=== PATIENT | female | born 1940 | race Caucasian/White ===

== ENCOUNTER → 2016-11-08 | Outpatient (CLI) | payer BC ==
[~2016-11-08] MED LIST: APIX1TAB PO; CHOL1000 PO; CRD200 PO; LEVO100T7 PO; METO25TA3 PO; MULTTAB58 PO; PRVC/40 PO
--- NOTE | 2016-11-08 10:58 | DIAGNOSTIC IMAGING REPORT ---
KUB CLINICAL HISTORY: Nephrolithiasis. COMPARISON STUDY: CT of the abdomen and pelvis June 28, 2016 and KUB October 11, 2016 FINDINGS: A right pelvic calcification represents a phlebolith. There bilateral hip arthroplasties. There are several suspected punctate left renal calculi. No ureteral calculi are identified. Calculi within lower pole of the right kidney are unchanged and measure up to 1.5 cm. IMPRESSION: 1. No significant change in two right renal calculi which measure up to 1.5 cm. 2. Punctate left renal calculi. 3. No ureteral calculi. Electronically signed by: Tremayne Bronson M.D. 11/08/2016 10:56 AM
== END | disposition home or self-care (01) ==
LOC: C.RAD 10:13
PROVIDERS: ATTEND Urology
DX: N20.0 Calculus of kidney (principal)

== ENCOUNTER → 2017-01-25 | Outpatient (CLI) | payer BC ==
[2017-01-25 12:10] LABS: BASO % 0.1 %; BASO ABS # 0.01 K/uL (0-0.2); COMPLETE YES; EOS % 3.9 %; HEMATOCRIT 39.5 % (37-47); IG% 0.1 %; LYMPH % 21.8 %; LYMPH ABS # 1.61 K/uL (1.2-3.4); MEAN CELL VOLUME 96.6 fL (80-100); MEAN CORPUSCULAR HEMOGLOBIN 30.8 pg (25-34); MEAN CORPUSCULAR HGB CONC 31.9 g/dl (32-36); MEAN PLATELET VOLUME 12.9 fL (7.4-10.4); MONO % 9.6 %; NEUT % 64.5 %; PLATELET COUNT 222 K/uL (130-400); RED BLOOD COUNT 4.09 M/uL (4.2-5.4); WHITE BLOOD COUNT 7.39 K/uL (4.8-10.8)
[2017-01-25 13:03] LABS: ALT/SGPT 46 U/L (12-78); AST/SGOT 42 U/L (15-37); BLOOD UREA NITROGEN 18 mg/dl (7-18); BUN/CREATININE RATIO 15.2 (10-20); CALCIUM 8.6 mg/dl (8.5-10.1); CARBON DIOXIDE 29 mmol/L (21-32); CHLORIDE 107 mmol/L (98-107); GLUCOSE 70 mg/dl (70-99); SODIUM 142 mmol/L (136-145)
[2017-01-25 13:14] LABS: ALB/GLOB RATIO 0.9 (0.9-2); ALKALINE PHOSPHATASE 100 U/L (45-117)
== END | disposition home or self-care (01) ==
LOC: C.LAB1850 11:11
PROVIDERS: ATTEND Internal Medicine
DX: E03.9 Hypothyroidism, unspecified (principal); I48.0 Paroxysmal atrial fibrillation

== ENCOUNTER → 2017-03-09 | Outpatient (CLI) | payer BC ==
--- NOTE | 2017-03-09 10:26 | DIAGNOSTIC IMAGING REPORT ---
KUB CLINICAL HISTORY: N20.0 [id number] nephrocalcinosis COMPARISON STUDY: 11/08/2016 FINDINGS: Right renal nephrocalcinosis unchanged in the prior study. Several punctate left renal calcifications also unchanged. Nonobstructive bowel pattern. Bilateral hip arthroplasties. IMPRESSION: Right and to lesser extent left renal nephrocalcinosis unchanged from the prior study. Electronically signed by: Cameron Henry M.D. 03/09/2017 10:25 AM Dictated Date/Time: 03/09/2017 10:20 AM
== END | disposition home or self-care (01) ==
LOC: C.RAD 09:55
PROVIDERS: ATTEND Urology
DX: N20.0 Calculus of kidney (principal)

== ENCOUNTER → 2017-05-26 | Outpatient (CLI) | payer BC ==
--- NOTE | 2017-05-26 15:52 | DIAGNOSTIC IMAGING REPORT ---
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 No calculi are seen along the course of either ureter. Vascular calcifications are again seen within the pelvis. Bowel gas pattern is nonobstructive. Bilateral hip arthroplasty noted. There is convex-right curvature of the mid lumbar spine with multilevel degenerative changes. IMPRESSION: Bilateral nephrolithiasis redemonstrated without calculi seen along the course of either ureter. The above report was generated using voice recognition software. It may contain grammatical, syntax or spelling errors. Electronically signed by: Neo Hayward M.D. 05/26/2017 3:51 PM Dictated Date/Time: 05/26/2017 3:48 PM
== END | disposition home or self-care (01) ==
LOC: C.RAD 15:07
PROVIDERS: ATTEND Urology
DX: C67.9 Malignant neoplasm of bladder, unspecified (principal); N20.0 Calculus of kidney

== ENCOUNTER → 2017-07-14 | Outpatient (CLI) | payer BC ==
--- NOTE | 2017-07-14 14:39 | DIAGNOSTIC IMAGING REPORT ---
KUB CLINICAL HISTORY: N20.0 [id number] nephrocalcinosis COMPARISON STUDY: 05/26/2017 FINDINGS: Nonobstructive bowel pattern. Unchanging right-sided nephrocalcinosis. No significant paravertebral calcifications. Vascular calcification lateral right soft tissue pelvis unchanged. Bilateral hip arthroplasties. IMPRESSION: Unchanging right nephrocalcinosis. No change from the prior exam. The above report was generated using voice recognition software. It may contain grammatical, syntax or spelling errors. Electronically signed by: Cameron Henry M.D. 07/14/2017 2:38 PM Dictated Date/Time: 07/14/2017 2:36 PM
== END | disposition home or self-care (01) ==
LOC: C.RAD 13:56
PROVIDERS: ATTEND Urology
DX: N20.0 Calculus of kidney (principal)

== ENCOUNTER → 2017-07-19 | Outpatient (CLI) | payer BC | END | disposition home or self-care (01) | LOC: C.LABSPEC 17:02 | PROVIDERS: ATTEND Urology | DX: C67.9 Malignant neoplasm of bladder, unspecified (principal) ==

== ENCOUNTER → 2017-08-04 | Outpatient (CLI) | payer BC | END | disposition home or self-care (01) | LOC: C.MAMM 14:53 | PROVIDERS: ATTEND Internal Medicine | DX: M81.0 Age-related osteoporosis without current pathological fracture (principal) ==

== ENCOUNTER → 2017-08-18 | Outpatient (CLI) | payer BC ==
[2017-08-18 10:35] LABS: CHOLESTEROL/HDL RATIO 2.1; THYROID STIMULATING HORMONE 2.25 uIu/ml (0.300-4.500)
== END | disposition home or self-care (01) ==
LOC: C.LAB1850 09:08
PROVIDERS: ATTEND Internal Medicine
DX: E78.5 Hyperlipidemia, unspecified (principal); E03.9 Hypothyroidism, unspecified

== ENCOUNTER → 2017-08-25 | Outpatient (CLI) | payer BC | END | disposition home or self-care (01) | LOC: C.LAB1850 10:53 | PROVIDERS: ATTEND Internal Medicine Rheumatology | DX: M81.0 Age-related osteoporosis without current pathological fracture (principal); E55.9 Vitamin D deficiency, unspecified; E61.8 Deficiency of other specified nutrient elements ==

== ENCOUNTER → 2017-08-26 | Outpatient (CLI) | payer BC ==
--- NOTE | 2017-08-26 13:51 | DIAGNOSTIC IMAGING REPORT ---
KUB HISTORY: Follow-up study NEPHROLITHIASIS COMPARISON: KUB 07/14/2017, CT 06/28/2016. FINDINGS: The bowel gas pattern is non-obstructive. There is no organomegaly. Unchanged bilateral nephrolithiasis without definite ureteral calculi. Phleboliths of the pelvis. No pneumoperitoneum or pneumatosis. No fracture. Multilevel advanced degenerative changes of the spine with dextroscoliosis of the lumbar spine. Bilateral hip arthroplasties noted. Moderate background bone demineralization. IMPRESSION: Unchanged appearance of bilateral nephrolithiasis without definite ureteral calculi. Electronically signed by: Neo Hayward M.D. 08/26/2017 1:50 PM Dictated Date/Time: 08/26/2017 1:48 PM
== END | disposition home or self-care (01) ==
LOC: C.LAB1850 13:17
PROVIDERS: ATTEND Nurse Practitioner Adult Health
DX: N20.0 Calculus of kidney (principal)

== ENCOUNTER → 2017-08-30 | Outpatient (CLI) | payer BC ==
[2017-08-30 17:27] LABS: BLOOD UREA NITROGEN 14 mg/dl (7-18)
== END | disposition home or self-care (01) ==
LOC: C.LAB 15:52
PROVIDERS: ATTEND Nurse Practitioner Adult Health
DX: R10.9 Unspecified abdominal pain (principal)

== ENCOUNTER → 2017-09-01 | Outpatient (CLI) | payer BC ==
[~2017-09-01] MED LIST changes: +OPTIRAY 320 IV PRN
--- NOTE | 2017-09-01 14:46 | DIAGNOSTIC IMAGING REPORT ---
ABD/PELVIS COMBO WITH ORAL HISTORY: 77 years-old Female R10.9 [id number] bilateral flank pain with history of kidney stones COMPARISON: KUB 08/26/2017, CTA 27/12/2015 TECHNIQUE: Multiple axial CT images of the abdomen and pelvis were obtained both with and without the use of 120 mL Optiray 320 IV contrast. Oral contrast also administered. A dose lowering technique was used consistent with the principals of JUSTICE. FINDINGS: Mild bibasilar bronchial wall thickening with areas of subsegmental atelectasis. No pneumoperitoneum. Imaged inferior cardiac chambers are mildly enlarged with coronary arterial disease. Is a lobulated cystic lesion of the hepatic dome, 3.4 x 2.5 cm which is unchanged suggesting hepatic cyst. There is mild unchanged intrahepatic biliary ductal dilation, nonspecific. The liver is otherwise unremarkable. Gallbladder, common bile duct, pancreas, and adrenal glands are unremarkable. There are scattered calcifications through a moderately atrophic pancreas suggesting sequela of chronic pancreatitis. Mild cortical lobulations of the kidneys are seen bilaterally. Calculi in the superior pole left kidney are seen measuring up to 4 mm. There are multiple calculi throughout the right kidney, largest of which involves the renal pelvis, 1.2 x 0.8 cm. Large calculus of the inferior pole right kidney measures 1.2 x 0.8 cm as well. No renal calculi or hydronephrosis identified. The distal ureters, urinary bladder and other pelvic structures are suboptimally visualized secondary to streak artifact from bilateral hip arthroplasty hardware. No definite ureteral calculus identified. On the excretory phase, there is no focal filling defect identified within either ureter or collecting system. Subsegmental low attenuating lesions of the kidneys are too small to characterize however suggest cysts, largest of which measures 4 mm within the superior pole right kidney. Urinary bladder is unremarkable. Uterus is not well seen and likely surgically absent. Severe mixed plaquing of the abdominal aorta. Fusiform aneurysmal dilation of the infrarenal abdominal aorta is seen, 3.2 x 2.8 cm. No bulky adenopathy identified. Mild wall thickening of the distal gastric body and antrum without surrounding inflammatory stranding is likely secondary to nondistention. There is no bowel obstruction. Colonic diverticulosis without evidence of acute diverticulitis. Suggested constipation. The appendix is not clearly seen. No secondary signs of acute appendicitis. Soft tissues are unremarkable. Bones are moderately demineralized. Bilateral hip arthroplasty without complication or malalignment. Severe multilevel discogenic degenerative changes of the spine. Remote T12 compression deformity. Age-indeterminate proximally 20% superior endplate compression deformity of L2 is new from prior exam of 06/28/2016. No significant retropulsion. IMPRESSION: 1. Osteopenic appearing bones with age-indeterminate 20% superior endplate compression deformity of L2 without retropulsion is new from comparison study of 06/28/2016. Remote T12 compression deformity is also seen. 2. Bilateral nephrolithiasis without definite ureteral calculi or hydronephrosis. Evaluation of the urinary bladder and distal ureters however is limited secondary to streak artifact from bilateral hip arthroplasty hardware. 3. Additional findings as above. The above report was generated using voice recognition software. It may contain grammatical, syntax or spelling errors. Electronically signed by: Neo Hayward M.D. 09/01/2017 2:44 PM Dictated Date/Time: 09/01/2017 2:31 PM
== END | disposition home or self-care (01) ==
LOC: C.CTS 14:02
PROVIDERS: ATTEND Nurse Practitioner Adult Health
DX: R10.9 Unspecified abdominal pain (principal)

== ENCOUNTER 2018-02-11 21:11 | Inpatient (IN) | payer BC, OTHER ==
[~2018-02-11] VITALS: Ht 170.2 cm; Wt 55.6 kg
[~2018-02-11 21:11] MED LIST changes: -OPTIRAY 320 IV PRN
[2018-02-11] MEDS ORDERED: SODIUM CHLORIDE 0.9% 500ML 500 ML IV STA (21:53)
[2018-02-11] MEDS ORDERED: MAGNESIUM SULFATE 1GM / D5W 1 GM BAG IV STA (21:53)
[2018-02-11] MEDS ORDERED: METHYLPREDNISOLONE 125 MG VIAL IV STA (21:53)
[2018-02-11] MEDS ORDERED: ALBUT/IPRATROP 3MG/0.5MG NEB 3 ML VIAL INH ONE (22:00)
--- NOTE | 2018-02-11 22:03 | EMERGENCY ROOM VISIT NOTE ---
History Report prepared by Justice: José Miguel Amos Under the Supervision of: Dr. Dedrick Carrion M.D. First contact with patient: 21:45 Chief Complaint: RESPIRATORY PROBLEMS Stated Complaint: PNEUMONIA, RACING HEART History of Present Illness The patient is a 77 year old female who presents to the Emergency Room with complaints of constant shortness of breath that began this morning. She rates her discomfort as a 6/10 in severity. The patient states that she was fine yesterday. She reports that she woke up this morning with shortness of breath and a productive cough. The patient states that she was coughing up sputum until about 1200 this afternoon when her cough stopped being productive. She reports that she was also experiencing dizziness whenever she stands up. The patient denies a history of COPD, oxygen use, inhaler use, fevers, chills, urinary symptoms, diarrhea, headaches, body aches, and repeating history of upper respiratory infections. She states that she was recently around a family member who has pneumonia. The patient reports that she has been smoking a pack of cigarettes a day for the past 40 years. She reports a history of atrial fibrillation. Source of History: patient Onset: this morning Position: other (global) Symptom Intensity: 6/10 Quality: other (global) Timing: constant Associated Symptoms: + cough, No fevers, No chills, No headache, No diarrhea , No urinary symptoms Note: Associated symptoms: dizziness with standing up Denies: body aches Review of Systems See HPI for pertinent positives and negatives. A total of ten systems were reviewed and were otherwise negative. Past Medical & Surgical Medical Problems: (1) Atrial fibrillation (2) CALCULUS OF URETER (3) HYPERLIPIDEMIA NEC/NOS (4) HYPERTENSION NOS (5) MAL LIBRADO BLADDER-DOME (6) Paroxysmal atrial fibrillation with RVR (7) Total replacement of hip Family History No pertinent family history Social History Smoking Status: Current Every Day Smoker Alcohol Use: none Drug Use: none Marital Status: single Housing Status: lives with family Occupation Status: retired Current/Historical Medications Scheduled Amiodarone HCl (Amiodarone HCl), 200 MG PO DAILY Calcium Citrate (Calcium Citrate), Unknown Dose PO DAILY Levothyroxine Sodium (Levothyroxine Sodium), 125 MG PO DAILY Metoprolol Succ (Toprol Xl) (Toprol-Xl), 25 MG PO BID Pravastatin Sod (Pravastatin Sodium), 40 MG PO QPM Risedronate Sodium (Risedronate Sodium), 150 MG PO MONTHLY Rivaroxaban (Xarelto), 15 MG PO PM Allergies Coded Allergies: No Known Allergies (Unverified , 02/11/18) Physical Exam Vital Signs Date Time Temp Pulse Resp B/P (MAP) Pulse Ox O2 Delivery O2 Flow Rate FiO2 02/12/18 01:58 100 82 Room Air 02/12/18 01:13 95 22 130/77 95 Nasal Cannula 2.0 02/11/18 23:38 75 20 150/69 99 Nebulizer 02/11/18 22:41 64 02/11/18 22:18 56 18 98 Nasal Cannula 2.0 02/11/18 22:00 95 Nasal Cannula 2.0 02/11/18 21:54 95 Nasal Cannula 2.0 02/11/18 21:54 Nasal Cannula 2.0 02/11/18 21:24 36.4 67 20 191/99 90 Room Air Physical Exam GENERAL: Awake, alert, uncomfortable, appearing, in no distress HENT: Normocephalic, atraumatic. Dry mucous membranes. Oropharynx unremarkable. EYES: Normal conjunctiva. Sclera non-icteric. NECK: Supple. No nuchal rigidity. FROM. No JVD. RESPIRATORY: Diminished breath sounds throughout. Scattered wheezes and rhonchi. CARDIAC: Regular rate, normal rhythm. Extremities warm and well perfused. Pulses equal. ABDOMEN: Soft, non-distended. No tenderness to palpation. No rebound or guarding. No masses. RECTAL: Deferred. MUSCULOSKELETAL: Chest examination reveals no tenderness. The back is symmetrical on inspection without obvious abnormality. There is no CVA tenderness to palpation. No joint edema. LOWER EXTREMITIES: Calves are equal size bilaterally and non-tender. No edema. No discoloration. NEURO: Normal sensorium. No sensory or motor deficits noted. SKIN: No rash or jaundice noted. Medical Decision & Procedures ER Provider Diagnostic Interpretation: X-ray: Per my interpretation, radiologist review. CHEST ONE VIEW PORTABLE CLINICAL HISTORY: 77 years-old Female presenting with CHEST PAIN. TECHNIQUE: Portable upright AP view of the chest was obtained. COMPARISON: 08/23/2016. FINDINGS: Atherosclerosis of aortic arch. Cardiac silhouette mildly enlarged. Lungs hyperinflated. No focal opacity. No large effusion or pneumothorax. Right shoulder arthroplasty. Upper abdomen normal. IMPRESSION: 1. Suspected underlying emphysema. No superimposed focal infiltrate. 2. Mild cardiomegaly. Electronically signed by: Prasad Bell M.D. 02/11/2018 10:16 PM Dictated Date/Time: 02/11/2018 10:15 PM Laboratory Results 02/11/18 21:53 Red Blood Count 4.08, Mean Corpuscular Volume 94.1, Mean Corpuscular Hemoglobin 31.6, Mean Corpuscular Hemoglobin Concent 33.6, Mean Platelet Volume 11.4, Neutrophils (%) (Auto) 59.6, Lymphocytes (%) (Auto) 21.2, Monocytes (%) (Auto) 11.3, Eosinophils (%) (Auto) 7.3, Basophils (%) (Auto) 0.3, Neutrophils # (Auto ) 3.73, Lymphocytes # (Auto) 1.33, Monocytes # (Auto) 0.71, Eosinophils # (Auto ) 0.46, Basophils # (Auto) 0.02 02/11/18 21:53 Test 02/11/18 21:53 02/11/18 22:09 02/11/18 22:40 White Blood Count 6.27 K/uL (4.8-10.8) Red Blood Count 4.08 M/uL (4.2-5.4) Hemoglobin 12.9 g/dL (12.0-16.0) Hematocrit 38.4 % (37-47) Mean Corpuscular Volume 94.1 fL (80-100) Mean Corpuscular Hemoglobin 31.6 pg (25-34) Mean Corpuscular Hemoglobin Concent 33.6 g/dl (32-36) Platelet Count 245 K/uL (130-400) Mean Platelet Volume 11.4 fL (7.4-10.4) Neutrophils (%) (Auto) 59.6 % Lymphocytes (%) (Auto) 21.2 % Monocytes (%) (Auto) 11.3 % Eosinophils (%) (Auto) 7.3 % Basophils (%) (Auto) 0.3 % Neutrophils # (Auto) 3.73 K/uL (1.4-6.5) Lymphocytes # (Auto) 1.33 K/uL (1.2-3.4) Monocytes # (Auto) 0.71 K/uL (0.11-0.59) Eosinophils # (Auto) 0.46 K/uL (0-0.5) Basophils # (Auto) 0.02 K/uL (0-0.2) RDW Standard Deviation 47.6 fL (36.4-46.3) RDW Coefficient of Variation 13.9 % (11.5-14.5) Immature Granulocyte % (Auto) 0.3 % Immature Granulocyte # (Auto) 0.02 K/uL (0.00-0.02) Anion Gap 6.0 mmol/L (3-11) Est Creatinine Clear Calc Drug Dose 26.1 ml/min Estimated GFR () 36.5 Estimated GFR (Non- 31.5 BUN/Creatinine Ratio 10.7 (10-20) Calcium Level 8.5 mg/dl (8.5-10.1) Total Bilirubin 0.3 mg/dl (0.2-1) Direct Bilirubin 0.1 mg/dl (0-0.2) Aspartate Amino Transf (AST/SGOT) 34 U/L (15-37) Alanine Aminotransferase (ALT/SGPT) 30 U/L (12-78) Alkaline Phosphatase 127 U/L (45-117) Troponin I < 0.015 ng/ml (0-0.045) Pro-B-Type Natriuretic Peptide 923 pg/ml (0-1800) Total Protein 7.9 gm/dl (6.4-8.2) Albumin 3.5 gm/dl (3.4-5.0) Lipase 198 U/L (73-393) Venous Blood pH 7.39 (7.36-7.41) Venous Blood Partial Pressure CO2 45 mmHg (38.0-50.0) Venous Blood Partial Pressure O2 47 mmHg Venous Blood HCO3 26 mmol/L Venous Blood Oxygen Saturation 79.4 % Venous Blood Base Excess 1.0 mEq/L Influenza Type A (RT-PCR) Neg for Influ A (NEG) Influenza Type B (RT-PCR) Neg for Influ B (NEG) Laboratory results reviewed by me Medications Administered Medications (Trade) Dose Ordered Sig/Laney Route Start Time Stop Time Status Last Admin Dose Admin Sodium Chloride 500 ml @ 999 mls/hr Q31M STAT IV 02/11/18 21:53 02/11/18 22:23 DC 02/11/18 22:11 999 MLS/HR Methylprednisolone Sodium Succinate (Solu-Medrol IV) 125 mg NOW STAT IV 02/11/18 21:53 02/11/18 21:58 DC 02/11/18 22:09 125 MG Magnesium Sulfate (Magnesium Sulfate) 2 gm NOW STAT IV 02/11/18 21:53 02/11/18 21:58 DC 02/11/18 22:10 2 GM Albuterol/ Ipratropium (Duoneb) 12 ml ONE ONCE INH 02/11/18 22:00 02/11/18 22:01 DC 02/11/18 22:18 12 ML Azithromycin 500 mg/Dextrose 255 ml @ 127.5 mls/ hr NOW STAT IV 02/11/18 23:52 02/12/18 01:51 DC 02/12/18 00:12 127.5 MLS/HR Nicotine (Nicoderm Cq 21MG Patch) 1 patch NOW STAT TD 02/12/18 01:56 02/12/18 01:59 DC 02/12/18 04:14 1 PATCH ECG Per My Interpretation Indication: SOB/dyspnea Rate (beats per minute): 57 Rhythm: sinus bradycardia Findings: no acute ischemic change, other (Normal axis) ED Course 1951: The patient was evaluated in room B06. A complete history and physical exam was performed. 2328: I reevaluated the patient and updated her on her results. I discussed treatment plan. 0009: I discussed the patient's case with Dr. Pinto, [facility] Hospitalist. He understands the patient's condition and agrees to accept the patient. The patient will be further evaluated. Medical Decision I reviewed the patient's past medical history, medications, and the nursing notes as described above. The patient's presentation and history were concerning for etiologies such as infections, reactive airway disease, pneumonia, pneumothorax, COPD, CHF, cardiac ischemia, pulmonary embolism, musculoskeletal, gastrointestinal, as well as others were entertained. The patient is a 77-year-old woman with a past medical history of a 40-pack- year history of smoking, afib on Xarelto who presents emergency department with worsening cough congestion shortness of breath that evolved throughout today per hpi. Rather the patient is uncomfortable but no acute distress, afebrile stable vital signs. Does have a new oxygen requirement of 3 L. On exam the patient has diminished breath sounds throughout with scattered wheezes and rhonchi. X-ray negative for pneumonia but consistent with emphysema. Patient feeling improved with steroids and nebulizer, magnesium however still with significant wheezes and rhonchi. Given her new oxygen requirement it is reasonable to admit the patient for further management. Will additional treat with Azithro given productive mucus. Case discussed with Dr. Pinto, [facility] hospitalist, who will evaluate the patient for admission. Medication Reconcilliation Current Medication List: was personally reviewed by me Blood Pressure Screening Patient's blood pressure: Elevated blood pressure Referred to Hospitalist Consults Time Called: [phone] Consulting Physician: Dr. Pinto, [facility] Hospitalist Returned Call: [phone] I discussed the patient's case with Dr. Pinto [facility] Hospitalist. He understands the patient's condition and agrees to accept the patient. The patient will be further evaluated. Impression Primary Impression: COPD exacerbation Scribe Attestation The scribe's documentation has been prepared under my direction and personally reviewed by me in its entirety. I confirm that the note above accurately reflects all work, treatment, procedures, and medical decision making performed by me. Departure Information Dispostion Being Evaluated By Hospitalist Referrals Santy Vasquez M.D. (PCP) Patient Instructions [facility]
[2018-02-11 22:06] LABS: BASO % 0.3 %; BASO ABS # 0.02 K/uL (0-0.2); EOS % 7.3 %; EOS ABS # 0.46 K/uL (0-0.5); HEMATOCRIT 38.4 % (37-47); HEMOGLOBIN 12.9 g/dL (12.0-16.0); IG# 0.02 K/uL (0.00-0.02); LYMPH % 21.2 %; LYMPH ABS # 1.33 K/uL (1.2-3.4); MEAN CELL VOLUME 94.1 fL (80-100); MEAN CORPUSCULAR HEMOGLOBIN 31.6 pg (25-34); MEAN CORPUSCULAR HGB CONC 33.6 g/dl (32-36); MEAN PLATELET VOLUME 11.4 fL (7.4-10.4); MONO % 11.3 %; MONO ABS # 0.71 K/uL (0.11-0.59); NEUT % 59.6 %; NEUT ABS # 3.73 K/uL (1.4-6.5); PLATELET COUNT 245 K/uL (130-400); RED CELL DISTRIBUTION WIDTH CV 13.9 % (11.5-14.5); RED CELL DISTRIBUTION WIDTH SD 47.6 fL (36.4-46.3); WHITE BLOOD COUNT 6.27 K/uL (4.8-10.8)
[2018-02-11 22:18] VITALS: PULSE 56; O2SAT 98
--- NOTE | 2018-02-11 22:18 | DIAGNOSTIC IMAGING REPORT ---
CHEST ONE VIEW PORTABLE CLINICAL HISTORY: 77 years-old Female presenting with CHEST PAIN. TECHNIQUE: Portable upright AP view of the chest was obtained. COMPARISON: 08/23/2016. FINDINGS: Atherosclerosis of aortic arch. Cardiac silhouette mildly enlarged. Lungs hyperinflated. No focal opacity. No large effusion or pneumothorax. Right shoulder arthroplasty. Upper abdomen normal. IMPRESSION: 1. Suspected underlying emphysema. No superimposed focal infiltrate. 2. Mild cardiomegaly. Electronically signed by: Prasad Bell M.D. 02/11/2018 10:16 PM Dictated Date/Time: 02/11/2018 10:15 PM
[2018-02-11 22:23] LABS: ALBUMIN 3.5 gm/dl (3.4-5.0); ALT/SGPT 30 U/L (12-78); AST/SGOT 34 U/L (15-37); BLOOD UREA NITROGEN 17 mg/dl (7-18); CALCIUM 8.5 mg/dl (8.5-10.1); CARBON DIOXIDE 26 mmol/L (21-32); CREATININE 1.55 mg/dl (0.60-1.20); GLUCOSE 95 mg/dl (70-99); LIPASE 198 U/L (73-393); POTASSIUM 3.8 mmol/L (3.5-5.1); SODIUM 138 mmol/L (136-145)
[2018-02-11 22:28] LABS: ALKALINE PHOSPHATASE 127 U/L (45-117); TOTAL PROTEIN 7.9 gm/dl (6.4-8.2)
[2018-02-11] MEDS ORDERED: LEVO125T5 PO (22:39)
[2018-02-11] MEDS ORDERED: CRD200 PO (22:39)
[2018-02-11] MEDS ORDERED: RISE1TAB33 PO (22:39)
[2018-02-11] MEDS ORDERED: RIVA1.5T PO (22:39)
[2018-02-11] MEDS ORDERED: CALC250T8 PO (22:39)
[2018-02-11] MEDS ORDERED: AZITHROMYCIN 500 MG / D5W 250 ML IV STA ×2 (23:52)
[2018-02-12] VITALS (10 sets, daily range): BP systolic 133–183; BP diastolic 70–93; PULSE 62–84; TEMP 36.2–36.5; O2SAT 90–98; Ht 170.2 cm; Wt 55.6 kg
[2018-02-12 00:01] LABS: INFLUENZA A PCR Neg for Influ A (NEG); INFLUENZA B PCR Neg for Influ B (NEG)
[2018-02-12] MEDS ORDERED: NICOTINE 21 MG/24 HR TDSY TD STA (01:56)
[2018-02-12] MEDS ORDERED: ONDANSETRON INJ 2 MG/ML 2 ML VIAL IV PRN (02:00)
[2018-02-12] MEDS ORDERED: LEVAQUIN 750MG / 150ML D5W IV SCH (02:00)
[2018-02-12] MEDS ORDERED: MAGNESIUM HYDROXIDE SUSP 30 ML UDC PO PRN (02:00)
[2018-02-12] MEDS ORDERED: POLYETHYLENE (MIRALAX) 17 GM PACK PO PRN (02:00)
[2018-02-12] MEDS ORDERED: ALUMINUM/MAGNESIUM/SIMETH (MAALOX MAX) 30 ML UDC PO PRN (02:00)
--- NOTE | 2018-02-12 02:12 | History and Physical ---
History & Physical Date & Time of Service: Feb 12, 2018 at 02:12 Chief Complaint: Pneumonia, Racing Heart Primary Care Physician: Santy Vasquez M.D. History of Present Illness Source: patient, hospital records 77 yo F smoker (40 pack yr history) with no previous history of COPD, presenting with productive cough x 1 day, runny nose, fatigue. She is taking taking cough drops only for relief. She reports palpitation. No SOB, chest pain , fevers, chills.S he denies n/v, abdominal pain, diarrhea. Patient got flu vaccine this season. Her daughter was diagnosed with pneumonia on day of arrival. In the ED patient reportedly desaturated into the high 80's during ED stay. She was placed on supplemental oxygen. CXR findings suggestive of emphysema. She was treated with IV Solumedrol Azithromycin, Nebulizer treatments. 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 Family History No pertinent family history Social History Smoking Status: Current Every Day Smoker Smokeless Tobacco Use: No Alcohol Use: none Drug Use: none Marital Status: single Occupational Status: retired Immunizations History of Influenza Vaccine: No History of Tetanus Vaccine?: Yes History of Pneumococcal: Yes Pneumococcal Date: Aug 22, 2008 History of Hepatitis B Vaccine: No Allergies Coded Allergies: No Known Allergies (Unverified , 02/11/18) Home Medications Scheduled Amiodarone HCl (Amiodarone HCl), 200 MG PO DAILY Calcium Citrate (Calcium Citrate), Unknown Dose PO DAILY Levothyroxine Sodium (Levothyroxine Sodium), 125 MG PO DAILY Metoprolol Succ (Toprol Xl) (Toprol-Xl), 25 MG PO BID Pravastatin Sod (Pravastatin Sodium), 40 MG PO QPM Risedronate Sodium (Risedronate Sodium), 150 MG PO MONTHLY Rivaroxaban (Xarelto), 15 MG PO PM Review of Systems Constitutional: + weakness, No fever, No chills Respiratory: + cough, + sputum, No wheezing, No shortness of breath Cardiovascular: No chest pain, No edema, No palpitations Abdomen: No pain, No nausea, No vomiting, No diarrhea Genitourinary - Female: No dysuria, No urinary frequency, No urinary urgency Integumentary: No rash, No itch Physical Exam Vital Signs Date Time Temp Pulse Resp B/P (MAP) Pulse Ox O2 Delivery O2 Flow Rate FiO2 02/12/18 01:58 100 82 Room Air 02/12/18 01:13 95 22 130/77 95 Nasal Cannula 2.0 02/11/18 23:38 75 20 150/69 99 Nebulizer 02/11/18 22:41 64 02/11/18 22:18 56 18 98 Nasal Cannula 2.0 02/11/18 22:00 95 Nasal Cannula 2.0 02/11/18 21:54 95 Nasal Cannula 2.0 02/11/18 21:54 Nasal Cannula 2.0 02/11/18 21:24 36.4 67 20 191/99 90 Room Air GENERAL: alert, thin, no distress EYE EXAM: normal conjunctiva, PERRL and EOM's grossly intact OROPHARYNX: no exudate, no erythema, lips, buccal mucosa, and tongue normal and mucous membranes are moist NECK: supple, no nuchal rigidity, no adenopathy, non-tender LUNGS: Clear to auscultation. Normal chest wall mechanics HEART: S1, S2 ABDOMEN: abdomen soft, non-tender, normo-active bowel sounds, no masses, no rebound or guarding. SKIN: no rashes and no bruising UPPER EXTREMITIES: upper extremities are grossly normal. LOWER EXTREMITIES: No pitting edema. NEURO EXAM: Normal sensorium, cranial nerves II-XII grossly intact, normal speech Diagnostics Laboratory Results Results Past 24 Hours Test 02/11/18 21:53 02/11/18 22:09 02/11/18 22:40 Range/Units White Blood Count 6.27 4.8-10.8 K/uL Red Blood Count 4.08 4.2-5.4 M/uL Hemoglobin 12.9 12.0-16.0 g/dL Hematocrit 38.4 37-47 % Mean Corpuscular Volume 94.1 80-100 fL Mean Corpuscular Hemoglobin 31.6 25-34 pg Mean Corpuscular Hemoglobin Concent 33.6 32-36 g/dl Platelet Count 245 130-400 K/uL Mean Platelet Volume 11.4 7.4-10.4 fL Neutrophils (%) (Auto) 59.6 % Lymphocytes (%) (Auto) 21.2 % Monocytes (%) (Auto) 11.3 % Eosinophils (%) (Auto) 7.3 % Basophils (%) (Auto) 0.3 % Neutrophils # (Auto) 3.73 1.4-6.5 K/uL Lymphocytes # (Auto) 1.33 1.2-3.4 K/uL Monocytes # (Auto) 0.71 0.11-0.59 K/uL Eosinophils # (Auto) 0.46 0-0.5 K/uL Basophils # (Auto) 0.02 0-0.2 K/uL RDW Standard Deviation 47.6 36.4-46.3 fL RDW Coefficient of Variation 13.9 11.5-14.5 % Immature Granulocyte % (Auto) 0.3 % Immature Granulocyte # (Auto) 0.02 0.00-0.02 K/uL Sodium Level 138 136-145 mmol/L Potassium Level 3.8 3.5-5.1 mmol/L Chloride Level 106 98-107 mmol/L Carbon Dioxide Level 26 21-32 mmol/L Anion Gap 6.0 3-11 mmol/L Blood Urea Nitrogen 17 7-18 mg/dl Creatinine 1.55 0.60-1.20 mg/dl Est Creatinine Clear Calc Drug Dose 26.1 ml/min Estimated GFR () 36.5 Estimated GFR (Non- 31.5 BUN/Creatinine Ratio 10.7 10-20 Random Glucose 95 70-99 mg/dl Calcium Level 8.5 8.5-10.1 mg/dl Total Bilirubin 0.3 0.2-1 mg/dl Direct Bilirubin 0.1 0-0.2 mg/dl Aspartate Amino Transf (AST/SGOT) 34 15-37 U/L Alanine Aminotransferase (ALT/SGPT) 30 12-78 U/L Alkaline Phosphatase 127 45-117 U/L Troponin I < 0.015 0-0.045 ng/ml Pro-B-Type Natriuretic Peptide 923 0-1800 pg/ml Total Protein 7.9 6.4-8.2 gm/dl Albumin 3.5 3.4-5.0 gm/dl Lipase 198 73-393 U/L Venous Blood pH 7.39 7.36-7.41 Venous Blood Partial Pressure CO2 45 38.0-50.0 mmHg Venous Blood Partial Pressure O2 47 mmHg Venous Blood HCO3 26 mmol/L Venous Blood Oxygen Saturation 79.4 % Venous Blood Base Excess 1.0 mEq/L Influenza Type A (RT-PCR) Neg for Influ A NEG Influenza Type B (RT-PCR) Neg for Influ B NEG Diagnostic Radiology CHEST ONE VIEW PORTABLE CLINICAL HISTORY: 77 years-old Female presenting with CHEST PAIN. TECHNIQUE: Portable upright AP view of the chest was obtained. COMPARISON: 08/23/2016. FINDINGS: Atherosclerosis of aortic arch. Cardiac silhouette mildly enlarged. Lungs hyperinflated. No focal opacity. No large effusion or pneumothorax. Right shoulder arthroplasty. Upper abdomen normal. IMPRESSION: 1. Suspected underlying emphysema. No superimposed focal infiltrate. 2. Mild cardiomegaly. Impression Assessment and Plan 77 yo F smoker with HTN , HLD, CVD, Bladder cancer no previous history of COPD , presenting with productive cough x 1 day, fatigue admitted for Acute hypoxic respiratory failure Acute Hypoxic respiratory failure Admit to Tele - secondary to suspected COPD exacerbation initial presentation - no formal diagnosis of COPD however, 40 pack year smoking history , suggestive X-ray findings - IV Solumedrol 40 q8, nebs - guaifenesin Elevated Cr -likely prerenal due dehydration - s/p 500 cc NS in ED -F/u repeat BMP Atrial Fibrillation - EKG sinus lucila on arrival - patient reporting palpitation - c/w Amiodarone Hypothyroidism - Synthroid HLD, CVD - c/w Pravastatin - c/w Metoprolol DVT ppx -already on Xarelto Code status: FULL Resus Attending addendum: I have physically seen this patient, have supervised the medical residents activities, and agree with the H&P unless as otherwise noted. Assessment and Plan: Acute respiratory failure with hypoxia/COPD exacerbation-- Solu-Medrol 40 mg IV every 8 hours Guaifenesin extended release 600 mg p.o. twice daily Duonebs every 4 hours while awake and every 2 hours when necessary. Sputum Gram stain and culture. ANTONIETTA-- Gentle hydration with IV fluids-- Check BMP and magnesium level in the a.m. Atrial fibrillation/hypertension-- Continue amiodarone and metoprolol. Hyperlipidemia-- Continue pravastatin. Remainder of medications and orders as above. Advanced Directives Existing Advance Directive: No Existing Living Will: No Existing Power of Jammer Operator: No Resuscitation Status VTE Prophylaxis Will order VTE Prophylaxis: Yes Social Service Consult >80 yr.& Lives Alone Note Total Time: Critical Care 30 - 74 minutes Resident Tracking Resident Involvement: Resident Care Provided Care Provided: Adult Hospital Medicine
[2018-02-12] MEDS ORDERED: LEVOFLOXACIN CONSULT ACTIVE PRN (04:00)
[2018-02-12] MEDS ORDERED: CEFTRIAXONE SOD INJ 1 GM in DEXTROSE 5% ADD-VANTAGE 50ML 50 ML IV SCH (04:00)
[2018-02-12] MEDS ORDERED: LEVOFLOXACIN 750MG / D5W IV SCH (05:00)
[2018-02-12] MEDS: GUAIFENESIN 200 MG TAB PO SCH ×5 (05:48→21:23)
[2018-02-12] MEDS: METHYLPREDNISOLONE IV 40 MG in SYRINGE 0 ML IV SCH ×3 (05:48→21:23)
[2018-02-12] MEDS: LEVOTHYROXINE 125 MCG TAB PO SCH (05:48)
[2018-02-12] MEDS ORDERED: HEPARIN SOD 5000 UNIT/0.5 ML CARP SQ SCH (06:00)
[2018-02-12] MEDS: ALBUT/IPRATROP 3MG/0.5MG NEB 3 ML VIAL INH SCH ×4 (07:09→19:06)
[2018-02-12] MEDS: ACETAMINOPHEN 325 MG TAB PO PRN ×2 (07:48→21:29)
[2018-02-12] MEDS: AMIODARONE 200 MG TAB PO SCH (07:48)
[2018-02-12] MEDS: METOPROLOL SUCC 25MG EXT REL TAB PO SCH ×2 (07:49→21:22)
[2018-02-12 08:55] LABS: CALCIUM 8.4 mg/dl (8.5-10.1); CREATININE 1.53 mg/dl (0.60-1.20); POTASSIUM 3.4 mmol/L (3.5-5.1)
[2018-02-12] MEDS ORDERED: POTASSIUM CHLORIDE 20 MEQ TABCR PO STA (09:53)
--- NOTE | 2018-02-12 10:31 | Family Medicine Progress Note ---
Progress Note Date of Service Feb 12, 2018. Subjective Pt evaluation today including: conversation w/ patient, physical exam, chart review, lab review 77 yo F smoker (40 pack yr history) with no previous diagnosis of COPD, PAfib , hypothyroidism, hyperlipidemia , HTN presenting with productive cough x 1 day , runny nose, fatigue. She states that she had fallen on her back about a week ago. denies any SOB/CP/fevers/chills , states that she has occasional coughing associated with her smoking. Constitutional: No fever, No chills Eyes: No worsening of vision ENT: No hearing loss Respiratory: + cough, No wheezing, No shortness of breath Cardiovascular: No chest pain Abdomen: No pain, No nausea, No vomiting, No diarrhea Musculoskeletal: No joint pain Female : No dysuria, No urinary frequency Neurologic: No memory loss Psychiatric: No depression symptoms Medications Current Inpatient Medications Medications (Trade) Dose Ordered Sig/Laney Route Start Time Stop Time Status Last Admin Dose Admin Acetaminophen (Tylenol Tab) 650 mg Q4H PRN PO 02/12/18 02:00 03/14/18 01:59 02/12/18 07:48 650 MG Al Hydrox/Mg Hydrox/Simethicone (Maalox Max Susp) 15 ml Q4H PRN PO 02/12/18 02:00 03/14/18 01:59 Magnesium Hydroxide (Milk Of Magnesia Susp) 30 ml Q12H PRN PO 02/12/18 02:00 03/14/18 01:59 Ondansetron HCl (Zofran Inj) 4 mg Q6H PRN IV 02/12/18 02:00 03/14/18 01:59 Polyethylene (Miralax Powder Packet) 17 gm DAILY PRN PO 02/12/18 02:00 03/14/18 01:59 Ceftriaxone Sodium 1 gm/ Dextrose 50 ml @ 100 mls/hr Q24H IV 02/12/18 04:00 02/19/18 03:59 02/12/18 04:03 100 MLS/HR Amiodarone HCl (Cordarone Tab) 200 mg DAILY PO 02/12/18 09:00 03/14/18 08:59 02/12/18 07:48 200 MG Levothyroxine Sodium (Synthroid Tab) 125 mcg DAILYBB PO 02/12/18 06:00 03/14/18 06:59 02/12/18 05:48 125 MCG Metoprolol Succinate (Toprol Xl Tab) 25 mg BID PO 02/12/18 09:00 03/14/18 08:59 02/12/18 07:49 25 MG Pravastatin Sodium (Pravachol Tab) 40 mg QPM PO 02/12/18 21:00 03/14/18 20:59 Rivaroxaban (Xarelto Tab) 15 mg PM PO 02/12/18 21:00 03/14/18 20:59 Methylprednisolone Sodium Succinate 40 mg/Syringe 0.64 ml @ 1.5 mls/min Q8H IV 02/12/18 06:00 03/14/18 05:59 02/12/18 05:48 1.5 MLS/MIN Guaifenesin (Organidin Nr Tab) 200 mg Q4H PO 02/12/18 06:00 03/14/18 05:59 02/12/18 07:49 200 MG Albuterol/ Ipratropium (Duoneb) 3 ml QIDR INH 02/12/18 08:00 03/14/18 07:59 02/12/18 07:09 3 ML Levofloxacin 750 mg/Prmx 150 ml @ 100 mls/hr Q48H IV 02/12/18 05:00 02/19/18 04:59 02/12/18 04:11 100 MLS/HR Levofloxacin (Consult) 1 ea UD PRN N/A 02/12/18 04:00 03/14/18 03:59 Objective Vital Signs Date Time Temp Pulse Resp B/P (MAP) Pulse Ox O2 Delivery O2 Flow Rate FiO2 02/12/18 08:00 36.5 84 18 133/76 (95) 98 Nasal Cannula 2.0 02/12/18 08:00 Nasal Cannula 2.0 02/12/18 07:10 64 18 97 Nasal Cannula 2.0 02/12/18 06:21 82 168/82 (110) 02/12/18 04:00 Nasal Cannula 2.0 02/12/18 03:30 36.5 81 24 183/93 98 Nasal Cannula 2.0 02/12/18 02:56 84 20 166/90 93 02/12/18 01:58 100 82 Room Air 02/12/18 01:13 95 22 130/77 95 Nasal Cannula 2.0 02/11/18 23:38 75 20 150/69 99 Nebulizer 02/11/18 22:41 64 02/11/18 22:18 56 18 98 Nasal Cannula 2.0 02/11/18 22:00 95 Nasal Cannula 2.0 02/11/18 21:54 95 Nasal Cannula 2.0 02/11/18 21:54 Nasal Cannula 2.0 02/11/18 21:24 36.4 67 20 191/99 90 Room Air Physical Exam General Appearance: WD/WN, no apparent distress ENT: hearing grossly normal Neck: supple Respiratory/Chest: chest non-tender, + decreased breath sounds Cardiovascular: + irregularly irregular Abdomen: non tender, soft, + distended Extremities: no pedal edema Neurologic/Psychiatric: alert, normal mood/affect, oriented x 3 Laboratory Results 02/11/18 21:53 Red Blood Count 4.08, Mean Corpuscular Volume 94.1, Mean Corpuscular Hemoglobin 31.6, Mean Corpuscular Hemoglobin Concent 33.6, Mean Platelet Volume 11.4, Neutrophils (%) (Auto) 59.6, Lymphocytes (%) (Auto) 21.2, Monocytes (%) (Auto) 11.3, Eosinophils (%) (Auto) 7.3, Basophils (%) (Auto) 0.3, Neutrophils # (Auto ) 3.73, Lymphocytes # (Auto) 1.33, Monocytes # (Auto) 0.71, Eosinophils # (Auto ) 0.46, Basophils # (Auto) 0.02 02/12/18 08:17 Test 02/11/18 21:53 02/11/18 22:09 02/11/18 22:40 02/12/18 08:17 White Blood Count 6.27 K/uL (4.8-10.8) Red Blood Count 4.08 M/uL (4.2-5.4) Hemoglobin 12.9 g/dL (12.0-16.0) Hematocrit 38.4 % (37-47) Mean Corpuscular Volume 94.1 fL (80-100) Mean Corpuscular Hemoglobin 31.6 pg (25-34) Mean Corpuscular Hemoglobin Concent 33.6 g/dl (32-36) Platelet Count 245 K/uL (130-400) Mean Platelet Volume 11.4 fL (7.4-10.4) Neutrophils (%) (Auto) 59.6 % Lymphocytes (%) (Auto) 21.2 % Monocytes (%) (Auto) 11.3 % Eosinophils (%) (Auto) 7.3 % Basophils (%) (Auto) 0.3 % Neutrophils # (Auto) 3.73 K/uL (1.4-6.5) Lymphocytes # (Auto) 1.33 K/uL (1.2-3.4) Monocytes # (Auto) 0.71 K/uL (0.11-0.59) Eosinophils # (Auto) 0.46 K/uL (0-0.5) Basophils # (Auto) 0.02 K/uL (0-0.2) RDW Standard Deviation 47.6 fL (36.4-46.3) RDW Coefficient of Variation 13.9 % (11.5-14.5) Immature Granulocyte % (Auto) 0.3 % Immature Granulocyte # (Auto) 0.02 K/uL (0.00-0.02) Total Bilirubin 0.3 mg/dl (0.2-1) Direct Bilirubin 0.1 mg/dl (0-0.2) Aspartate Amino Transf (AST/SGOT) 34 U/L (15-37) Alanine Aminotransferase (ALT/SGPT) 30 U/L (12-78) Alkaline Phosphatase 127 U/L (45-117) Pro-B-Type Natriuretic Peptide 923 pg/ml (0-1800) Total Protein 7.9 gm/dl (6.4-8.2) Albumin 3.5 gm/dl (3.4-5.0) Lipase 198 U/L (73-393) Venous Blood pH 7.39 (7.36-7.41) Venous Blood Partial Pressure CO2 45 mmHg (38.0-50.0) Venous Blood Partial Pressure O2 47 mmHg Venous Blood HCO3 26 mmol/L Venous Blood Oxygen Saturation 79.4 % Venous Blood Base Excess 1.0 mEq/L Influenza Type A (RT-PCR) Neg for Influ A (NEG) Influenza Type B (RT-PCR) Neg for Influ B (NEG) Anion Gap 13.0 mmol/L (3-11) Est Creatinine Clear Calc Drug Dose 26.5 ml/min Estimated GFR () 37.1 Estimated GFR (Non- 32.0 BUN/Creatinine Ratio 8.4 (10-20) Calcium Level 8.4 mg/dl (8.5-10.1) Troponin I < 0.015 ng/ml (0-0.045) Assessment and Plan 77 yo F smoker with HTN , HLD, PAfib, Bladder cancer, no previous diagnosis of COPD, admitted for Acute hypoxic respiratory failure after her saturations dropped to 82 while ambulating. Acute Hypoxic respiratory failure - O2 per protocol, wean as tolerated - IV Solumedrol 40 q8h - Continue nebulizers - Levaquin/ceftriaxone switched to azithromycin Unwitnessed fall about a week ago: Patient unsure about syncope vs mechanical fall - PT/OT - Monitor for arrhythmias Elevated Cr - likely prerenal due to dehydration - Monitor Cr Atrial Fibrillation - Continue amiodarone and Toprol XL - Anticoagulation with Xarelto Hypothyroidism - Synthroid Hyperlipidemia - c/w Pravastatin Smoking history - Smoking cessation counselling - Nicotine replacement DVT ppx -Continue Xarelto Code status: FULL code Resident Physician Supervision Note: I interviewed and examined the patient. Discussed with Dr. Elaine and agree with findings and plan as documented in the note. Any exceptions or clarifications are listed here: None Documented By: Shawn Alicea feeling better breathing better. loosely endorses motivation to quit smoking vitals noted nad breathing unlabored diminished breath sounds globally faint rhonchi L middle lung field only heard with significant amplification COPD (presumed) exacerbation -zithromax, steroids, smoke cessation falls -monitor rhythm, PT/OT; hopefully can go home tobacco abuse -expresses motivation to quit, but when discussing actually quitting at home she seems contemplative at best, will have to continue to encourage otherwise as above Resident Tracking Resident Involvement: Resident Care Provided Care Provided: Adult Hospital Medicine
[2018-02-12] MEDS ORDERED: AZITHROMYCIN 250 MG TAB PO ONE (16:30)
[2018-02-12] MEDS: PRAVASTATIN SOD 40 MG TAB PO SCH (21:22)
[2018-02-12] MEDS: RIVAROXABAN TAB 15 MG TAB PO SCH (21:22)
[2018-02-13] VITALS (14 sets, daily range): BP systolic 114–180; BP diastolic 65–99; PULSE 72–99; TEMP 36.4–36.9; O2SAT 91–97
[2018-02-13] MEDS ORDERED: LORAZEPAM 2 MG/ML 1 ML VIAL ONE (00:41)
[2018-02-13] MEDS ORDERED: LORAZEPAM 2 MG/ML 1 ML VIAL IV STA (00:57)
[2018-02-13] MEDS ORDERED: NURSING VERBAL MED ORDER ONE ×2 (01:00→07:45)
[2018-02-13] MEDS: GUAIFENESIN 200 MG TAB PO SCH ×6 (01:25→20:54)
[2018-02-13] MEDS: LEVOTHYROXINE 125 MCG TAB PO SCH (05:26)
[2018-02-13] MEDS: METHYLPREDNISOLONE IV 40 MG in SYRINGE 0 ML IV SCH (05:26)
[2018-02-13 06:05] LABS: HEMOGLOBIN 11.8 g/dL (12.0-16.0); MEAN CELL VOLUME 94.7 fL (80-100); MEAN CORPUSCULAR HEMOGLOBIN 31.1 pg (25-34); MEAN CORPUSCULAR HGB CONC 32.8 g/dl (32-36); MEAN PLATELET VOLUME 12.4 fL (7.4-10.4); PLATELET COUNT 221 K/uL (130-400); RED CELL DISTRIBUTION WIDTH CV 14.2 % (11.5-14.5); RED CELL DISTRIBUTION WIDTH SD 48.6 fL (36.4-46.3); WHITE BLOOD COUNT 25.84 K/uL (4.8-10.8)
[2018-02-13 06:30] LABS: BASO ABS # 0.01 K/uL (0-0.2); IG# 0.11 K/uL (0.00-0.02); LYMPH % 2.5 %; LYMPH ABS # 0.65 K/uL (1.2-3.4); MONO % 3.9 %; MONO ABS # 1.01 K/uL (0.11-0.59); NEUT % 93.2 %; NEUT ABS # 24.06 K/uL (1.4-6.5)
[2018-02-13 06:46] LABS: CALCIUM 8.4 mg/dl (8.5-10.1); CREATININE 1.59 mg/dl (0.60-1.20); POTASSIUM 4.4 mmol/L (3.5-5.1)
[2018-02-13] MEDS: ALBUT/IPRATROP 3MG/0.5MG NEB 3 ML VIAL INH SCH ×4 (07:02→19:22)
--- NOTE | 2018-02-13 07:33 | Clinical Documentation Query ---
Dr. PINEDA, JEMAL : CLINICAL DOCUMENTATION QUERY Progress notes include "elevated creatinine", noted to be likely prerenal due to dehydration. Patient recieved IVF and will be monitored with serial chemistries. BUN and creatinine on admission of 17 mg/dl and 1.55 mg/dl. In your clinical opinion is this patient being managed for: ( x ) Acute kidney failure ( ) Not Agree ( ) Other explanation of clinical findings (Please Explain) ( ) Unable to determine (Please Define) ( ) Need to Discuss The medical record reflects the following clinical findings, treatment, and risk factors. Clinical Indicators: As above Treatment: IVF, serial chemistries Risk Factors: Age, smoking, dehydration Please clarify and document your clinical opinion in the progress notes and discharge summary. Terms such as "probable", "suspected", "likely", "questionable", "possible", or "still to be ruled out" are acceptable. IF IN AGREEMENT, YOU MUST DOCUMENT ABOVE DIAGNOSTIC STATEMENT IN DAILY PROGRESS NOTES AND DISCHARGE SUMMARY. This document is not part of the patient's record. Thank You, Jose Eastman, RN [phone]
--- NOTE | 2018-02-13 07:33 | Clinical Documentation Query ---
Dr. ARMSTRONG [facility] : CLINICAL DOCUMENTATION QUERY Progress notes include "elevated creatinine", noted to be likely prerenal due to dehydration. Patient recieved IVF and will be monitored with serial chemistries. BUN and creatinine on admission of 17 mg/dl and 1.55 mg/dl. In your clinical opinion is this patient being managed for: (x ) Acute kidney failure ( ) Not Agree ( ) Other explanation of clinical findings (Please Explain) ( ) Unable to determine (Please Define) ( ) Need to Discuss The medical record reflects the following clinical findings, treatment, and risk factors. Clinical Indicators: As above Treatment: IVF, serial chemistries Risk Factors: Age, smoking, dehydration Please clarify and document your clinical opinion in the progress notes and discharge summary. Terms such as "probable", "suspected", "likely", "questionable", "possible", or "still to be ruled out" are acceptable. IF IN AGREEMENT, YOU MUST DOCUMENT ABOVE DIAGNOSTIC STATEMENT IN DAILY PROGRESS NOTES AND DISCHARGE SUMMARY. This document is not part of the patient's record. Thank You, Jose Eastman, RN [phone]
[2018-02-13] MEDS: NICOTINE 21 MG/24 HR TDSY TD SCH (08:58)
[2018-02-13] MEDS: AMIODARONE 200 MG TAB PO SCH (09:00)
[2018-02-13] MEDS: METOPROLOL SUCC 25MG EXT REL TAB PO SCH ×2 (09:00→20:54)
[2018-02-13] MEDS ORDERED: AZITHROMYCIN 250 MG TAB PO ONE (09:00)
--- NOTE | 2018-02-13 16:30 | Family Medicine Progress Note ---
Progress Note Date of Service Feb 13, 2018. Subjective Pt evaluation today including: conversation w/ patient Pt was seen and examined at bedside. Pt was not oriented to time or place. Overnight pt required a 1 to 1 because she was yelling at the nursing staff and being combative. Patient has no issues in the AM and pt was more oriented throughout the day. Constitutional: No fever, No chills, No sweats Respiratory: No cough, No sputum, No wheezing, No shortness of breath, No dyspnea on exertion Cardiovascular: No chest pain Abdomen: No pain, No nausea, No vomiting, No diarrhea Female : No dysuria Endo: No fatigue Objective Physical Exam General Appearance: WD/WN, no apparent distress Eyes: normal inspection, PERRL, EOMI ENT: normal ENT inspection Neck: supple Respiratory/Chest: chest non-tender, lungs clear, no respiratory distress, + pertinent finding (decreased lung sounds in the base bilaterally.) Cardiovascular: no edema, no gallop, no JVD, no murmur, + irregularly irregular Abdomen: normal bowel sounds, non tender, soft, no organomegaly Extremities: normal range of motion, non-tender, normal inspection, no pedal edema, no calf tenderness Neurologic/Psychiatric: box stapler II-XII nml as tested, no motor/sensory deficits, alert, normal mood/affect, oriented x 3 Assessment and Plan 77F smoker with HTN , HLD, PAfib, Bladder cancer, no previous diagnosis of COPD, admitted for Acute hypoxic respiratory failure after her saturations dropped to 82 while ambulating. Acute Hypoxic respiratory failure sec to COPD exacerbation O2 per protocol, wean as tolerated Switch to PO Prednisone from IV Solumedrol 40 q8h Continue nebulizers c/w azithromycin, Day #3. Delirium Unsure of exactly etiology, improved during the day, likely hospital acquired, will also check a UA. possibly sec to sleep disturbance. cutting down steroids should help. If persists will consider further imaging. Unwitnessed fall about a week ago: Patient unsure about syncope vs mechanical fall Last echo in 2016. EF 70%, Diastolic dysfunction, moderate MR, Right ventricular systolic pressure approximately 30mmHg. PT/OT - DC likely to home. No arrhythmias on tele. ANTONIETTA likely prerenal due to dehydration 1.6, baseline around 1.2. Will give 1 bag of NSS @150mls.hr, reassess tomorrow. Atrial Fibrillation Continue amiodarone and Toprol XL Anticoagulation with Xarelto Hypothyroidism Will check TSH in Am, especially since pt on Amiodarone. c/w Synthroid. Hyperlipidemia c/w Pravastatin Smoking history c/w Nicotine patch. DVT ppx Continue Xarelto Dispo: Med Surg, PT to home as long as will have 30/05 supervision. FULL CODE Resident Involvement: Resident Care Provided Care Provided: Adult Hospital Medicine Reviewed: Pt Seen/Exam by Me History confused overnight. now on one on one supervision Constitutional: denies: fever Respiratory: negative: short of breath Cardiovascular: denies chest pain General Appearance: no apparent distress Respiratory: no respiratory distress, decreased breath sounds Cardiovascular: regular rate, rhythm Neurologic/Psychiatric: alert Skin Characteristics: warm/dry Assessment/Plan Resident Physician Supervision Note: I independently interviewed and examined the patient and verified the carbone history and physical, reviewed labs and image studies, discussed the case with the resident Dr. Johnson and agree with the findings and care plan.
[2018-02-13] MEDS ORDERED: SODIUM CHLORIDE 0.9% 1000ML 1,000 ML IV SCH (17:30)
[2018-02-13] MEDS ORDERED: LORAZEPAM 2 MG/ML 1 ML VIAL IV PRN (18:30)
[2018-02-13] MEDS ORDERED: LORAZEPAM INJ 1 MG in SYRINGE 0.5 ML IV PRN (18:30)
[2018-02-13] MEDS: PRAVASTATIN SOD 40 MG TAB PO SCH (20:54)
[2018-02-13] MEDS: RIVAROXABAN TAB 15 MG TAB PO SCH (20:55)
[2018-02-14] VITALS (7 sets, daily range): BP systolic 127–138; BP diastolic 70–77; PULSE 73–83; TEMP 36.6–36.7; O2SAT 91–99
[2018-02-14] MEDS: GUAIFENESIN 200 MG TAB PO SCH ×5 (01:41→17:40)
[2018-02-14] MEDS: LEVOTHYROXINE 125 MCG TAB PO SCH (06:03)
[2018-02-14 07:07] LABS: MEAN CORPUSCULAR HEMOGLOBIN 31.1 pg (25-34); MEAN CORPUSCULAR HGB CONC 32.4 g/dl (32-36); MEAN PLATELET VOLUME 11.9 fL (7.4-10.4); PLATELET COUNT 236 K/uL (130-400); RED CELL DISTRIBUTION WIDTH CV 14.7 % (11.5-14.5); RED CELL DISTRIBUTION WIDTH SD 51.8 fL (36.4-46.3); WHITE BLOOD COUNT 25.31 K/uL (4.8-10.8)
[2018-02-14] MEDS: ALBUT/IPRATROP 3MG/0.5MG NEB 3 ML VIAL INH SCH ×3 (07:08→15:10)
[2018-02-14 07:38] LABS: BASO ABS # 0.01 K/uL (0-0.2); IG# 0.18 K/uL (0.00-0.02); LYMPH % 5.4 %; LYMPH ABS # 1.36 K/uL (1.2-3.4); MONO % 6.3 %; MONO ABS # 1.59 K/uL (0.11-0.59); NEUT % 87.6 %; NEUT ABS # 22.17 K/uL (1.4-6.5)
[2018-02-14 07:41] LABS: ALBUMIN 2.8 gm/dl (3.4-5.0); CALCIUM 7.9 mg/dl (8.5-10.1); CREATININE 1.51 mg/dl (0.60-1.20); POTASSIUM 4.6 mmol/L (3.5-5.1)
[2018-02-14 07:52] LABS: TOTAL PROTEIN 6.4 gm/dl (6.4-8.2)
[2018-02-14] MEDS ORDERED: AZITHROMYCIN 250 MG TAB PO SCH (08:00)
[2018-02-14] MEDS: AMIODARONE 200 MG TAB PO SCH (08:31)
[2018-02-14] MEDS: METOPROLOL SUCC 25MG EXT REL TAB PO SCH (08:33)
[2018-02-14] MEDS: NICOTINE 21 MG/24 HR TDSY TD SCH (08:34)
[2018-02-14] MEDS ORDERED: COUGH DROP (SUGAR FREE) LOZ 24 LOZ/1 BOX LOZ ONE (08:48)
[2018-02-14] MEDS ORDERED: AZIT-57 PO (12:42)
[2018-02-14] MEDS ORDERED: PRED10TA PO (12:42)
--- NOTE | 2018-02-14 13:54 | Discharge Instructions ---
Discharge Instructions Date of Service Feb 14, 2018. Admission Reason for Admission: Copd Exacerbation Discharge Discharge Diagnosis / Problem: COPD Exacerbation Discharge Goals Goal(s): Decrease discomfort, Improve function, Increase independence, Improve disease control, Improve nutritional status, Learn about illness Activity Recommendations Activity Limitations: per Instructions/Follow-up section . Instructions / Follow-Up Instructions / Follow-Up You are being sent home with a prescription for Azithromycin and Prednisone. Information on Azithromycin and Prednisone will be attached to your discharge paperwork. Please read this information carefully. You can start taking the Azithromycin tomorrow morning, take 1 tablet every 24 hours for the next 3 days until complete. You are also being prescribed Prednisone. Take four 10mg tablets starting tomorrow morning and taper the dose downwards every 24hours as follows, 30mg, 30mg, 20mg, 20mg, 10mg, 10mg. Our supportive employment case manager is trying to set up home Physical Therapy. Please keep any home physical therapy appointments arranged for you. The swallow evaluation completed in the hospital was normal. We recommend continuing a normal diet. If you experience a worsening of your symptoms (severe cough, shortness of breath, inability to breath) please call your primary care provider or return to the ER immediately. Please follow up with your primary care doctor within the next week. Current Hospital Diet Patient's current hospital diet: Regular Diet Discharge Diet Recommended Diet: Regular Diet Pending Studies Studies pending at discharge: no Medical Emergencies . Who to Call and When: Medical Emergencies: If at any time you feel your situation is an emergency, please call 911 immediately. . Non-Emergent Contact Non-Emergency issues call your: Primary Care Provider . . "Provider Documentation" section prepared by Cameron Johnson. . Resident Involvement: Resident Care Provided Care Provided: Adult Hospital Medicine
--- NOTE | 2018-02-14 14:08 | Discharge Summary ---
Discharge Summary Date of Service Feb 14, 2018. Discharge Summary Admission Date: Feb 12, 2018 at 02:12 Discharge Date: Feb 14, 2018 Discharge Disposition: Home with services Principal Diagnosis: Acute Hypoxic Respiratory Failure Problems/Secondary Diagnoses: Dementia Hypothyroidism. Tobacco Abuse Atrial Fibrillation Acute Kidney Injury Hyperlipidemia Immunizations: Have You Had Influenza Vaccine: No History of Tetanus Vaccine?: Yes History of Pneumococcal: Yes Pneumococcal Date: Aug 22, 2008 History of Hepatitis B Vaccine: No Procedures: CHEST ONE VIEW PORTABLE CLINICAL HISTORY: 77 years-old Female presenting with CHEST PAIN. IMPRESSION: 1. Suspected underlying emphysema. No superimposed focal infiltrate. 2. Mild cardiomegaly. Medication Reconciliation New Medications: Prednisone Tab (Prednisone) 10 Mg Tab 10 MG PO UD for 7 Days, #16 TAB 4 tabs tomorrow, 3 tabs the next day, then 3 tabs, then 2 tabs, then 2 tabs, then 1 tab, then 1 tab Azithromycin (Azithromycin) 250 Mg Tab 250 MG PO QAM for 3 Days, #3 TAB Continued Medications: Amiodarone HCl (Amiodarone HCl) 200 Mg Tab 200 MG PO DAILY, TAB Calcium Citrate (Calcium Citrate) 250 Mg Tab Unknown Dose PO DAILY Levothyroxine Sodium (Levothyroxine Sodium) 125 Mcg Tab 125 MG PO DAILY Metoprolol Succ (Toprol Xl) (Toprol-Xl) 25 Mg Tabcr 25 MG PO BID Pravastatin Sod (Pravastatin Sodium) 40 Mg Tab 40 MG PO QPM Risedronate Sodium (Risedronate Sodium) 150 Mg Tab 150 MG PO MONTHLY 4TH OF EVERY MONTH Rivaroxaban (Xarelto) 15 Mg Tab 15 MG PO PM, TAB Discharge Exam Pt was seen and examined at bedside. No acute events overnight. Pt did not require sedation. 1 to 1 remains in the room. No events per the to 1. Confusion has considerably improved. Pt denies any acute issues. Constitutional: No fever, No chills, No sweats Respiratory: No cough, No sputum, No wheezing, No shortness of breath, No dyspnea on exertion Cardiovascular: No chest pain Abdomen: No pain, No nausea, No vomiting, No diarrhea Female : No dysuria Endo: No fatigue Physical Exam General Appearance: WD/WN, no apparent distress Eyes: normal inspection, PERRL, EOMI ENT: normal ENT inspection Neck: supple Respiratory/Chest: chest non-tender, lungs clear, no respiratory distress, + pertinent finding (decreased lung sounds posteriorly bilaterally.) Cardiovascular: no edema, no gallop, no JVD, no murmur, + irregularly irregular Abdomen: normal bowel sounds, non tender, soft, no organomegaly Extremities: normal range of motion, non-tender, normal inspection, no pedal edema, no calf tenderness 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 Patient was treated with IV antibiotics and IV steroids that were gradually tapered to PO. She was discharged on a daily Prednisone taper (40mg, 30mg, 30mg , 20mg, 20mg, 10mg, 10mg) and 3 days of Azithromycin starting the AM after discharge. Swallowing evaluation done which was negative. Hospital course was complicated by hospital acquired delirium which required 1 to 1 observation. Patient was discharged at her baseline. Her baseline was confirmed by seperate discussions with her son in law and daughter. On the day of discharge her son in law confirmed that she was "pretty much at her normal". The daughter (Francy) also stated that the patient will be with a family member for the first 24 hours after discharge. Home PT will be arranged for the patient on discharge based on our inpatient PT recommendations. The patient passed a speech swallow evaluation without any restrictions. TSH in the hospital was found to be 0.286. To address dose adjustment as outpatient. The patient was on telemetry monitoring for approximately 48 hours and no events were found. The patient did have an elevated creatinine (1.6) which was treated with IV fluids and PO hydration. All other home medications were resumed on discharge. Total Time Spent: Greater than 30 minutes This includes examination of the patient, discharge planning, medication reconciliation, and communication with other providers. Discharge Instructions Please refer to the electronic Patient Visit Report (Discharge Instructions) for additional information. Follow-Up Follow up PCP in one week. Additional Copies To Santy Vasquez M.D. Resident Involvement: Resident Care Provided Care Provided: Adult Hospital Medicine Reviewed: Pt Seen/Exam by Me History didn't get good sleep last night but overall feeling well Constitutional: denies: fever Respiratory: negative: short of breath Cardiovascular: denies chest pain General Appearance: no apparent distress Respiratory: no respiratory distress Cardiovascular: regular rate, rhythm Neurologic/Psychiatric: alert Skin Characteristics: warm/dry Assessment/Plan Resident Physician Supervision Note: I independently interviewed and examined the patient and verified the carbone history and physical, reviewed labs and image studies, discussed the case with the resident Dr. Johnson and agree with the findings and care plan. Time spent in discharge 40min
[2018-02-14] MEDS ORDERED: IPRATROPIUM BROMIDE/ALBUTEROL respimat INH INH STA (16:28)
== END 2018-02-14 18:13 | disposition home health service (06) | DRG 190 ==
LOC: C.EDB 21:12 → C.2T 02-12 02:12 → ENRESERV 02-12 02:20 → C.4E 02-13 17:08
PROVIDERS: ADMIT Hospitalist; ATTEND Family Medicine
DX: J44.1 Chronic obstructive pulmonary disease with (acute) exacerbation (principal); J96.01 Acute respiratory failure with hypoxia; N17.9 Acute kidney failure, unspecified; I48.91 Unspecified atrial fibrillation; E78.5 Hyperlipidemia, unspecified; I10 Essential (primary) hypertension; E86.0 Dehydration; E03.9 Hypothyroidism, unspecified; F03.90 Unspecified dementia, unspecified severity, without behavioral disturbance, psychotic disturbance, mood disturbance, and anxiety; R41.0 Disorientation, unspecified; F17.200 Nicotine dependence, unspecified, uncomplicated; Z79.01 Long term (current) use of anticoagulants; Z79.899 Other long term (current) drug therapy; Z91.81 History of falling

== ENCOUNTER → 2018-03-03 | Outpatient (CLI) | payer BC ==
[~2018-03-03] MED LIST changes: -APIX1TAB PO; +AZIT-57 PO; +CALC250T8 PO; -CHOL1000 PO; -LEVO100T7 PO; +LEVO125T5 PO; -MULTTAB58 PO; +RISE1TAB33 PO; +RIVA1.5T PO
[2018-03-03 13:40] LABS: BASO % 0.2 %; BASO ABS # 0.01 K/uL (0-0.2); EOS ABS # 0.13 K/uL (0-0.5); HEMATOCRIT 36.5 % (37-47); HEMOGLOBIN 11.8 g/dL (12.0-16.0); IG# 0.02 K/uL (0.00-0.02); LYMPH % 17.9 %; LYMPH ABS # 1.17 K/uL (1.2-3.4); MEAN CELL VOLUME 95.3 fL (80-100); MEAN CORPUSCULAR HEMOGLOBIN 30.8 pg (25-34); MEAN CORPUSCULAR HGB CONC 32.3 g/dl (32-36); MEAN PLATELET VOLUME 11.6 fL (7.4-10.4); MONO % 10.6 %; MONO ABS # 0.69 K/uL (0.11-0.59); PLATELET COUNT 283 K/uL (130-400); RED CELL DISTRIBUTION WIDTH CV 13.7 % (11.5-14.5); RED CELL DISTRIBUTION WIDTH SD 47.5 fL (36.4-46.3); WHITE BLOOD COUNT 6.52 K/uL (4.8-10.8)
[2018-03-03 14:39] LABS: ALT/SGPT 22 U/L (12-78); AST/SGOT 29 U/L (15-37); BLOOD UREA NITROGEN 18 mg/dl (7-18); CALCIUM 8.9 mg/dl (8.5-10.1); CARBON DIOXIDE 28 mmol/L (21-32); CREATININE 1.51 mg/dl (0.60-1.20); GLUCOSE 144 mg/dl (70-99); POTASSIUM 4.1 mmol/L (3.5-5.1); SODIUM 137 mmol/L (136-145); TOTAL PROTEIN 7.5 gm/dl (6.4-8.2)
[2018-03-03 14:48] LABS: ALKALINE PHOSPHATASE 89 U/L (45-117)
== END | disposition home or self-care (01) ==
LOC: C.LAB1850 12:22
PROVIDERS: ATTEND Internal Medicine Rheumatology
DX: M80.00XA Age-related osteoporosis with current pathological fracture, unspecified site, initial encounter for fracture (principal); E55.9 Vitamin D deficiency, unspecified; E61.8 Deficiency of other specified nutrient elements; Z79.899 Other long term (current) drug therapy; I48.0 Paroxysmal atrial fibrillation

== ENCOUNTER → 2018-03-13 | Outpatient (CLI) | payer BC ==
--- NOTE | 2018-03-13 14:32 | DIAGNOSTIC IMAGING REPORT ---
KUB CLINICAL HISTORY: 77 years-old Female presenting with N20.0 [id number]. TECHNIQUE: Single supine view of the abdomen was obtained. COMPARISON: 08/26/[address] from 06/28/2016.. FINDINGS: Nonobstructive bowel gas pattern. Moderate stool burden. No gross pneumoperitoneum. Prominent right renal calculi again noted unchanged in appearance. Calcifications project over the pancreatic tail cyst and with chronic pancreatitis. The previously noted punctate left renal calculus is not definitively visualized. Stable distribution of pelvic phleboliths and atherosclerotic calcification. Degenerative changes of the spine. Bilateral total hip prostheses. Lung bases clear. IMPRESSION: 1. Prominent right renal calculi unchanged. Previously noted punctate left renal calculus is not appreciated. No definite ureteral calculi. 2. Calcifications related to chronic pancreatitis. 3. Moderate stool burden. Electronically signed by: Prasad Bell M.D. 03/13/2018 2:31 PM Dictated Date/Time: 03/13/2018 2:27 PM
== END | disposition home or self-care (01) ==
LOC: C.RAD 14:05
PROVIDERS: ATTEND Urology
DX: N20.0 Calculus of kidney (principal); K59.00 Constipation, unspecified

== ENCOUNTER → 2018-03-23 | Outpatient (CLI) | payer BC | END | disposition home or self-care (01) | LOC: C.PATHSPEC 17:40 | PROVIDERS: ATTEND Urology | DX: C67.9 Malignant neoplasm of bladder, unspecified (principal) ==

== ENCOUNTER → 2018-06-06 | Outpatient (CLI) | payer BC ==
[2018-06-06 16:34] LABS: BASO % 0.2 %; BASO ABS # 0.01 K/uL (0-0.2); EOS % 5.5 %; EOS ABS # 0.35 K/uL (0-0.5); HEMATOCRIT 41.6 % (37-47); HEMOGLOBIN 13.3 g/dL (12.0-16.0); IG# 0.02 K/uL (0.00-0.02); LYMPH % 26.3 %; LYMPH ABS # 1.69 K/uL (1.2-3.4); MEAN CELL VOLUME 93.7 fL (80-100); MEAN PLATELET VOLUME 13.6 fL (7.4-10.4); MONO ABS # 0.77 K/uL (0.11-0.59); NEUT % 55.7 %; NEUT ABS # 3.58 K/uL (1.4-6.5); PLATELET COUNT 192 K/uL (130-400); RED CELL DISTRIBUTION WIDTH CV 13.8 % (11.5-14.5); RED CELL DISTRIBUTION WIDTH SD 47.5 fL (36.4-46.3); WHITE BLOOD COUNT 6.42 K/uL (4.8-10.8)
[2018-06-06 17:04] LABS: ALBUMIN 3.7 gm/dl (3.4-5.0); ALKALINE PHOSPHATASE 82 U/L (45-117); ALT/SGPT 27 U/L (12-78); AST/SGOT 37 U/L (15-37); BLOOD UREA NITROGEN 25 mg/dl (7-18); CALCIUM 9.8 mg/dl (8.5-10.1); CARBON DIOXIDE 29 mmol/L (21-32); CREATININE 1.47 mg/dl (0.60-1.20); GLUCOSE 86 mg/dl (70-99); POTASSIUM 4.2 mmol/L (3.5-5.1); SODIUM 137 mmol/L (136-145); TOTAL PROTEIN 7.6 gm/dl (6.4-8.2)
== END | disposition home or self-care (01) ==
LOC: C.LAB1850 15:30
PROVIDERS: ATTEND Internal Medicine Cardiovascular Disease
DX: I10 Essential (primary) hypertension (principal); D64.9 Anemia, unspecified

== ENCOUNTER 2019-10-10 15:56 | Inpatient (IN) ==
[2019-10-10 16:41] LABS: Basophils # (auto) 0.01 K/uL (0-0.2); Basophils % (auto) 0.1 %; Eosinophils # (auto) 0.16 K/uL (0-0.5); Eosinophils % (auto) 2.1 %; Hematocrit (blood only) 37.6 % (37-47); Hemoglobin 11.8 g/dL (12.0-16.0); Immature Granulocytes # (auto) 0.04 K/uL (0.00-0.02); Immature Granulocytes % (auto) 0.5 %; Lymphocytes # (auto) 1.56 K/uL (1.2-3.4); Lymphocytes % (auto) 20.2 %; Mean Corpuscular Hemoglobin 29.9 pg (25-34); Mean Corpuscular Hgb Conc 31.4 g/dL (32-36); Mean Corpuscular Volume 95.2 fL (80-100); Mean Platelet Volume 11.8 fL (7.4-10.4); Monocytes # (auto) 0.92 K/uL (0.11-0.59); Monocytes % (auto) 11.9 %; Neutrophils # (auto) 5.02 K/uL (1.4-6.5); Neutrophils % (auto) 65.2 %; Platelet Count 213 K/uL (130-400); RDW Coefficient of Variation 14.5 % (11.5-14.5); RDW Standard Deviation 50.9 fL (36.4-46.3); Red Blood Count 3.95 M/uL (4.2-5.4); White Blood Count 7.71 K/uL (4.8-10.8)
[2019-10-10 16:52] LABS: Partial Thromboplastin Ratio 0.8; Partial Thromboplastin Time 22.7 Seconds (21.0-31.0); Prothrombin Time 9.8 Seconds (9.0-12.0)
[2019-10-10 16:55] LABS: Calcium 9.3 mg/dl (8.5-10.1); Creatinine Clr Calc Pharmacy 23.8 ml/min; Est GFR (African American) 32.9; Est GFR (Non-African American) 28.4; Potassium 3.5 mmol/L (3.5-5.1)
[2019-10-10] MEDS ORDERED: fentaNYL citrate 100 MCG/2 ML VIAL IV STA (16:55)
--- NOTE | 2019-10-10 17:01 | XRay Report ---
XR hip LT 2V w pelvis CLINICAL HISTORY: left hip injury COMPARISON: 01/09/2019 DISCUSSION: There are bilateral total hip arthroplasties. There is an old left ischial pubic ring fra cture. Now evident is an acute proximal femoral fracture with involvement of the lesser trochanter. F racture line extends just inferior to the greater trochanter. There is no dislocation IMPRESSION: 1. Bilateral total hip arthroplasties 2. Acute proximal left femoral fracture. No evidence of dislocation. Electronically signed by: Stefan Gonsalez M.D. 10/10/2019 4:59 PM
--- NOTE | 2019-10-10 17:09 | XRay Report ---
XR femur LT 2V routine CLINICAL HISTORY: Pain status post trauma COMPARISON: The study is read in conjunction with a film of the hip performed earlier. DISCUSSION: There is a total left hip arthroplasty. There is acute proximal femoral fracture. Also ev ident is a longitudinal periprosthetic fracture visualized at inferior to the tip of the femoral spik e. There is a sclerosis involving the proximal tibia likely representing a bone infarct IMPRESSION: 1. Total left hip arthroplasty 2. Acute femoral fracture involving the proximal femur just inferior to the greater trochanter and in volving the lesser trochanter. In addition there is a longitudinal component of the fracture visualiz ed at and inferior to the tip of the femoral spike Electronically signed by: Stefan Gonsalez M.D. 10/10/2019 5:08 PM
--- NOTE | 2019-10-10 17:27 | History & Physical Report ---
Date of Service October 10, 2019 Assessment & Plan (1) Fracture of proximal end of left femur: (2) Periprosthetic fracture around internal prosthetic left hip joint: -Admit to med surg with tele -Consult [facility] ortho per pt request, Dr. Francisco previously did her bilateral hip replacements in the 80's. -Pt notes spasm in the left leg is her largest complaint, will order flexeril now, continue prn -Pain control with dilaudid as was given fentanyl in the ER which provided minimal relief -Ancef IV -Allow diet for now and NPO after midnight, LR at 80 ml/hr for maintenance hydration -IV Zofran as needed -Neurochecks every 4 -Figueroa catheter in place -Follow am cbc, inr, prp (3) Tobacco use: -Very likely that her cigarette smoking is contributing to osteoporosis and vitamin D deficiency -Patient smokes 1 pack/day x 40 years -Cessation encouraged, nicotine patch ordered (4) Osteoporosis: -Continue calcium and Vit D supplementation -T12 compression fracture noted on imaging, as well as old inferior ischial fracture (5) Vitamin D deficiency: -Continue supplementation as above (6) Atrial fibrillation: -Currently in normal sinus rhythm -Continue amiodarone 200 mg QAM, ASA 81 mg daily, metoprolol succinate 25 mg BID -Patient family members note that she has been known to flip into A. fib after surgery in the past, monitor on cardiac monitoring (7) Hypertension: -Continue metoprolol as above (8) Hypothyroidism: -Continue levothyroxine 100 mcg daily (9) SDAT (senile dementia of Alzheimer's type): -Continue Namenda 5 mg at bedtime -Patient lives at home independently (10) DVT prophylaxis: -[place] on nonaffected leg, no chemical anticoagulation in anticipation of surgical procedure CODE STATUS: Full code Disposition: Patient from home, lives alone, PT/OT, likely to remain in the hospital x 2 days, anticipate surgical procedure History of Present Illness Primary Care Provider: Santy Vasquez MD This is an 79 yo F with PMHx of HTN, paroxysmal A. fib, bilateral hip arthroplasties which were done in the 80s, hypothyroidism, vitamin D deficiency, tobacco use, and dementia who presents after fall sustained this morning onto her left hip. Patient notes that she was washing dishes and her "feet became tangled up in a rug" and then fell. She scooted herself across the floor on her behind to the telephone and was able to call EMS. She denies any presyncopal events, hitting of her head or other sustained trauma, no LOC per her recollection. Her biggest complaint is spasm in the left leg. Her pain is moderately controlled after receiving 2 doses of IV fentanyl in the ER. Imaging reviewed which shows a left proximal femoral fracture and left periprosthetic fracture. [place] [facility] [place] [place] previously. -HGB = 11.8, HCT = 37.6 Allergies Allergy/AdvReac Type Severity Reaction Status Date / Time No Known Allergies Allergy Unverified 10/10/19 17:34 Home Medications Home Medications Medication Instructions Recorded Confirmed Type cholecalciferol (vitamin D3) 5,000 units PO DAILY 08/29/18 10/10/19 History [Vitamin D3] calcium citrate-vitamin D3 1 tab PO QPM 09/08/18 10/10/19 History [Calcitrate-Vitamin D] metoprolol succinate 25 mg PO BID 09/08/18 10/10/19 History amiodarone 200 mg tablet 200 mg PO QAM #90 tab 07/20/19 10/10/19 Rx levothyroxine 100 mcg tablet 100 mcg PO DAILY #30 tab 09/17/19 10/10/19 Rx aspirin, buffered 325 mg PO QPM 10/10/19 10/10/19 History memantine 5 mg PO HS 10/10/19 10/10/19 History Past Med/Surg History Medical History (Updated 10/10/19 @ 18:42 by Sanjana Ward) Atrial fibrillation (Chronic) Bladder cancer Compression fracture of T12 vertebra (Acute) Compression fracture of T12 vertebra (Acute 08/26/14) DVT prophylaxis Kidney stone Osteoporosis (Chronic) Pelvis fracture (Acute) Surgical History (Updated 10/10/19 @ 18:42 by Sanjana Ward) H/O bilateral hip replacements Social History Preferred Language: Finnish Feels Safe at Home: Yes Smoking Status: Current every day smoker Review of Systems Review of Systems: Constitutional: No fever, sweats or chills Eyes: No diplopia, no worsening or blurred vision ENT: normal hearing, no trouble swallowing Respiratory: No cough, sputum, dyspnea at rest or on exertion Cardiovascular: No chest pain, tightness or palpitations Abdomen: No pain, nausea, vomiting, diarrhea or constipation Musculoskeletal: + Left leg spasm, left leg and groin pain, otherwise no joint pain, calf pain, swelling Neurologic: No weakness, numbness/tingling, or balance problems Psychiatric: No anxiety or depression Skin: No rash or itch Physical Exam Physical Exam: General: awake, alert, no apparent distress Head: Normocephalic, atraumatic ENT: PERRL, EOMI, no pharyngeal exudate, mucous membranes moist Chest: Clear to auscultation, on room air, no adventitious breath sounds Cardiac: Regular rate and rhythm, + few PVCs, no murmur, no JVD, normal peripheral pulses, good capillary refill Abdominal: NABS x 4 quadrants, soft, nondistended, nontender to palpation, no rebound, guarding or tenderness : Figueroa catheter in place draining clear yellow urine Extremities: Left LE shortened and externally rotated, immobilizer between legs, sensation intact distally to light touch, otherwise normal inspection, no peripheral edema or erythema, calfs nontender to palpation Psych: Normal mood and affect Neuro: AAO x 3, strength intact bilaterally and rated 5/5 in all extremities except for LLE which was not assessed due to fracture, no gross motor deficits, speech is clear, no peripheral sensory deficits Skin: no rash or erythema Results & Data Vital Signs (Past 12 Hours) Vital Signs Temp Pulse Resp BP Pulse Ox 10/10/19 15:40 36.0 C L 69 20 143/86 H 97 Diagnostic Findings ADDENDUM Addendum: In addition to the proximal femoral fracture, there is a longitudinal periprosthetic fracture visualized at and inferior to the tip of the femoral spike. Electronically signed by: Stefan Gonsalez M.D. 10/10/2019 5:09 PM ADDENDUM END XR hip LT 2V w pelvis CLINICAL HISTORY: left hip injury COMPARISON: 01/09/2019 DISCUSSION: There are bilateral total hip arthroplasties. There is an old left ischial pubic ring fracture. Now evident is an acute proximal femoral fracture with involvement of the lesser trochanter. Fracture line extends just inferior to the greater trochanter. There is no dislocation IMPRESSION: 1. Bilateral total hip arthroplasties 2. Acute proximal left femoral fracture. No evidence of dislocation. Electronically signed by: Stefan Gonsalez M.D. 10/10/2019 4:59 PM XR femur LT 2V routine CLINICAL HISTORY: Pain status post trauma COMPARISON: The study is read in conjunction with a film of the hip performed earlier. DISCUSSION: There is a total left hip arthroplasty. There is acute proximal femoral fracture. Also evident is a longitudinal periprosthetic fracture visualized at inferior to the tip of the femoral spike. There is a sclerosis involving the proximal tibia likely representing a bone infarct IMPRESSION: 1. Total left hip arthroplasty 2. Acute femoral fracture involving the proximal femur just inferior to the greater trochanter and involving the lesser trochanter. In addition there is a longitudinal component of the fracture visualized at and inferior to the tip of the femoral spike Electronically signed by: Stefan Gonsalez M.D. 10/10/2019 5:08 PM ECG Additional Comments: 10-OCT-2019 16:05:59 [facility]-EDSTAT ROUTINE RETRIEVAL Normal sinus rhythm Left ventricular hypertrophy with repolarization abnormality Abnormal ECG When compared with ECG of 11-FEB-2018 22:19, No significant change was found 25mm/s 10mm/mV 150Hz 9.0.9 12SL 241 LATISHA: 15 Unconfirmed Vent. rate 69 BPM [place] interval 166 ms QRS duration 86 ms QT/QTc 444/475 ms P-R-T axes 55 44 82 Code Status & VTE Plan Code Status Full code-discussed with the patient and 2 daughters at bedside Supervising Physician Co-Signing Physician Notes Patient seen and examined, chart reviewed, case discussed with MARILY Beltran and agree with her assessment and plan as documented above. Briefly, patient is an 79-year-old female presenting after mechanical fall at home resulting in a left periprosthetic hip fracture. Presently in moderate pain and reports that it feels "heavy". Neurovascularly intact. Reports that she was unable to bear weight after the fall. On physical exam she is afebrile, mildly hypertensive at 161/75 otherwise hemodynamically stable Generalresting in bed, mildly uncomfortable secondary to left hip pain Skinwarm, dry, intact HEENTnormocephalic/atraumatic, pupils equal round reactive to light, moist mucous membranes, neck supple, no JVD Heart+ S1, S2, regular, no M/R/G Lungsequal air entry bilaterally, no rales/rhonchi/wheezes Abdomen+ bowel sounds, soft, NT/ND Extremitiesleft lower extremity slightly shortened externally rotated, tenderness with palpation over left femur, no bruising, pulses 2+, sensation intact Labs and images reviewed. Significant for stable normochromic/normocytic anemia with Hgb = 11.8. Creatinine = 1.67 which is slightly higher than baseline X-ray with bilateral total hip arthroplasties and acute proximal left femoral fracture. No evidence of dislocation Assessment/[id number] female with periprosthetic left hip fracture after mechanical fall at home Admit to medical floor telemetry monitoring Consult [facility]. Patient has been seen by them in the past N.p.o. after midnight Control of pain and spasm Check CK. Provide gentle hydration. Repeat chemistry panel in a.m. Remainder of plan as above PG Care Time/CCT Total # of Minutes Spent Total Time Spent with Patient: Total time spent is greater than 50% in coordination of care (as documented) at patient's floor/unit and/or counseling patient:
[2019-10-10] MEDS ORDERED: CYCLOBENZAPRINE HCL 10 MG TAB PO STA (17:53)
[2019-10-10] MEDS: HYDROmorphone INJ 0.5 MG/0.5 ML SYR IV PRN ×2 (17:58→21:13)
[2019-10-10] MEDS ORDERED: ONDANSETRON INJ 2 MG/ML 2 ML VIAL ONE (18:07)
[2019-10-10] MEDS ORDERED: ONDANSETRON INJ 2 MG/ML 2 ML VIAL IV PRN (18:08)
[2019-10-10] MEDS ORDERED: MAGNESIUM HYDROXIDE SUSP 30 ML UDC PO PRN (19:00)
[2019-10-10] MEDS ORDERED: NALOXONE HCL 0.4 MG/1 ML VIAL/CARP IV PRN (19:00)
[2019-10-10] MEDS ORDERED: bisacodyL 10 MG SUPP PR PRN (19:00)
[2019-10-10] MEDS: LACTATED RINGER'S 1,000 ML IV SCH (19:39)
[2019-10-10] MEDS: NICOTINE 21 MG/24 HR TDSY TD SCH (20:35)
[2019-10-10] MEDS: CALCIUM 600MG + VIT D 400 IU TAB PO SCH (20:36)
[2019-10-10] MEDS: DOCUSATE SODIUM/SENNA 50/8.6MG TAB PO SCH (20:36)
[2019-10-10] MEDS: MEMANTINE HCL 5 MG TAB PO SCH (20:36)
[2019-10-10] MEDS: ASPIRIN/ALUM/MAGNES/CAL CARB 325 MG TAB PO SCH (20:36)
[2019-10-10] MEDS: CYCLOBENZAPRINE HCL 5 MG TAB PO PRN (20:37)
[2019-10-10] MEDS: METOPROLOL SUCC 25MG EXT REL TAB PO SCH (20:37)
[2019-10-10] MEDS: ACETAMINOPHEN 500 MG TAB PO SCH (20:38)
[2019-10-11] MEDS: ACETAMINOPHEN 500 MG TAB PO SCH ×3 (05:51→21:24)
[2019-10-11] MEDS: LEVOTHYROXINE SODIUM 100 MCG TABLET PO SCH (05:51)
[2019-10-11] MEDS ORDERED: CEFAZOLIN 2000MG 2,000 MG/15 ML SYR IV SCH (06:00)
--- NOTE | 2019-10-11 06:36 | CT Scan Report ---
CT femur LT wo con CT DOSE: 457.22 mGy.cm HISTORY: Fracture. Pain. Left periprosthetic femur fx TECHNIQUE: Multiaxial CT images of the left hip were performed and reformatted in the sagittal and co windy plane without the use of contrast. A dose lowering technique was utilized adhering to the prin ciples of JUSTICE. COMPARISON: Routine images same date FINDINGS: Total left hip arthroplasty is present. The acetabular prosthetic is in good position with no acute posttraumatic abnormality. At the level of the proximal femur there is a fracture of the posterior cortex with mild displacement of components of the lesser trochanter. There is extension of this fracture to the anterior aspect o f the femoral shaft as well as inferior the inferior cortical fracture extends from the posterior fem ur with a somewhat spiral configuration extending to the extension of the posterior fracture. Anterio r cortical fracture extends to the mid femoral prosthetic shaft with the posterior fracture extending somewhat inferior to the inferior margin of the femoral prosthetic. These fractures are nondisplaced. Generally good contact remains between the femoral prosthetic and u nderlying bone. There is moderate surrounding soft tissue edematous change. An old fracture of the left pubic ring which has healed is again noted. IMPRESSION: 1. Nondisplaced cortical fractures anterior and posterior aspects of the proximal femoral shaft adjac ent to a total left hip prosthetic. 2. A single fracture line extends approximately 3 cm inferior to the inferior margin of the femoral p rosthetic. 3. Additional fracture components adjacent to the proximal femoral shaft as discussed above. 4. No evidence for significant bony displacement. The above report was generated using voice recognition software. It may contain grammatical, syntax or spelling errors. Electronically signed by: Cameron Henry M.D. 10/11/2019 6:35 AM
[2019-10-11 08:23] LABS: Hematocrit (blood only) 31.5 % (37-47); Hemoglobin 9.7 g/dL (12.0-16.0); Mean Corpuscular Hemoglobin 29.6 pg (25-34); Mean Corpuscular Hgb Conc 30.8 g/dL (32-36); Mean Platelet Volume 11.8 fL (7.4-10.4); Platelet Count 172 K/uL (130-400); RDW Coefficient of Variation 14.4 % (11.5-14.5); RDW Standard Deviation 50.4 fL (36.4-46.3); Red Blood Count 3.28 M/uL (4.2-5.4); White Blood Count 8.67 K/uL (4.8-10.8)
[2019-10-11 08:35] LABS: Prothrombin Time 10.4 Seconds (9.0-12.0)
--- NOTE | 2019-10-11 08:40 | Orthopedic Consultation ---
Date of Consultation October 11, 2019 Assessment & Plan (1) Periprosthetic fracture around internal prosthetic left hip joint: She has a left periprosthetic hip fracture around the femoral stem of her total hip arthroplasty. It is unclear at this point whether her femoral stem is stable or not. I have already discussed this case with our joints specialist, Dr. Gibbs. This is a very difficult problem for her. Surgical fixation of this fracture would require a very large surgery with an extensile exposure down the majority of her upper leg. This will likely require plating and cabling around her femur. If the stem is unstable, it would also require revision of the hip arthroplasty. This would be a very large surgery for her. I briefly described this to her, and she expressed that she does not want to go through any big surgery. However, with her disorientation I cannot be sure that she fully understands the situation. The other option would be nonoperative treatment to allow this essentially nondisplaced fracture to heal. This would require up to about 3 months of toe-touch weightbearing on this left leg. The patient herself is clearly too disoriented to adequately consent to treatment one way or the other. I attempted to get in contact with any family, but was unsuccessful. For now, we will keep her toe-touch weightbearing until we can decide on a course of treatment. Present on Admission?: Yes History of Present Illness Reason for Consultation: Left periprosthetic hip fracture Attending Physician: Etta Mayorga DO History of Present Illness Ms. Cantu is an 79-year old female who per the medical record had a fall yesterday onto her left hip. When questioned directly, the patient really does not recall the injury. She seems very disoriented. She does remember being on the floor, but states that she does not recall getting dizzy or lightheaded, or tripping over anything. She says that she stood up after the fall, but per the record it sounds like she was unable to ambulate after the fall. Per her record it looks like she lives alone, but she tells me that her nieces and nephews "sleep with her". She had difficulty clarifying what this meant. She is disoriented currently to place and time, including year, month, season, state, type of building, or her reason for being here. She does know her own name and birthdate. She currently denies any pain laying in bed. Per the record it looks like she had a bilateral total hip arthroplasties done by Dr. Francisco in the . She is unable to tell me whether these were functioning well prior to her fall yesterday. I attempted to contact family to get some further information and further discuss her injury. The patient gave me a phone number for a Blanca Valentin ([phone]), who she says is her daughter. I called this number, there was no answer and no voicemail. I also attempted to contact the emergency contacts listed in her medical record, a Francy Cantu ([phone]), and Edyta Muir ([phone]). There was no answer at either number, but I did leave a voicemail at the number listed for Francy Cantu. There is no Blanca Valentin listed in the contact list in her medical record. Allergies Allergy/AdvReac Type Severity Reaction Status Date / Time No Known Allergies Allergy Unverified 10/10/19 17:34 Home Medications Home Medications Medication Instructions Recorded Confirmed Type cholecalciferol (vitamin D3) 5,000 units PO DAILY 08/29/18 10/10/19 History [Vitamin D3] calcium citrate-vitamin D3 1 tab PO QPM 09/08/18 10/10/19 History [Calcitrate-Vitamin D] metoprolol succinate 25 mg PO BID 09/08/18 10/10/19 History amiodarone 200 mg tablet 200 mg PO QAM #90 tab 07/20/19 10/10/19 Rx levothyroxine 100 mcg tablet 100 mcg PO DAILY #30 tab 09/17/19 10/10/19 Rx aspirin, buffered 325 mg PO QPM 10/10/19 10/10/19 History memantine 5 mg PO HS 10/10/19 10/10/19 History Patient History Medical History (Updated 10/11/19 @ 08:43 by Dionicio Vance M.D.) Atrial fibrillation (Chronic) Bladder cancer Compression fracture of T12 vertebra (Acute) Compression fracture of T12 vertebra (Acute 08/26/14) DVT prophylaxis Kidney stone Osteoporosis (Chronic) Pelvis fracture (Acute) Surgical History (Updated 10/10/19 @ 18:42 by Sanjana Ward) H/O bilateral hip replacements Social History Preferred Language: Urdu 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 Awake and alert. Disoriented to place and time. Oriented only to person. Appropriate mood and affect. Gait and station not assessed due to the known hip fracture. Normal coordination and balance. Skin: The skin over the left hip shows no open wounds. She has a well-healed surgical incision without evidence of infection. Inspection/Palpation: Visual inspection reveals no gross deformity of the leg. There is minimal swelling and tenderness to palpation of the thigh and hip area. Compartments are soft and compressible. Range of Motion: Hip range of motion is limited due to pain. Stability: Ligamentous stability was not tested due to the known fracture. Strength: Hip strength is limited due to pain. Intact ankle dorsiflexion and plantarflexion. Sensation: The patient reports no numbness in the leg. Vascular: Leg is warm and well perfused. No diffuse edema. Results & Data Vital Signs (Past 12 Hours) Vital Signs Temp Pulse Pulse Resp BP Pulse Ox 10/11/19 07:34 66 10/11/19 04:22 36.9 C 68 20 110/65 91 10/10/19 23:30 97 H Diagnostic Findings Hip and femur x-rays, as well as a femur CT were reviewed. They show a minimally displaced periprosthetic fracture spiraling around her femoral stem and extending a few centimeters distal to the tip of the stem. The femoral stem itself does not appear grossly displaced or loose. There is a significant amount of resorption at the proximal end of the femur, likely consistent with stress shielding. (1) Periprosthetic fracture around internal prosthetic left hip joint Encounter type: initial encounter Qualified Code(s): M97.02XA - Periprosthetic fracture around internal prosthetic left hip joint, initial enc ounter
[2019-10-11] MEDS: METOPROLOL SUCC 25MG EXT REL TAB PO SCH ×2 (08:47→21:26)
[2019-10-11] MEDS: CHOLECALCIFEROL 1,000 UNITS TAB PO SCH (08:47)
[2019-10-11] MEDS: AMIODARONE 200 MG TAB PO SCH (08:47)
[2019-10-11] MEDS: NICOTINE 21 MG/24 HR TDSY TD SCH ×2 (08:48→19:12)
[2019-10-11 08:53] LABS: Albumin Level 2.5 gm/dl (3.4-5.0); BUN Creatinine Ratio 11.1 (10-20); Calcium 9.4 mg/dl (8.5-10.1); Creatinine Clr Calc Pharmacy 27.8 ml/min; Est GFR (African American) 39.7; Est GFR (Non-African American) 34.3; Potassium 4.1 mmol/L (3.5-5.1)
[2019-10-11] MEDS: bisacodyL 5 MG TABEC PO SCH (08:53)
[2019-10-11] MEDS: LACTATED RINGER'S 1,000 ML IV SCH ×2 (08:53→21:23)
[2019-10-11 09:06] LABS: Albumin Globulin Ratio 0.7 (0.9-2); Bilirubin,Total 0.5 mg/dl (0.2-1); Globulin 3.4 gm/dl (2.5-4.0); Total Protein 5.9 gm/dl (6.4-8.2)
[2019-10-11] MEDS: HYDROmorphone INJ 0.5 MG/0.5 ML SYR IV PRN ×3 (09:19→19:35)
[2019-10-11] MEDS ORDERED: ALBUT/IPRATROP 3MG/0.5MG NEB 3 ML VIAL NEB PRN (10:36)
--- NOTE | 2019-10-11 11:06 | Hospitalist Progress Note ---
Date of Service October 11, 2019 Assessment & Plan (1) Periprosthetic fracture around internal prosthetic left hip joint: Secondary to mechanical fall, with bilateral THAs in place -Consult Ortho --> plan is for a complex repair on Tuesday-delay due to need to order in hardware specific for this case -continue flexeril prn muscle spasm, dilaudid prn pain -continue LR at 80 ml/hr for maintenance hydration -will allow to eat now until Tue night -Figueroa catheter in place -Follow am cbc,BMP--> Ortho wants her Hgb to be at 10 prior to surgery as she will have more blood loss expected than typical ORIF (2) Fracture of proximal end of left femur: as above (3) Tobacco use: -Very likely that her cigarette smoking is contributing to osteoporosis and vitamin D deficiency -Patient smokes 1 pack/day x 40 years -Cessation encouraged, nicotine patch ordered and now pt is accepting of this (4) Osteoporosis: -Continue calcium and Vit D supplementation -T12 compression fracture noted on imaging, as well as old inferior ischial fracture (5) Vitamin D deficiency: -Continue supplementation as above Level here is good at 56 (6) Atrial fibrillation: With a h/o PAF -Currently in normal sinus rhythm -Continue amiodarone 200 mg QAM, ASA 325 mg daily, metoprolol succinate 25 mg BID -watch for Afib in setting of stress and surgery -previously was on Xarelto but daughter reports this was stopped by Dr. 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): -Continue Namenda 5 mg at bedtime -Patient lives at home independently (10) Chronic kidney disease: CKD stage 4 Scientific Aide at baseline is 1.6 Scientific Aide today slightly lower at 1.4 from IVF hydration likely -avoid nephrotoxins -renally dose meds when appropriate -follow marilou RODRIGUEZ (11) Fall: Mechanical, resulting in left periprosthetic hip fracture -needs PT/OT after surgery (12) Acute blood loss anemia: Hgb dropped to 9.7 from 11.8, secondary to blood loss from fracture and some hemodilutional component -hemodynamically stable -follow CBC and if Hgb remains <10 tomorrow, will transfuse PRBCs for goal of Hgb 10 prior to Ortho surgery on Sat as per Ortho recommendation (13) Delirium: Secondary to pain, opioid pain medications in setting of hospitalization and underlying dementia -supportive care 1:1 sitter as needed -frequent reorientation, keep sleep/wake cycles consistent -add Seroquel 12.5mg po qhs prn agitation--daughter warned of risk of CVA, CV risk in elderly and is accepting of risk (14) DVT prophylaxis: -TEDs on nonaffected leg, SCDs, no chemical anticoagulation in anticipation of surgical procedure CODE STATUS: Full code Disposition: Patient from home, lives alone, PT/OT evals will be needed and she will likely need rehab placement Subjective Having pain in left hip. Denies chest pain now or ever. Normally can go up and down stairs at home without CP or SOB. Still smoking at home. Does not recall taking a blood thinner or seeing Cardiology. No abd pain. No issues with constipation or diarrhea. Tele with NSR Is somewhat confused but pleasant and cooperative. I came back to check on her in the evening and she was starting to get more agitated, trying to climb out of bed as per RN. Daughter at bedside and was requesting something to calm her mom down so she wouldn't be so agitated and risk harming herself further. Review of Systems Review of Systems: All systems reviewed & are unremarkable except as noted in HPI & below Physical Exam Constitutional: average body habitus; no acute distress Eyes: PERRL, conjunctivae normal, anicteric sclerae ENMT: external ear and nose normal, oropharynx normal Neck: trachea midline, no thyromegaly Respiratory: normal respiratory effort, lungs clear to auscultation Auscultation: + diminished lung sounds (throughout) Cardiovascular: Rate/Rhythm: regular rhythm and + bradycardic Heart Sounds: no murmur Vessels: no JVD and no carotid bruit Extremities: no edema Chest (Breasts): Chest: normal inspection of chest Gastrointestinal (Abdomen): normal bowel sounds, soft, nontender, no hepatosplenomegaly Musculoskeletal: Extremities: + extremities abnormal to inspection (LLE shortened and internally rotated), no cyanosis and no clubbing Hip: + joint line tenderness (+TTP over left prox femur); no skin erythema and no ecchymosis Skin: no rashes, warm and dry Neurologic: moves all extremities and awake; no focal motor deficits Psychiatric: Orientation: alert, oriented to person, oriented to place and cooperative; + not oriented to time Speech: normal rate/rhythm/volume of speech Cognition: + recent memory not intact Insight: + limited insight Genitourinary: Figueroa catheter in place draining clear yellow urine Lymphatic: no lymphedema Results & Data Vital Signs (Past 12 Hours) Vital Signs Temp Pulse Pulse Resp BP BP Pulse Ox 10/11/19 07:34 66 10/11/19 07:00 36.9 C 64 18 136/78 97 10/11/19 04:22 36.9 C 68 20 110/65 91 10/10/19 23:30 97 H Laboratory Results 10/11/19 10/11/19 10/11/19 Range/Units 07:55 07:55 07:55 WBC 8.67 (4.8-10.8) K/uL RBC 3.28 L (4.2-5.4) M/uL Hgb 9.7 L (12.0-16.0) g/dL Hct 31.5 L (37-47) % MCV 96.0 (80-100) fL MCH 29.6 (25-34) pg MCHC 30.8 L (32-36) g/dL RDW Std Deviation 50.4 H (36.4-46.3) fL RDW Coeff of Tiffany 14.4 (11.5-14.5) % Plt Count 172 (130-400) K/uL MPV 11.8 H (7.4-10.4) fL PT 10.4 (9.0-12.0) Seconds INR 1.0 (0.9-1.1) Sodium 139 (136-145) mmol/L Potassium 4.1 D (3.5-5.1) mmol/L Chloride 107 (98-107) mmol/L Carbon Dioxide 28 (21-32) mmol/L Anion Gap 4.0 (3-11) BUN 16 (7-18) mg/dl Creatinine 1.43 H (0.6-1.2) mg/dl Est Cr Clr Drug Dosing 27.8 ml/min Est GFR ( Amer) 39.7 Est GFR (Non-Af Amer) 34.3 BUN/Creatinine Ratio 11.1 (10-20) Glucose 79 (70-99) mg/dl Calcium 9.4 (8.5-10.1) mg/dl Total Bilirubin 0.5 (0.2-1) mg/dl AST 26 (15-37) U/L ALT 20 (12-78) U/L Alkaline Phosphatase 82 (45-117) U/L Total Protein 5.9 L (6.4-8.2) gm/dl Albumin 2.5 L (3.4-5.0) gm/dl Globulin 3.4 (2.5-4.0) gm/dl Albumin/Globulin Ratio 0.7 L (0.9-2) PG Care Time/CCT Total # of Minutes Spent Total Time Spent with Patient: Total time spent is greater than 50% in coordination of care (as documented) at patient's floor/unit and/or counseling patient: (1) Periprosthetic fracture around internal prosthetic left hip joint Encounter type: initial encounter Qualified Code(s): M97.02XA - Periprosthetic fracture around internal prosthetic left hip joint, initial encounter (2) Fall Encounter type: initial encounter Qualified Code(s): W19.XXXA - Unspecified fall, initial encounter
--- NOTE | 2019-10-11 11:24 | Medical Student Progress Note ---
Date of Service October 11, 2019 Assessment & Plan (1) DVT prophylaxis: - Continue use of TYLER on unaffected leg -Hold medications for DVT prophylaxis as patient will be scheduled for surgery soon. (2) Fracture of prosthetic hip: - Orthopedics consulted - Surgical repair would require extensive surgery due to involvement of hip prosthetic. -Family consulted on decision between surgery versus non surgery -Family decided they will proceed with surgical repair. -Can eat for now. NPO after midnight. Encounter type: initial encounter Qualified Code(s): T84.019A - Broken internal joint prosthesis, unspecified site, initial encounter; Z96.649 - Presence of unspecified artificial hip joint Present on Admission?: Yes (3) Left hip pain: -Hip pain secondary to left hip fracture - Patients pain seems to be controlled well with .5 ml Dilaudid Q 3 hrs -Continue 5 mg cyclobenzaprine for leg spasm (4) Tobacco use: - Encourage tobacco cessation - Patient offered dermal nicotine replacement patches -Patient has declined nicotine replacement patches for now. (5) SDAT (senile dementia of Alzheimer's type): - Continue patients 5mg PO BID memantine - If patient becomes danger to herself or others will order 2.5 mg IM olanzapine. (6) Hypothyroidism: -Patients TSH within acceptable limits at .3 -Free T4 slightly elevated at 2.26 -Continue patients 100 mcg of levothyroxine (7) Hypertension: -Continue metoprolol 25 mg BID (8) Osteoporosis: - Continue Vitamin D and calcium supplementation -Smoking very likely to be contributing to osteoporosis. Encourage patient to start smoking cessation program. (9) Chronic kidney disease: -Creatinine downtrending since admission -Continue to monitor creatinine levels with BMP -LR 80 ml per hour for maintanence fluid (10) Paroxysmal atrial fibrillation: -Patient monitored on telemetry -Was in normal sinus rhythm through out the night. -Continue 200 mg amiodarone QAM (11) Constipation: - Take docusate/sessna 1 tab PO BID - Metamucil BID Subjective 79 y/o female with a 40 year plus pack history, dementia, osteoporosis, paroxysmal Afib and bilateral hip replacement. Presented to the ED yesterday afternoon after a fall. Patient tripped on a rug and fell on her left hip. She was in severe pain and called EMS and was brought to the ED. When presenting to the ED she was in severe pain. She was given IV fentanyl for pain. She was switched to .5 ml Dilaudid every 3 hours which has been controlling her pain well. She was also having spasms in her left leg. She was given Flexeril for the spasms and they have been controlling the spasms well. She has a history of sundowning delirium during hospital stays. Last night she was very confused and combative. She tried to take take off her ECG leads and tried to take out her IV lines. Today she was consulted by Ortho. They advised that the surgical repair for this fracture is complicated by the fact that she has a prosthetic hip. Surgical repair of this fracture would require a long surgery involving banding and plating. Her daughters are still deciding whether she should go through with the surgery. Today she is drowsy and confused. Her pain is currently controlled. Her pain is isolated to the lateral aspect of her left hip. She is unable to sit up or move her leg without causing sever pain. She does not endorse chest pain, orthopnea or SOB Review of Systems Review of Systems: All systems reviewed & are unremarkable except as noted in HPI & below Constitutional: no fever and no chills Eyes: no worsening vision and no problem reported Ear, Nose, Mouth, Throat: no dizziness, no sore throat, no dysphagia and no pain with swallowing Respiratory: no cough, no dyspnea, no hemoptysis and no wheezing Cardiovascular: no chest pain, no dyspnea at rest, no orthopnea and no edema Gastrointestinal: no abdominal pain, no nausea, no dysphagia, no blood in stools and no melena Genitourinary: no dysuria and no hematuria Musculoskeletal: as per Subjective / HPI Integumentary: no rash Neurologic: no seizure-like activity, no dizziness, no headache(s) and no abnormal speech Psychiatric: no depression and no suicidal ideation Endocrine: no polydipsia, no polyuria and no flushing Hematologic / Lymphatic: no easy bleeding Allergy / Immunological: no problem reported Physical Exam Constitutional: + thin, + altered mental status and + frail appearing; not in distress Eyes: PERRL, conjunctivae normal, anicteric sclerae EOM intact bilaterally ENMT: Mouth: oral mucous membranes not dry Neck: trachea midline, no thyromegaly Respiratory: normal respiratory effort, lungs clear to auscultation Cardiovascular: RRR, no murmur, no edema Heart Sounds: normal S1 and normal S2; no click, no gallop and no cardiac rub Vessels: dorsalis pedis pulses present and radial pulses present; no carotid bruit Extremities: no pedal edema Gastrointestinal (Abdomen): Inspection/Auscultation: + abdomen distended and normal bowel sounds Percussion/Palpation: abdomen soft; abdomen nontender and no guarding Musculoskeletal: Extremities: + limited ROM of extremities, + leg length discrepancy (left leg shorter than right), + leg externally rotated (left leg) and + limited ROM of lower extremity (Unable to sit up or move left leg without pain. ) Hip: + hip abnormal to inpsection Neurologic: PERRL, EOMI, accommodation nl, no face palsy, no dysarthria CN's II-XI intact bilaterally Results & Data Vital Signs (Past 12 Hours) Vital Signs Temp Pulse Pulse Resp BP BP Pulse Ox 10/11/19 07:34 66 10/11/19 07:00 36.9 C 64 18 136/78 97 10/11/19 04:22 36.9 C 68 20 110/65 91 10/10/19 23:30 97 H
[2019-10-11] MEDS: MEMANTINE HCL 5 MG TAB PO SCH (21:24)
[2019-10-11] MEDS: DOCUSATE SODIUM/SENNA 50/8.6MG TAB PO SCH (21:25)
[2019-10-11] MEDS: CALCIUM 600MG + VIT D 400 IU TAB PO SCH (21:25)
[2019-10-11] MEDS: CYCLOBENZAPRINE HCL 5 MG TAB PO PRN (21:25)
[2019-10-11] MEDS: ASPIRIN/ALUM/MAGNES/CAL CARB 325 MG TAB PO SCH (21:26)
[2019-10-12 03:46] LABS: Appearance Urine Turbid (Clear); Bacteria Urine Automated 4+ (Negative); Bilirubin Urine Negative (Negative); Blood Urine 3+ (Negative); Color Urine Yellow; Epithelial Cell Urine Auto >30 /lpf (0-5); Glucose Urine UA Negative (Negative); Ketones Urine Negative (Negative); Leukocyte Esterase Urine 3+ (Negative); Nitrite Urine Positive (Negative); Protein Urine 1+ (Negative); Specific Gravity Urine 1.018 (1.000-1.030); Urobilinogen Urine Negative (Negative); WBC Urine Automated >30 /hpf (0-5)
[2019-10-12] MEDS: QUETIAPINE FUMARATE 25 MG TABLET PO PRN ×2 (03:49→21:50)
[2019-10-12 03:59] LABS: RBC Urine Automated >30 /hpf (0-4)
[2019-10-12] MEDS: ACETAMINOPHEN 500 MG TAB PO SCH ×3 (05:07→21:50)
[2019-10-12] MEDS: cefTRIAXone SODIUM 1,000 MG in DEXTROSE 5% 50 ML IV SCH (05:08)
[2019-10-12] MEDS: LEVOTHYROXINE SODIUM 100 MCG TABLET PO SCH (07:35)
[2019-10-12] MEDS: CHOLECALCIFEROL 1,000 UNITS TAB PO SCH (07:35)
[2019-10-12] MEDS: METOPROLOL SUCC 25MG EXT REL TAB PO SCH ×2 (07:36→20:10)
[2019-10-12] MEDS: AMIODARONE 200 MG TAB PO SCH (07:36)
[2019-10-12 08:15] LABS: Hemoglobin 9.6 g/dL (12.0-16.0); Mean Corpuscular Hemoglobin 29.8 pg (25-34); Mean Corpuscular Volume 96.3 fL (80-100); Mean Platelet Volume 12.1 fL (7.4-10.4); Platelet Count 172 K/uL (130-400); RDW Coefficient of Variation 14.4 % (11.5-14.5); RDW Standard Deviation 50.8 fL (36.4-46.3); Red Blood Count 3.22 M/uL (4.2-5.4); White Blood Count 11.57 K/uL (4.8-10.8)
[2019-10-12 08:47] LABS: Albumin Level 2.4 gm/dl (3.4-5.0); BUN Creatinine Ratio 10.8 (10-20); Calcium 8.9 mg/dl (8.5-10.1); Creatinine Clr Calc Pharmacy 27.4 ml/min; Est GFR (Non-African American) 33.7; Potassium 4.2 mmol/L (3.5-5.1)
[2019-10-12 08:50] LABS: Albumin Globulin Ratio 0.7 (0.9-2); Bilirubin,Total 0.5 mg/dl (0.2-1); Globulin 3.5 gm/dl (2.5-4.0); Total Protein 5.9 gm/dl (6.4-8.2)
[2019-10-12] MEDS: bisacodyL 5 MG TABEC PO SCH ×2 (08:51→14:12)
--- NOTE | 2019-10-12 09:23 | Medical Student Progress Note ---
Date of Service October 12, 2019 Assessment & Plan (1) DVT prophylaxis: - Continue use of TYLER on unaffected leg -Hold medications for DVT prophylaxis as patient will be scheduled for surgery soon. (2) Fracture of prosthetic hip: - Orthopedics consulted -Family consulted on decision between surgery versus non surgery -Family decided they will proceed with surgical repair. -Can eat for now. She will have her surgery tuesday. NPO after midnight tonight. Encounter type: initial encounter Qualified Code(s): T84.019A - Broken internal joint prosthesis, unspecified site, initial encounter; Z96.649 - Presence of unspecified artificial hip joint (3) Left hip pain: -Hip pain secondary to left hip fracture - Patients pain seems to be controlled well with .5 ml Dilaudid Q 3 hrs -Continue 5 mg cyclobenzaprine for leg spasm (4) Tobacco use: - Encourage tobacco cessation - Patient offered dermal nicotine replacement patches -Patient has declined nicotine replacement patches for now. (5) SDAT (senile dementia of Alzheimer's type): - Continue patients 5mg PO BID memantine (6) Hypothyroidism: -Patients TSH within acceptable limits at .3 -Free T4 slightly elevated at 2.26 -Continue patients 100 mcg of levothyroxine (7) Hypertension: -Continue metoprolol 25 mg BID (8) Osteoporosis: - Continue Vitamin D and calcium supplementation -Smoking very likely to be contributing to osteoporosis. Encourage patient to start smoking cessation program. (9) Chronic kidney disease: -Creatinine downtrending since admission -Continue to monitor creatinine levels with BMP -Creatinine levels have been stable. -Stop maintenance fluids (10) Paroxysmal atrial fibrillation: -Patient monitored on telemetry -Was in normal sinus rhythm through out the night. -Continue 200 mg amiodarone QAM (11) Constipation: - Take docusate/sessna 1 tab PO BID - Metamucil BID (12) Delirium: -Delirium likely secondary to dementia and hospital environment. Dementia candyey complicated by acute blood loss anemia - Place on 1-1 sitter when she becomes agitated - Administer 12.5 mg quetiapine if she becomes a danger to herself or others. (13) Acute blood loss anemia: - Hbg at 9.7 which is down from 11.8 from ED visit. - Anemia likely secondary to blood loss from hip fracture and could be a result from hemodilution form maintenance IVF. - Administer unit of blood Subjective 79 y/o female with a 40 year plus pack history, dementia, osteoporosis, paroxysmal Afib and bilateral hip replacement on her second day of admission. Presented to the ED 2 days ago afternoon after a fall. Patient tripped on a rug and fell on her left hip. She was in severe pain and called EMS and was brought to the ED. When presenting to the ED she was in severe pain. She was given IV fentanyl for pain. She was switched to .5 ml Dilaudid every 3 hours which has been controllin g her pain well. She was also having spasms in her left leg. She was given Flexeril for the spasms and they have been controlling the spasms well. She has a history of sundowning delirium during hospital stays. Last night she was agitated and combative. She was given 12.5 mg quetiapine. Symptoms improved after. She was consulted by Ortho. They advised that the surgical repair for this fracture is complicated by the fact that she has a prosthetic hip. Surgical repair of this fracture would require a long surgery involving banding and plating. Her daughters decided that she should go through with the surgery. Her pain is currently controlled well. Her pain is isolated to the lateral aspect of her left hip. She is unable to sit up or move her leg without causing sever pain. She has been eating pretty well. She does not endorse chest pain, orthopnea or SOB Review of Systems Review of Systems: Constitutional: No fever, sweats or chills Eyes: No diplopia, no worsening or blurred vision ENT: normal hearing, no trouble swallowing Respiratory: No cough, sputum, dyspnea at rest or on exertion Cardiovascular: No chest pain, tightness or palpitations Abdomen: No pain, nausea, vomiting, diarrhea or constipation Musculoskeletal: + Left leg spasm, left leg and groin pain, otherwise no joint pain, calf pain, swelling Neurologic: No weakness, numbness/tingling, or balance problems Psychiatric: No anxiety or depression Skin: No rash or itch Musculoskeletal: as per Subjective / HPI Physical Exam Physical Exam: Patient is thin appearing. She was alert and confused through out exam AO to person. She could not spell WORLD backwards or name the months of the year backwards. Constitutional: + thin, + altered mental status and + frail appearing; not in distress Eyes: PERRL, conjunctivae normal, anicteric sclerae EOM intact bilaterally ENMT: Mouth: oral mucous membranes not dry Neck: trachea midline, no thyromegaly Respiratory: normal respiratory effort, lungs clear to auscultation Cardiovascular: RRR, no murmur, no edema Heart Sounds: normal S1 and normal S2; no click, no gallop and no cardiac rub Vessels: dorsalis pedis pulses present and radial pulses present; no carotid bruit Extremities: no pedal edema Gastrointestinal (Abdomen): Inspection/Auscultation: + abdomen distended and normal bowel sounds Percussion/Palpation: abdomen soft; abdomen nontender and no guarding Musculoskeletal: Extremities: + limited ROM of extremities, + leg length discrepancy (left leg shorter than right), + leg externally rotated (left leg) and + limited ROM of lower extremity (Unable to sit up or move left leg without pain. ) Hip: + hip abnormal to inpsection Neurologic: PERRL, EOMI, accommodation nl, no face palsy, no dysarthria CN's II-XI intact bilaterally Results & Data Vital Signs (Past 12 Hours) Vital Signs Temp Pulse Pulse Resp BP Pulse Ox 10/12/19 07:14 62 10/12/19 07:09 36.6 C 62 18 112/69 94 10/12/19 03:25 37.1 C 85 20 191/97 H 93 10/12/19 00:55 58 L 10/11/19 23:53 36.8 C 60 18 132/71 94
--- NOTE | 2019-10-12 10:04 | Emergency Department Note ---
Entered by Sanjana Ward acting as a scribe for History of Present Illness General Chief complaint: Hip Pain Stated complaint: FALL, L HIP PAIN Time Seen by Provider: 10/10/19 16:15 History of Present Illness Provider complaint: left hip pain Onset (ago): hour(s) less than 1 Location: hip and left Radiation: non-radiation Maximum Pain Intensity: 1 Associated symptoms: + denies other symptoms (lightheadedness, abdominal trauma, back pain) and + other (fell on left hip after slipping on rug, history of bilateral hip replacement, has not eaten since 0600 this morning, takes Aspirin daily); no chest pain and no syncope Treatments prior to arrival: other (Fentanyl) The patient is an 79 year old female who presents to the ED with complaints of an episode of left hip pain that started less than 1 hour ago. The patient states that she slipped on an area rug in the kitchen this afternoon and fell on her left hip. The patient states that her pain is non-radiating. Per daughter, the patient has a history of bilateral hip replacements. The patient denies syncope or lightheadedness prior to falling, chest pain, abdominal trauma and back pain. The patient states that she has not eaten anything since 0600 this morning. Per nursing staff, the patient was given Fentanyl via EMS en route. Per daughter, the patient takes Aspirin daily. Home Medications Home Medications Medication Instructions Recorded Confirmed Type cholecalciferol (vitamin D3) 5,000 units PO DAILY 08/29/18 10/10/19 History [Vitamin D3] calcium citrate-vitamin D3 1 tab PO QPM 09/08/18 10/10/19 History [Calcitrate-Vitamin D] metoprolol succinate 25 mg PO BID 09/08/18 10/10/19 History amiodarone 200 mg tablet 200 mg PO QAM #90 tab 07/20/19 10/10/19 Rx levothyroxine 100 mcg tablet 100 mcg PO DAILY #30 tab 09/17/19 10/10/19 Rx aspirin, buffered 325 mg PO QPM 10/10/19 10/10/19 History memantine 5 mg tablet 5 mg PO DAILY #30 tab 10/12/19 Rx Allergies Allergy/AdvReac Type Severity Reaction Status Date / Time No Known Allergies Allergy Unverified 10/10/19 17:34 Past Med/Surg History Medical History (Updated 10/12/19 @ 10:07 by Jose Reis MD) Atrial fibrillation (Chronic) Bladder cancer Compression fracture of T12 vertebra (Acute) Compression fracture of T12 vertebra (Acute 08/26/14) DVT prophylaxis Kidney stone Osteoporosis (Chronic) Pelvis fracture (Acute) Surgical History (Updated 10/10/19 @ 18:42 by Sanjana Ward) H/O bilateral hip replacements Social History Preferred Language: Spanish Communication Ability: Effective Connection Worker Required: No Beliefs That Will Affect Care: None marital status: / Current Living Situation: Alone Other Information That Helps Us Care for You: No Feels Safe at Home: Yes Safety Concerns: Feels Safe At This Time Smoking Status: Current every day smoker Tobacco Type: cigarettes ; Do You Dip or Chew Tobacco: No ; Second Hand Exposure: No ; Tobacco Cessation Education Requested by Patient: No Hx Alcohol Use: No Hx Substance Use: No Review of Systems See HPI for pertinent positives & negatives. and A total of 10 systems reviewed and were otherwise negative Physical Exam Vital Signs Vital Signs - 24 hr 10/10/19 15:40 Temperature 36.0 C L Temperature Source Oral Pulse Rate 69 Respiratory Rate 20 Respiratory Effort / Characteristics Non-Labored Spontaneous Respiratory Depth Normal Respiratory Pattern Regular Blood Pressure 143/86 H Blood Pressure Mean 105 Blood Pressure Position Lying Pulse Oximetry 97 Oxygen Delivery Method Room Air Sepsis Recent Fever Within 48 Hours No Sepsis New/Unexplained Change in Mental Status No Sepsis Action Taken by Nursing No Action Required General: Non-ill appearing older female, in no acute distress. HEENT: Normal cephalic atraumatic. Pupils are equal round and reactive to light. Extraocular movements are intact. Oropharynx is pink with moist mucous membranes. No swelling of the mouth lips or tongue. Neck: Supple with a midline trachea. No meningeal signs or stiffness, no JVD or bruits. No Stridor. Chest: Clear to auscultation bilaterally. No wheezes or rhonchi. No increased work of breathing. Heart: regular rate and rhythm. Abdomen: Soft nontender, nondistended without rebound guarding or rigidity. Extremities: Left hip shorted and rotated and painful with movement, normal distal pulses. No cyanosis clubbing or edema. No calf tenderness or asymmetry Spine/Back. Non tender to palpation. No CVA tenderness Skin: Good turgor without rashes. Neurologic exam: Cranial nerves two through 12 are intact. Motor and sensation are intact and symmetrical throughout. Course Course 1609: Past medical records reviewed. The patient was evaluated in room C09. A complete history and physical exam was performed. 1711: I updated the patient on the test results. I informed her that she has a hip fracture and it is not dislocated. 1721: [facility] the [facility] She will evaluate the patient for further management. Consultations Consultation #1: I discussed the patient's case with Dr. [facility]. She will evaluate the patient for further management. Time: 17:21 Administered Medications Acetaminophen (Tylenol) 1,000 mg PO Q8H [facility] Stop: 11/09/19 21:59 Last Admin: 10/12/19 05:07 Dose: 1,000 mg Documented by: [id number] Admin: 10/11/19 21:24 Dose: 1,000 mg Documented by: [id number] Admin: 10/11/19 13:47 Dose: 1,000 mg Documented by: [id number] Admin: 10/11/19 05:51 Dose: 1,000 mg Documented by: [id number] Admin: 10/10/19 20:38 Dose: 1,000 mg Documented by: [id number] Amiodarone HCl (Cordarone) 200 mg PO QAM BRIANA Stop: 11/10/19 08:59 Last Admin: 10/12/19 07:36 Dose: 200 mg Documented by: [id number] Admin: 10/11/19 08:47 Dose: 200 mg Documented by: [id number] Aspirin Buffered (Ascriptin) 325 mg PO QPM BRIANA Stop: 11/09/19 20:59 Last Admin: 10/11/19 21:26 Dose: 325 mg Documented by: [id number] Admin: 10/10/19 20:36 Dose: 325 mg Documented by: [id number] Bisacodyl (Dulcolax) 5 mg PO DAILY BRIANA Stop: 11/10/19 08:59 Last Admin: 10/12/19 08:51 Dose: Not Given Documented by: [id number] Admin: 10/11/19 08:53 Dose: 5 mg Documented by: [id number] Cyclobenzaprine HCl (Flexeril) 5 mg PO Q8H PRN PRN Reason: spasm Stop: 11/09/19 18:59 Last Admin: 10/11/19 21:25 Dose: 5 mg Documented by: [id number] Admin: 10/10/19 20:37 Dose: 5 mg Documented by: [id number] Hydromorphone HCl (Dilaudid) 0.5 mg IV Q3H PRN PRN Reason: Pain Stop: 10/24/19 17:52 Last Admin: 10/11/19 19:35 Dose: 0.5 mg Documented by: [id number] Admin: 10/11/19 16:12 Dose: 0.5 mg Documented by: [id number] Admin: 10/11/19 09:19 Dose: 0.5 mg Documented by: [id number] Admin: 10/10/19 21:13 Dose: 0.5 mg Documented by: [id number] Admin: 10/10/19 17:58 Dose: 0.5 mg Documented by: [id number] Lactated Ringer's (Lr) 1,000 mls @ 80 mls/hr IV .[id number] BRIANA Stop: 11/09/19 18:59 Last Infusion: 10/12/19 07:00 Dose: 80 mls/hr Documented by: [id number] Infusion: 10/12/19 05:13 Dose: 0 mls/hr Documented by: [id number] Admin: 10/11/19 21:23 Dose: 80 mls/hr Documented by: [id number] Infusion: 10/11/19 21:23 Dose: 80 mls/hr Documented by: [id number] Admin: 10/11/19 08:53 Dose: 80 mls/hr Documented by: [id number] Infusion: 10/11/19 08:09 Dose: 80 mls/hr Documented by: [id number] Admin: 10/10/19 19:39 Dose: 80 mls/hr Documented by: [id number] Ceftriaxone Sodium 1,000 mg/ (Dextrose) 50 mls @ 100 mls/hr IV Q24H BRIANA; Protocol Stop: 10/17/19 04:59 Last Infusion: 10/12/19 05:42 Dose: 0 mls/hr Documented by: [id number] Admin: 10/12/19 05:08 Dose: 100 mls/hr Documented by: [id number] Levothyroxine Sodium (Synthroid) 100 mcg PO DAILYBB BRIANA Stop: 11/10/19 06:29 Last Admin: 10/12/19 07:35 Dose: 100 mcg Documented by: [id number] Admin: 10/11/19 05:51 Dose: 100 mcg Documented by: [id number] Memantine (Namenda) 5 mg PO HS [facility] Stop: 11/09/19 20:59 Last Admin: 10/11/19 21:24 Dose: 5 mg Documented by: [id number] Admin: 10/10/19 20:36 Dose: 5 mg Documented by: [id number] Metoprolol Succinate (Toprol Xl) 25 mg PO BID [facility] Stop: 11/09/19 20:59 Last Admin: 10/12/19 07:36 Dose: 25 mg Documented by: [id number] Admin: 10/11/19 21:26 Dose: 25 mg Documented by: [id number] Admin: 10/11/19 08:47 Dose: 25 mg Documented by: [id number] Admin: 10/10/19 20:37 Dose: 25 mg Documented by: [id number] Miscellaneous (Remove Nicoderm Patch) 1 ea N/A DAILY@[id number] [facility] Stop: 11/10/19 08:58 Last Admin: 10/12/19 07:37 Dose: 1 ea Documented by: [id number] Admin: 10/11/19 08:49 Dose: Not Given Documented by: [id number] Multivitamins/Minerals (Caltrate Plus) 1 tab PO QPM [facility] Stop: 11/09/19 20:59 Last Admin: 10/11/19 21:25 Dose: 1 tab Documented by: [id number] Admin: 10/10/19 20:36 Dose: 1 tab Documented by: [id number] Nicotine (Nicoderm Cq) 21 mg TD QAM [facility] Stop: 11/09/19 19:59 Last Admin: 10/11/19 19:12 Dose: 21 mg Documented by: [id number] Admin: 10/11/19 08:48 Dose: Not Given Documented by: [id number] Admin: 10/10/19 20:35 Dose: Not Given Documented by: [id number] Ondansetron HCl (Zofran) 4 mg IV Q4H PRN PRN Reason: Nausea And Vomiting Stop: 11/09/19 18:07 Last Admin: 10/10/19 18:09 Dose: 4 mg Documented by: [id number] Quetiapine Fumarate (Seroquel) 12.5 mg PO HS PRN PRN Reason: Agitation Stop: 11/10/19 20:59 Last Admin: 10/12/19 03:49 Dose: 12.5 mg Documented by: [id number] Senna/Docusate Sodium (Senokot S) 2 tab PO HS [facility] Stop: 11/09/19 20:59 Last Admin: 10/11/19 21:25 Dose: 2 tab Documented by: [id number] Admin: 10/10/19 20:36 Dose: 2 tab Documented by: [id number] Vitamin D (Vitamin D3) 5,000 units PO DAILY [facility] Stop: 11/10/19 08:59 Last Admin: 10/12/19 07:35 Dose: 5,000 units Documented by: [id number] Admin: 10/11/19 08:47 Dose: 5,000 units Documented by: [id number] Discontinued Medications Cyclobenzaprine HCl (Flexeril) 10 mg PO NOW STA Stop: 10/10/19 17:54 Last Admin: 10/10/19 17:58 Dose: 10 mg Documented by: [id number] Fentanyl Citrate (Fentanyl Citrate) 50 mcg IV NOW STA Stop: 10/10/19 16:56 Last Admin: 10/10/19 16:55 Dose: 50 mcg Documented by: [id number] Cefazolin Sodium (Ancef 2000mg) 2,000 mg in 15 mls @ 3.75 mls/min IV PREOP BRIANA; Protocol Stop: 10/12/19 05:59 Last Admin: 10/11/19 17:31 Dose: Not Given Documented by: [id number] Ondansetron HCl (Zofran) Confirm Administered Dose 4 mg .ROUTE .STK-MED ONE Stop: 10/10/19 18:08 Last Admin: 10/11/19 16:13 Dose: Not Given Documented by: [id number] Medical Decision Making Differential Diagnosis Differentials include hip fracture, hip dislocation, arrhythmia, metabolic and electrolyte abnormality. Medical Records Attestation: I reviewed the patient's medical records. Home Medications Current Medication List: was personally reviewed by me Laboratory Data Attestation: I reviewed the patient's lab results. Result diagrams: 10/12/19 07:55 10/12/19 07:55 Lab Results 10/10/19 10/10/19 10/10/19 Range/Units 16:23 16:23 16:23 WBC 7.71 (4.8-10.8) K/uL RBC 3.95 L (4.2-5.4) M/uL Hgb 11.8 L (12.0-16.0) g/dL Hct 37.6 (37-47) % MCV 95.2 (80-100) fL MCH 29.9 (25-34) pg MCHC 31.4 L (32-36) g/dL RDW Std Deviation 50.9 H (36.4-46.3) fL RDW Coeff of Tiffany 14.5 (11.5-14.5) % Plt Count 213 (130-400) K/uL MPV 11.8 H (7.4-10.4) fL Immature Gran % (Auto) 0.5 % Neut % (Auto) 65.2 % Lymph % (Auto) 20.2 % Duval % (Auto) 11.9 % Eos % (Auto) 2.1 % Baso % (Auto) 0.1 % Immature Gran # (Auto) 0.04 H (0.00-0.02) K/uL Neut # (Auto) 5.02 (1.4-6.5) K/uL Lymph # (Auto) 1.56 (1.2-3.4) K/uL Duval # (Auto) 0.92 H (0.11-0.59) K/uL Eos # (Auto) 0.16 (0-0.5) K/uL Baso # (Auto) 0.01 (0-0.2) K/uL PT 9.8 (9.0-12.0) Seconds INR 1.0 (0.9-1.1) APTT 22.7 (21.0-31.0) Seconds PTT Ratio 0.8 Sodium 140 (136-145) mmol/L Potassium 3.5 (3.5-5.1) mmol/L Chloride 108 H (98-107) mmol/L Carbon Dioxide 27 (21-32) mmol/L Anion Gap 5.0 (3-11) BUN 18 (7-18) mg/dl Creatinine 1.67 H (0.6-1.2) mg/dl Est Cr Clr Drug Dosing 23.8 ml/min Est GFR ( Amer) 32.9 Est GFR (Non-Af Amer) 28.4 BUN/Creatinine Ratio 11.0 (10-20) Glucose 118 H (70-99) mg/dl Calcium 9.3 (8.5-10.1) mg/dl Imaging Data Radiologist's Impression: Radiology results as stated below per my review and the radiologist's interpretation: ADDENDUM Addendum: In addition to the proximal femoral fracture, there is a longitudinal periprosthetic fracture visualized at and inferior to the tip of the femoral spike. Electronically signed by: Stefan Gonsalez M.D. 10/10/2019 5:09 PM ADDENDUM END XR hip LT 2V w pelvis CLINICAL HISTORY: left hip injury COMPARISON: 01/09/2019 DISCUSSION: There are bilateral total hip arthroplasties. There is an old left ischial pubic ring fracture. Now evident is an acute proximal femoral fracture with involvement of the lesser trochanter. Fracture line extends just inferior to the greater trochanter. There is no dislocation IMPRESSION: 1. Bilateral total hip arthroplasties 2. Acute proximal left femoral fracture. No evidence of dislocation. Electronically signed by: Stefan Gonsalez M.D. 10/10/2019 4:59 PM XR femur LT 2V routine CLINICAL HISTORY: Pain status post trauma COMPARISON: The study is read in conjunction with a film of the hip performed earlier. DISCUSSION: There is a total left hip arthroplasty. There is acute proximal femoral fracture. Also evident is a longitudinal periprosthetic fracture visualized at inferior to the tip of the femoral spike. There is a sclerosis involving the proximal tibia likely representing a bone infarct IMPRESSION: 1. Total left hip arthroplasty 2. Acute femoral fracture involving the proximal femur just inferior to the greater trochanter and involving the lesser trochanter. In addition there is a longitudinal component of the fracture visualized at and inferior to the tip of the femoral spike Electronically signed by: Stefan Gonsalez M.D. 10/10/2019 5:08 PM ECG Data Indication: + other (hip pain) Rate (beats per minute): 69 Rhythm: + normal sinus ECG ST segments: no ST depression and no ST elevation ECG Findings: + LVH; no PACs and no PVCs Comparison ECG Date: from (02/11/2018) Change: no significant change Blood Pressure Blood Pressure Findings: Elevated blood pressure Blood Pressure Disposition: further management by hospitalist MDM Narrative This patient comes in as described above. She suffered a mechanical fall. She has pain in her left hip. This is her only complaint. She has had a prosthetic hip replacement done on this side before. It does appear to be shortened and rotated. Distally in the foot, she is neurologically neurovascular intact. She was brought in by ambulance. I saw her promptly after she arrived. She seemed comfortable initially but did require additional IV narcotics with IV fentanyl dosages. We did get portable x-rays which show a periprosthetic hip fracture on the left. She will need to be admitted for pain management orthopedic consultation and possible surgical repair. She has nothing to suggest that this was a syncopal episode or cardiac event. She is not anemic. She does have some baseline renal insufficiency. I discussed the care with the patient and several family members were at the bedside. I consulted the hospitalist to see her for admission. Impression & Plan Fracture of prosthetic hip, Left hip pain, Fall, Renal insufficiency Discharge Plan Visit Data *Final* Discharge Date/Time: 10/10/19 19:00 Chief Complaint: Hip Pain Stated Complaint: FALL, L HIP PAIN ED Provider: Jose Reis Discharge Problem: Fracture of prosthetic hip, Left hip pain, Fall, Renal insufficiency Patient Disposition: Admitted As Inpatient Discharge Instructions Interventions: ED Discharge Assessment Last Done: 10/10/19 19:00 Discharge Problem: Fracture of prosthetic hip Qualifiers: Encounter type: initial encounter Qualified Code(s): T84.019A - Broken internal joint prosthesis, unspecified site, initial encounter Fall Qualifiers: Encounter type: initial encounter Qualified Code(s): W19.XXXA - Unspecified fall, initial encounter The scribe's documentation has been prepared under my direction and personally reviewed by me in its entirety. I confirm that the note above accurately reflects all work, treatment, procedures, and medical decision making performed by me.
[2019-10-12] MEDS ORDERED: SODIUM CHLORIDE 0.9% 250 ML IV PRN (10:08)
[2019-10-12] MEDS: LACTATED RINGER'S 1,000 ML IV SCH (10:40)
--- NOTE | 2019-10-12 12:34 | Hospitalist Progress Note ---
Date of Service October 12, 2019 Assessment & Plan (1) Periprosthetic fracture around internal prosthetic left hip joint: Secondary to mechanical fall, with bilateral THAs in place -Consult Ortho --> plan is for a complex repair on Tuesday-delay due to need to order in hardware specific for this case -continue flexeril prn muscle spasm, dilaudid prn pain -We will DC IV fluids and will be getting PRBCs today x1 unit to get hemoglobin above 10 prior to major surgery tomorrow as per orthopedic recommendations -N.p.o. after midnight -Continue Figueroa catheter in place -Follow am cbc,BMP (2) Fracture of proximal end of left femur: as above (3) Tobacco use: -Very likely that her cigarette smoking is contributing to osteoporosis and vitamin D deficiency -Patient smokes 1 pack/day x 40 years -Cessation encouraged, nicotine patch ordered and now pt is accepting of this (4) Osteoporosis: -Continue calcium and Vit D supplementation -T12 compression fracture noted on imaging, as well as old inferior ischial fracture (5) Vitamin D deficiency: -Continue supplementation as above Level here is good at 56 (6) Atrial fibrillation: With a h/o PAF -Continues here in normal sinus rhythm -Continue amiodarone 200 mg QAM, hold ASA 325 mg daily for surgery, and continue metoprolol succinate 25 mg BID -watch for Afib in setting of stress and surgery -previously was on Xarelto but daughter reports this was stopped by Dr. 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 now lower and improved, stable at 1.4 from IVF hydration likely -avoid nephrotoxins -renally dose meds when appropriate -follow marilou RODRIGUEZ (11) Fall: Mechanical, resulting in left periprosthetic hip fracture -needs PT/OT after surgery (12) Acute blood loss anemia: Hgb dropped to 9.6 from 11.8, secondary to blood loss from fracture and some hemodilutional component -hemodynamically stable - will transfuse PRBCs for goal of Hgb 10 prior to Ortho surgery on Sat as per Ortho recommendation -Follow CBC in the morning -Hold aspirin (13) Delirium: Secondary to pain, opioid pain medications in setting of hospitalization and underlying dementia Continues especially worse at nighttime -supportive care 1:1 sitter as needed -frequent reorientation, keep sleep/wake cycles consistent -Continue Seroquel 12.5mg po qhs prn agitation--daughter warned of risk of CVA, CV risk in elderly and is accepting of risk-encourage nurse to give this earlier than bedtime rather than waiting till 3 in the morning (14) DVT prophylaxis: -TEDs on nonaffected leg, SCDs, no chemical anticoagulation in anticipation of surgical procedure CODE STATUS: Full code Disposition: Patient from home, lives alone, PT/OT evals will be needed and she will likely need rehab placement Subjective Having pain in the left hip, was confused and agitated again through the night but did not get the Seroquel until 3 in the morning as per daughter who was here all night. Patient is tolerating p.o., no nausea. Denies chest pain or shortness of breath. Remains confused. Telemetry with sinus bradycardia and normal sinus rhythm with rates in the 50s to 60s Review of Systems Review of Systems: All systems reviewed & are unremarkable except as noted in HPI & below Physical Exam Constitutional: average body habitus; no acute distress Eyes: + anicteric sclerae Neck: trachea midline, no thyromegaly Respiratory: normal respiratory effort, lungs clear to auscultation Auscultation: + diminished lung sounds (throughout) Cardiovascular: Rate/Rhythm: regular rhythm and + bradycardic Heart Sounds: no murmur Vessels: no JVD Extremities: no edema Chest (Breasts): Chest: normal inspection of chest Gastrointestinal (Abdomen): normal bowel sounds, soft, nontender, no hepatosplenomegaly Musculoskeletal: Extremities: + extremities abnormal to inspection (LLE shortened and internally rotated), no cyanosis and no clubbing Skin: no rashes, warm and dry Neurologic: moves all extremities and awake; no focal motor deficits Psychiatric: Orientation: alert, oriented to person and cooperative; + not oriented to time Speech: normal rate/rhythm/volume of speech Cognition: + recent memory not intact Insight: + limited insight Genitourinary: Figueroa catheter in place draining clear yellow urine Lymphatic: no lymphedema Results & Data Vital Signs (Past 12 Hours) Vital Signs Temp Pulse Pulse Resp BP Pulse Ox 10/12/19 11:00 37.0 C 70 18 149/76 H 92 10/12/19 07:14 62 10/12/19 07:09 36.6 C 62 18 112/69 94 10/12/19 03:25 37.1 C 85 20 191/97 H 93 10/12/19 00:55 58 L Laboratory Results Labs reviewed PG Care Time/CCT Total # of Minutes Spent Total Time Spent with Patient: Total time spent is greater than 50% in coordination of care (as documented) at patient's floor/unit and/or counseling patient: (1) Periprosthetic fracture around internal prosthetic left hip joint Encounter type: initial encounter Qualified Code(s): M97.02XA - Periprosthetic fracture around internal prosthetic left hip joint, initial encounter (2) Fall Encounter type: initial encounter Qualified Code(s): W19.XXXA - Unspecified fall, initial encounter
[2019-10-12] MEDS: HYDROmorphone INJ 0.5 MG/0.5 ML SYR IV PRN (12:44)
[2019-10-12] MEDS: CYCLOBENZAPRINE HCL 5 MG TAB PO PRN (12:44)
--- NOTE | 2019-10-12 17:29 | Anesthesiology Consultation ---
Date of Service October 12, 2019 Assessment & Plan (1) Encounter for pre-operative examination: Chart Review Chart Review: Acceptable Risk for Surgery (the patient has elevated risk for moderate risk surgery, she would like to proceed) and Patient NOT seen in Pre Admission Testing Consults Requested none medicine is following the patient History Surgery Operation Date: 10/13/19 07:30 Proposed Procedures p Left Proximal Periprosthetic Femur Fracture Open Reduction Internal Fixation, Possible Left Total Hip Revision - Silviano Gibbs DO Height/Weight Height: 5 ft 5 in Weight: 62.7 kg Allergies Allergy/AdvReac Type Severity Reaction Status Date / Time No Known Allergies Allergy Unverified 10/10/19 17:34 Medications Home Medications Medication Instructions Recorded Confirmed Last Taken cholecalciferol (vitamin D3) 5,000 units PO DAILY 08/29/18 10/10/19 08/29/18 [Vitamin D3] calcium citrate-vitamin D3 1 tab PO QPM 09/08/18 10/10/19 Unknown [Calcitrate-Vitamin D] metoprolol succinate 25 mg PO BID 09/08/18 10/10/19 Unknown amiodarone 200 mg tablet 200 mg PO QAM #90 tab 07/20/19 10/10/19 Unknown levothyroxine 100 mcg tablet 100 mcg PO DAILY #30 tab 09/17/19 10/10/19 Unknown aspirin, buffered 325 mg PO QPM 10/10/19 10/10/19 Unknown memantine 5 mg tablet 5 mg PO DAILY #30 tab 10/12/19 Unknown Active Medications Generic Name Dose Route Start Last Admin Trade Name Freq PRN Reason Stop Dose Admin Acetaminophen 1,000 mg 10/10/19 22:00 10/12/19 14:11 Tylenol PO 11/09/19 21:59 1,000 mg Q8H BRIANA Administration Amiodarone HCl 200 mg 10/11/19 09:00 10/12/19 07:36 Cordarone PO 11/10/19 08:59 200 mg QAM BRIANA Administration Aspirin Buffered 325 mg 10/10/19 21:00 10/11/19 21:26 Ascriptin PO 11/09/19 20:59 325 mg QPM BRIANA Administration Bisacodyl 5 mg 10/11/19 09:00 10/12/19 14:12 Dulcolax PO 11/10/19 08:59 5 mg DAILY BRIANA Administration Cyclobenzaprine HCl 5 mg 10/10/19 19:00 10/12/19 12:44 Flexeril PO 11/09/19 18:59 5 mg Q8H PRN Administration spasm Hydromorphone HCl 0.5 mg 10/10/19 17:53 10/12/19 12:44 Dilaudid IV 10/24/19 17:52 0.5 mg Q3H PRN Administration Pain Ceftriaxone Sodium 1,000 mg/ 50 mls @ 100 mls/hr 10/12/19 05:00 10/12/19 05:42 Dextrose IV 10/17/19 04:59 Infused Q24H BRIANA Infusion Protocol Levothyroxine Sodium 100 mcg 10/11/19 06:30 10/12/19 07:35 Synthroid PO 11/10/19 06:29 100 mcg DAILYBB BRIANA Administration Memantine 5 mg 10/10/19 21:00 10/11/19 21:24 Namenda PO 11/09/19 20:59 5 mg HS BRIANA Administration Metoprolol Succinate 25 mg 10/10/19 21:00 10/12/19 07:36 Toprol Xl PO 11/09/19 20:59 25 mg BID BRIANA Administration Miscellaneous 1 ea 10/11/19 08:59 10/12/19 07:37 Remove Nicoderm Patch N/A 11/10/19 08:58 1 ea DAILY@[id number] BRIANA Administration Multivitamins/Minerals 1 tab 10/10/19 21:00 10/11/19 21:25 Caltrate Plus PO 11/09/19 20:59 1 tab QPM BRIANA Administration Nicotine 21 mg 10/10/19 20:00 10/11/19 19:12 Nicoderm Cq TD 11/09/19 19:59 21 mg QAM BRIANA Administration Ondansetron HCl 4 mg 10/10/19 18:08 10/10/19 18:09 Zofran IV 11/09/19 18:07 4 mg Q4H PRN Administration Nausea And Vomiting Quetiapine Fumarate 12.5 mg 10/11/19 19:07 10/12/19 03:49 Seroquel PO 11/10/19 20:59 12.5 mg HS PRN Administration Agitation Senna/Docusate Sodium 2 tab 10/10/19 21:00 12/05/19 21:25 Senokot S PO 11/09/19 20:59 2 tab HS BRIANA Administration Vitamin D 5,000 units 10/11/19 09:00 10/12/19 07:35 Vitamin D3 PO 11/10/19 08:59 5,000 units DAILY BRIANA Administration NPO Date Last Intake of Fluids: 10/10/19 Time Last Intake of Fluids: 23:45 Past Medical History Medical History Anemia Atrial fibrillation (Chronic) Bladder cancer Compression fracture of T12 vertebra (Acute) Compression fracture of T12 vertebra (Acute 08/26/14) DVT prophylaxis Kidney stone Osteoporosis (Chronic) Pelvis fracture (Acute) Smoker Past Family History Family History Other Family history non-contributory Past Surgical History Surgical History H/O bilateral hip replacements Social History Smoking Status: Current every day smoker tobacco type: cigarettes Do You Dip or Chew Tobacco: No Hx Alcohol Use: No Hx Substance Use: No Physical Exam Vital Signs Last Vital Signs Temp 37.2 C 10/12/19 16:10 Pulse 78 10/12/19 16:10 Resp 16 10/12/19 16:10 BP 136/85 10/12/19 16:10 Pulse Ox 92 10/12/19 15:00 ENMT Mouth: + dentures; no TMJ abnormality Thyromental Distance: > or= 3.5 Finger Breadths Mallampati Class: II Neck normal visual inspection Respiratory normal respiratory effort Auscultation: lungs clear to auscultation bilaterally Cardiovascular Rate/Rhythm: regular rate and regular rhythm Musculoskeletal Spine: no pain with cervical ROM Neurologic moves all extremities Psychiatric Orientation: alert and oriented x 3 (patient answered questions appropriately, daughter was at bedside) Testing Laboratory Results 10/12/19 07:55 10/12/19 07:55 PT 10.4 Seconds (9.0-12.0) 10/11/19 07:55 INR 1.0 (0.9-1.1) 10/11/19 07:55 APTT 22.7 Seconds (21.0-31.0) 10/10/19 16:23 Urine Color Yellow 10/12/19 03:30 Urine Appearance Turbid (Clear) A 10/12/19 03:30 Urine pH 6.0 (4.5-7.5) 10/12/19 03:30 Ur Specific [place] 1.018 (1.000-1.030) 10/12/19 03:30 Urine Protein 1+ (Negative) H 10/12/19 03:30 Urine Glucose (UA) Negative (Negative) 10/12/19 03:30 Urine Ketones Negative (Negative) 10/12/19 03:30 Urine Nitrite Positive (Negative) A 10/12/19 03:30 Ur Leukocyte Esterase 3+ (Negative) H 10/12/19 03:30 Urine WBC (Auto) >30 /hpf (0-5) H 10/12/19 03:30 Urine RBC (Auto) >30 /hpf (0-4) H 10/12/19 03:30 U Hyaline Cast (Auto) 5-10 /lpf (0-5) H 10/12/19 03:30 U Epithel Cells (Auto) >30 /lpf (0-5) H 10/12/19 03:30 Urine Bacteria (Auto) 4+ (Negative) H 10/12/19 03:30 Blood Type A Positive 10/10/19 19:09 Antibody Screen NEGATIVE 10/10/19 19:09 Electrocardiogram Date: 10/10/19 Findings: + NSR @ (69) and + LVH
--- NOTE | 2019-10-12 17:54 | Orthopedic Progress Note ---
Date of Service October 12, 2019 Assessment & Plan (1) Periprosthetic fracture around internal prosthetic left hip joint: Plan for ORIF of left periprosthetic femur fracture tomorrow morning at 730. Discussed patient's n.p.o. status after this evening and anesthesia would like her to be n.p.o. after 9 PM. Patient understands. Transfusion done per medicine service to keep hemoglobin above 10 due to possible blood loss for surgical procedure. Subjective Patient currently is sitting up in bed eating dinner. Her daughter is present and is helping her. She states that she is comfortable at rest but does have pain when she tries to move. No new complaints. Multiple questions asked about the surgery tomorrow which have been answered. Daughter states that she just finished getting a blood transfusion. Physical Exam Physical Exam: No overt changes to the left lower extremity. Good range of motion of the left ankle without discomfort. Knee and hip range of motion deferred due to hip fracture. Results & Data Vital Signs (Past 12 Hours) Vital Signs Temp Pulse Pulse Resp BP BP Pulse Ox 10/12/19 16:10 37.2 C 78 16 136/85 10/12/19 15:00 37.3 C 76 18 117/65 92 10/12/19 14:37 36.4 C L 73 18 115/70 10/12/19 14:25 36.6 C 77 18 128/74 10/12/19 14:05 37.2 C 73 18 146/74 H 10/12/19 11:00 37.0 C 70 18 149/76 H 92 10/12/19 07:14 62 10/12/19 07:09 36.6 C 62 18 112/69 94 (1) Periprosthetic fracture around internal prosthetic left hip joint Encounter type: initial encounter Qualified Code(s): M97.02XA - Periprosthetic fracture around internal prosthetic left hip joint, initial encounter
[2019-10-12] MEDS: CALCIUM 600MG + VIT D 400 IU TAB PO SCH (20:10)
[2019-10-12] MEDS: DOCUSATE SODIUM/SENNA 50/8.6MG TAB PO SCH (20:10)
[2019-10-12] MEDS: MEMANTINE HCL 5 MG TAB PO SCH (20:10)
[2019-10-13] MEDS: CYCLOBENZAPRINE HCL 5 MG TAB PO PRN (03:07)
[2019-10-13 04:34] LABS: Basophils # (auto) 0.01 K/uL (0-0.2); Basophils % (auto) 0.1 %; Eosinophils # (auto) 0.12 K/uL (0-0.5); Eosinophils % (auto) 1.1 %; Hematocrit (blood only) 37.9 % (37-47); Hemoglobin 12.2 g/dL (12.0-16.0); Immature Granulocytes # (auto) 0.05 K/uL (0.00-0.02); Immature Granulocytes % (auto) 0.5 %; Lymphocytes # (auto) 1.82 K/uL (1.2-3.4); Lymphocytes % (auto) 17.3 %; Mean Corpuscular Hemoglobin 29.9 pg (25-34); Mean Corpuscular Hgb Conc 32.2 g/dL (32-36); Mean Corpuscular Volume 92.9 fL (80-100); Mean Platelet Volume 12.2 fL (7.4-10.4); Monocytes # (auto) 1.19 K/uL (0.11-0.59); Monocytes % (auto) 11.3 %; Neutrophils # (auto) 7.35 K/uL (1.4-6.5); Neutrophils % (auto) 69.7 %; Platelet Count 167 K/uL (130-400); RDW Coefficient of Variation 14.2 % (11.5-14.5); RDW Standard Deviation 48.6 fL (36.4-46.3); Red Blood Count 4.08 M/uL (4.2-5.4); White Blood Count 10.54 K/uL (4.8-10.8)
[2019-10-13] MEDS: cefTRIAXone SODIUM 1,000 MG in DEXTROSE 5% 50 ML IV SCH (04:42)
[2019-10-13 04:52] LABS: Albumin Level 2.5 gm/dl (3.4-5.0); BUN Creatinine Ratio 10.2 (10-20); Calcium 9.5 mg/dl (8.5-10.1); Creatinine Clr Calc Pharmacy 30.8 ml/min; Est GFR (Non-African American) 38.8; Potassium 3.8 mmol/L (3.5-5.1)
[2019-10-13 04:55] LABS: Albumin Globulin Ratio 0.6 (0.9-2); Bilirubin,Total 0.5 mg/dl (0.2-1); Globulin 4.1 gm/dl (2.5-4.0); Total Protein 6.6 gm/dl (6.4-8.2)
[2019-10-13] MEDS ORDERED: ROPIVACAINE 0.5% HCL/PF 150 MG, BUPIVACAINE 0.5% MPF 30 ML, EPINEPHrine 0.15 MG, Ketoro... INFIL SCH (06:00)
[2019-10-13] MEDS: ACETAMINOPHEN 500 MG TAB PO SCH ×4 (06:06→21:29)
[2019-10-13] MEDS: LEVOTHYROXINE SODIUM 100 MCG TABLET PO SCH (06:07)
[2019-10-13] MEDS ORDERED: ONDANSETRON INJ 2 MG/ML 2 ML VIAL IV PRN ×2 (07:35→13:16)
[2019-10-13] MEDS ORDERED: HYDROmorphone INJ 1 MG/ML SYRINGE IV PRN (07:35)
[2019-10-13] MEDS ORDERED: ATROPINE SULFATE 0.1 MG/ML 10ML SYR IV PRN (07:35)
[2019-10-13] MEDS ORDERED: LABETALOL HCL IV 5 MG/ML 20ML IV PRN (07:35)
[2019-10-13] MEDS ORDERED: ePHEDrine sulfate 50 MG/ML AMP IV PRN (07:35)
[2019-10-13] MEDS ORDERED: fentaNYL citrate 100 MCG/2 ML VIAL IV PRN (07:35)
[2019-10-13] MEDS ORDERED: PHENYLEPHRINE 100MCG/ML 5ML SYR IV PRN (07:35)
[2019-10-13] MEDS ORDERED: LIDOCAINE HCL 2% 2 ML VIAL/AMP(20MG/ML) INFIL ONE (07:40)
[2019-10-13] MEDS ORDERED: PROPOFOL IV EMULSION 10 MG/ML 20 ML VIAL IV ONE (07:40)
[2019-10-13] MEDS ORDERED: ONDANSETRON INJ 2 MG/ML 2 ML VIAL ONE (07:40)
[2019-10-13] MEDS ORDERED: ROCURONIUM BROMIDE 10 MG/ML 5 ML VIAL ONE ×2 (07:40→11:09)
[2019-10-13] MEDS ORDERED: fentaNYL citrate 100 MCG/2 ML VIAL ONE ×2 (07:40→11:59)
[2019-10-13] MEDS ORDERED: CEFAZOLIN 250 MG/ML 1 GM VIAL ONE (07:45)
--- NOTE | 2019-10-13 07:45 | History & Physical Bridge Note ---
Date of Service October 13, 2019 History & Physical Bridge Note I have examined the patient, reviewed the History & Physical and in the interval since the performance of the History & Physical I have noted the following changes of clinical significance: no changes noted
[2019-10-13] MEDS ORDERED: CEFAZOLIN 2000MG 2,000 MG/15 ML SYR IV ONE (07:46)
--- NOTE | 2019-10-13 07:52 | Orthopedic Progress Note ---
Date of Service October 13, 2019 Assessment & Plan (1) Periprosthetic fracture around internal prosthetic left hip joint: The patient is a 79-year-old female with left B1/B2 proximal femur periprosthetic fracture sustained after a fall from standing height. The patient was medically stabilized on 10/13/2019. I indicated the patient for open reduction internal fixation of left proximal femur, head and liner exchange possible revision of femoral component. The patient and family was informed of the risks and benefits of surgery, which include but not limited to infection, bleeding, blood clots, damage to nerves, vessels, bone and soft tissue, dislocation, leg length discrepancy, need for additional surgery and . Failure of the prosthesis, failure of the implants, malunion, nonunion. The alternatives of the procedure include no surgery which could result in worsening fracture pattern inability to ambulate and worsening symptoms and clinical picture. The patient and family collectively chose to move forward with surgical intervention and informed consent was obtained. Antibiotics operations analyst the OR Nonweightbearing left lower extremity Hemodynamically stable hemoglobin 12.2 this morning Subjective The patient was seen in preoperative holding accompanied by family. She was in good spirits and pain was well controlled. No acute issues overnight. Review of Systems Review of Systems: All systems reviewed & are unremarkable except as noted in HPI & below Constitutional: as per Subjective / HPI Physical Exam Physical Exam: LLE NVSI +EHL/FHL/TA/GS SILT grossly, +2 DP pulse, compartments soft NT, skin overlying left hip is clean dry and intact. Constitutional: WD/WN, vitals as above Results & Data Vital Signs (Past 12 Hours) Vital Signs Temp Pulse Pulse Resp BP BP Pulse Ox 10/13/19 03:32 167/84 H 10/13/19 03:00 166/84 H 10/13/19 02:57 37.0 C 77 20 172/90 H 90 10/13/19 01:26 81 10/12/19 23:27 166/84 H 90 10/12/19 23:10 36.7 C 87 19 85 L (1) Periprosthetic fracture around internal prosthetic left hip joint Encounter type: initial encounter Qualified Code(s): M97.02XA - Periprosthetic fracture around internal prosthetic left hip joint, initial encounter
[2019-10-13] MEDS ORDERED: BACITRACIN INJ 50,000 UNIT VIAL ONE ×2 (08:44→11:15)
[2019-10-13] MEDS ORDERED: KETAMINE HCL INJ 50 MG/ML 10 ML VIAL ONE (08:49)
[2019-10-13] MEDS ORDERED: ePHEDrine sulfate 50 MG/ML SYR ONE (11:09)
--- NOTE | 2019-10-13 11:22 | Fluoroscopy Report ---
FL femur LT 2V CLINICAL HISTORY: LEFT FEMUR FX COMPARISON STUDY: Left femur 10/10/2019. FLUOROSCOPY TIME: 19 seconds. FINDINGS: 4 fluoroscopic spot images of the left femur demonstrate a cortical plate, screws, and cerc faheem wires transfixing the mid shaft periprosthetic fracture. There is a left total hip arthroplasty present. The alignment appears intact. IMPRESSION: Fluoroscopy provided for internal fixation of a left femoral midshaft periprosthetic frac ture. Electronically signed by: Brendan Davis M.D. 10/13/2019 11:21 AM
[2019-10-13] MEDS ORDERED: GLYCOPYRROLATE 0.2 MG/ML VIAL ONE (11:51)
[2019-10-13] MEDS ORDERED: NEOSTIGMINE METHYLSULFATE 5 MG/5 ML SYR ONE (11:51)
--- NOTE | 2019-10-13 11:56 | Post Operative Brief Note ---
Immediate Post Op Note v1 Date of Surgery October 13, 2019 Pre & Post Diagnosis Operation Date: 10/13/19 07:30 Pre-Op Diagnosis: Left Proximal Periprosthetic Femur Fracture Post-Op Diagnosis: Left Proximal Periprosthetic Femur Fracture I identified the patient and participated in the time-out.: Yes Procedure Operation Date: 10/13/19 07:30 Actual Procedures p Open Reduction Internal Fixation Left Periprosthetic Femur Fracture and Femoral Head and Liner Exchange(Left) - Silviano Gibbs DO Surgeon Silviano Gibbs DO Survey Research Associate Matthew Riggs Estimated Blood Loss 500 Findings Consistent with Post-Op Diagnosis Fluids 2000 cc LR Drains Hemovac Drain Anesthesia Type General Complications none Disposition Disposition: Recovery Room Overlapping Procedure I was present for: the critical portions of procedure. I was immediately available: during the entire case. Back up surgeon: was not required during procedure.
--- NOTE | 2019-10-13 12:02 | Operative Report ---
Post Operative Report Pre & Post Diagnosis Operation Date: 10/13/19 07:30 Pre-Op Diagnosis: Left Proximal Periprosthetic Femur Fracture Post-Op Diagnosis: Left Proximal Periprosthetic Femur Fracture I identified the patient and participated in the time-out.: Yes Procedure Operation Date: 10/13/19 07:30 Actual Procedures p Open Reduction Internal Fixation Left Periprosthetic Femur Fracture and Femoral Head and Liner Exchange(Left) - Silviano Gibbs DO Surgeon Silviano Gibbs DO Director Of Fundraising Matthew Riggs Estimated Blood Loss 500 Findings Consistent with Post-Op Diagnosis Fluids 2000 cc LR Specimens none Drains hmv drains x2 deep to fascia Anesthesia Type General Complications none Disposition Disposition: Recovery Room Indications The patient is a 79-year-old female with left B1/B2 proximal femur periprosthetic fracture sustained after a fall from standing height. The patient was medically stabilized on 10/13/2019. I indicated the patient for open reduction internal fixation of left proximal femur, head and liner exchange possible revision of femoral component. The patient and family was informed of the risks and benefits of surgery, which include but not limited to infection, bleeding, blood clots, damage to nerves, vessels, bone and soft tissue, dislocation, leg length discrepancy, need for additional surgery and . Failure of the prosthesis, failure of the implants, malunion, nonunion. The alternatives of the procedure include no surgery which could result in worsening fracture pattern inability to ambulate and worsening symptoms and clinical picture. The patient and family collectively chose to move forward with surgical intervention and informed consent was obtained. Description of Procedure Following induction of adequate general anesthesia, the patient was transferred to the OR table and placed in lateral decubitus position with right hip down. The left hip was prepped and draped in the typical sterile fashion and a posterolateral/Nagi-Langenbeck incision was made inline with the previous incision extending distally past the level of the fracture which extended distal to the tip of the prosthesis. Subcutaneous tissue was sharply dissected. Electrocautery was utilized for hemostasis. The fascia was incised throughout the length of the wound and retracted with the Charnley retractor. The bursa was taken down and the short external rotators and capsule were identified and tagged with two #1 Vicryl sutures. The short external rotators and capsule were divided from the posterior aspect of the femur using electrocautery. Both external rotators and posterior capsule were swept posterior and protected, along with protecting the sciatic nerve. Meticulous removal of intra-articular scar tissue was performed with bovie. We identified a displaced comminuted fracture of the lesser trochanter which extended laterally into the base of the greater trochanter The Gluteus medius insertion was released and tagged with #5 fiberwire leaving a small amount of tendon insertion for repair. Next two 1.7mm Dall Miles cables were placed proximally to the distal aspect of the incomplete fracture at the tip of the prosthesis and tensioned. The cables were crimped in place, tensioner removed and excess cable cut. Next, the hip prosthesis was carefully dislocated by flexion and internal rotation in a controlled manner. The femoral head was removed from the trunion. Next, we turned our attention to the proximal femur and stem. I identified the fracture of the lesser trochanter extending inferiorly into the sub-troches region and laterally into the base of the greater trochanter. The fracture fragment was displaced medially and proximally. Carefully we removed all soft tissue debris and bone near the proximal aspect of the stem. The stem was found to be well fixed and without signs of wear. Several attempts were made with extraction device. Next, exposure of the acetabulum was obtained. Additional scar tissue removal and debridement of the intra-articular soft tissue was performed. Acetabular cup and liner stability was assessed and found to be stable. There was signs of wear of the liner. We used the liner removal tool to dislodge the liner from the cup. Carefully we cleared the remaining soft tissue around the acetabular prothesis and a trial liner was inserted. Next, adequate exposure of femur and fracture ended down the shaft was once more gained and a 12hole LCP proximal femoral hook plate 4.5/5.0 was chosen. Utilizing the plate bending tools, we contoured the plate to the femur. A single 4.5x32mm cortical screw was placed distal to the tip of the prothesis which reduced the plate to the bone. The incision was covered and utilizing c- arm fluroscopy with sterile c-arm cover XRs were taken which demonstrated the plate to be well aligned and well fixed to the bone with adequate length extending distal to the incomplete fracture to ensure at least 3 cortical screws could be placed. Next we turned our attention to the proximal aspect of the plate and 3 cerclage eyes were screwed into the 4.5mm holes. Three 1.7mm Akumina Miles cables were then placed with the two most proximal cables around the region of the lesser trochanter. Due to the extent of lesser trochanter comminution, attempt was made to reduce as much as the fracture to the bone. The cables were tensioned and locked into place, cable tensioner removed. Next we turned our attention to the distal plate and three 4.5mm cortical screws measuring 40mm, 38mm and 32mm were placed distal to the most distal aspect of the incomplete shaft fracture. Next a 32+7 femoral head was placed onto the stem and a trial reduction was carried out. The hip was found to be stable in all degrees of rotation with hip flexion and extension with no impingement and leg lengths were equal. Utilizing intraoperative C-arm fluoroscopy an x-ray was obtained at this time to assess implant positioning and fracture reduction. The proximal three cables were retensioned sequentially, cables crimped, cable tensioner removed and excess cable cut. The hip was dislocated once more, trial components were removed. Access to the acetabulum was once more gained and the final 54 x 32 Trilogy 20 degree elevated liner was impacted into place. Access to the proximal femur was once more gained and a 32+7 mm femoral head was impacted into place and the hip was reduced. Range of motion was checked once again and found to be stable. Once more utilizing C-arm fluoroscopy stem positioning and fracture reduction was assessed and found to be well aligned well fixed with anatomic position. A Betadine soak was performed at this time for 3 minutes and the wound was copiously irrigated with sterile saline solution with bacitracin. The krishna- incisional soft tissue was injected utilizing [place] ortho mix which includes a combination of Ropivicaine 0.5% 150mg, Bupivicaine 0.5%/Epinephrine 1:200,000 30ml, Toradol 30mg, Dexamethasone 4mg, Ketamine 10mg, Clonidine 100mcg and NSS 30ml solution. The external rotators, capsule were repaired to the greater trochanter through bone tunnels using #5 FiberWire. Primary repair of the gluteus medius tendon was performed with #5 FiberWire suture. Hemovac drain x 2 placed deep to fascia. The fascia was closed using #1 Vicryl, subcutaneous tissue was closed using 2-0 Vicryl, and skin was closed with francoise. Sterile dressings were applied which included xeroform, 4x4s, drain sponge, ABDs and large naveed wrap. A abduction pillow was placed between the legs. The patient tolerated the procedure well and was transported to PACU in stable condition. Due to the complex nature of the procedure, the entire surgery was performed with the operational assistance of Matthew Riggs PA-C. The tmd teacher assistant, under direct supervision, was involved in the actual performance of all aspects of the surgical procedure including patient positioning, hemostasis, tissue retraction, instrument management and wound closure. I attest to the content of the Intraoperative Record and any orders documented therein. Any exceptions are noted below.
--- NOTE | 2019-10-13 12:38 | Orthopedic Progress Note ---
Date of Service October 13, 2019 Assessment & Plan (1) Periprosthetic fracture around internal prosthetic left hip joint: Status post open reduction internal fixation of left proximal femur, revision left total hip with head and liner exchange -Ancef x24 -DVT prophylaxis: SCDs, teds, Lovenox daily -Toe-touch nonweightbearing left lower extremity -Posterior and abduction hip precautions -Monitor Hemovac drain output -Postoperative x-ray pending -A.m. lab Subjective Post Operative Progress Note Patient seen sitting up in bed, comfortable, denies complaints, pain well controlled, no acute issues. Denies fevers, chills, nausea, vomiting, shortness of breath or chest pain. Review of Systems Review of Systems: All systems reviewed & are unremarkable except as noted in HPI & below Constitutional: as per Subjective / HPI Physical Exam Physical Exam: LLE NVSI +EHL/FHL/TA/GS SILT grossly, +2 DP pulse, compartments soft NT, dressing cdi. Hemovac drain intact, abduction pillow in place. Constitutional: WD/WN, vitals as above Results & Data Vital Signs (Past 12 Hours) Vital Signs Temp Pulse Pulse Resp BP BP Pulse Ox 10/13/19 03:32 167/84 H 10/13/19 03:00 166/84 H 10/13/19 02:57 37.0 C 77 20 172/90 H 90 10/13/19 01:26 81 (1) Periprosthetic fracture around internal prosthetic left hip joint Encounter type: initial encounter Qualified Code(s): M97.02XA - Periprosthetic fracture around internal prosthetic left hip joint, initial encounter
[2019-10-13 12:41] LABS: iSTAT Creatinine 1.2 mg/dl (0.6-1.3); iSTAT Hemoglobin 10.9 g/dl (12.0-16.0); iSTAT Ionized Calcium 1.21 mmol/l (1.12-1.32); iSTAT Potassium 4.3 mEq/L (3.3-5.0)
--- NOTE | 2019-10-13 12:58 | XRay Report ---
XR femur LT 2V routine CLINICAL HISTORY: Post op, in PACU COMPARISON STUDY: Left femur 10/10/2019. FINDINGS: A left total hip arthroplasties again noted. Interval placement of a cortical plate, screws , and cerclage wires within the proximal to mid femur transfixing the periprosthetic fracture. The al ignment is anatomic. The hardware appears intact. Skin francoise and surgical drains are in place. IMPRESSION: Status post internal fixation of a left femoral periprosthetic fracture. The hardware ap pears intact. Electronically signed by: Brendan Davis M.D. 10/13/2019 12:57 PM
--- NOTE | 2019-10-13 13:03 | Anesthesiology Progress Note ---
Date of Service October 13, 2019 Anesthesia Post Procedure Vital Signs Vital Signs: Temp Pulse Pulse Pulse Resp BP BP 10/13/19 12:55 85 17 137/78 10/13/19 12:45 83 16 138/81 10/13/19 12:35 86 21 144/85 H 10/13/19 12:25 81 18 133/83 10/13/19 12:18 36.5 C 79 16 136/72 10/13/19 03:32 167/84 H 10/13/19 03:00 166/84 H 10/13/19 02:57 37.0 C 77 20 10/13/19 01:26 81 10/12/19 23:27 166/84 H 10/12/19 23:10 36.7 C 87 19 10/12/19 18:36 74 10/12/19 18:00 37.3 C 75 18 10/12/19 17:00 37.2 C 79 18 154/82 H 10/12/19 16:10 37.5 C 78 18 136/85 10/12/19 15:00 37.3 C 76 18 10/12/19 14:37 36.4 C L 73 18 115/70 10/12/19 14:25 36.6 C 77 18 128/74 10/12/19 14:05 37.2 C 73 18 146/74 H BP Pulse Ox 10/13/19 12:55 97 10/13/19 12:45 97 10/13/19 12:35 99 10/13/19 12:25 99 10/13/19 12:18 98 10/13/19 03:32 10/13/19 03:00 10/13/19 02:57 172/90 H 90 10/13/19 01:26 10/12/19 23:27 90 10/12/19 23:10 85 L 10/12/19 18:36 10/12/19 18:00 155/82 H 90 10/12/19 17:00 10/12/19 16:10 10/12/19 15:00 117/65 92 10/12/19 14:37 10/12/19 14:25 10/12/19 14:05 Pain Intensity Left Hip: Pain Intensity: 2 Transfer of Care Handoff Completed per policy Notes Mental Status: alert / awake / arousable Patient Amnestic to Procedure: Yes Nausea / Vomiting: adequately controlled Pain: adequately controlled Airway Patency, RR, SpO2: stable & adequate BP & HR: stable & adequate Hydration State: stable & adequate Anesthetic Complications: no major complications apparent and Pt Satisfied with anesthetic care Notes: The patient is awake and comfortable at baseline. Her vital signs are stable.
[2019-10-13] MEDS: SODIUM CHLORIDE 0.9% 1000ML 1,000 ML IV SCH ×2 (13:10→23:57)
[2019-10-13] MEDS ORDERED: DiphenhydrAMINE HCL 50 MG/ML VIAL IV PRN (13:16)
[2019-10-13] MEDS ORDERED: METOCLOPRAMIDE HCL INJ 5 MG/ML 2 ML VIAL IV PRN (13:16)
[2019-10-13] MEDS ORDERED: HYDROmorphone INJ 0.5 MG/0.5 ML SYR IV PRN (13:16)
[2019-10-13] MEDS ORDERED: NALOXONE HCL 0.4 MG/1 ML VIAL/CARP IV PRN (13:16)
[2019-10-13] MEDS ORDERED: MAGNESIUM HYDROXIDE SUSP 30 ML UDC PO PRN (13:16)
[2019-10-13] MEDS ORDERED: bisacodyL 10 MG SUPP PR PRN (13:16)
[2019-10-13] MEDS: METOPROLOL SUCC 25MG EXT REL TAB PO SCH ×2 (14:24→20:33)
[2019-10-13] MEDS: bisacodyL 5 MG TABEC PO SCH (14:25)
[2019-10-13] MEDS: AMIODARONE 200 MG TAB PO SCH (14:25)
[2019-10-13] MEDS: CHOLECALCIFEROL 1,000 UNITS TAB PO SCH (14:25)
[2019-10-13] MEDS: NICOTINE 21 MG/24 HR TDSY TD SCH (14:32)
[2019-10-13] MEDS: CEFAZOLIN 2000MG 2,000 MG/15 ML SYR IV SCH (15:49)
--- NOTE | 2019-10-13 18:29 | Hospitalist Progress Note ---
Date of Service October 13, 2019 Assessment & Plan (1) Periprosthetic fracture around internal prosthetic left hip joint: Secondary to mechanical fall, with bilateral THAs in place -Consult Ortho appreciated--> now status post complex Open Reduction Internal Fixation Left Periprosthetic Femur Fracture and Femoral Head and Liner Exchange(Left) Had EBL of 500 mL's, was an extensive surgery -continue dilaudid prn pain -Bowel regimen -PT/OT -Continue Figueroa catheter in place for now -Abductor pillow is in place -Follow am cbc,BMP and transfuse as needed (2) Fracture of proximal end of left femur: as above (3) Tobacco use: -Very likely that her cigarette smoking is contributing to osteoporosis and vitamin D deficiency -Patient smokes 1 pack/day x 40 years -Cessation encouraged, nicotine patch ordered and now pt is accepting of this (4) Osteoporosis: -Continue calcium and Vit D supplementation -T12 compression fracture noted on imaging, as well as old inferior ischial fracture (5) Vitamin D deficiency: -Continue supplementation as above Level here is good at 56 (6) Atrial fibrillation: With a h/o PAF -Continues here in normal sinus rhythm on telemetry and by exam -Continue amiodarone 200 mg QAM, holding ASA 325 mg daily for surgery but will restart tomorrow, and continue metoprolol succinate 25 mg BID -watch for Afib in setting of stress and surgery-okay to be off telemetry after surgery -previously was on Xarelto but daughter reports this was stopped by Dr. 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): -Continue Namenda 5 mg at bedtime -Patient lives at home independently (10) Chronic kidney disease: CKD stage 4 Pelota Maker at baseline is 1.6 Pelota Maker now lower and improved, stable at 1.29 from IVF hydration likely -avoid nephrotoxins -renally dose meds when appropriate -follow BMP, lytes (11) Fall: Mechanical, resulting in left periprosthetic hip fracture -needs PT/OT after surgery (12) Acute blood loss anemia: Hgb dropped to 9.6 from 11.8, secondary to blood loss from fracture and some hemodilutional component -hemodynamically stable - transfused PRBCs for goal of Hgb 10 prior to surgery as per orthopedic recommendation-preoperatively her hemoglobin was 12.2 and then was down to 10.3 intraoperatively due to blood loss -Follow CBC in the morning -Hold aspirin, but will be started on Lovenox 30 mg SQ daily in the morning (13) Delirium: Secondary to pain, opioid pain medications in setting of hospitalization and underlying dementia Continues especially worse at nighttime but improved with Seroquel last night -supportive care 1:1 sitter as needed -frequent reorientation, keep sleep/wake cycles consistent -Continue Seroquel 12.5mg po qhs prn agitation--daughter warned of risk of CVA, CV risk in elderly and is accepting of risk (14) Eye pain: Possibly could have bilateral corneal abrasion from tape over the eyes during surgery Difficult to examine her due to pain but I did note significant erythema of the right eye and watery discharge OU -Start Ocuflox drops OU every 4 hours -Monitor (15) DVT prophylaxis: -TYLER on nonaffected leg, SCDs, Lovenox SQ CODE STATUS: Full code Disposition: Patient from home, lives alone, PT/OT evals will be needed and she will likely need rehab placement Subjective Patient had her surgery today and it took quite a while. She did lose 500 mL's of blood. Since return from surgery, she reports that her pain is controlled, she ate a little bit of dinner, denies nausea or vomiting. Her eyes are burning and she cannot open them for examination. She has been having her eyes closed despite being awake as per nursing since she returned from surgery. Review of Systems Review of Systems: All systems reviewed & are unremarkable except as noted in HPI & below Physical Exam Constitutional: average body habitus; no acute distress Eyes: + corneal abnormality (Difficult to pry her eyes open but on the right there is erythema of the entire sclera, copious watery discharge from both eyes); no eyelid abnormality Neck: trachea midline, no thyromegaly Respiratory: Auscultation: + diminished lung sounds (throughout) Cardiovascular: Rate/Rhythm: regular rhythm and + bradycardic Heart Sounds: no murmur Vessels: no JVD Extremities: no edema Chest (Breasts): Chest: normal inspection of chest Gastrointestinal (Abdomen): normal bowel sounds, soft, nontender, no hepatosplenomegaly Musculoskeletal: Extremities: + extremities abnormal to inspection (Left thigh with extensive dressing and Froilan wrap in place, Hemovac drain with scant bloody drainage), no cyanosis and no clubbing Skin: no rashes, warm and dry Neurologic: awake; not confused Psychiatric: Orientation: alert, oriented to person and cooperative Speech: normal rate/rhythm/volume of speech Results & Data Vital Signs (Past 12 Hours) Vital Signs Temp Pulse Pulse Pulse Resp BP Pulse Ox 10/13/19 16:13 58 L 18 108/64 100 10/13/19 15:15 36.7 C 76 18 127/73 10/13/19 14:17 36.4 C L 74 16 144/82 H 97 10/13/19 13:49 36.5 C 76 16 135/72 95 10/13/19 13:10 36.5 C 76 16 132/72 94 10/13/19 13:05 36.7 C 82 15 140/69 92 10/13/19 12:55 85 17 137/78 97 10/13/19 12:45 83 16 138/81 97 10/13/19 12:35 86 21 144/85 H 99 10/13/19 12:25 81 18 133/83 99 10/13/19 12:18 36.5 C 79 16 136/72 98 Laboratory Results 10/13/19 10/13/19 10/13/19 Range/Units 11:09 04:19 04:19 WBC 10.54 (4.8-10.8) K/uL RBC 4.08 L (4.2-5.4) M/uL Hgb 12.2 (12.0-16.0) g/dL POC Hgb 10.9 L (12.0-16.0) g/dl Hct 37.9 (37-47) % POC Hct 32 L (37-47) % MCV 92.9 (80-100) fL MCH 29.9 (25-34) pg MCHC 32.2 (32-36) g/dL RDW Std Deviation 48.6 H (36.4-46.3) fL RDW Coeff of Tiffany 14.2 (11.5-14.5) % Plt Count 167 (130-400) K/uL MPV 12.2 H (7.4-10.4) fL Immature Gran % (Auto) 0.5 % Neut % (Auto) 69.7 % Lymph % (Auto) 17.3 % [place] % (Auto) 11.3 % Eos % (Auto) 1.1 % Baso % (Auto) 0.1 % Immature Gran # (Auto) 0.05 H (0.00-0.02) K/uL Neut # (Auto) 7.35 H (1.4-6.5) K/uL Lymph # (Auto) 1.82 (1.2-3.4) K/uL Blackford # (Auto) 1.19 H (0.11-0.59) K/uL Eos # (Auto) 0.12 (0-0.5) K/uL Baso # (Auto) 0.01 (0-0.2) K/uL POC Sodium 135 (135-144) mEq/L Sodium 137 (136-145) mmol/L POC Potassium 4.3 (3.3-5.0) mEq/L Potassium 3.8 (3.5-5.1) mmol/L POC Chloride 99 L (101-112) mEq/L Chloride 104 (98-107) mmol/L Carbon Dioxide 29 (21-32) mmol/L POC Total CO2 27 (24-31) mEq/l Anion Gap 4.0 (3-11) POC Anion Gap 14.0 L (16-25) mmol/L POC BUN 13 (7-18) mg/dl BUN 13 (7-18) mg/dl Creatinine 1.29 H (0.6-1.2) mg/dl POC Creatinine 1.2 (0.6-1.3) mg/dl Est Cr Clr Drug Dosing 30.8 ml/min Est GFR ( Amer) 45.0 Est GFR (Non-Af Amer) 38.8 BUN/Creatinine Ratio 10.2 (10-20) Glucose 87 (70-99) mg/dl POC Glucose (other) 117 H (70-99) mg/dl Calcium 9.5 (8.5-10.1) mg/dl POC Ioniz Calcium Kin 1.21 (1.12-1.32) mmol/l Total Bilirubin 0.5 (0.2-1) mg/dl AST 94 H (15-37) U/L ALT 36 (12-78) U/L Alkaline Phosphatase 92 (45-117) U/L Total Protein 6.6 (6.4-8.2) gm/dl Albumin 2.5 L (3.4-5.0) gm/dl Globulin 4.1 H (2.5-4.0) gm/dl Albumin/Globulin Ratio 0.6 L (0.9-2) Crossmatch 10/10/19 Range/Units 19:09 WBC (4.8-10.8) K/uL RBC (4.2-5.4) M/uL Hgb (12.0-16.0) g/dL POC Hgb (12.0-16.0) g/dl Hct (37-47) % POC Hct (37-47) % MCV (80-100) fL MCH (25-34) pg MCHC (32-36) g/dL RDW Std Deviation (36.4-46.3) fL RDW Coeff of Tiffany (11.5-14.5) % Plt Count (130-400) K/uL MPV (7.4-10.4) fL Immature Gran % (Auto) % Neut % (Auto) % Lymph % (Auto) % [place] % (Auto) % Eos % (Auto) % Baso % (Auto) % Immature Gran # (Auto) (0.00-0.02) K/uL Neut # (Auto) (1.4-6.5) K/uL Lymph # (Auto) (1.2-3.4) K/uL [place] # (Auto) (0.11-0.59) K/uL Eos # (Auto) (0-0.5) K/uL Baso # (Auto) (0-0.2) K/uL POC Sodium (135-144) mEq/L Sodium (136-145) mmol/L POC Potassium (3.3-5.0) mEq/L Potassium (3.5-5.1) mmol/L POC Chloride (101-112) mEq/L Chloride (98-107) mmol/L Carbon Dioxide (21-32) mmol/L POC Total CO2 (24-31) mEq/l Anion Gap (3-11) POC Anion Gap (16-25) mmol/L POC BUN (7-18) mg/dl BUN (7-18) mg/dl Creatinine (0.6-1.2) mg/dl POC Creatinine (0.6-1.3) mg/dl Est Cr Clr Drug Dosing ml/min Est GFR ( Amer) Est GFR (Non-Af Amer) BUN/Creatinine Ratio (10-20) Glucose (70-99) mg/dl POC Glucose (other) (70-99) mg/dl Calcium (8.5-10.1) mg/dl POC Ioniz Calcium Kin (1.12-1.32) mmol/l Total Bilirubin (0.2-1) mg/dl AST (15-37) U/L ALT (12-78) U/L Alkaline Phosphatase (45-117) U/L Total Protein (6.4-8.2) gm/dl Albumin (3.4-5.0) gm/dl Globulin (2.5-4.0) gm/dl Albumin/Globulin Ratio (0.9-2) Crossmatch See Detail PG Care Time/CCT Total # of Minutes Spent Total Time Spent with Patient: Total time spent is greater than 50% in coordination of care (as documented) at patient's floor/unit and/or counseling patient: (1) Periprosthetic fracture around internal prosthetic left hip joint Encounter type: initial encounter Qualified Code(s): M97.02XA - Periprosthetic fracture around internal prosthetic left hip joint, initial encounter (2) Fall Encounter type: initial encounter Qualified Code(s): W19.XXXA - Unspecified fall, initial encounter
[2019-10-13] MEDS: OFLOXACIN 0.3% OP SOLN 5 ML BTL OPB SCH ×2 (20:18→23:58)
[2019-10-13] MEDS: MEMANTINE HCL 5 MG TAB PO SCH (20:33)
[2019-10-13] MEDS: DOCUSATE SODIUM/SENNA 50/8.6MG TAB PO SCH (20:33)
[2019-10-13] MEDS: CALCIUM 600MG + VIT D 400 IU TAB PO SCH (20:36)
[2019-10-13] MEDS ORDERED: DOCUSATE SODIUM 100 MG CAP PO SCH (21:00)
[2019-10-13] MEDS ORDERED: SENNA 8.6 MG TAB PO SCH (21:00)
[2019-10-13] MEDS ORDERED: LORazepam 2 MG/ML VIAL (IM USE) IM STA (22:49)
[2019-10-13] MEDS ORDERED: LORazepam 2 MG/ML VIAL (IM USE) IM ONE (22:51)
[2019-10-13] MEDS ORDERED: LORazepam 1 MG/2 ML VIAL IV STA (22:54)
[2019-10-14] MEDS: CEFAZOLIN 2000MG 2,000 MG/15 ML SYR IV SCH (00:01)
[2019-10-14] MEDS: OFLOXACIN 0.3% OP SOLN 5 ML BTL OPB SCH ×7 (04:55→23:19)
[2019-10-14] MEDS: cefTRIAXone SODIUM 1,000 MG in DEXTROSE 5% 50 ML IV SCH (05:06)
[2019-10-14 05:09] LABS: Hematocrit (blood only) 30.7 % (37-47); Hemoglobin 9.9 g/dL (12.0-16.0); Immature Granulocytes # (auto) 0.05 K/uL (0.00-0.02); Immature Granulocytes % (auto) 0.4 %; Lymphocytes # (auto) 0.83 K/uL (1.2-3.4); Mean Corpuscular Hgb Conc 32.2 g/dL (32-36); Mean Platelet Volume 11.8 fL (7.4-10.4); Monocytes # (auto) 1.41 K/uL (0.11-0.59); Monocytes % (auto) 10.2 %; Neutrophils # (auto) 11.51 K/uL (1.4-6.5); Neutrophils % (auto) 83.4 %; Platelet Count 207 K/uL (130-400); RDW Coefficient of Variation 14.4 % (11.5-14.5); RDW Standard Deviation 49.3 fL (36.4-46.3)
[2019-10-14 05:53] LABS: BUN Creatinine Ratio 14.2 (10-20); Calcium 8.2 mg/dl (8.5-10.1); Creatinine Clr Calc Pharmacy 28.4 ml/min; Est GFR (African American) 40.7; Est GFR (Non-African American) 35.1; Potassium 4.5 mmol/L (3.5-5.1)
[2019-10-14] MEDS: LEVOTHYROXINE SODIUM 100 MCG TABLET PO SCH (06:08)
[2019-10-14] MEDS: ACETAMINOPHEN 500 MG TAB PO SCH ×3 (06:12→21:46)
[2019-10-14] MEDS: SODIUM CHLORIDE 0.9% 1,000 ML IV SCH ×2 (07:00→10:52)
[2019-10-14] MEDS: NICOTINE 21 MG/24 HR TDSY TD SCH (07:40)
[2019-10-14] MEDS: METOPROLOL SUCC 25MG EXT REL TAB PO SCH ×2 (07:50→16:56)
[2019-10-14] MEDS: ENOXAPARIN INJ 30 MG/0.3 ML SYR SQ SCH (07:50)
[2019-10-14] MEDS: AMIODARONE 200 MG TAB PO SCH (07:50)
[2019-10-14] MEDS: MULTIVITAMIN TAB PO SCH (07:50)
[2019-10-14] MEDS: CHOLECALCIFEROL 1,000 UNITS TAB PO SCH (07:51)
--- NOTE | 2019-10-14 07:56 | Orthopedic Progress Note ---
Date of Service October 14, 2019 Assessment & Plan (1) Periprosthetic fracture around internal prosthetic left hip joint: Postop day 1 status post open reduction internal fixation of left proximal femur, revision left total hip with head and liner exchange -Ancef x24, then discontinue. -DVT prophylaxis: SCDs, teds, Lovenox daily -Toe-touch nonweightbearing left lower extremity-begin PT and OT protocols -Posterior and abduction hip precautions -Monitor Hemovac drain output-possible discontinuation today versus tomorrow -A.m. labs noted above -Discharge planning-family and patient to discuss discharge needs with case management in the near future. Patient will likely need a brief rehab versus nursing home facility stay depending on how her physical therapy progresses. Subjective Patient resting comfortably upon arrival. Awakens easily to verbal stimuli. Answering all questions appropriately. Patient states that she feels well this morning and denies any left hip pain. She denies any shortness of breath or chest pain. Physical Exam Physical Exam: Dressings are clean, dry, and intact. Thigh has some swelling but remains soft and she appears nontender on palpation. Calves are soft and nontender. Neurovascular is intact. She has good dorsiflexion and plantarflexion of the ankle/foot. Results & Data Vital Signs (Past 12 Hours) Vital Signs Temp Pulse Pulse Resp BP BP Pulse Ox 10/14/19 07:26 36.7 C 77 18 152/80 H 99 10/14/19 04:51 36.5 C 69 18 176/84 H 98 10/13/19 23:15 37.0 C 77 18 141/80 H 94 10/13/19 20:00 70 16 137/75 95 Laboratory Results Laboratory Results WBC 13.80 K/uL (4.8-10.8) H 10/14/19 04:45 RBC 3.30 M/uL (4.2-5.4) L 10/14/19 04:45 Hgb 9.9 g/dL (12.0-16.0) L 10/14/19 04:45 POC Hgb 10.9 g/dl (12.0-16.0) L 10/13/19 11:09 Hct 30.7 % (37-47) L 10/14/19 04:45 POC Hct 32 % (37-47) L 10/13/19 11:09 MCV 93.0 fL (80-100) 10/14/19 04:45 MCH 30.0 pg (25-34) 10/14/19 04:45 MCHC 32.2 g/dL (32-36) 10/14/19 04:45 RDW Std Deviation 49.3 fL (36.4-46.3) H 10/14/19 04:45 RDW Coeff of Tiffany 14.4 % (11.5-14.5) 10/14/19 04:45 Plt Count 207 K/uL (130-400) 10/14/19 04:45 MPV 11.8 fL (7.4-10.4) H 10/14/19 04:45 Immature Gran % (Auto) 0.4 % 10/14/19 04:45 Neut % (Auto) 83.4 % 10/14/19 04:45 Lymph % (Auto) 6.0 % 10/14/19 04:45 [place] % (Auto) 10.2 % 10/14/19 04:45 Eos % (Auto) 0.0 % 10/14/19 04:45 Baso % (Auto) 0.0 % 10/14/19 04:45 Immature Gran # (Auto) 0.05 K/uL (0.00-0.02) H 10/14/19 04:45 Neut # (Auto) 11.51 K/uL (1.4-6.5) H 10/14/19 04:45 Lymph # (Auto) 0.83 K/uL (1.2-3.4) L 10/14/19 04:45 [place] # (Auto) 1.41 K/uL (0.11-0.59) H 10/14/19 04:45 Eos # (Auto) 0.00 K/uL (0-0.5) 10/14/19 04:45 Baso # (Auto) 0.00 K/uL (0-0.2) 10/14/19 04:45 PT 10.4 Seconds (9.0-12.0) 10/11/19 07:55 INR 1.0 (0.9-1.1) 10/11/19 07:55 APTT 22.7 Seconds (21.0-31.0) 10/10/19 16:23 PTT Ratio 0.8 10/10/19 16:23 POC Sodium 135 mEq/L (135-144) 10/13/19 11:09 Sodium 136 mmol/L (136-145) 10/14/19 04:45 POC Potassium 4.3 mEq/L (3.3-5.0) 10/13/19 11:09 Potassium 4.5 mmol/L (3.5-5.1) D 10/14/19 04:45 POC Chloride 99 mEq/L (101-112) L 10/13/19 11:09 Chloride 105 mmol/L (98-107) 10/14/19 04:45 Carbon Dioxide 27 mmol/L (21-32) 10/14/19 04:45 POC Total CO2 27 mEq/l (24-31) 10/13/19 11:09 Anion Gap 4.0 (3-11) 10/14/19 04:45 POC Anion Gap 14.0 mmol/L (16-25) L 10/13/19 11:09 POC BUN 13 mg/dl (7-18) 10/13/19 11:09 BUN 20 mg/dl (7-18) H D 10/14/19 04:45 Creatinine 1.40 mg/dl (0.6-1.2) H 10/14/19 04:45 POC Creatinine 1.2 mg/dl (0.6-1.3) 10/13/19 11:09 Est Cr Clr Drug Dosing 28.4 ml/min 10/14/19 04:45 Est GFR ( Amer) 40.7 10/14/19 04:45 Est GFR (Non-Af Amer) 35.1 10/14/19 04:45 BUN/Creatinine Ratio 14.2 (10-20) 10/14/19 04:45 Glucose 112 mg/dl (70-99) H 10/14/19 04:45 POC Glucose (other) 117 mg/dl (70-99) H 10/13/19 11:09 Calcium 8.2 mg/dl (8.5-10.1) L 10/14/19 04:45 POC Ioniz Calcium Kin 1.21 mmol/l (1.12-1.32) 10/13/19 11:09 Total Bilirubin 0.5 mg/dl (0.2-1) 10/13/19 04:19 AST 94 U/L (15-37) H 10/13/19 04:19 ALT 36 U/L (12-78) 10/13/19 04:19 Alkaline Phosphatase 92 U/L (45-117) 10/13/19 04:19 Total Protein 6.6 gm/dl (6.4-8.2) 10/13/19 04:19 Albumin 2.5 gm/dl (3.4-5.0) L 10/13/19 04:19 Globulin 4.1 gm/dl (2.5-4.0) H 10/13/19 04:19 Albumin/Globulin Ratio 0.6 (0.9-2) L 10/13/19 04:19 Urine Color Yellow 10/12/19 03:30 Urine Appearance Turbid (Clear) A 10/12/19 03:30 Urine pH 6.0 (4.5-7.5) 10/12/19 03:30 Ur Specific [place] 1.018 (1.000-1.030) 10/12/19 03:30 Urine Protein 1+ (Negative) H 10/12/19 03:30 Urine Glucose (UA) Negative (Negative) 10/12/19 03:30 Urine Ketones Negative (Negative) 10/12/19 03:30 Urine Blood 3+ (Negative) H 10/12/19 03:30 Urine Nitrite Positive (Negative) A 10/12/19 03:30 Urine Bilirubin Negative (Negative) 10/12/19 03:30 Urine Urobilinogen Negative (Negative) 10/12/19 03:30 Ur Leukocyte Esterase 3+ (Negative) H 10/12/19 03:30 Urine WBC (Auto) >30 /hpf (0-5) H 10/12/19 03:30 Urine RBC (Auto) >30 /hpf (0-4) H 10/12/19 03:30 U Hyaline Cast (Auto) 5-10 /lpf (0-5) H 10/12/19 03:30 U Epithel Cells (Auto) >30 /lpf (0-5) H 10/12/19 03:30 Urine Bacteria (Auto) 4+ (Negative) H 10/12/19 03:30 Urine Yeast Not Reportable 10/12/19 03:30 Blood Type A Positive 10/10/19 19:09 Blood Type Recheck A Positive 10/12/19 07:55 Antibody Screen NEGATIVE 12/04/19 19:09 Crossmatch See Detail 10/10/19 19:09 (1) Periprosthetic fracture around internal prosthetic left hip joint Encounter type: initial encounter Qualified Code(s): M97.02XA - Periprosthetic fracture around internal prosthetic left hip joint, initial encounter
--- NOTE | 2019-10-14 10:59 | Anesthesiology Progress Note ---
Date of Service October 14, 2019 Anesthesia Post Procedure Vital Signs Vital Signs: Temp Pulse Pulse Pulse Resp BP BP 10/14/19 10:54 36.6 C 72 18 148/87 H 10/14/19 07:26 36.7 C 77 18 152/80 H 10/14/19 04:51 36.5 C 69 18 176/84 H 10/13/19 23:15 37.0 C 77 18 141/80 H 10/13/19 20:00 70 16 137/75 10/13/19 19:38 36.3 C L 71 17 128/74 10/13/19 16:13 58 L 18 108/64 10/13/19 15:15 36.7 C 76 18 127/73 10/13/19 14:17 36.4 C L 74 16 144/82 H 10/13/19 13:49 36.5 C 76 16 135/72 10/13/19 13:10 36.5 C 76 16 132/72 10/13/19 13:05 36.7 C 82 15 140/69 10/13/19 12:55 85 17 137/78 10/13/19 12:45 83 16 138/81 10/13/19 12:35 86 21 144/85 H 10/13/19 12:25 81 18 133/83 10/13/19 12:18 36.5 C 79 16 136/72 Pulse Ox 10/14/19 10:54 100 10/14/19 07:26 99 10/14/19 04:51 98 10/13/19 23:15 94 10/13/19 20:00 95 10/13/19 19:38 98 10/13/19 16:13 100 10/13/19 15:15 10/13/19 14:17 97 10/13/19 13:49 95 10/13/19 13:10 94 10/13/19 13:05 92 10/13/19 12:55 97 10/13/19 12:45 97 10/13/19 12:35 99 10/13/19 12:25 99 10/13/19 12:18 98 Pain Intensity Left Hip: Pain Intensity: 2 Transfer of Care Handoff Completed per policy Notes Mental Status: alert / awake / arousable Patient Amnestic to Procedure: Yes Nausea / Vomiting: adequately controlled Pain: adequately controlled Airway Patency, RR, SpO2: stable & adequate BP & HR: stable & adequate Hydration State: stable & adequate Anesthetic Complications: no major complications apparent and Pt Satisfied with anesthetic care Notes: The patient feels a little tired but is otherwise doing well.
--- NOTE | 2019-10-14 11:10 | Hospitalist Progress Note ---
Date of Service October 14, 2019 Assessment & Plan (1) Periprosthetic fracture around internal prosthetic left hip joint: Secondary to mechanical fall, with bilateral THAs in place -Consult Ortho appreciated--> now status post complex Open Reduction Internal Fixation Left Periprosthetic Femur Fracture and Femoral Head and Liner Exchange(Left) Had EBL of 500 mL's, was an extensive surgery Doing very well now POD #1 -continue dilaudid prn pain -Continue bowel regimen with senna/docusate and will add daily MiraLAX now -PT/OT evaluations -Continue Figueroa catheter in place for now as she is having great difficulty getting out of bed -Abductor pillow is in place -Hemovac drain still in place but may be removed later today -Follow am cbc,BMP and transfuse as needed-hemoglobin just a slght drop from yesterday at 9.9, no transfusion needed (2) Fracture of proximal end of left femur: as above (3) Tobacco use: -Very likely that her cigarette smoking is contributing to osteoporosis and vitamin D deficiency -Patient smokes 1 pack/day x 40 years -Cessation encouraged, nicotine patch ordered and now pt is accepting of this (4) Osteoporosis: -Continue calcium and Vit D supplementation -T12 compression fracture noted on imaging, as well as old inferior ischial fracture (5) Vitamin D deficiency: -Continue supplementation as above Level here is good at 56 (6) Atrial fibrillation: With a h/o PAF -Continues here in normal sinus rhythm by exam -Continue amiodarone 200 mg QAM, will now restart ASA 325 mg daily which is her stroke prophylaxis, and continue metoprolol succinate 25 mg BID -watch for Afib in setting of stress and surgery-okay to be off telemetry after surgery -previously was on Xarelto but daughter reports this was stopped by Dr. 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 Freight Rate Clerk now lower and improved, stable at 1.4 from IVF hydration and transfusion of PRBCs -avoid nephrotoxins -renally dose meds when appropriate -follow marilou RODRIGUEZ (11) Fall: Mechanical, resulting in left periprosthetic hip fracture -needs PT/OT after surgery (12) Acute blood loss anemia: Hgb dropped to 9.6 from 11.8 prior to surgery, secondary to blood loss from fracture and some hemodilutional component -hemodynamically stable - transfused PRBCs for goal of Hgb 10 prior to surgery as per orthopedic recommendation-preoperatively her hemoglobin was 12.2 and then was down to 10.3 intraoperatively due to blood loss Hemoglobin slightly down today to 9.9 but doing well -Follow CBC again in the morning -Okay to restart aspirin and to continue on Lovenox 30 mg SQ daily in the morning (13) Delirium: Secondary to pain, opioid pain medications in setting of hospitalization and underlying dementia Initially was worse at nighttime but improved with Seroquel the first 2 nights of her stay -Much improved now, did not require any Seroquel last evening -Continue supportive care 1:1 sitter no longer needed -frequent reorientation, keep sleep/wake cycles consistent -Continue Seroquel 12.5mg po qhs prn agitation--daughter warned of risk of CVA, CV risk in elderly and is accepting of risk (14) Eye pain: Possibly could have bilateral corneal abrasion from tape over the eyes during surgery Difficult to examine her initially due to pain but I did note significant erythema of the right eye and watery discharge OU Now much improved after starting Ocuflox drops, pain is improved and still with some scant bilateral crusty discharge on lids and lashes -Continue Ocuflox drops OU every 4 hours x1 week total-last dose 10/19 -Monitor (15) DVT prophylaxis: -TYLER on nonaffected leg, SCDs, Lovenox SQ CODE STATUS: Full code Disposition: Patient from home, lives alone, PT/OT evals will be needed and she will likely need rehab placement Subjective Patient much improved today, less confused. States she has no pain in her hip at all, however nursing did have great difficulty getting her out of bed today and therefore her Figueroa catheter was left in place. Patient denies chest pain or shortness of breath but remains on oxygen. Denies nausea or vomiting, denies abdominal pain but has not moved her bowels in quite a few days. Review of Systems Review of Systems: All systems reviewed & are unremarkable except as noted in HPI & below (Feels her eye pain is much improved today and she is able to open her eyes, no discharge) Physical Exam Constitutional: average body habitus; no acute distress Eyes: + conjunctival abnormality (Very mild erythema bilaterally with scant crusty discharge on the lids and lashes much improved from previous) and + anicteric sclerae; no eyelid abnormality, no scleral abnormality and no corneal abnormality Neck: trachea midline, no thyromegaly Respiratory: normal respiratory effort, lungs clear to auscultation Auscultation: + diminished lung sounds (throughout) Cardiovascular: Rate/Rhythm: regular rhythm and + bradycardic Heart Sounds: no murmur Extremities: no edema Chest (Breasts): Chest: normal inspection of chest Gastrointestinal (Abdomen): normal bowel sounds, soft, nontender, no hepatosplenomegaly Inspection/Auscultation: + abdomen distended (Mild but soft) Musculoskeletal: Extremities: + extremities abnormal to inspection (Left thigh with extensive dressing and Froilan wrap in place, Hemovac drain with scant bloody drainage), no cyanosis and no clubbing Skin: no rashes, warm and dry Neurologic: awake; not confused Psychiatric: Orientation: alert, oriented to person and cooperative Speech: normal rate/rhythm/volume of speech Genitourinary: Figueroa catheter in place draining clear yellow urine Results & Data Vital Signs (Past 12 Hours) Vital Signs Temp Pulse Pulse Resp BP BP Pulse Ox 10/14/19 10:54 36.6 C 72 18 148/87 H 100 10/14/19 07:26 36.7 C 77 18 152/80 H 99 10/14/19 04:51 36.5 C 69 18 176/84 H 98 10/13/19 23:15 37.0 C 77 18 141/80 H 94 Laboratory Results 10/14/19 10/14/19 10/13/19 Range/Units 04:45 04:45 11:09 WBC 13.80 H (4.8-10.8) K/uL RBC 3.30 L (4.2-5.4) M/uL Hgb 9.9 L (12.0-16.0) g/dL POC Hgb 10.9 L (12.0-16.0) g/dl Hct 30.7 L (37-47) % POC Hct 32 L (37-47) % MCV 93.0 (80-100) fL MCH 30.0 (25-34) pg MCHC 32.2 (32-36) g/dL RDW Std Deviation 49.3 H (36.4-46.3) fL RDW Coeff of Tiffany 14.4 (11.5-14.5) % Plt Count 207 (130-400) K/uL MPV 11.8 H (7.4-10.4) fL Immature Gran % (Auto) 0.4 % Neut % (Auto) 83.4 % Lymph % (Auto) 6.0 % [place] % (Auto) 10.2 % Eos % (Auto) 0.0 % Baso % (Auto) 0.0 % Immature Gran # (Auto) 0.05 H (0.00-0.02) K/uL Neut # (Auto) 11.51 H (1.4-6.5) K/uL Lymph # (Auto) 0.83 L (1.2-3.4) K/uL [place] # (Auto) 1.41 H (0.11-0.59) K/uL Eos # (Auto) 0.00 (0-0.5) K/uL Baso # (Auto) 0.00 (0-0.2) K/uL POC Sodium 135 (135-144) mEq/L Sodium 136 (136-145) mmol/L POC Potassium 4.3 (3.3-5.0) mEq/L Potassium 4.5 D (3.5-5.1) mmol/L POC Chloride 99 L (101-112) mEq/L Chloride 105 (98-107) mmol/L Carbon Dioxide 27 (21-32) mmol/L POC Total CO2 27 (24-31) mEq/l Anion Gap 4.0 (3-11) POC Anion Gap 14.0 L (16-25) mmol/L POC BUN 13 (7-18) mg/dl BUN 20 H D (7-18) mg/dl Creatinine 1.40 H (0.6-1.2) mg/dl POC Creatinine 1.2 (0.6-1.3) mg/dl Est Cr Clr Drug Dosing 28.4 ml/min Est GFR ( Amer) 40.7 Est GFR (Non-Af Amer) 35.1 BUN/Creatinine Ratio 14.2 (10-20) Glucose 112 H (70-99) mg/dl POC Glucose (other) 117 H (70-99) mg/dl Calcium 8.2 L (8.5-10.1) mg/dl POC Ioniz Calcium Kin 1.21 (1.12-1.32) mmol/l Crossmatch 10/10/19 Range/Units 19:09 WBC (4.8-10.8) K/uL RBC (4.2-5.4) M/uL Hgb (12.0-16.0) g/dL POC Hgb (12.0-16.0) g/dl Hct (37-47) % POC Hct (37-47) % MCV (80-100) fL MCH (25-34) pg MCHC (32-36) g/dL RDW Std Deviation (36.4-46.3) fL RDW Coeff of Tiffany (11.5-14.5) % Plt Count (130-400) K/uL MPV (7.4-10.4) fL Immature Gran % (Auto) % Neut % (Auto) % Lymph % (Auto) % [place] % (Auto) % Eos % (Auto) % Baso % (Auto) % Immature Gran # (Auto) (0.00-0.02) K/uL Neut # (Auto) (1.4-6.5) K/uL Lymph # (Auto) (1.2-3.4) K/uL [place] # (Auto) (0.11-0.59) K/uL Eos # (Auto) (0-0.5) K/uL Baso # (Auto) (0-0.2) K/uL POC Sodium (135-144) mEq/L Sodium (136-145) mmol/L POC Potassium (3.3-5.0) mEq/L Potassium (3.5-5.1) mmol/L POC Chloride (101-112) mEq/L Chloride (98-107) mmol/L Carbon Dioxide (21-32) mmol/L POC Total CO2 (24-31) mEq/l Anion Gap (3-11) POC Anion Gap (16-25) mmol/L POC BUN (7-18) mg/dl BUN (7-18) mg/dl Creatinine (0.6-1.2) mg/dl POC Creatinine (0.6-1.3) mg/dl Est Cr Clr Drug Dosing ml/min Est GFR ( Amer) Est GFR (Non-Af Amer) BUN/Creatinine Ratio (10-20) Glucose (70-99) mg/dl POC Glucose (other) (70-99) mg/dl Calcium (8.5-10.1) mg/dl POC Ioniz Calcium Kin (1.12-1.32) mmol/l Crossmatch See Detail PG Care Time/CCT Total # of Minutes Spent Total Time Spent with Patient: Total time spent is greater than 50% in coordination of care (as documented) at patient's floor/unit and/or counseling patient: (1) Periprosthetic fracture around internal prosthetic left hip joint Encounter type: initial encounter Qualified Code(s): M97.02XA - Periprosthetic fracture around internal prosthetic left hip joint, initial encounter (2) Fall Encounter type: initial encounter Qualified Code(s): W19.XXXA - Unspecified fall, initial encounter
[2019-10-14] MEDS: POLYETHYLENE (MIRALAX) 17 GM PACK PO SCH (11:34)
[2019-10-14] MEDS ORDERED: CALCIUM 600MG + VIT D 400 IU TAB PO SCH (16:30)
[2019-10-14] MEDS: MEMANTINE HCL 5 MG TAB PO SCH (16:57)
[2019-10-14] MEDS: ASPIRIN/ALUM/MAGNES/CAL CARB 325 MG TAB PO SCH (16:58)
[2019-10-14] MEDS: DOCUSATE SODIUM/SENNA 50/8.6MG TAB PO SCH (17:01)
[2019-10-14] MEDS: QUETIAPINE FUMARATE 25 MG TABLET PO SCH (17:08)
[2019-10-14] MEDS ORDERED: SODIUM CHLORIDE 0.9% 1000ML 1,000 ML IV SCH (19:00)
[2019-10-15] MEDS: OFLOXACIN 0.3% OP SOLN 5 ML BTL OPB SCH ×6 (04:54→23:30)
[2019-10-15] MEDS: cefTRIAXone SODIUM 1,000 MG in DEXTROSE 5% 50 ML IV SCH (04:55)
[2019-10-15] MEDS: ACETAMINOPHEN 500 MG TAB PO SCH ×3 (04:59→21:28)
[2019-10-15] MEDS: LEVOTHYROXINE SODIUM 100 MCG TABLET PO SCH (05:00)
[2019-10-15 05:20] LABS: Basophils # (auto) 0.01 K/uL (0-0.2); Basophils % (auto) 0.1 %; Eosinophils # (auto) 0.02 K/uL (0-0.5); Eosinophils % (auto) 0.2 %; Hematocrit (blood only) 29.4 % (37-47); Hemoglobin 9.1 g/dL (12.0-16.0); Immature Granulocytes # (auto) 0.04 K/uL (0.00-0.02); Immature Granulocytes % (auto) 0.3 %; Lymphocytes # (auto) 1.12 K/uL (1.2-3.4); Lymphocytes % (auto) 8.5 %; Mean Corpuscular Hemoglobin 29.4 pg (25-34); Mean Corpuscular Volume 95.1 fL (80-100); Mean Platelet Volume 11.7 fL (7.4-10.4); Monocytes # (auto) 1.23 K/uL (0.11-0.59); Monocytes % (auto) 9.3 %; Neutrophils # (auto) 10.83 K/uL (1.4-6.5); Neutrophils % (auto) 81.6 %; Platelet Count 240 K/uL (130-400); RDW Coefficient of Variation 14.8 % (11.5-14.5); RDW Standard Deviation 50.5 fL (36.4-46.3); Red Blood Count 3.09 M/uL (4.2-5.4); White Blood Count 13.25 K/uL (4.8-10.8)
[2019-10-15 05:55] LABS: BUN Creatinine Ratio 16.7 (10-20); Calcium 8.4 mg/dl (8.5-10.1); Creatinine Clr Calc Pharmacy 26.3 ml/min; Est GFR (African American) 37.2; Est GFR (Non-African American) 32.1; Potassium 4.1 mmol/L (3.5-5.1)
--- NOTE | 2019-10-15 06:54 | Orthopedic Progress Note ---
Date of Service October 15, 2019 Assessment & Plan (1) Periprosthetic fracture around internal prosthetic left hip joint: Postop day 2 status post open reduction internal fixation of left proximal femur, revision left total hip with head and liner exchange -Ancef x24, then discontinue. -DVT prophylaxis: SCDs, teds, Lovenox daily -Toe-touch nonweightbearing left lower extremity-begin PT and OT protocols -Posterior and abduction hip precautions -A.m. labs noted above -Discharge planning-family and patient to discuss discharge needs with case management in the near future. Patient will likely need a brief rehab versus detention facility stay depending on how her physical therapy progresses. Subjective Post Operative Progress Note Patient seen sitting up in bed, comfortable, denies complaints, pain well controlled, no acute issues. Denies F/C/N/V/CP/SOB. Review of Systems Review of Systems: All systems reviewed & are unremarkable except as noted in HPI & below Constitutional: as per Subjective / HPI Physical Exam Physical Exam: LLE NVSI +EHL/FHL/TA/GS SILT grossly, +2 DP pulse, compartments soft NT, dressing cdi. Constitutional: WD/WN, vitals as above Results & Data Vital Signs (Past 12 Hours) Vital Signs Temp Pulse Resp BP Pulse Ox 10/14/19 23:35 36.7 C 84 18 113/59 L 94 Laboratory Results 10/15/19 10/15/19 Range/Units 04:45 04:45 WBC 13.25 H (4.8-10.8) K/uL RBC 3.09 L (4.2-5.4) M/uL Hgb 9.1 L (12.0-16.0) g/dL Hct 29.4 L (37-47) % MCV 95.1 (80-100) fL MCH 29.4 (25-34) pg MCHC 31.0 L (32-36) g/dL RDW Std Deviation 50.5 H (36.4-46.3) fL RDW Coeff of Tiffany 14.8 H (11.5-14.5) % Plt Count 240 (130-400) K/uL MPV 11.7 H (7.4-10.4) fL Immature Gran % (Auto) 0.3 % Neut % (Auto) 81.6 % Lymph % (Auto) 8.5 % [place] % (Auto) 9.3 % Eos % (Auto) 0.2 % Baso % (Auto) 0.1 % Immature Gran # (Auto) 0.04 H (0.00-0.02) K/uL Neut # (Auto) 10.83 H (1.4-6.5) K/uL Lymph # (Auto) 1.12 L (1.2-3.4) K/uL [place] # (Auto) 1.23 H (0.11-0.59) K/uL Eos # (Auto) 0.02 (0-0.5) K/uL Baso # (Auto) 0.01 (0-0.2) K/uL Sodium 137 (136-145) mmol/L Potassium 4.1 (3.5-5.1) mmol/L Chloride 106 (98-107) mmol/L Carbon Dioxide 27 (21-32) mmol/L Anion Gap 4.0 (3-11) BUN 25 H (7-18) mg/dl Creatinine 1.51 H (0.6-1.2) mg/dl Est Cr Clr Drug Dosing 26.3 ml/min Est GFR ( Amer) 37.2 Est GFR (Non-Af Amer) 32.1 BUN/Creatinine Ratio 16.7 (10-20) Glucose 97 (70-99) mg/dl Calcium 8.4 L (8.5-10.1) mg/dl (1) Periprosthetic fracture around internal prosthetic left hip joint Encounter type: initial encounter Qualified Code(s): M97.02XA - Periprosthetic fracture around internal prosthetic left hip joint, initial encounter
--- NOTE | 2019-10-15 07:40 | Anesthesiology Progress Note ---
Date of Service October 15, 2019 Anesthesia Post Procedure Vital Signs Vital Signs: Temp Pulse Pulse Resp BP BP Pulse Ox 10/14/19 23:35 36.7 C 84 18 113/59 L 94 10/14/19 15:09 36.7 C 77 18 165/86 H 100 10/14/19 10:54 36.6 C 72 18 148/87 H 100 Pain Intensity Left Hip: Pain Intensity: 0 Notes Mental Status: alert / awake / arousable and participated in evaluation Patient Amnestic to Procedure: Yes Pain: adequately controlled Airway Patency, RR, SpO2: stable & adequate BP & HR: stable & adequate Neuraxial Anesthesia: sensory block resolved Anesthetic Complications: no major complications apparent
[2019-10-15] MEDS: AMIODARONE 200 MG TAB PO SCH (08:31)
[2019-10-15] MEDS: POLYETHYLENE (MIRALAX) 17 GM PACK PO SCH (08:32)
[2019-10-15] MEDS: ENOXAPARIN INJ 30 MG/0.3 ML SYR SQ SCH (08:32)
[2019-10-15] MEDS: MULTIVITAMIN TAB PO SCH (08:33)
[2019-10-15] MEDS: NICOTINE 21 MG/24 HR TDSY TD SCH (08:33)
[2019-10-15] MEDS: METOPROLOL SUCC 25MG EXT REL TAB PO SCH ×2 (08:34→17:36)
[2019-10-15] MEDS: CHOLECALCIFEROL 1,000 UNITS TAB PO SCH (08:34)
--- NOTE | 2019-10-15 16:20 | Hospitalist Progress Note ---
Date of Service October 15, 2019 Assessment & Plan (1) Periprosthetic fracture around internal prosthetic left hip joint: Secondary to mechanical fall, with bilateral THAs in place. - Consult Ortho appreciated--> now status post complex Open Reduction Internal Fixation Left Periprosthetic Femur Fracture and Femoral Head and Liner Exchange(Left) - Continue Dilaudid PRN - Continue bowel regimen with senna/docusate and will add daily MiraLAX now - PT/OT evaluations -> Likely SNF (2) Tobacco use: Very likely that her cigarette smoking is contributing to osteoporosis and vitamin D deficiency. Patient smokes 1 pack/day x 40 years. - Cessation encouraged, nicotine patch ordered and now pt is accepting of this (3) Osteoporosis: - Continue calcium and Vit D supplementation (4) Vitamin D deficiency: Level was 56 this admission. - Continue supplementation as above (5) Atrial fibrillation: With a h/o PAF. Continues here in normal sinus rhythm by exam. Previously was on Xarelto but daughter reports this was stopped by Dr. Palacio after experiencing significant leg cramps with it. - Continue amiodarone 200 mg QAM, will now restart ASA 325 mg daily which is her stroke prophylaxis, and continue metoprolol succinate 25 mg BID (6) Hypertension: Blood pressures acceptable today at 135/75. - Continue metoprolol as above with hold parameters (7) Hypothyroidism: TSH here is normal but FT high. 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 - Continue Namenda 5 mg at bedtime (9) Chronic kidney disease: CKD stage 4. 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 - Avoid nephrotoxins - Follow marilou RODRIGUEZ (10) Acute blood loss anemia: Hgb dropped to 9.6 from 11.8 prior to surgery, secondary to blood loss from fracture and some hemodilutional component. - Follow CBC again in the morning - On 10/15, hgb was 9.1, still without signs of bleeding. (11) Delirium: Secondary to pain, opioid pain medications in setting of hospitalization and underlying dementia. Initially was worse at nighttime but improved with Seroquel the first 2 nights of her stay. - Frequent reorientation, keep sleep/wake cycles consistent - Continue Seroquel 12.5mg po qhs prn agitation--daughter warned of risk of CVA, CV risk in elderly and is accepting of risk (12) Eye pain: Possibly could have bilateral corneal abrasion from tape over the eyes during surgery. Difficult to examine her initially due to pain but provider did note significant erythema of the right eye and watery discharge OU. - Now much improved after starting Ocuflox drops, pain is improved and still with some scant bilateral crusty discharge on lids and lashes - Continue Ocuflox drops OU every 4 hours x1 week total-last dose 10/19 (13) DVT prophylaxis: - TYLER on nonaffected leg, SCDs, Lovenox SQ Subjective Reports left leg pain today. Otherwise, no major symptoms. Reports no fevers /chills, chest pain, shortness of breath, abdominal pain, nausea, or vomiting. Physical Exam Constitutional: WD/WN, vitals as above Eyes: EOM intact bilaterally; no conjunctival abnormality ENMT: external ear and nose normal, oropharynx normal Neck: trachea midline, no thyromegaly normal visual inspection Respiratory: normal respiratory effort, lungs clear to auscultation no respiratory distress Cardiovascular: RRR, no murmur, no edema Gastrointestinal (Abdomen): Inspection/Auscultation: abdomen normal to inspection; abdomen not distended Musculoskeletal: no cyanosis or clubbing, extremities motor strength 5/5 Extremities: + limited ROM of lower extremity (Could not inspect left leg/hip as the patient refused.) Skin: no rashes, warm and dry Neurologic: moves all extremities and awake Psychiatric: Orientation: alert, oriented to person and cooperative Results & Data Vital Signs (Past 12 Hours) Vital Signs Temp Pulse Pulse Resp BP Pulse Ox 10/15/19 14:49 36.7 C 81 18 133/77 99 10/15/19 08:18 36.8 C 86 18 132/74 92 PG Care Time/CCT Total # of Minutes Spent Total Time Spent with Patient: Total time spent is greater than 50% in coor dination of care (as documented) at patient's floor/unit and/or counseling patient: (1) Periprosthetic fracture around internal prosthetic left hip joint Encounter type: initial encounter Qualified Code(s): M97.02XA - Periprosthetic fracture around internal prosthetic left hip joint, initial encounter
[2019-10-15] MEDS: CALCIUM 600MG + VIT D 400 IU TAB PO SCH (17:35)
[2019-10-15] MEDS: ASPIRIN/ALUM/MAGNES/CAL CARB 325 MG TAB PO SCH (17:35)
[2019-10-15] MEDS: QUETIAPINE FUMARATE 25 MG TABLET PO SCH (17:35)
[2019-10-15] MEDS: MEMANTINE HCL 5 MG TAB PO SCH (17:35)
[2019-10-15] MEDS: DOCUSATE SODIUM/SENNA 50/8.6MG TAB PO SCH (17:36)
[2019-10-16] MEDS: LEVOTHYROXINE SODIUM 100 MCG TABLET PO SCH (05:01)
[2019-10-16] MEDS: OFLOXACIN 0.3% OP SOLN 5 ML BTL OPB SCH ×6 (05:01→23:34)
[2019-10-16] MEDS: ACETAMINOPHEN 500 MG TAB PO SCH ×3 (05:01→21:21)
[2019-10-16] MEDS: cefTRIAXone SODIUM 1,000 MG in DEXTROSE 5% 50 ML IV SCH (05:02)
[2019-10-16 05:20] LABS: Basophils # (auto) 0.01 K/uL (0-0.2); Basophils % (auto) 0.1 %; Eosinophils # (auto) 0.12 K/uL (0-0.5); Eosinophils % (auto) 0.9 %; Hemoglobin 7.9 g/dL (12.0-16.0); Immature Granulocytes # (auto) 0.09 K/uL (0.00-0.02); Immature Granulocytes % (auto) 0.7 %; Lymphocytes # (auto) 1.05 K/uL (1.2-3.4); Lymphocytes % (auto) 8.1 %; Mean Corpuscular Hemoglobin 29.9 pg (25-34); Mean Corpuscular Hgb Conc 31.6 g/dL (32-36); Mean Corpuscular Volume 94.7 fL (80-100); Mean Platelet Volume 11.5 fL (7.4-10.4); Monocytes # (auto) 1.15 K/uL (0.11-0.59); Monocytes % (auto) 8.8 %; Neutrophils # (auto) 10.61 K/uL (1.4-6.5); Neutrophils % (auto) 81.4 %; Nucleated RBC # (auto) 0.06 K/uL (0-0); Nucleated RBC % (auto) 0.4 %; Platelet Count 235 K/uL (130-400); Red Blood Count 2.64 M/uL (4.2-5.4); White Blood Count 13.03 K/uL (4.8-10.8)
[2019-10-16 05:41] LABS: BUN Creatinine Ratio 17.5 (10-20); Calcium 8.2 mg/dl (8.5-10.1); Creatinine Clr Calc Pharmacy 29.4 ml/min; Est GFR (African American) 42.6; Est GFR (Non-African American) 36.7; Potassium 4.1 mmol/L (3.5-5.1)
[2019-10-16 05:46] LABS: RBC Morphology Unremarkable
[2019-10-16] MEDS: AMIODARONE 200 MG TAB PO SCH (08:32)
[2019-10-16] MEDS: ENOXAPARIN INJ 30 MG/0.3 ML SYR SQ SCH (08:32)
[2019-10-16] MEDS: CHOLECALCIFEROL 1,000 UNITS TAB PO SCH (08:33)
[2019-10-16] MEDS: POLYETHYLENE (MIRALAX) 17 GM PACK PO SCH (08:33)
[2019-10-16] MEDS: MULTIVITAMIN TAB PO SCH (08:33)
[2019-10-16] MEDS: NICOTINE 21 MG/24 HR TDSY TD SCH (08:34)
[2019-10-16] MEDS: METOPROLOL SUCC 25MG EXT REL TAB PO SCH ×2 (08:35→17:25)
--- NOTE | 2019-10-16 09:52 | Orthopedic Progress Note ---
Date of Service October 16, 2019 Assessment & Plan (1) Periprosthetic fracture around internal prosthetic left hip joint: Postop day 3 status post open reduction internal fixation of left proximal femur, revision left total hip with head and liner exchange -Ancef x24, then discontinue. -DVT prophylaxis: SCDs, teds, Lovenox daily -Toe-touch nonweightbearing left lower extremity-begin PT and OT protocols -Posterior and abduction hip precautions -A.m. labs noted above -Discharge planning-family and patient to discuss discharge needs with case management in the near future. Patient will likely need a brief rehab versus senior living facility stay depending on how her physical therapy progresses. Orthopedics will sign off, please call with further questions or concerns. Discharge directions placed and chart. Subjective Post Operative Progress Note Patient seen sitting up in bed, comfortable, denies complaints, pain well controlled, no acute issues. Denies F/C/N/V/CP/SOB. Review of Systems Review of Systems: All systems reviewed & are unremarkable except as noted in HPI & below Constitutional: as per Subjective / HPI Physical Exam Physical Exam: LLE NVSI +EHL/FHL/TA/GS SILT grossly, +2 DP pulse, compartments soft NT, dressing cdi. Constitutional: WD/WN, vitals as above Results & Data Vital Signs (Past 12 Hours) Vital Signs Temp Pulse Resp BP BP Pulse Ox 10/16/19 07:00 37.0 C 86 14 121/70 94 10/15/19 23:34 36.7 C 84 16 115/63 95 Laboratory Results 10/16/19 10/16/19 Range/Units 04:42 04:42 WBC 13.03 H (4.8-10.8) K/uL RBC 2.64 L (4.2-5.4) M/uL Hgb 7.9 L (12.0-16.0) g/dL Hct 25.0 L (37-47) % MCV 94.7 (80-100) fL MCH 29.9 (25-34) pg MCHC 31.6 L (32-36) g/dL RDW Std Deviation 51.0 H (36.4-46.3) fL RDW Coeff of Tiffany 15.0 H (11.5-14.5) % Plt Count 235 (130-400) K/uL MPV 11.5 H (7.4-10.4) fL Immature Gran % (Auto) 0.7 % Neut % (Auto) 81.4 % Lymph % (Auto) 8.1 % [place] % (Auto) 8.8 % Eos % (Auto) 0.9 % Baso % (Auto) 0.1 % Immature Gran # (Auto) 0.09 H (0.00-0.02) K/uL Neut # (Auto) 10.61 H (1.4-6.5) K/uL Lymph # (Auto) 1.05 L (1.2-3.4) K/uL [place] # (Auto) 1.15 H (0.11-0.59) K/uL Eos # (Auto) 0.12 (0-0.5) K/uL Baso # (Auto) 0.01 (0-0.2) K/uL Absolute Nucleated RBC 0.06 H (0-0) K/uL Nucleated RBC % (auto) 0.4 % RBC Morphology Unremarkable Sodium 138 (136-145) mmol/L Potassium 4.1 (3.5-5.1) mmol/L Chloride 108 H (98-107) mmol/L Carbon Dioxide 29 (21-32) mmol/L Anion Gap 1.0 L (3-11) BUN 24 H (7-18) mg/dl Creatinine 1.35 H (0.6-1.2) mg/dl Est Cr Clr Drug Dosing 29.4 ml/min Est GFR ( Amer) 42.6 Est GFR (Non-Af Amer) 36.7 BUN/Creatinine Ratio 17.5 (10-20) Glucose 86 (70-99) mg/dl Calcium 8.2 L (8.5-10.1) mg/dl (1) Periprosthetic fracture around internal prosthetic left hip joint Encounter type: initial encounter Qualified Code(s): M97.02XA - Periprosthetic fracture around internal prosthetic left hip joint, initial encounter
[2019-10-16] MEDS ORDERED: SODIUM CHLORIDE 0.9% 250 ML IV PRN (16:14)
--- NOTE | 2019-10-16 16:18 | Hospitalist Progress Note ---
Date of Service October 16, 2019 Assessment & Plan (1) Periprosthetic fracture around internal prosthetic left hip joint: Secondary to mechanical fall, with bilateral THAs in place. - Consult Ortho appreciated--> now status post complex Open Reduction Internal Fixation Left Periprosthetic Femur Fracture and Femoral Head and Liner Exchange(Left) - Continue Dilaudid PRN - Continue bowel regimen with senna/docusate and will add daily Miralax - PT/OT evaluations - No pain today. Ortho happy with progress. (2) Acute blood loss anemia: Hgb dropped to 9.6 from 11.8 prior to surgery, secondary to blood loss from fracture and some hemodilutional component. - Follow CBC again in the morning - On 10/16, hgb was 7.9 with some mild oozing from surgical site. Drain pulled. - Transfuse 1 unit PRBCs. (3) Atrial fibrillation: With a h/o PAF. Continues here in normal sinus rhythm by exam. Previously was on Xarelto but daughter reports this was stopped by Dr. Palacio after experiencing significant leg cramps with it. - Continue amiodarone 200 mg QAM, will now restart ASA 325 mg daily which is her stroke prophylaxis, and continue metoprolol succinate 25 mg BID - Tachycardic on 3:30pm vitals - EKG ordered. Possibly afib. (4) Tobacco use: Very likely that her cigarette smoking is contributing to osteoporosis and vitamin D deficiency. Patient smokes 1 pack/day x 40 years. - Cessation encouraged, nicotine patch ordered and now pt is accepting of this (5) Osteoporosis: - Continue calcium and Vit D supplementation (6) Vitamin D deficiency: Level was 56 this admission. - Continue supplementation as above (7) Hypertension: Blood pressures acceptable today at 135/75. - Continue metoprolol as above with hold parameters (8) Hypothyroidism: TSH here is normal but FT high. 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 She knows self and location, but not date. Says she was "dropped off" by her daughter, but doesn't really remember/know why she is here. - Continue Namenda 5 mg at bedtime (10) Chronic kidney disease: CKD stage 4. 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 - Avoid nephrotoxins - Follow marilou RODRIGUEZ (11) Delirium: Secondary to pain, opioid pain medications in setting of hospitalization and underlying dementia. Initially was worse at nighttime but improved with Seroquel the first 2 nights of her stay. - Frequent reorientation, keep sleep/wake cycles consistent - Continue Seroquel 12.5mg po qhs prn agitation--daughter warned of risk of CVA, CV risk in elderly and is accepting of risk (12) Eye pain: Possibly could have bilateral corneal abrasion from tape over the eyes during surgery. Difficult to examine her initially due to pain but provider did note significant erythema of the right eye and watery discharge OU. - Now much improved after starting Ocuflox drops, pain is improved and still with some scant bilateral crusty discharge on lids and lashes - Continue Ocuflox drops OU every 4 hours x1 week total-last dose 10/19 (13) DVT prophylaxis: - TYLER on nonaffected leg, SCDs, Lovenox SQ Subjective Feels better today. The left hip is not really hurting. She overall does not feel too bad. No focal complaints. Reports no fevers/chills, chest pain, short ness of breath, abdominal pain, nausea, or vomiting. Physical Exam Constitutional: WD/WN, vitals as above Eyes: EOM intact bilaterally; no conjunctival abnormality ENMT: external ear and nose normal, oropharynx normal Neck: trachea midline, no thyromegaly normal visual inspection Respiratory: normal respiratory effort, lungs clear to auscultation no respiratory distress Cardiovascular: RRR, no murmur, no edema Gastrointestinal (Abdomen): Inspection/Auscultation: abdomen normal to inspection; abdomen not distended Musculoskeletal: no cyanosis or clubbing, extremities motor strength 5/5 Extremities: + limited ROM of lower extremity (Left hip incision is clean and non-erythematous. Mild bleeding.) Skin: no rashes, warm and dry Neurologic: moves all extremities and awake Psychiatric: Orientation: alert, oriented to person and cooperative Results & Data Vital Signs (Past 12 Hours) Vital Signs Temp Pulse Resp BP Pulse Ox 10/16/19 15:13 37.4 C 122 H 16 94/62 L 95 10/16/19 07:00 37.0 C 86 14 121/70 94 PG Care Time/CCT Total # of Minutes Spent Total Time Spent with Patient: Total time spent is greater than 50% in coordination of care (as documented) at patient's floor/unit and/or counseling patient: (1) Periprosthetic fracture around internal prosthetic left hip joint Encounter type: initial encounter Qualified Code(s): M97.02XA - Periprosthetic fracture around internal prosthetic left hip joint, initial encounter
[2019-10-16] MEDS: CALCIUM 600MG + VIT D 400 IU TAB PO SCH (17:25)
[2019-10-16] MEDS: ASPIRIN/ALUM/MAGNES/CAL CARB 325 MG TAB PO SCH (17:25)
[2019-10-16] MEDS: QUETIAPINE FUMARATE 25 MG TABLET PO SCH (17:25)
[2019-10-16] MEDS: MEMANTINE HCL 5 MG TAB PO SCH (17:25)
[2019-10-16] MEDS: DOCUSATE SODIUM/SENNA 50/8.6MG TAB PO SCH (17:28)
[2019-10-17] MEDS: LEVOTHYROXINE SODIUM 100 MCG TABLET PO SCH (04:59)
[2019-10-17] MEDS: ACETAMINOPHEN 500 MG TAB PO SCH ×3 (04:59→22:44)
[2019-10-17] MEDS: OFLOXACIN 0.3% OP SOLN 5 ML BTL OPB SCH ×6 (04:59→23:41)
[2019-10-17 05:26] LABS: Basophils # (auto) 0.01 K/uL (0-0.2); Basophils % (auto) 0.1 %; Eosinophils # (auto) 0.23 K/uL (0-0.5); Eosinophils % (auto) 1.8 %; Hematocrit (blood only) 26.6 % (37-47); Hemoglobin 8.6 g/dL (12.0-16.0); Immature Granulocytes # (auto) 0.23 K/uL (0.00-0.02); Immature Granulocytes % (auto) 1.8 %; Lymphocytes # (auto) 1.33 K/uL (1.2-3.4); Lymphocytes % (auto) 10.7 %; Mean Corpuscular Hemoglobin 30.4 pg (25-34); Mean Corpuscular Hgb Conc 32.3 g/dL (32-36); Mean Platelet Volume 11.2 fL (7.4-10.4); Monocytes # (auto) 1.06 K/uL (0.11-0.59); Monocytes % (auto) 8.5 %; Neutrophils # (auto) 9.59 K/uL (1.4-6.5); Neutrophils % (auto) 77.1 %; Nucleated RBC # (auto) 0.07 K/uL (0-0); Nucleated RBC % (auto) 0.5 %; Platelet Count 247 K/uL (130-400); Red Blood Count 2.83 M/uL (4.2-5.4); White Blood Count 12.45 K/uL (4.8-10.8)
[2019-10-17 05:47] LABS: BUN Creatinine Ratio 19.8 (10-20); Creatinine Clr Calc Pharmacy 31.8 ml/min; Est GFR (African American) 46.7; Est GFR (Non-African American) 40.3; Magnesium 1.9 mg/dl (1.8-2.4); Potassium 3.9 mmol/L (3.5-5.1)
[2019-10-17 05:48] LABS: Phosphorus 1.8 mg/dl (2.5-4.9)
[2019-10-17] MEDS ORDERED: POTASSIUM PHOS 3 MMOL/1 ML INFUSION IV STA (07:01)
[2019-10-17] MEDS ORDERED: CALCIUM GLUCONATE 10% 1,000 MG in SODIUM CHLORIDE 0.9% 50 ML IV STA (07:08)
[2019-10-17] MEDS ORDERED: POTASSIUM PHOSPHATE 21 MMOL in SODIUM CHLORIDE 0.9% 500 ML IV ONE (07:30)
[2019-10-17] MEDS: ENOXAPARIN INJ 30 MG/0.3 ML SYR SQ SCH (07:57)
[2019-10-17] MEDS: NICOTINE 21 MG/24 HR TDSY TD SCH (08:07)
[2019-10-17] MEDS: POLYETHYLENE (MIRALAX) 17 GM PACK PO SCH (08:36)
[2019-10-17] MEDS: AMIODARONE 200 MG TAB PO SCH (08:36)
[2019-10-17] MEDS: METOPROLOL SUCC 25MG EXT REL TAB PO SCH ×2 (08:37→17:39)
[2019-10-17] MEDS: CHOLECALCIFEROL 1,000 UNITS TAB PO SCH (08:37)
[2019-10-17] MEDS: MULTIVITAMIN TAB PO SCH (08:43)
--- NOTE | 2019-10-17 13:13 | Hospitalist Progress Note ---
Date of Service October 17, 2019 Assessment & Plan (1) Periprosthetic fracture around internal prosthetic left hip joint: Secondary to mechanical fall, with bilateral THAs in place. - Consult Ortho appreciated--> now status post complex Open Reduction Internal Fixation Left Periprosthetic Femur Fracture and Femoral Head and Liner Exchange(Left) - Continue Dilaudid PRN - Continue bowel regimen with senna/docusate and daily Miralax - PT/OT evaluations - No pain today. Ortho happy with progress. Drain is out. Ready for discharge. (2) Acute blood loss anemia: Hgb dropped to 9.6 from 11.8 prior to surgery, secondary to blood loss from fracture and some hemodilutional component. - Follow CBC again in the morning - On 10/16, hgb was 7.9 with some mild oozing from surgical site. Transfused 1 unit PRBCs. - On 10/17, hgb is 8.6. Will give IV iron. (3) Atrial fibrillation: With a h/o PAF. Continues here in normal sinus rhythm by exam. Previously was on Xarelto but daughter reports this was stopped by Dr. Palacio after experiencing significant leg cramps with it. - Continue amiodarone 200 mg QAM, will now restart ASA 325 mg daily which is her stroke prophylaxis, and continue metoprolol succinate 25 mg BID - Tachycardic on 3:30pm vitals - EKG ordered; still in sinus with VR of 80. (4) Tobacco use: Very likely that her cigarette smoking is contributing to osteoporosis and vitamin D deficiency. Patient smokes 1 pack/day x 40 years. - Cessation encouraged, nicotine patch ordered and now pt is accepting of this (5) Osteoporosis: - Continue calcium and Vit D supplementation (6) Vitamin D deficiency: Level was 56 this admission. - Continue supplementation as above (7) Hypertension: Blood pressures acceptable today at 110/52. - Continue metoprolol as above with hold parameters (8) Hypothyroidism: TSH here is normal but FT high. 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 She knows self and location, but not date. Says she was "dropped off" by her daughter, but doesn't really remember/know why she is here. - Continue Namenda 5 mg at bedtime (10) Chronic kidney disease: CKD stage 4. 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 - Avoid nephrotoxins - Follow marilou RODRIGUEZ (11) Delirium: Secondary to pain, opioid pain medications in setting of hospitalization and underlying dementia. Initially was worse at nighttime but improved with Seroquel the first 2 nights of her stay. - Frequent reorientation, keep sleep/wake cycles consistent - Continue Seroquel 12.5mg po qhs prn agitation--daughter warned of risk of CVA, CV risk in elderly and is accepting of risk (12) Eye pain: Possibly could have bilateral corneal abrasion from tape over the eyes during surgery. Difficult to examine her initially due to pain but provider did note significant erythema of the right eye and watery discharge OU. - Now much improved after starting Ocuflox drops, pain is improved and still with some scant bilateral crusty discharge on lids and lashes - Continue Ocuflox drops OU every 4 hours x1 week total-last dose 10/19 (13) DVT prophylaxis: - TYLER on nonaffected leg, SCDs, Lovenox SQ Subjective Doing well today. No major pain in the left leg/hip. The bleeding has stopped/improved at the surgical site. Reports no fevers/chills, chest pain, shortness of breath, abdominal pain, nausea, or vomiting. Physical Exam Constitutional: WD/WN, vitals as above Eyes: EOM intact bilaterally; no conjunctival abnormality ENMT: external ear and nose normal, oropharynx normal Neck: trachea midline, no thyromegaly normal visual inspection Respiratory: normal respiratory effort, lungs clear to auscultation no respiratory distress Cardiovascular: RRR, no murmur, no edema Gastrointestinal (Abdomen): Inspection/Auscultation: abdomen normal to inspection; abdomen not distended Musculoskeletal: no cyanosis or clubbing, extremities motor strength 5/5 Extremities: + limited ROM of lower extremity (Left hip incision is clean and non-erythematous. No bleeding.) Skin: no rashes, warm and dry Neurologic: moves all extremities and awake Psychiatric: Orientation: alert, oriented to person and cooperative Results & Data Vital Signs (Past 12 Hours) Vital Signs Temp Pulse Pulse Pulse Resp BP BP 10/17/19 11:32 36.6 C 72 78 58 L 18 108/52 L 97/56 L 10/17/19 08:22 36.6 C 72 18 108/52 L Pulse Ox 10/17/19 11:32 96 10/17/19 08:22 96 PG Care Time/CCT Total # of Minutes Spent Total Time Spent with Patient: Total time spent is greater than 50% in coordination of care (as documented) at patient's floor/unit and/or counseling patient: (1) Periprosthetic fracture around internal prosthetic left hip joint Encounter type: initial encounter Qualified Code(s): M97.02XA - Periprosthetic fracture around internal prosthetic left hip joint, initial encounter
[2019-10-17] MEDS ORDERED: IRON SUCROSE 100 MG in 0.9 % SODIUM CHLORIDE 100 ML IV ONE (13:30)
[2019-10-17] MEDS: MEMANTINE HCL 5 MG TAB PO SCH (17:37)
[2019-10-17] MEDS: ASPIRIN/ALUM/MAGNES/CAL CARB 325 MG TAB PO SCH (17:38)
[2019-10-17] MEDS: CALCIUM 600MG + VIT D 400 IU TAB PO SCH (17:38)
[2019-10-17] MEDS: QUETIAPINE FUMARATE 25 MG TABLET PO SCH (17:38)
[2019-10-17] MEDS: DOCUSATE SODIUM/SENNA 50/8.6MG TAB PO SCH (17:51)
[2019-10-17] MEDS ORDERED: HALOPERIDOL LACTATE 5 MG/ML 1 ML VIAL IM STA (23:58)
[2019-10-18] MEDS: LEVOTHYROXINE SODIUM 100 MCG TABLET PO SCH (05:06)
[2019-10-18] MEDS: ACETAMINOPHEN 500 MG TAB PO SCH ×3 (05:06→22:40)
[2019-10-18] MEDS: OFLOXACIN 0.3% OP SOLN 5 ML BTL OPB SCH ×6 (05:06→19:52)
[2019-10-18 06:03] LABS: Hematocrit (blood only) 27.5 % (37-47); Hemoglobin 8.9 g/dL (12.0-16.0); Immature Retic Fraction 28.3 % (3.0-15.9); Mean Corpuscular Hemoglobin 30.7 pg (25-34); Mean Corpuscular Hgb Conc 32.4 g/dL (32-36); Mean Corpuscular Volume 94.8 fL (80-100); Mean Platelet Volume 10.7 fL (7.4-10.4); Nucleated RBC % (auto) 0.7 %; Platelet Count 301 K/uL (130-400); RDW Standard Deviation 50.8 fL (36.4-46.3); Reticulocyte % 3.4 % (0.5-2.0); White Blood Count 13.53 K/uL (4.8-10.8)
[2019-10-18 06:31] LABS: RBC Morphology Unremarkable
[2019-10-18 06:32] LABS: ANC (manual) 9.07 K/uL (1.4-6.5); Basophils # (manual) 0.12 K/uL (0-0.2); Basophils % (manual) 0.9 %; Eosinophils # (manual) 0.58 K/uL (0-0.5); Eosinophils % (manual) 4.3 %; Lymphocytes % (manual) 14.8 %; Metamyelocytes # (manual) 0.35 K/uL (0-0); Metamyelocytes % (manual) 2.6 %; Monocytes # (manual) 1.06 K/uL (0.11-0.59); Monocytes % (manual) 7.8 %; Myelocytes # (manual) 0.35 K/uL (0-0); Myelocytes % (manual) 2.6 %; Neutrophils # (manual) 9.07 K/uL (1.4-6.5); Toxic Granulation 1+
[2019-10-18 06:42] LABS: BUN Creatinine Ratio 17.3 (10-20); Creatinine Clr Calc Pharmacy 31.5 ml/min; Est GFR (African American) 46.3; Est GFR (Non-African American) 39.9
[2019-10-18 07:06] LABS: Ferritin 328.8 ng/ml (8-388)
[2019-10-18] MEDS ORDERED: IRON SUCROSE 100 MG in 0.9 % SODIUM CHLORIDE 100 ML IV ONE (08:15)
[2019-10-18] MEDS: METOPROLOL SUCC 25MG EXT REL TAB PO SCH ×2 (08:52→18:10)
[2019-10-18] MEDS: MULTIVITAMIN TAB PO SCH (08:52)
[2019-10-18] MEDS: CHOLECALCIFEROL 1,000 UNITS TAB PO SCH (08:52)
[2019-10-18] MEDS: ENOXAPARIN INJ 30 MG/0.3 ML SYR SQ SCH (08:53)
[2019-10-18] MEDS: AMIODARONE 200 MG TAB PO SCH (08:53)
[2019-10-18] MEDS: NICOTINE 21 MG/24 HR TDSY TD SCH (08:54)
[2019-10-18] MEDS: POLYETHYLENE (MIRALAX) 17 GM PACK PO SCH (08:54)
--- NOTE | 2019-10-18 16:50 | Hospitalist Progress Note ---
Date of Service October 18, 2019 Assessment & Plan (1) Periprosthetic fracture around internal prosthetic left hip joint: Secondary to mechanical fall, with bilateral THAs in place. - Consult Ortho appreciated--> now status post complex Open Reduction Internal Fixation Left Periprosthetic Femur Fracture and Femoral Head and Liner Exchange(Left) - Continue Dilaudid PRN - Continue bowel regimen with senna/docusate and daily Miralax - PT/OT evaluations - Some pain today, but had just gotten up and moved around. Ready for discharge. (2) Acute blood loss anemia: Hgb dropped to 9.6 from 11.8 prior to surgery, secondary to blood loss from fracture and some hemodilutional component. - Follow CBC again in the morning - On 10/16, hgb was 7.9 with some mild oozing from surgical site. Transfused 1 unit PRBCs. - On 10/18, hgb is 8.9. Got second dose of IV iron. (3) Atrial fibrillation: With a h/o PAF. Continues here in normal sinus rhythm by exam. Previously was on Xarelto but daughter reports this was stopped by Dr. Palacio after experiencing significant leg cramps with it. - Continue amiodarone 200 mg QAM, will now restart ASA 325 mg daily which is her stroke prophylaxis, and continue metoprolol succinate 25 mg BID - Tachycardic on 3:30pm vitals - EKG ordered; still in sinus with VR of 80. Possibly agitation. No evidence of afib today. (4) Tobacco use: Very likely that her cigarette smoking is contributing to osteoporosis and vitamin D deficiency. Patient smokes 1 pack/day x 40 years. - Cessation encouraged, nicotine patch ordered and now pt is accepting of this (5) Osteoporosis: - Continue calcium and Vit D supplementation (6) Vitamin D deficiency: Level was 56 this admission. - Continue supplementation as above (7) Hypertension: Blood pressures acceptable today at 110/52. - Continue metoprolol as above with hold parameters (8) Hypothyroidism: TSH here is normal but FT high. 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 She knows self and location, but not date. Says she was "dropped off" by her daughter, but doesn't really remember/know why she is here. - Continue Namenda 5 mg at bedtime (10) Chronic kidney disease: CKD stage 4. 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 - Avoid nephrotoxins - Follow marilou RODRIGUEZ (11) Delirium: Secondary to pain, opioid pain medications in setting of hospitalization and underlying dementia. Initially was worse at nighttime but improved with Seroquel the first 2 nights of her stay. - Frequent reorientation, keep sleep/wake cycles consistent - Continue Seroquel 12.5mg po qhs prn agitation--daughter warned of risk of CVA, CV risk in elderly and is accepting of risk (12) Eye pain: Possibly could have bilateral corneal abrasion from tape over the eyes during surgery. Difficult to examine her initially due to pain but provider did note significant erythema of the right eye and watery discharge OU. - Now much improved after starting Ocuflox drops, pain is improved and still with some scant bilateral crusty discharge on lids and lashes - Continue Ocuflox drops OU every 4 hours x1 week total-last dose 10/19 (13) DVT prophylaxis: - TYLER on nonaffected leg, SCDs, Lovenox SQ Subjective Has some pain in the hips, but had just got up and was moving around to go to the bathroom. Reports no fevers/chills, chest pain, shortness of breath, abdominal pain, nausea, or vomiting. Physical Exam Constitutional: WD/WN, vitals as above Eyes: EOM intact bilaterally; no conjunctival abnormality ENMT: external ear and nose normal, oropharynx normal Neck: trachea midline, no thyromegaly normal visual inspection Respiratory: normal respiratory effort, lungs clear to auscultation no respiratory distress Cardiovascular: RRR, no murmur, no edema Gastrointestinal (Abdomen): Inspection/Auscultation: abdomen normal to inspection; abdomen not distended Musculoskeletal: no cyanosis or clubbing, extremities motor strength 5/5 Extremities: + limited ROM of lower extremity (Left hip incision is clean and non-erythematous. No bleeding.) Skin: no rashes, warm and dry Neurologic: moves all extremities and awake Psychiatric: Orientation: alert, oriented to person and cooperative Results & Data Vital Signs (Past 12 Hours) Vital Signs Temp Pulse Pulse Resp BP BP Pulse Ox 10/18/19 15:35 37.1 C 94 H 18 151/76 H 94 10/18/19 10:12 36.8 C 75 12 154/71 H 94 10/18/19 09:47 36.8 C 75 14 137/68 95 10/18/19 07:30 36.7 C 77 16 132/67 94 PG Care Time/CCT Total # of Minutes Spent Total Time Spent with Patient: Total time spent is greater than 50% in coordination of care (as documented) at patient's floor/unit and/or counseling patient: (1) Periprosthetic fracture around internal prosthetic left hip joint Encounter type: initial encounter Qualified Code(s): M97.02XA - Periprosthetic fracture around internal prosthetic left hip joint, initial encounter
[2019-10-18] MEDS: MEMANTINE HCL 5 MG TAB PO SCH (18:10)
[2019-10-18] MEDS: DOCUSATE SODIUM/SENNA 50/8.6MG TAB PO SCH (18:11)
[2019-10-18] MEDS: CALCIUM 600MG + VIT D 400 IU TAB PO SCH (18:11)
[2019-10-18] MEDS: QUETIAPINE FUMARATE 25 MG TABLET PO SCH (18:11)
[2019-10-18] MEDS: ASPIRIN/ALUM/MAGNES/CAL CARB 325 MG TAB PO SCH (19:52)
[2019-10-19] MEDS: OFLOXACIN 0.3% OP SOLN 5 ML BTL OPB SCH ×7 (00:49→23:31)
[2019-10-19 06:04] LABS: Hemoglobin 8.7 g/dL (12.0-16.0); Mean Corpuscular Hemoglobin 30.4 pg (25-34); Mean Corpuscular Hgb Conc 32.2 g/dL (32-36); Mean Corpuscular Volume 94.4 fL (80-100); Mean Platelet Volume 10.6 fL (7.4-10.4); Nucleated RBC # (auto) 0.09 K/uL (0-0); Nucleated RBC % (auto) 0.8 %; Platelet Count 323 K/uL (130-400); RDW Coefficient of Variation 15.3 % (11.5-14.5); RDW Standard Deviation 51.7 fL (36.4-46.3); Red Blood Count 2.86 M/uL (4.2-5.4); White Blood Count 11.27 K/uL (4.8-10.8)
[2019-10-19] MEDS: ACETAMINOPHEN 500 MG TAB PO SCH ×3 (06:21→23:20)
[2019-10-19] MEDS: LEVOTHYROXINE SODIUM 100 MCG TABLET PO SCH (06:21)
[2019-10-19 06:35] LABS: Basophils # (auto) 0.02 K/uL (0-0.2); Basophils % (auto) 0.2 %; Eosinophils # (auto) 0.35 K/uL (0-0.5); Eosinophils % (auto) 3.1 %; Immature Granulocytes # (auto) 0.84 K/uL (0.00-0.02); Immature Granulocytes % (auto) 7.5 %; Lymphocytes # (auto) 1.22 K/uL (1.2-3.4); Lymphocytes % (auto) 10.8 %; Monocytes # (auto) 1.09 K/uL (0.11-0.59); Monocytes % (auto) 9.7 %; Neutrophils # (auto) 7.75 K/uL (1.4-6.5); Neutrophils % (auto) 68.7 %
[2019-10-19] MEDS: CHOLECALCIFEROL 1,000 UNITS TAB PO SCH (08:27)
[2019-10-19] MEDS: ENOXAPARIN INJ 30 MG/0.3 ML SYR SQ SCH (08:27)
[2019-10-19] MEDS: MULTIVITAMIN TAB PO SCH (08:27)
[2019-10-19] MEDS: AMIODARONE 200 MG TAB PO SCH (08:27)
[2019-10-19] MEDS: METOPROLOL SUCC 25MG EXT REL TAB PO SCH ×2 (08:27→17:32)
[2019-10-19] MEDS: NICOTINE 21 MG/24 HR TDSY TD SCH (08:28)
[2019-10-19] MEDS: POLYETHYLENE (MIRALAX) 17 GM PACK PO SCH (08:28)
[2019-10-19] MEDS ORDERED: IRON SUCROSE 100 MG in 0.9 % SODIUM CHLORIDE 100 ML IV STA (09:04)
[2019-10-19] MEDS: CALCIUM 600MG + VIT D 400 IU TAB PO SCH (15:49)
[2019-10-19] MEDS: ASPIRIN/ALUM/MAGNES/CAL CARB 325 MG TAB PO SCH (15:49)
[2019-10-19] MEDS: MEMANTINE HCL 5 MG TAB PO SCH (15:49)
--- NOTE | 2019-10-19 16:06 | Hospitalist Progress Note ---
Date of Service October 19, 2019 Assessment & Plan (1) Periprosthetic fracture around internal prosthetic left hip joint: Secondary to mechanical fall, with bilateral THAs in place. - Consult Ortho appreciated--> now status post complex Open Reduction Internal Fixation Left Periprosthetic Femur Fracture and Femoral Head and Liner Exchange(Left) - Continue Dilaudid PRN - Continue bowel regimen with senna/docusate and daily Miralax - No pain today. (2) Acute blood loss anemia: Hgb dropped to 9.6 from 11.8 prior to surgery, secondary to blood loss from fracture and some hemodilutional component. - Follow CBC again in the morning - On 10/16, hgb was 7.9 with some mild oozing from surgical site. Transfused 1 unit PRBCs. - On 10/19, hgb is 8.7. Got third dose of IV iron. (3) Atrial fibrillation: With a h/o PAF. Continues here in normal sinus rhythm by exam. Previously was on Xarelto but daughter reports this was stopped by Dr. Palacio after experiencing significant leg cramps with it. - Continue amiodarone 200 mg QAM, will now restart ASA 325 mg daily which is her stroke prophylaxis, and continue metoprolol succinate 25 mg BID - No concerns today. (4) Tobacco use: Very likely that her cigarette smoking is contributing to osteoporosis and vitamin D deficiency. Patient smokes 1 pack/day x 40 years. - Cessation encouraged, nicotine patch ordered and now pt is accepting of this (5) Osteoporosis: - Continue calcium and Vit D supplementation (6) Vitamin D deficiency: Level was 56 this admission. - Continue supplementation as above (7) Hypertension: Blood pressures acceptable today at 110/52. - Continue metoprolol as above with hold parameters (8) Hypothyroidism: TSH here is normal but FT high. 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 She knows self and location, but not date. Says she was "dropped off" by her daughter, but doesn't really remember/know why she is here. - Continue Namenda 5 mg at bedtime (10) Chronic kidney disease: CKD stage 4. 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 - Avoid nephrotoxins - At baseline, Cr. on 10/18 was 1.25. (11) Delirium: Secondary to pain, opioid pain medications in setting of hospitalization and underlying dementia. Initially was worse at nighttime but improved with Seroquel the first 2 nights of her stay. - Frequent reorientation, keep sleep/wake cycles consistent (12) Eye pain: Possibly could have bilateral corneal abrasion from tape over the eyes during surgery. Difficult to examine her initially due to pain but provider did note significant erythema of the right eye and watery discharge OU. - Now much improved after Ocuflox drops (13) DVT prophylaxis: - TYLER on nonaffected leg, SCDs, Lovenox SQ Subjective Doing well today. Less hip pain. No major issues. Reports no fevers/chills, chest pain, shortness of breath, abdominal pain, nausea, or vomiting. Physical Exam Constitutional: WD/WN, vitals as above Eyes: EOM intact bilaterally; no conjunctival abnormality ENMT: external ear and nose normal, oropharynx normal Neck: trachea midline, no thyromegaly normal visual inspection Respiratory: normal respiratory effort, lungs clear to auscultation no respiratory distress Cardiovascular: RRR, no murmur, no edema Gastrointestinal (Abdomen): Inspection/Auscultation: abdomen normal to inspection; abdomen not distended Musculoskeletal: no cyanosis or clubbing, extremities motor strength 5/5 Extremities: + limited ROM of lower extremity (Left hip incision is clean and non-erythematous. No bleeding.) Skin: no rashes, warm and dry Neurologic: moves all extremities and awake Psychiatric: Orientation: alert, oriented to person and cooperative Results & Data Vital Signs (Past 12 Hours) Vital Signs Temp Pulse Pulse Resp BP Pulse Ox 10/19/19 15:27 36.7 C 79 16 155/79 H 93 10/19/19 09:45 36.9 C 85 112/62 93 10/19/19 07:57 37.3 C 82 19 110/60 91 PG Care Time/CCT Total # of Minutes Spent Total Time Spent with Patient: Total time spent is greater than 50% in coordination of care (as documented) at patient's floor/unit and/or counseling patient: (1) Periprosthetic fracture around internal prosthetic left hip joint Encounter type: initial encounter Qualified Code(s): M97.02XA - Periprosthetic fracture around internal prosthetic left hip joint, initial encounter
[2019-10-19] MEDS: DOCUSATE SODIUM/SENNA 50/8.6MG TAB PO SCH (17:32)
[2019-10-19] MEDS: QUETIAPINE FUMARATE 25 MG TABLET PO SCH (17:33)
[2019-10-20] MEDS: OXYCODONE HCL IR 5 MG TAB (IMMEDIATE RELEASE) PO PRN ×2 (01:37→07:48)
[2019-10-20] MEDS: OFLOXACIN 0.3% OP SOLN 5 ML BTL OPB SCH ×2 (04:57→07:49)
[2019-10-20] MEDS: ACETAMINOPHEN 500 MG TAB PO SCH (05:00)
[2019-10-20] MEDS: LEVOTHYROXINE SODIUM 100 MCG TABLET PO SCH (05:00)
[2019-10-20 06:10] LABS: Hematocrit (blood only) 27.4 % (37-47); Hemoglobin 8.7 g/dL (12.0-16.0); Mean Corpuscular Hemoglobin 30.5 pg (25-34); Mean Corpuscular Hgb Conc 31.8 g/dL (32-36); Mean Corpuscular Volume 96.1 fL (80-100); Mean Platelet Volume 10.7 fL (7.4-10.4); Nucleated RBC # (auto) 0.08 K/uL (0-0); Nucleated RBC % (auto) 0.6 %; Platelet Count 361 K/uL (130-400); RDW Coefficient of Variation 15.3 % (11.5-14.5); RDW Standard Deviation 52.5 fL (36.4-46.3); Red Blood Count 2.85 M/uL (4.2-5.4); White Blood Count 13.05 K/uL (4.8-10.8)
[2019-10-20 06:33] LABS: Basophils # (auto) 0.02 K/uL (0-0.2); Basophils % (auto) 0.2 %; Eosinophils # (auto) 0.41 K/uL (0-0.5); Eosinophils % (auto) 3.1 %; Immature Granulocytes # (auto) 1.02 K/uL (0.00-0.02); Immature Granulocytes % (auto) 7.8 %; Lymphocytes # (auto) 1.48 K/uL (1.2-3.4); Lymphocytes % (auto) 11.3 %; Monocytes # (auto) 1.38 K/uL (0.11-0.59); Monocytes % (auto) 10.6 %; Neutrophils # (auto) 8.74 K/uL (1.4-6.5); Polychromasia 1+
[2019-10-20] MEDS: ENOXAPARIN INJ 30 MG/0.3 ML SYR SQ SCH (08:34)
[2019-10-20] MEDS: MULTIVITAMIN TAB PO SCH (08:34)
[2019-10-20] MEDS: POLYETHYLENE (MIRALAX) 17 GM PACK PO SCH ×2 (08:34→08:38)
[2019-10-20] MEDS: METOPROLOL SUCC 25MG EXT REL TAB PO SCH (08:34)
[2019-10-20] MEDS: CHOLECALCIFEROL 1,000 UNITS TAB PO SCH (08:34)
[2019-10-20] MEDS: NICOTINE 21 MG/24 HR TDSY TD SCH (08:34)
[2019-10-20] MEDS: AMIODARONE 200 MG TAB PO SCH (08:34)
[2019-10-20] MEDS ORDERED: LIDOCAINE 5% 1 PATCH TD SCH (10:00)
--- NOTE | 2019-10-20 16:30 | Discharge Summary ---
Date of Service October 20, 2019 Admission HPI Per Admitting Provider This is an 79 yo F with PMHx of HTN, paroxysmal A. fib, bilateral hip arthroplasties which were done in the 80s, hypothyroidism, vitamin D deficiency, tobacco use, and dementia who presents after fall sustained this morning onto her left hip. Patient notes that she was washing dishes and her "feet became tangled up in a rug" and then fell. She scooted herself across the floor on her behind to the telephone and was able to call EMS. She denies any presyncopal events, hitting of her head or other sustained trauma, no LOC per her recollection. Her biggest complaint is spasm in the left leg. Her pain is moder ately controlled after receiving 2 doses of IV fentanyl in the ER. Imaging reviewed which shows a left proximal femoral fracture and left periprosthetic fracture. She followed with [facility] [place] orthopedics for hip replacements previously. -HGB = 11.8, HCT = 37.6 Principal Diagnosis Left femoral krishna-prosthetic fracture and repair Discharge Exam Constitutional WD/WN, vitals as above Eyes EOM intact bilaterally; no conjunctival abnormality ENMT external ear and nose normal, oropharynx normal Neck trachea midline, no thyromegaly normal visual inspection Respiratory normal respiratory effort, lungs clear to auscultation no respiratory distress Cardiovascular RRR, no murmur, no edema Gastrointestinal (Abdomen) Inspection/Auscultation: abdomen normal to inspection; abdomen not distended Musculoskeletal no cyanosis or clubbing, extremities motor strength 5/5 Extremities: + limited ROM of lower extremity (Left hip incision is clean and non-erythematous. No bleeding.) Skin no rashes, warm and dry Neurologic moves all extremities and awake Psychiatric Orientation: alert, oriented to person and cooperative Discharge Data Allergies Allergy/AdvReac Type Severity Reaction Status Date / Time No Known Allergies Allergy Unverified 10/10/19 17:34 Consultations 10/10/19 17:13 ED Decision to Admit Stat 10/10/19 19:00 Consult Case Management - Discharge Planning Routine Consult Case Management - Discharge Planning Routine Consult Orthopedic Surgery Routine 10/14/19 08:00 Consult Case Management - Discharge Planning Routine Procedures Performed Operation Date: 10/13/19 07:30 Actual Procedures p Open Reduction Internal Fixation Left Periprosthetic Femur Fracture and Femoral Head and Liner Exchange(Left) - Silviano R Antholz, DO Ordered Studies 10/10/19 20:54 CT femur LT wo con Urgent 10/13/19 07:00 FL femur LT 2V Routine FL fluoroscopy <1hr Routine Hospital Course (1) Periprosthetic fracture around internal prosthetic left hip joint: Secondary to mechanical fall, with bilateral THAs in place. - Consult Ortho appreciated -> now status post complex Open Reduction Internal Fixation Left Periprosthetic Femur Fracture and Femoral Head and Liner Exchange(Left) - Pain control (2) Acute blood loss anemia: Hgb dropped to 9.6 from 11.8 prior to surgery, secondary to blood loss from fracture and some hemodilutional component. - Follow CBC again in the morning - On 10/16, hgb was 7.9 with some mild oozing from surgical site. Transfused 1 unit PRBCs. - On 10/19 & 10/20, hgb was 8.7. Got three doses of IV iron. (3) Atrial fibrillation: With a h/o PAF. Continues here in normal sinus rhythm by exam. Previously was on Xarelto but daughter reports this was stopped by Dr. Palacio after exper iencing significant leg cramps with it. - Continue amiodarone 200 mg QAM, restarted ASA 325 mg daily which is her stroke prophylaxis, and continue metoprolol succinate 25 mg BID - No concerns today. (4) Tobacco use: Very likely that her cigarette smoking is contributing to osteoporosis and vitamin D deficiency. Patient smokes 1 pack/day x 40 years. - Cessation encouraged, nicotine patch ordered and now pt is accepting of this (5) Osteoporosis: - Continue calcium and Vit D supplementation (6) Vitamin D deficiency: Level was 56 this admission. - Continue supplementation as above (7) Hypertension: Blood pressures acceptable today at 110/52. - Continue metoprolol as above with hold parameters (8) Hypothyroidism: TSH here is normal but FT high. 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 She knows self and location, but not date. Says she was "dropped off" by her daughter, but doesn't really remember/know why she is here. - Continue Namenda 5 mg at bedtime (10) Chronic kidney disease: CKD stage 4. 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 - Avoid nephrotoxins - At baseline, Cr. on 10/18 was 1.25. (11) Delirium: Secondary to pain, opioid pain medications in setting of hospitalization and underlying dementia. Initially was worse at nighttime but improved with Seroquel the first 2 nights of her stay. - Frequent reorientation, keep sleep/wake cycles consistent (12) Eye pain: Possibly could have bilateral corneal abrasion from tape over the eyes during surgery. Difficult to examine her initially due to pain but provider did note significant erythema of the right eye and watery discharge OU. - Now much improved after Ocuflox drops (13) DVT prophylaxis: - TYLER on nonaffected leg, SCDs, Lovenox SQ Total Time Total Time Spent Total Time Spent (In Minutes): 45 Discharge Plan Discharge Items Patient Disposition: [facility] Reason For Visit: LEFT FEMORAL AND PERIPROSTHETIC HIP FX Discharge Diagnosis: Left femoral fracture with repair Activity: Resume your previous activity Exercise/Sports: Gradually increase as tolerated Non-emergency contact: Primary Care Provider and Surgeon Call non-emergency contact if: your symptoms worsen, your pain is worsening and your temperature is above 101 Follow-up/Referrals: Guillermo Vasquez MD [Primary Care Provider] - Silviano Gibbs DO [Physician] - (Please see in 2 weeks.) Diet: Regular Addtl Attending Provider Instructions: Hgb was 8.7 on discharge. Please recheck on Tuesday or Tuesday. She received 3 doses of IV iron prior to discharge. ACTIVITY RECOMMENDATIONS: SELF CARE INSTRUCTIONS AFTER ORIF FEMUR, Revision Total hip with head and liner exchange Until the incision and soft tissues around your hip have healed, there is a possibility that the hip prosthesis could dislocate. A. Observe the following precautions to prevent dislocation: 1. Don't bend your hip greater than 90 degrees. 2. Avoid crossing your legs or ankles while standing or lying. 3. Sit with your feet placed 6 inches apart. 4. When sitting, keep your knees below your hips. Sit on a firm surface, avoid deep, soft chairs and couches. Use an elevated toilet seat in the bathroom. 5. Don't bend over at the waist. Use a long handled shoehorn and a sock aid to help you put on your shoes and socks. A universal grinder operator can help you pick up attendant objects that are too high or too low to reach. 6. Keep car riding to a minimum for at least one month after surgery. B. Your balance may be shaky for a while. Use crutches or a walker until directed by your doctor. C. Use hand rails when walking on stairs. D. Wear low heeled shoes with non-slip soles. E. Be sure that your floors are free of things that could trip you - throw rugs, electrical cords, small objects. Avoid wet and waxed floors, especially with crutches and canes. F. Try to walk several times a day with rest periods between. G. Continue with all the exercises taught to you in the hospital. Again, make walking a part of your daily routine. H. Maintain strict toe touch NON WEIGHT BEARING at all times. SPECIAL CARE INSTRUCTIONS: VERY IMPORTANT TO READ AND REVIEW A. You may still be at risk for phlebitis and blood clots. 1. Wear surgical stockings (TYLER hose) for 2 weeks after surgery to improve circulation and reduce swelling. 2. Take Lovenox 30mg daily for 4 weeks or as directed by your doctor. This is your blood thinner. 3. High risk patients may be prescribed a stronger blood thinner if necessary. 4. If you are on Coumadin normally, your family doctor/behavior support specialist should monitor your blood work. Expect a phone call the day of or the day after bloodwork is drawn to adjust your dosage. B. You must take antibiotics before having dental work, bladder, bowel and other surgery. Your doctor will provide you with a permanent card to carry describing precautions. C. Call [facility] if you have a fever, redness or swelling around the incision, cloudy drainage from incision, or sudden increase in pain in your hip, not relieved by your regular pain medication. D. Please call the office at if you have any concerns or questions about your operation or recovery. * YOU MAY SHOWER, NO TUB BATHS UNTIL CLEARED BY YOUR DOCTOR. * WEAR TYLER HOSE 20 HOURS PER DAY FOR 2 WEEKS. * YOU SHOULD USE A WALKER OR CRUTCHES. THIS WILL HELP PREVENT STRAIN ON YOUR HIP MUSCLE AND ALLOW IT TO HEAL PROPERLY. YOU MAY WEAN TO A CANE TOLERATED. * YOU MAY HAVE A LARGE, BAND-MI LIKE DRESSING (SILVERON). THIS WILL REMAIN ON YOUR INCISION FOR 7 DAYS, THEN CAN BE REMOVED. IF INCISION IS LEAKING THROUGH DRESSING, PLEASE CALL THE OFFICE . FOLLOW UP VISIT: If appointment is not already scheduled: Please call [facility] to make a follow-up appointment for 2 weeks after your surgery at . Pending Studies at Discharge: No Stand-Alone Forms: My [facility] Skilled Items Patient informed of condition?: Yes DNR: No Discharge Level of Care: Skilled Communicable Disease: No Discharge Prognosis: Improving Lines: None Urinary Catheter: No Medications and DC Order Prescriptions: New nicotine [Nicoderm CQ] 21 mg/24 hr Patch 24 Hour 21 mg transdermal QAM Qty: 1 RF: 0 oxycodone 5 mg Tablet 5 mg PO Q4H PRN (Reason: pain) Qty: 1 RF: 0 Continued amiodarone 200 mg tablet 200 mg PO QAM Qty: 90 RF: 3 levothyroxine 100 mcg tablet 100 mcg PO DAILY Qty: 30 RF: 2 metoprolol succinate 25 mg tablet extended release 24 hr 25 mg PO BID RF: 0 calcium citrate-vitamin D3 315-250 mg-unit tablet 1 tab PO QPM RF: 0 aspirin, buffered 325 mg Tablet 325 mg PO QPM RF: 0 cholecalciferol (vitamin D3) [Vitamin D3] 5,000 unit Tablet 5,000 units PO DAILY RF: 0 Discontinued memantine 5 mg tablet 5 mg PO DAILY Qty: 30 RF: 5 Discharge Orders: Discharge Order (Routine); Ordered 10/19/19 Ordered By: Shahram Weller Admission Data Admit Date/Time: 10/10/19 17:53 Attending Provider: Shahram Weller Admit Provider: Etta Mayorga Primary Care Provider: Guillermo Vasquez Other Providers: [facility] ; [facility] [place] ; Etta Mayorga ; Dionicio Vance Other Interventions: Discharge Summary Assessment (RN) Last Done: 10/20/19 08:52 DC Date/Time DO NOT enter until pt leaves facility: 10/20/19 10:20
== END 2019-10-20 10:20 | DRG 467 ==
LOC: ED 15:56 → SUATTDRO 17:53 → 2W 17:53 → 3E 10-13 11:56

== ENCOUNTER 2020-01-22 08:59 | Inpatient (IN) ==
[2020-01-22] MEDS ORDERED: SODIUM CHLORIDE 0.9% 1000ML 1,000 ML IV ONE (09:12)
[2020-01-22] MEDS ORDERED: LEVOFLOXACIN/D5W 750 MG/150 ML BAG IV SCH (09:15)
--- NOTE | 2020-01-22 09:18 | Emergency Department Note ---
ED Provider Note NAME: TAMI FOFANA AGE: 79 SEX: F : 1940 ARRIVES VIA: Ambulance INFORMANT: Patient EMS and family member ED PROVIDER(S): Shawn Carmona DO CHIEF COMPLAINT: Confusion HPI: Patient is an 79-year-old female who presents the ER from [facility] who was found down confused in her room. They note that she was found be hypoxic and febrile. Patient has no complaints at this time with exception of some right shoulder pain. Family members note that she does have some may be worsening slurred speech. Patient denies any headache, change in vision, chest pain, shortness of breath, nausea vomiting or diarrhea. Do believe that this is all limited secondary to memory issues that the patient does have. ROS: Review of systems is limited secondary to mental status. PAST MEDICAL HISTORY:See Below PAST SURGICAL HISTORY:See Below FAMILY HISTORY:See Below SOCIAL HISTORY:See Below HOME MEDICATIONS:See Below ALLERGIES:See Below VITALS:See Below PHYSICAL EXAMINATION: GENERAL: Sitting up in bed, alert, slightly ill-appearing no significant distress EYE EXAM: normal conjunctiva. PERRL and EOM's grossly intact. OROPHARYNX: no exudate, no erythema, lips, buccal mucosa, and tongue normal and mucous membranes are dry NECK: supple, no nuchal rigidity, no adenopathy, non-tender LUNGS: Rhonchi bilaterally. Normal chest wall mechanics HEART: Tachycardic S1 normal and S2 normal ABDOMEN: abdomen soft, non-tender, normo-active bowel sounds, no masses, no rebound or guarding. BACK: Back is symmetrical on inspection and there is no deformity, no midline tenderness, no CVA tenderness. SKIN: no rashes and no bruising UPPER EXTREMITIES: upper extremities are grossly normal. LOWER EXTREMITIES: No pitting edema. NEURO EXAM: Awake alert oriented to person and place but not year moving all extremities nonfocal MEDICAL DECISION MAKING: Patient is an 79-year-old female with a past medical history of hypertension hypothyroid is him with previous tobacco use who presents the ER for altered mental status. Upon presentation she is found to be hypoxic and febrile. She is following commands. IV was established blood work was obtained and shows a leukocytosis of 19,000. No significant anemia. INR was unremarkable. BMP with mild hypokalemia. Creatinine 1.28. Lactate was normal. LFTs bilirubin and troponins were negative. UA does suggest a UTI with the nitrates, white cells and a small amount of epithelial cells. Chest x-ray does suggest a possible infiltrate as well. Patient was given IV Rocephin and Levaquin. She was given IV fluids. She was placed on a oxygen mask. Her influenza was negative. Patient family were updated bedside. CT head and cervical spine were negative. She was discussed with the hospitalist for admission secondary to hypoxia and altered mental status along with pneumonia and UTI. Triage Nursing notes reviewed. Prior medical records reviewed Vital Signs: reviewed and remarkable for hypoxic and tachycardic Differential diagnosis: Differential diagnosis includes etiologies such as sepsis, UTI, pneumonia, metabolic, electrolyte abnormalities, cardiac sources, intracerebral event, toxicologic, neurological, as well as others were entertained. ER treatment provided: See below Diagnostics interpreted by me: ECG: Sinus rhythm rate of 90 normal axis no PVCs poor baseline in the lateral leads prolonged QTc Cardiac Monitoring: Sinus tach rate 95 Laboratory studies: As stated above and show below. Imaging studies: CT of the head shows no acute pathology as well as CT of the cervical spine per radiology. Chest x-ray with a small left parenchymal infiltrate. X-ray of the pelvis shows no acute fractures. Consultation(s): D/w Dr. Martinez ED COURSE: Procedures: none Critical Care: I have personally spent 35 minutes of critical care time in the direct management of this patient. This includes bedside care, interpretation of diagnostic studies, and testing, discussion with consultants, patient, and family members, and other required patient management activities. This 35 minutes is in excess of all separately billable procedures. Impression & Plan Hypoxia, AMS (altered mental status), Acute UTI, Pneumonia Past Med/Surg History Medical History Anemia Bladder cancer Compression fracture of T12 vertebra (Acute) Compression fracture of T12 vertebra (Acute 08/26/14) Kidney stone Osteoporosis (Chronic) Pelvis fracture (Acute) Pubic bone pain (Inactive 08/26/14) Smoker Surgical History H/O bilateral hip replacements Social History Preferred Language: [place] Communication Ability: Effective Mild Disabilities Teacher Required: No Beliefs That Will Affect Care: None marital status: / Current Living Situation: Personal Care Facility Current Living Situation Comment: [facility] Other Information That Helps Us Care for You: No Feels Safe at Home: Yes Safety Concerns: Feels Safe At This Time Smoking Status: Former smoker Tobacco Type: cigarettes ; Do You Dip or Chew Tobacco: No ; Second Hand Exposure: No ; Tobacco Cessation Education Requested b y Patient: No Hx Alcohol Use: No Hx Substance Use: No Results & Data Vital Signs Vital Signs - 24 hr 01/22/20 09:07 01/22/20 09:30 01/22/20 09:31 Temperature 37.5 C Temperature Source Oral Pulse Rate 82 Pulse Rate [Apical] 78 Pulse Rhythm Regular Pulse Rhythm [Apical] Regular Pulse Strength Normal Pulse Strength [Apical] Normal Respiratory Rate 22 20 Respiratory Effort / Characteristics Non-Labored Spontaneous Non-Labored Spontaneous Respiratory Depth Normal Normal Respiratory Pattern Regular Blood Pressure 148/82 H Blood Pressure [Left Arm] 119/65 Blood Pressure Mean 104 Blood Pressure Mean [Left Arm] 83 Blood Pressure Position Sitting Blood Pressure Position [Left Arm] Sitting Pulse Oximetry 89 L 96 89 L Oxygen Delivery Method Room Air Oxymask Room Air Oxymask Oxygen Flow Rate 4 Sepsis Recent Fever Within 48 Hours Yes Sepsis New/Unexplained Change in Mental Status Yes Sepsis Action Taken by Nursing Physician Notified Oxygen Flow Rate - Titration 4 Pulse Oximetry Post Tiitration 94 01/22/20 09:32 01/22/20 11:14 Temperature Temperature Source Pulse Rate Pulse Rate [Apical] 69 Pulse Rhythm Pulse Rhythm [Apical] Pulse Strength Pulse Strength [Apical] Respiratory Rate 22 Respiratory Effort / Characteristics Non-Labored Spontaneous Respiratory Depth Normal Respiratory Pattern Regular Blood Pressure Blood Pressure [Left Arm] 128/68 Blood Pressure Mean Blood Pressure Mean [Left Arm] 88 Blood Pressure Position Blood Pressure Position [Left Arm] Pulse Oximetry 94 97 Oxygen Delivery Method Oxymask Oxymask Oxygen Flow Rate 4 4 Sepsis Recent Fever Within 48 Hours Sepsis New/Unexplained Change in Mental Status Sepsis Action Taken by Nursing Oxygen Flow Rate - Titration Pulse Oximetry Post Tiitration Laboratory Data Result diagrams: 01/22/20 09:19 01/22/20 09:19 Lab Results 01/22/20 01/22/20 01/22/20 Range/Units 09:17 09:19 09:19 WBC 19.03 H (4.8-10.8) K/uL RBC 4.15 L (4.2-5.4) M/uL Hgb 12.6 (12.0-16.0) g/dL Hct 39.1 (37-47) % MCV 94.2 (80-100) fL MCH 30.4 (25-34) pg MCHC 32.2 (32-36) g/dL RDW Std Deviation 50.0 H (36.4-46.3) fL RDW Coeff of Tiffany 14.7 H (11.5-14.5) % Plt Count 298 (130-400) K/uL MPV 11.8 H (7.4-10.4) fL Immature Gran % (Auto) 0.4 % Neut % (Auto) 89.1 % Lymph % (Auto) 1.6 % [place] % (Auto) 8.7 % Eos % (Auto) 0.1 % Baso % (Auto) 0.1 % Immature Gran # (Auto) 0.07 H (0.00-0.02) K/uL Neut # (Auto) 16.98 H (1.4-6.5) K/uL Lymph # (Auto) 0.31 L (1.2-3.4) K/uL [place] # (Auto) 1.65 H (0.11-0.59) K/uL Eos # (Auto) 0.01 (0-0.5) K/uL Baso # (Auto) 0.01 (0-0.2) K/uL PT Cancelled INR Cancelled APTT Cancelled PTT Ratio Cancelled Sodium (136-145) mmol/L Potassium (3.5-5.1) mmol/L Chloride (98-107) mmol/L Carbon Dioxide (21-32) mmol/L Anion Gap (3-11) BUN (7-18) mg/dl Creatinine (0.6-1.2) mg/dl Est Cr Clr Drug Dosing Est GFR ( Amer) Est GFR (Non-Af Amer) BUN/Creatinine Ratio (10-20) Glucose (70-99) mg/dl Lactate 1.4 (0.4-2.0) mmol/L Calcium (8.5-10.1) mg/dl Magnesium (1.8-2.4) mg/dl Total Bilirubin (0.2-1) mg/dl AST (15-37) U/L ALT (12-78) U/L Alkaline Phosphatase (45-117) U/L Troponin I (0-0.045) ng/ml Total Protein (6.4-8.2) gm/dl Albumin (3.4-5.0) gm/dl Globulin (2.5-4.0) gm/dl Albumin/Globulin Ratio (0.9-2) Urine Color Urine Appearance (Clear) Urine pH (4.5-7.5) Ur Specific [place] (1.000-1.030) Urine Protein (Negative) Urine Glucose (UA) (Negative) Urine Ketones (Negative) Urine Blood (Negative) Urine Nitrite (Negative) Urine Bilirubin (Negative) Urine Urobilinogen (Negative) Ur Leukocyte Esterase (Negative) Urine WBC (Auto) (0-5) /hpf Urine RBC (Auto) (0-4) /hpf U Hyaline Cast (Auto) U Epithel Cells (Auto) (0-5) /lpf Urine Bacteria (Auto) (Negative) Amorphous Sediment (None Prsent) Urine Yeast Influenza Type A (PCR) (Neg) Influenza Type B (PCR) (Neg) 01/22/20 01/22/20 01/22/20 Range/Units 09:19 09:19 09:45 WBC (4.8-10.8) K/uL RBC (4.2-5.4) M/uL Hgb (12.0-16.0) g/dL Hct (37-47) % MCV (80-100) fL MCH (25-34) pg MCHC (32-36) g/dL RDW Std Deviation (36.4-46.3) fL RDW Coeff of Tiffany (11.5-14.5) % Plt Count (130-400) K/uL MPV (7.4-10.4) fL Immature Gran % (Auto) % Neut % (Auto) % Lymph % (Auto) % [place] % (Auto) % Eos % (Auto) % Baso % (Auto) % Immature Gran # (Auto) (0.00-0.02) K/uL Neut # (Auto) (1.4-6.5) K/uL Lymph # (Auto) (1.2-3.4) K/uL [place] # (Auto) (0.11-0.59) K/uL Eos # (Auto) (0-0.5) K/uL Baso # (Auto) (0-0.2) K/uL PT INR APTT PTT Ratio Sodium 137 (136-145) mmol/L Potassium 3.4 L (3.5-5.1) mmol/L Chloride 104 (98-107) mmol/L Carbon Dioxide 25 (21-32) mmol/L Anion Gap 8.0 (3-11) BUN 20 H (7-18) mg/dl Creatinine 1.28 H (0.6-1.2) mg/dl Est Cr Clr Drug Dosing Not Reportable Est GFR ( Amer) 45.4 Est GFR (Non-Af Amer) 39.2 BUN/Creatinine Ratio 15.5 (10-20) Glucose 118 H (70-99) mg/dl Lactate (0.4-2.0) mmol/L Calcium 9.5 (8.5-10.1) mg/dl Magnesium 1.6 L (1.8-2.4) mg/dl Total Bilirubin 0.7 (0.2-1) mg/dl AST 51 H (15-37) U/L ALT 30 (12-78) U/L Alkaline Phosphatase 172 H (45-117) U/L Troponin I < 0.015 (0-0.045) ng/ml Total Protein 7.6 (6.4-8.2) gm/dl Albumin 3.0 L (3.4-5.0) gm/dl Globulin 4.6 H (2.5-4.0) gm/dl Albumin/Globulin Ratio 0.6 L (0.9-2) Urine Color Yellow Urine Appearance Turbid A (Clear) Urine pH 6.0 (4.5-7.5) Ur Specific [place] 1.013 (1.000-1.030) Urine Protein 2+ H (Negative) Urine Glucose (UA) Negative (Negative) Urine Ketones Negative (Negative) Urine Blood 3+ H (Negative) Urine Nitrite Positive A (Negative) Urine Bilirubin Negative (Negative) Urine Urobilinogen Negative (Negative) Ur Leukocyte Esterase 3+ H (Negative) Urine WBC (Auto) >30 H (0-5) /hpf Urine RBC (Auto) 10-30 H (0-4) /hpf U Hyaline Cast (Auto) Not Reportable U Epithel Cells (Auto) 5-10 H (0-5) /lpf Urine Bacteria (Auto) 2+ H (Negative) Amorphous Sediment Present A (None Prsent) Urine Yeast Not Reportable Influenza Type A (PCR) Neg for Influ A (Neg) Influenza Type B (PCR) Neg for Influ B (Neg) 01/22/20 Range/Units 09:51 WBC (4.8-10.8) K/uL RBC (4.2-5.4) M/uL Hgb (12.0-16.0) g/dL Hct (37-47) % MCV (80-100) fL MCH (25-34) pg MCHC (32-36) g/dL RDW Std Deviation (36.4-46.3) fL RDW Coeff of Tiffany (11.5-14.5) % Plt Count (130-400) K/uL MPV (7.4-10.4) fL Immature Gran % (Auto) % Neut % (Auto) % Lymph % (Auto) % [place] % (Auto) % Eos % (Auto) % Baso % (Auto) % Immature Gran # (Auto) (0.00-0.02) K/uL Neut # (Auto) (1.4-6.5) K/uL Lymph # (Auto) (1.2-3.4) K/uL [place] # (Auto) (0.11-0.59) K/uL Eos # (Auto) (0-0.5) K/uL Baso # (Auto) (0-0.2) K/uL PT 11.4 INR 1.1 APTT 25.4 PTT Ratio 0.9 Sodium (136-145) mmol/L Potassium (3.5-5.1) mmol/L Chloride (98-107) mmol/L Carbon Dioxide (21-32) mmol/L Anion Gap (3-11) BUN (7-18) mg/dl Creatinine (0.6-1.2) mg/dl Est Cr Clr Drug Dosing Est GFR ( Amer) Est GFR (Non-Af Amer) BUN/Creatinine Ratio (10-20) Glucose (70-99) mg/dl Lactate (0.4-2.0) mmol/L Calcium (8.5-10.1) mg/dl Magnesium (1.8-2.4) mg/dl Total Bilirubin (0.2-1) mg/dl AST (15-37) U/L ALT (12-78) U/L Alkaline Phosphatase (45-117) U/L Troponin I (0-0.045) ng/ml Total Protein (6.4-8.2) gm/dl Albumin (3.4-5.0) gm/dl Globulin (2.5-4.0) gm/dl Albumin/Globulin Ratio (0.9-2) Urine Color Urine Appearance (Clear) Urine pH (4.5-7.5) Ur Specific [place] (1.000-1.030) Urine Protein (Negative) Urine Glucose (UA) (Negative) Urine Ketones (Negative) Urine Blood (Negative) Urine Nitrite (Negative) Urine Bilirubin (Negative) Urine Urobilinogen (Negative) Ur Leukocyte Esterase (Negative) Urine WBC (Auto) (0-5) /hpf Urine RBC (Auto) (0-4) /hpf U Hyaline Cast (Auto) U Epithel Cells (Auto) (0-5) /lpf Urine Bacteria (Auto) (Negative) Amorphous Sediment (None Prsent) Urine Yeast Influenza Type A (PCR) (Neg) Influenza Type B (PCR) (Neg) Administered Medications Levofloxacin/Dextrose (Levaquin/D5w) 750 mg in 150 mls @ 100 mls/hr IV Q24H BRIANA Stop: 02/05/20 09:14 Last Infusion: 01/22/20 11:12 Dose: 0 mls/hr Documented by: [id number] Admin: 01/22/20 09:35 Dose: 100 mls/hr Documented by: [id number] Discontinued Medications Sodium Chloride (Nss 1000ml) 1,000 mls @ 999 mls/hr IV .Q1H1M ONE Stop: 01/22/20 10:12 Last Infusion: 01/22/20 10:50 Dose: 0 mls/hr Documented by: [id number] Admin: 01/22/20 09:35 Dose: 999 mls/hr Documented by: [id number] Ceftriaxone Sodium (Rocephin) 1,000 mg in 50 mls @ 100 mls/hr IV NOW STA Stop: 01/22/20 10:55 Last Infusion: 01/22/20 11:48 Dose: 0 mls/hr Documented by: [id number] Admin: 01/22/20 11:16 Dose: 100 mls/hr Documented by: [id number] Discharge Plan Visit Data Chief Complaint: Altered Mental Status Stated Complaint: AMS ED Provider: Shawn Carmona Discharge Problem: Hypoxia, AMS (altered mental status), Acute UTI, Pneumonia Forms Stand Alone Forms: Brielle Johnson [employer] Prescriptions Prescriptions: No Action amiodarone 200 mg tablet 200 mg PO QAM Qty: 90 RF: 3 (DME) gauze bandage [Curad Gauze Pad] 4 X 4 " bandage See Rx Instructions .ROUTE .MEDSUPPLY Qty: 100 RF: 0 aspirin 325 mg tablet 325 mg PO QAM RF: 0 calcium carbonate-vitamin D3 [Oyster Shell Calcium-Vit D3] 500 mg(1,250mg) - 200 unit tablet 1 tab PO QAM RF: 0 acetaminophen 500 mg capsule 500 mg PO DAILY PRN (Reason: Pain) RF: 0 levothyroxine 112 mcg capsule 112 mcg PO QAM RF: 0 melatonin 3 mg capsule 3 mg PO HS RF: 0 lorazepam 0.5 mg tablet 0.5 mg PO Q8H PRN (Reason: severe restlessness) RF: 0 sertraline 50 mg Tablet 50 mg PO HS RF: 0 polyethylene glycol 3350 [Miralax] 17 gram powder in packet 17 gm PO DAILY PRN (Reason: Constipation) RF: 0 metoprolol succinate 25 mg tablet extended release 24 hr 25 mg PO QAM RF: 0 cholecalciferol (vitamin D3) [Vitamin D3] 5,000 unit Tablet 5,000 units PO QAM RF: 0 Referrals [facility] [Primary Care Provider] - Discharge Problem: AMS (altered mental status) Qualifiers: Altered mental status type: unspecified Qualified Code(s): R41.82 - Altered mental status, unspecified Pneumonia Qualifiers: Pneumonia type: due to unspecified organism Laterality: unspecified laterality Lung location: unspecified part of lung Qualified Code(s): J18.9 - Pneumonia, unspecified organism
[2020-01-22 09:32] LABS: Basophils # (auto) 0.01 K/uL (0-0.2); Basophils % (auto) 0.1 %; Eosinophils # (auto) 0.01 K/uL (0-0.5); Eosinophils % (auto) 0.1 %; Hematocrit (blood only) 39.1 % (37-47); Hemoglobin 12.6 g/dL (12.0-16.0); Immature Granulocytes # (auto) 0.07 K/uL (0.00-0.02); Immature Granulocytes % (auto) 0.4 %; Lymphocytes # (auto) 0.31 K/uL (1.2-3.4); Lymphocytes % (auto) 1.6 %; Mean Corpuscular Hemoglobin 30.4 pg (25-34); Mean Corpuscular Hgb Conc 32.2 g/dL (32-36); Mean Corpuscular Volume 94.2 fL (80-100); Mean Platelet Volume 11.8 fL (7.4-10.4); Monocytes # (auto) 1.65 K/uL (0.11-0.59); Monocytes % (auto) 8.7 %; Neutrophils # (auto) 16.98 K/uL (1.4-6.5); Neutrophils % (auto) 89.1 %; Platelet Count 298 K/uL (130-400); RDW Coefficient of Variation 14.7 % (11.5-14.5); Red Blood Count 4.15 M/uL (4.2-5.4); White Blood Count 19.03 K/uL (4.8-10.8)
--- NOTE | 2020-01-22 09:40 | XRay Report ---
XR pelvis 1-2V routine CLINICAL HISTORY: fall trauma COMPARISON: 10/13/2019 DISCUSSION: Old fracture left pubic ring. Bilateral hip arthroplasties are noted. No acute process of the femurs. Heterotopic bone formation about the proximal left femur presumably postoperative. There is no evidence for soft tissue swelling. IMPRESSION: Postoperative and degenerative change. No acute process. ACT 112: Negative or not required by law. The above report was generated using voice recognition software. It may contain grammatical, syntax or spelling errors. Electronically signed by: Cameron Henry M.D. 01/22/2020 9:39 AM
--- NOTE | 2020-01-22 09:41 | XRay Report ---
XR chest 1V portable CLINICAL HISTORY: SEPSIS dyspnea COMPARISON STUDY: 02/11/2018 FINDINGS: Minimal parenchymal infiltrate left base. Potential small nodular density right upper lung. Diaphragms are smooth. Chronic apical scarring bilaterally. Prior total right shoulder arthroplasty. IMPRESSION: Small parenchymal infiltrate left base. ACT 112: Negative or not required by law. The above report was generated using voice recognition software. It may contain grammatical, syntax or spelling errors. Electronically signed by: Cameron Henry M.D. 01/22/2020 9:40 AM
[2020-01-22 09:47] LABS: Alanine Aminotransferase 30 U/L (12-78); Aspartate Aminotransferase 51 U/L (15-37); BUN Creatinine Ratio 15.5 (10-20); Blood Urea Nitrogen 20 mg/dl (7-18); Calcium 9.5 mg/dl (8.5-10.1); Carbon Dioxide 25 mmol/L (21-32); Chloride 104 mmol/L (98-107); Est GFR (African American) 45.4; Est GFR (Non-African American) 39.2; Glucose 118 mg/dl (70-99); Magnesium 1.6 mg/dl (1.8-2.4); Potassium 3.4 mmol/L (3.5-5.1); Sodium 137 mmol/L (136-145)
[2020-01-22 09:52] LABS: Albumin Globulin Ratio 0.6 (0.9-2); Alkaline Phosphatase 172 U/L (45-117); Bilirubin,Total 0.7 mg/dl (0.2-1); Globulin 4.6 gm/dl (2.5-4.0); Total Protein 7.6 gm/dl (6.4-8.2); Troponin I < 0.015 ng/ml (0-0.045)
[2020-01-22 09:59] LABS: Appearance Urine Turbid (Clear); Bacteria Urine Automated 2+ (Negative); Bilirubin Urine Negative (Negative); Blood Urine 3+ (Negative); Color Urine Yellow; Glucose Urine UA Negative (Negative); Ketones Urine Negative (Negative); Leukocyte Esterase Urine 3+ (Negative); Nitrite Urine Positive (Negative); Protein Urine 2+ (Negative); Specific Gravity Urine 1.013 (1.000-1.030); Urobilinogen Urine Negative (Negative); WBC Urine Automated >30 /hpf (0-5)
[2020-01-22 10:05] LABS: Influenza A virus by PCR Neg for Influ A (Neg); Influenza B virus by PCR Neg for Influ B (Neg)
--- NOTE | 2020-01-22 10:08 | CT Scan Report ---
CT cervical spine wo con CT DOSE: 1575.23 mGy.cm HISTORY: Trauma. Pain. fall TECHNIQUE: Multiaxial CT images of the cervical spine were performed and reformatted in the sagittal and coronal plane without the use of contrast. A dose lowering technique was utilized adhering to th e principles of ALARA. COMPARISON: None. FINDINGS: No fractures. No subluxation. Prevertebral soft tissues and the C1-C2 interval are intact. No pneumothorax. General degenerative disc changes throughout the entire cervical region. IMPRESSION: No fractures within the cervical spine. Considerable degenerative change. ACT 112: Negative or not required by law. The above report was generated using voice recognition software. It may contain grammatical, syntax or spelling errors. Electronically signed by: Cameron Henry M.D. 01/22/2020 10:06 AM
--- NOTE | 2020-01-22 10:14 | CT Scan Report ---
CT OF THE HEAD WITHOUT CONTRAST CLINICAL HISTORY: Fall. Altered mental status. COMPARISON STUDY: No previous studies for comparison. TECHNIQUE: Helical axial images of the head were obtained without IV contrast. Automated exposure con trol was utilized for the study. A dose lowering technique was utilized adhering to the principles o f ALARA. FINDINGS: This exam is mildly compromised by motion artifact. No acute intracranial hemorrhage, midli ne shift or mass effect is present. 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 White matter hypodensity suggests small vessel disease. Ventricular system is unremarkable for age. Basilar cisterns are patent. There are no extra-axial collections. There are no calvarial fractures although sensitivity for detection of nondisplaced fractures is diminished on this exam. IMPRESSION: 1. No acute intracranial findings. 2. Exam mildly compromised by motion artifact. 3. No displaced calvarial fractures identified. ACT 112: Negative or not required by law. Electronically signed by: Tremayne Bronson M.D. 01/22/2020 10:13 AM
[2020-01-22 10:16] LABS: INR 1.1 (0.9-1.1); Partial Thromboplastin Ratio 0.9; Partial Thromboplastin Time 25.4 Seconds (21.0-31.0); Prothrombin Time 11.4 Seconds (9.0-12.0)
[2020-01-22 10:22] LABS: Amorphous Sediment Urine Present (None Prsent)
[2020-01-22] MEDS ORDERED: cefTRIAXone SODIUM 1,000 MG/50 ML BAG IV STA (10:26)
--- NOTE | 2020-01-22 11:15 | History & Physical Report ---
Date of Service January 22, 2020 Assessment & Plan (1) UTI (urinary tract infection): Patient's fever and WBC count is likely secondary to urinary tract infection. Question of small left lower lobe infiltrate on chest x-ray with hypoxia, consider pneumonia as well. Patient was given Rocephin and Levaquin in emergency room, will discontinue Levaquin and add Zithromax pending culture results. Continue oxygen support as ordered. Blood and sputum cultures if possible. Monitor CBC. Will order gentle IV hydration as well, monitor renal function. (2) SDAT (senile dementia of Alzheimer's type): Patient is confused at baseline, may be were secondary to a mild toxic/metabolic encephalopathy. Continue to monitor confusion during course of treatment. Family tells me that the patient is nonambulatory at baseline we will hold off on PT/OT evaluation. Patient should be considered a fall risk. (3) Hypothyroidism: Continue levothyroxine as ordered. (4) Hypertension: Continue outpatient medications as ordered including metoprolol. History of Present Illness Primary Care Provider: [facility], [facility] This is an 79-year-old female with past medical history of senile dementia, ambulatory dysfunction, renal sufficiency, hypothyroidism, hypertension presents today after a fall. Patient is oriented only to person and cannot relate any history. Family members at bedside not clear on history. Therefore, details of admission per ER documentation. I see that the the patient was recently here on 01/16 after a fall the senior care. Patient is wheelchair-bound secondary to previous fractures and significant osteoarthritis, family tells me she will occasionally forget and try to ambulate. It appears patient was worked up for injury and was subsequently discharged back to her facility. Earlier today, patient was found by staff on the floor again. At this time she was more confused and appeared to be hypoxic. Patient was transferred to the emergency room for further evaluation. Patient was found on presentation to be hypoxic with an O2 saturation 89%. She is responding well to oxygen mask at 4 L. Patient has not been febrile. I did asked patient regarding the circumstances of her fall as well as symptoms such as chest pain, shortness of breath, or any musculoskeletal pain. Patient denies everything and is unclear why she is in the hospital. She does not appear to be in any significant cardiopulmonary distress. Allergies Allergy/AdvReac Type Severity Reaction Status Date / Time No Known Allergies Allergy Unverified 03/17/20 09:40 Home Medications Home Medications Medication Instructions Recorded Confirmed Type cholecalciferol (vitamin D3) 5,000 units PO QAM 08/29/18 01/22/20 History [Vitamin D3] amiodarone 200 mg tablet 200 mg PO QAM #90 tab 07/20/19 01/22/20 Rx gauze bandage 4" X 4" #100 ea 11/09/19 11/09/19 Rx acetaminophen 500 mg capsule 500 mg PO DAILY PRN cap 12/25/19 01/22/20 History aspirin 325 mg tablet 325 mg PO QAM 12/25/19 01/22/20 History calcium carbonate 500 mg (1,250 1 tab PO QAM 12/25/19 01/22/20 History mg)-vitamin D3 200 unit tablet levothyroxine 112 mcg capsule 112 mcg PO QAM 12/25/19 01/22/20 History lorazepam 0.5 mg tablet 0.5 mg PO Q8H PRN 12/25/19 01/22/20 History melatonin 3 mg capsule 3 mg PO HS 12/25/19 01/22/20 History metoprolol succinate 25 mg PO QAM 01/17/20 01/22/20 History polyethylene glycol 3350 [Miralax] 17 gm PO DAILY PRN 01/17/20 01/22/20 History sertraline 50 mg PO HS 01/17/20 01/22/20 History Past Med/Surg History Medical History Anemia Bladder cancer Compression fracture of T12 vertebra (Acute) Compression fracture of T12 vertebra (Acute 08/26/14) Kidney stone Osteoporosis (Chronic) Pelvis fracture (Acute) Pubic bone pain (Inactive 08/26/14) Smoker Surgical History H/O bilateral hip replacements Social History Preferred Language: Armenian Communication Ability: Effective Roving Technician Required: No Beliefs That Will Affect Care: None marital status: / Current Living Situation: Alone Feels Safe at Home: Yes Smoking Status: Former smoker Tobacco Type: cigarettes ; Second Hand Exposure: No ; Hx Alcohol Use: No Hx Substance Use: No Review of Systems Review of Systems: Unobtainable due to cognitive status Physical Exam Constitutional: cooperative; no acute distress Confused at baseline, family assures me this is close to her baseline Neck: trachea midline, no thyromegaly Respiratory: normal respiratory effort Auscultation: + diminished lung sounds; no crackles, no rales, no rhonchi and no wheezes Limited. Healing ecchymosis on right upper chest wall, no tenderness to palpation. Cardiovascular: Rate/Rhythm: regular rate and regular rhythm Heart Sounds: normal S1 and normal S2 Gastrointestinal (Abdomen): Inspection/Auscultation: abdomen normal to inspection Percussion/Palpation: abdomen soft; abdomen nontender, no guarding, abdomen not rigid and no hepatosplenomegaly Skin: no rashes, warm and dry Neurologic: PERRL, EOMI, accommodation nl, no face palsy, no dysarthria Psychiatric: Orientation: alert, oriented to person and cooperative Genitourinary: Figueroa in place, cloudy sedimented urine in tubing Results & Data Vital Signs (Past 12 Hours) Vital Signs Temp Pulse Pulse Resp BP BP Pulse Ox 01/22/20 09:32 94 01/22/20 09:31 89 L 01/22/20 09:30 78 20 119/65 96 01/22/20 09:07 37.5 C 82 22 148/82 H 89 L Laboratory Results WBCs of 19, hemoglobin of 12.6, hematocrit of 39.1, platelets of 298. INR is 1.1. Sodium 137, potassium 3.4, chloride 104. CO2 of 25. BUN of 20 with a creatinine 1.28, this seems a minimally elevated from her baseline. Glucose 118. Magnesium 1.6. AST mildly elevated at 51 with an ALT of 30. Alk phos is 172. Urine was turbid with positive nitrites 3+ leuk esterases, over 30 WBCs. Patient is negative for influenza a and B. Urine culture from 01/17 showed Duyen albicans, there is a urine culture from 01/13 that shows mixed skin jose e. Blood cultures done today are pending. Diagnostic Findings XR chest 1V portable CLINICAL HISTORY: SEPSIS dyspnea COMPARISON STUDY: 02/11/2018 FINDINGS: Minimal parenchymal infiltrate left base. Potential small nodular density right upper lung. Diaphragms are smooth. Chronic apical scarring bilaterally. Prior total right shoulder arthroplasty. IMPRESSION: Small parenchymal infiltrate left base. ---- CT cervical spine wo con CT DOSE: 1575.23 mGy.cm HISTORY: Trauma. Pain. fall TECHNIQUE: Multiaxial CT images of the cervical spine were performed and reformatted in the sagittal and coronal plane without the use of contrast. A dose lowering technique was utilized adhering to the principles of ALARA. COMPARISON: None. FINDINGS: No fractures. No subluxation. Prevertebral soft tissues and the C1-C2 interval are intact. No pneumothorax. General degenerative disc changes throughout the entire cervical region. IMPRESSION: No fractures within the cervical spine. Considerable degenerative change. --- CT OF THE HEAD WITHOUT CONTRAST CLINICAL HISTORY: Fall. Altered mental status. COMPARISON STUDY: No previous studies for comparison. TECHNIQUE: Helical axial images of the head were obtained without IV contrast. Automated exposure control was utilized for the study. A dose lowering technique was utilized adhering to the principles of ALARA. FINDINGS: This exam is mildly compromised by motion artifact. No acute intracranial hemorrhage, midline shift or mass effect is present. 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 White matter hypodensity suggests small vessel disease. Ventricular system is unremarkable for age. Basilar cisterns are patent. There are no extra-axial collections. There are no calvarial fractures although sensitivity for detection of nondisplaced fractures is diminished on this exam. IMPRESSION: 1. No acute intracranial findings. 2. Exam mildly compromised by motion artifact. 3. No displaced calvarial fractures identified. PG Care Time/CCT Total # of Minutes Spent Total Time Spent with Patient: Total time spent is greater than 50% in coordination of care (as documented) at patient's floor/unit and/or counseling patient: Coding Level of Care Code 74348 Initial Inpt Care Lvl 3 Diagnoses UTI (urinary tract infection) N39.0 SDAT (senile dementia of Alzheimer's type) G30.1; F02.80 Hypothyroidism E03.9 Hypertension I10
[2020-01-22] MEDS ORDERED: ALUMINUM/MAGNESIUM SUSP 30 ML UDC PO PRN (13:27)
[2020-01-22] MEDS ORDERED: ACETAMINOPHEN 500 MG TAB PO PRN (13:27)
[2020-01-22] MEDS ORDERED: POLYETHYLENE (MIRALAX) 17 GM PACK PO PRN ×2 (13:27)
[2020-01-22] MEDS ORDERED: ONDANSETRON INJ 2 MG/ML 2 ML VIAL IV PRN (13:27)
[2020-01-22] MEDS ORDERED: AZITHROMYCIN 500 MG in DEXTROSE 5% 250 ML IV SCH (13:27)
[2020-01-22] MEDS ORDERED: ALBUTEROL 0.5% NEB SOLN 2.5 MG/0.5 ML VIAL NEB PRN (13:27)
[2020-01-22] MEDS: SODIUM CHLORIDE 0.9% 1000ML 1,000 ML IV SCH (13:57)
[2020-01-22] MEDS: HEPARIN SOD 5,000 UNIT/0.5 ML VIAL SQ SCH ×2 (14:13→21:15)
[2020-01-22] MEDS: DOXYCYCLINE HYCLATE 100 MG in DEXTROSE 5% 100 ML IV SCH (14:32)
[2020-01-22] MEDS: SERTRALINE HCL 50 MG TABLET PO SCH (21:15)
[2020-01-22] MEDS: ACETAMINOPHEN 325 MG TAB PO PRN (21:15)
[2020-01-22] MEDS: LORazepam 0.5 MG TAB PO PRN (21:46)
--- NOTE | 2020-01-22 22:45 | Electrocardiogram Report ---
Test Reason : Blood Pressure : / mmHG Vent. Rate : 090 BPM Atrial Rate : 090 BPM P-R Int : 176 ms QRS Dur : 102 ms QT Int : 428 ms P-R-T Axes : 110 036 086 degrees QTc Int : 524 ms Poor data quality, interpretation may be adversely affected Normal sinus rhythm Left ventricular hypertrophy with repolarization abnormality Prolonged QT Abnormal ECG When compared with ECG of 20-OCT-2019 09:57, ST now depressed in Anterolateral leads QT has lengthened Confirmed by Audie Alicea ([id number]) on 01/22/2020 10:45:19 PM Referred By: Mathew Ruby [place] Confirmed By:Audie Alicea
[2020-01-23] MEDS: SODIUM CHLORIDE 0.9% 1000ML 1,000 ML IV SCH (02:35)
[2020-01-23] MEDS: DOXYCYCLINE HYCLATE 100 MG in DEXTROSE 5% 100 ML IV SCH ×2 (02:35→14:23)
[2020-01-23] MEDS: LEVOTHYROXINE SODIUM 112 MCG TABLET PO SCH (06:19)
[2020-01-23 06:50] LABS: Basophils # (auto) 0.01 K/uL (0-0.2); Basophils % (auto) 0.1 %; Eosinophils # (auto) 0.03 K/uL (0-0.5); Eosinophils % (auto) 0.2 %; Hemoglobin 11.2 g/dL (12.0-16.0); Immature Granulocytes # (auto) 0.06 K/uL (0.00-0.02); Immature Granulocytes % (auto) 0.3 %; Lymphocytes # (auto) 1.45 K/uL (1.2-3.4); Lymphocytes % (auto) 8.3 %; Mean Corpuscular Hemoglobin 29.6 pg (25-34); Mean Corpuscular Hgb Conc 31.1 g/dL (32-36); Mean Corpuscular Volume 95.2 fL (80-100); Mean Platelet Volume 11.9 fL (7.4-10.4); Monocytes # (auto) 1.35 K/uL (0.11-0.59); Monocytes % (auto) 7.7 %; Neutrophils # (auto) 14.64 K/uL (1.4-6.5); Neutrophils % (auto) 83.4 %; Platelet Count 253 K/uL (130-400); RDW Coefficient of Variation 14.7 % (11.5-14.5); RDW Standard Deviation 51.3 fL (36.4-46.3); Red Blood Count 3.78 M/uL (4.2-5.4); White Blood Count 17.54 K/uL (4.8-10.8)
[2020-01-23 07:26] LABS: BUN Creatinine Ratio 15.1 (10-20); Calcium 8.5 mg/dl (8.5-10.1); Creatinine Clr Calc Pharmacy 31.5 ml/min; Est GFR (African American) 51.1; Est GFR (Non-African American) 44.1; Magnesium 1.6 mg/dl (1.8-2.4); Potassium 3.4 mmol/L (3.5-5.1)
[2020-01-23] MEDS: CALCIUM 600MG + VIT D 400 IU TAB PO SCH (08:44)
[2020-01-23] MEDS: CHOLECALCIFEROL 1,000 UNITS 25 MCG TAB PO SCH (08:44)
[2020-01-23] MEDS: HEPARIN SOD 5,000 UNIT/0.5 ML VIAL SQ SCH ×2 (08:45→20:09)
[2020-01-23] MEDS: METOPROLOL SUCC 25MG EXT REL TAB PO SCH (08:45)
[2020-01-23] MEDS: ASPIRIN 325 MG ECTAB PO SCH (08:45)
[2020-01-23] MEDS ORDERED: AMIODARONE 200 MG TAB PO SCH (09:00)
[2020-01-23] MEDS ORDERED: cefTRIAXone SODIUM 1,000 MG/50 ML BAG IV SCH (11:00)
--- NOTE | 2020-01-23 13:47 | Hospitalist Progress Note ---
Date of Service January 23, 2020 Assessment & Plan (1) UTI (urinary tract infection): Urine culture growing E. coli with sensitivities pending. - Continue ceftriaxone - Follow cultures (2) Pneumonia: CXR on 01/21 showed possible small LLL infiltrate. Given hypoxemia, fever, leukocytosis, treating for pneumonia. - Continue ceftriaxone and doxycycline (3) SDAT (senile dementia of Alzheimer's type): Patient is confused at baseline, usually knowing herself and sometimes place, but no date and no recent history. Resides at [facility]. The patient is nonambulatory at baseline. - PT/OT - Frequent re-orientation - Continue sertraline (4) Hypothyroidism: TSH was 2.8 this month and stable from prior. - Continue levothyroxine 112 mcg (5) Hypertension: BP is 185/80 today, but no symptoms. Generally lower however over the last 24 hours. - Continue home beta-amara (6) CKD (chronic kidney disease) stage 3, GFR 30-59 ml/min: Baseline Cr. ~1.1 - 1.2, eGFR ~45. - At baseline at present. - Monitor Cr (7) Paroxysmal atrial fibrillation: H/o paroxsymal afib. Only on aspirin for CVA prophylaxis given prior hematuria. - Continue ASA - Continue beta-amara (8) DVT prophylaxis: Heparin 5000 units SQ Q12h Admission and Anticipated Discharge Date Admission Date: January 22, 2020 Subjective No focal symptoms today. Reports no fevers/chills, chest pain, shortness of breath, abdominal pain, nausea, or vomiting. Physical Exam Constitutional: WD/WN, vitals as above Eyes: EOM intact bilaterally; no conjunctival abnormality ENMT: external ear and nose normal, oropharynx normal Neck: trachea midline, no thyromegaly normal visual inspection Respiratory: normal respiratory effort, lungs clear to auscultation no respiratory distress Cardiovascular: RRR, no murmur, no edema Gastrointestinal (Abdomen): Inspection/Auscultation: abdomen normal to inspection; abdomen not distended Musculoskeletal: no cyanosis or clubbing, extremities motor strength 5/5 Skin: no rashes, warm and dry Neurologic: moves all extremities and awake Psychiatric: Orientation: alert, oriented to person and cooperative; + not oriented to place and + not oriented to time Results & Data ([facility]) Vital Signs (Past 12 Hours) Vital Signs Temp Pulse Pulse Resp BP Pulse Ox 01/23/20 12:33 36.6 C 68 18 184/81 H 95 01/23/20 07:25 36.4 C L 64 18 148/69 H 94 01/23/20 07:11 68 01/23/20 04:00 36.5 C 77 18 121/65 91 PG Care Time/CCT Total # of Minutes Spent Total Time Spent with Patient: Total time spent is greater than 50% in coordination of care (as documented) at patient's floor/unit and/or counseling patient: Coding Level of Care Code 49933 Subseq Hosp Care Lvl 3 Diagnoses UTI (urinary tract infection) N39.0 Pneumonia J18.9 Laterality: unspecified laterality Lung location: unspecified part of lung Pneumonia type: due to unspecified organism SDAT (senile dementia of Alzheimer's type) G30.1; F02.80 Hypothyroidism E03.9 Hypertension I10 CKD (chronic kidney disease) stage 3, GFR 30-59 ml/min N18.3 Paroxysmal atrial fibrillation I48.0 DVT prophylaxis Z29.9 (1) Pneumonia Laterality: unspecified laterality Lung location: unspecified part of lung Pneumonia type: due to unspecified organism Qualified Code(s): J18.9 - Pneumonia, unspecified organism
[2020-01-23] MEDS: MAGNESIUM SULFATE / D5W 1 GM/100 ML BAG IV SCH ×2 (14:13→15:46)
--- NOTE | 2020-01-23 15:56 | Electrocardiogram Report ---
Test Reason : Blood Pressure : / mmHG Vent. Rate : 068 BPM Atrial Rate : 068 BPM P-R Int : 170 ms QRS Dur : 088 ms QT Int : 494 ms P-R-T Axes : 068 056 062 degrees QTc Int : 525 ms Normal sinus rhythm Cannot rule out Anterior infarct , age undetermined Prolonged QT Abnormal ECG When compared with ECG of 22-JAN-2020 09:07, ST no longer depressed in Lateral leads Confirmed by Audie Alicea ([id number]) on 01/23/2020 3:55:55 PM Referred By: Mathew Ruby [place] Confirmed By:Audie Alicea
[2020-01-23] MEDS: ACETAMINOPHEN 325 MG TAB PO PRN (20:08)
[2020-01-23] MEDS: LORazepam 0.5 MG TAB PO PRN (20:13)
[2020-01-23] MEDS: SERTRALINE HCL 50 MG TABLET PO SCH (20:13)
[2020-01-24] MEDS: DOXYCYCLINE HYCLATE 100 MG in DEXTROSE 5% 100 ML IV SCH (02:22)
[2020-01-24 06:03] LABS: Hematocrit (blood only) 36.8 % (37-47); Hemoglobin 11.9 g/dL (12.0-16.0); Mean Corpuscular Hemoglobin 29.7 pg (25-34); Mean Corpuscular Hgb Conc 32.3 g/dL (32-36); Mean Corpuscular Volume 91.8 fL (80-100); Mean Platelet Volume 11.3 fL (7.4-10.4); Platelet Count 267 K/uL (130-400); RDW Coefficient of Variation 14.7 % (11.5-14.5); RDW Standard Deviation 49.6 fL (36.4-46.3); Red Blood Count 4.01 M/uL (4.2-5.4)
[2020-01-24] MEDS: LEVOTHYROXINE SODIUM 112 MCG TABLET PO SCH (06:17)
[2020-01-24 06:38] LABS: BUN Creatinine Ratio 14.1 (10-20); Calcium 8.7 mg/dl (8.5-10.1); Creatinine Clr Calc Pharmacy 34.8 ml/min; Est GFR (African American) 57.7; Est GFR (Non-African American) 49.8; Magnesium 1.9 mg/dl (1.8-2.4); Potassium 3.4 mmol/L (3.5-5.1)
[2020-01-24 06:39] LABS: Phosphorus 2.3 mg/dl (2.5-4.9)
[2020-01-24] MEDS ORDERED: PIPERACILL/TAZOBAC CONSULT ACTIVE PRN (07:52)
[2020-01-24] MEDS ORDERED: PIPERACILLIN/TAZOBACTAM 3.375 GM in DEXTROSE 5% 100 ML IV ONE (08:30)
[2020-01-24] MEDS: ASPIRIN 325 MG ECTAB PO SCH (08:41)
[2020-01-24] MEDS: CALCIUM 600MG + VIT D 400 IU TAB PO SCH (08:41)
[2020-01-24] MEDS: METOPROLOL SUCC 25MG EXT REL TAB PO SCH (08:41)
[2020-01-24] MEDS: CHOLECALCIFEROL 1,000 UNITS 25 MCG TAB PO SCH (08:42)
[2020-01-24] MEDS: HEPARIN SOD 5,000 UNIT/0.5 ML VIAL SQ SCH ×2 (08:42→19:54)
--- NOTE | 2020-01-24 12:39 | Hospitalist Progress Note ---
Date of Service January 24, 2020 Assessment & Plan (1) UTI (urinary tract infection): Urine culture growing E. coli sensitive to Zosyn. - Initially on ceftriaxone, so would consider this day 1 of treatment. (2) Pneumonia: CXR on 01/21 showed possible small LLL infiltrate. Given hypoxemia, fever, leukocytosis, treating for pneumonia. - Continue Zosyn and doxycycline (3) SDAT (senile dementia of Alzheimer's type): Patient is confused at baseline, usually knowing herself and sometimes place, but no date and no recent history. Resides at [facility]. The patient is nonambulatory at baseline. - PT/OT - Frequent re-orientation - Continue sertraline (4) Hypothyroidism: TSH was 2.8 this month and stable from prior. - Continue levothyroxine 112 mcg (5) Hypertension: BP is 165/80 today, but no symptoms. - Continue home beta-amara (6) CKD (chronic kidney disease) stage 3, GFR 30-59 ml/min: Baseline Cr. ~1.1 - 1.2, eGFR ~45. - At baseline at present. - Monitor Cr (7) Paroxysmal atrial fibrillation: H/o paroxsymal afib. Only on aspirin for CVA prophylaxis given prior hematuria. - Continue ASA - Continue beta-amara (8) DVT prophylaxis: Heparin 5000 units SQ Q12h Admission and Anticipated Discharge Date Admission Date: January 22, 2020 Subjective She reports she is doing well today. She denies any shortness of breath, any nausea or vomiting, any major issues. Reports no fevers/chills, chest pain, shortness of breath, abdominal pain, nausea, or vomiting. Physical Exam Constitutional: WD/WN, vitals as above Eyes: EOM intact bilaterally; no conjunctival abnormality ENMT: external ear and nose normal, oropharynx normal Neck: trachea midline, no thyromegaly normal visual inspection Respiratory: normal respiratory effort, lungs clear to auscultation no respiratory distress Cardiovascular: RRR, no murmur, no edema Gastrointestinal (Abdomen): Inspection/Auscultation: abdomen normal to inspection; abdomen not distended Musculoskeletal: no cyanosis or clubbing, extremities motor strength 5/5 Skin: no rashes, warm and dry Neurologic: moves all extremities and awake Psychiatric: Orientation: alert, oriented to person and cooperative; + not oriented to place and + not oriented to time Results & Data ([facility]) Vital Signs (Past 12 Hours) Vital Signs Temp Pulse Pulse Pulse Resp BP BP 01/24/20 11:28 38.1 C H 78 78 20 166/82 H 01/24/20 07:36 78 18 166/81 H 01/24/20 07:00 78 01/24/20 02:16 85 01/24/20 01:59 37.5 C 79 18 166/81 H Pulse Ox 01/24/20 11:28 90 01/24/20 07:36 88 L 01/24/20 07:00 01/24/20 02:16 01/24/20 01:59 92 PG Care Time/CCT Total # of Minutes Spent Total Time Spent with Patient: Total time spent is greater than 50% in coordination of care (as documented) at patient's floor/unit and/or counseling patient: Coding Level of Care Code 14730 Subseq Hosp Care Lvl 2 Diagnoses UTI (urinary tract infection) N39.0 Pneumonia J18.9 Laterality: unspecified laterality Lung location: unspecified part of lung Pneumonia type: due to unspecified organism SDAT (senile dementia of Alzheimer's type) G30.1; F02.80 Hypothyroidism E03.9 Hypertension I10 CKD (chronic kidney disease) stage 3, GFR 30-59 ml/min N18.3 Paroxysmal atrial fibrillation I48.0 DVT prophylaxis Z29.9 (1) Pneumonia Laterality: unspecified laterality Lung location: unspecified part of lung Pneumonia type: due to unspecified organism Qualified Code(s): J18.9 - Pneumonia, unspecified organism
[2020-01-24] MEDS ORDERED: POTASSIUM PHOS 3 MMOL/1 ML INFUSION IV STA (13:08)
[2020-01-24] MEDS ORDERED: POTASSIUM PHOSPHATE 21 MMOL in SODIUM CHLORIDE 0.9% 500 ML IV ONE (13:30)
[2020-01-24] MEDS ORDERED: PIPERACILLIN/TAZOBACTAM 3.375 GM in DEXTROSE 5% 100 ML IV SCH (14:00)
[2020-01-24] MEDS: PIPERACILLIN/TAZOBACTAM 4.5 GM in DEXTROSE 5% 100 ML IV SCH ×2 (14:26→21:14)
[2020-01-24] MEDS: DOXYCYCLINE HYCLATE 100 MG CAP PO SCH (19:19)
--- NOTE | 2020-01-24 20:07 | XRay Report ---
XR chest 2V PA/lateral CLINICAL HISTORY: Hypoxemia; concern for pneumonia COMPARISON STUDY: 01/22/2020 FINDINGS: The heart is enlarged. There is aortic tortuosity/ectasia. There is diffuse elevation of in terstitium, likely secondary to mild congestive failure/fluid overload. There are small bilateral ple ural effusions.. There is no lobar consolidation.[The bones are osteopenic. Several vertebral body co mpression fractures are evident. There are postsurgical changes of a total right shoulder arthroplast y. A right upper lung zone density while nonspecific likely relates to an underlying healing rib frac ture. IMPRESSION: Cardiomegaly and radiographic evidence of mild congestive failure/fluid overload. Small p leural effusions. ACT 112: Negative or not required by law. Electronically signed by: Stefan Gonsalez M.D. 01/24/2020 8:06 PM
[2020-01-24] MEDS: SERTRALINE HCL 50 MG TABLET PO SCH (20:22)
[2020-01-24] MEDS: ACETAMINOPHEN 325 MG TAB PO PRN (23:41)
[2020-01-24] MEDS: LORazepam 0.5 MG TAB PO PRN (23:42)
[2020-01-25 05:42] LABS: Hematocrit (blood only) 37.5 % (37-47); Mean Corpuscular Hemoglobin 29.9 pg (25-34); Mean Corpuscular Volume 93.3 fL (80-100); Mean Platelet Volume 11.2 fL (7.4-10.4); Platelet Count 245 K/uL (130-400); RDW Coefficient of Variation 14.7 % (11.5-14.5); RDW Standard Deviation 50.1 fL (36.4-46.3); Red Blood Count 4.02 M/uL (4.2-5.4); White Blood Count 8.17 K/uL (4.8-10.8)
[2020-01-25] MEDS: PIPERACILLIN/TAZOBACTAM 4.5 GM in DEXTROSE 5% 100 ML IV SCH ×3 (06:02→21:09)
[2020-01-25] MEDS: DOXYCYCLINE HYCLATE 100 MG CAP PO SCH ×2 (06:03→17:36)
[2020-01-25] MEDS: LEVOTHYROXINE SODIUM 112 MCG TABLET PO SCH (06:03)
[2020-01-25 06:12] LABS: BUN Creatinine Ratio 13.1 (10-20); Calcium 8.5 mg/dl (8.5-10.1); Creatinine Clr Calc Pharmacy 30.7 ml/min; Est GFR (African American) 49.6; Est GFR (Non-African American) 42.8; Potassium 3.3 mmol/L (3.5-5.1)
--- NOTE | 2020-01-25 07:39 | Electrocardiogram Report ---
Test Reason : Blood Pressure : / mmHG Vent. Rate : 067 BPM Atrial Rate : 067 BPM P-R Int : 174 ms QRS Dur : 090 ms QT Int : 488 ms P-R-T Axes : 061 050 065 degrees QTc Int : 515 ms Normal sinus rhythm Moderate voltage criteria for LVH, may be normal variant Prolonged QT Abnormal ECG When compared with ECG of 23-JAN-2020 06:36, No significant change was found Confirmed by Audie Alicea ([id number]) on 01/25/2020 7:39:11 AM Referred By: Mathew Ruby [place] Confirmed By:Audie Alicea
[2020-01-25] MEDS: CALCIUM 600MG + VIT D 400 IU TAB PO SCH (08:37)
[2020-01-25] MEDS: ASPIRIN 325 MG ECTAB PO SCH (08:38)
[2020-01-25] MEDS: METOPROLOL SUCC 25MG EXT REL TAB PO SCH (08:38)
[2020-01-25] MEDS: CHOLECALCIFEROL 1,000 UNITS 25 MCG TAB PO SCH (08:38)
[2020-01-25] MEDS: HEPARIN SOD 5,000 UNIT/0.5 ML VIAL SQ SCH ×2 (08:39→21:09)
--- NOTE | 2020-01-25 16:25 | Hospitalist Progress Note ---
Date of Service January 25, 2020 Assessment & Plan (1) UTI (urinary tract infection): Urine culture growing E. coli sensitive to Zosyn. - Initially on ceftriaxone. Switched to Zosyn on 01/23 when urine sensitivities came back. Would consider 01/23 as day 1 of treatment. - Presently denying any dysuria. (2) Pneumonia: CXR on 01/21 showed possible small LLL infiltrate. Given hypoxemia, fever, leukocytosis, treating for pneumonia. Repeat CXR on 01/23 did not show any focal infiltrate. - Continue Zosyn and doxycycline (3) SDAT (senile dementia of Alzheimer's type): Patient is confused at baseline, usually knowing herself and sometimes place, but no date and no recent history. Resides at [facility]. The patient is nonambulatory at baseline. - PT/OT - Frequent re-orientation - Continue sertraline (4) Hypothyroidism: TSH was 2.8 this month and stable from prior. - Continue levothyroxine 112 mcg (5) Hypertension: BP is 155/80 today, but no symptoms. Stable. - Continue home beta-amara (6) CKD (chronic kidney disease) stage 3, GFR 30-59 ml/min: Baseline Cr. ~1.1 - 1.2, eGFR ~45. - At baseline at present. - Monitor Cr (7) Paroxysmal atrial fibrillation: H/o paroxsymal afib. Only on aspirin for CVA prophylaxis given prior hematuria. - Continue ASA - Continue beta-amara (8) DVT prophylaxis: Heparin 5000 units SQ Q12h Admission and Anticipated Discharge Date Admission Date: January 22, 2020 Subjective No major concerns today. Denies any pain or shortness of breath. No dysuria. No stomach pain. Reports no fevers/chills, chest pain, shortness of breath, abdominal pain, nausea, or vomiting. Physical Exam Constitutional: WD/WN, vitals as above Eyes: EOM intact bilaterally; no conjunctival abnormality ENMT: external ear and nose normal, oropharynx normal Neck: trachea midline, no thyromegaly normal visual inspection Respiratory: normal respiratory effort, lungs clear to auscultation no respiratory distress Cardiovascular: RRR, no murmur, no edema Gastrointestinal (Abdomen): Inspection/Auscultation: abdomen normal to inspection; abdomen not distended Musculoskeletal: no cyanosis or clubbing, extremities motor strength 5/5 Skin: no rashes, warm and dry Neurologic: moves all extremities and awake Psychiatric: Orientation: alert, oriented to person and cooperative; + not oriented to place and + not oriented to time Results & Data ([facility]) Vital Signs (Past 12 Hours) Vital Signs Temp Pulse Resp BP Pulse Ox 01/25/20 15:20 37.1 C 69 18 153/79 H 95 01/25/20 07:22 36.7 C 65 18 155/79 H 91 01/25/20 04:36 92 PG Care Time/CCT Total # of Minutes Spent Total Time Spent with Patient: Total time spent is greater than 50% in coordination of care (as documented) at patient's floor/unit and/or counseling patient: Coding Level of Care Code 74449 Subseq Hosp Care Lvl 2 Diagnoses UTI (urinary tract infection) N39.0 Pneumonia J18.9 Laterality: unspecified laterality Lung location: unspecified part of lung Pneumonia type: due to unspecified organism SDAT (senile dementia of Alzheimer's type) G30.1; F02.80 Hypothyroidism E03.9 Hypertension I10 CKD (chronic kidney disease) stage 3, GFR 30-59 ml/min N18.3 Paroxysmal atrial fibrillation I48.0 DVT prophylaxis Z29.9 (1) Pneumonia Laterality: unspecified laterality Lung location: unspecified part of lung Pneumonia type: due to unspecified organism Qualified Code(s): J18.9 - Pneumonia, unspecified organism
[2020-01-25] MEDS ORDERED: FUROSEMIDE 10 MG in SYRINGE 0 ML IV ONE (17:00)
[2020-01-25] MEDS: POTASSIUM CHLORIDE PWD 20 MEQ PACK PO SCH ×2 (17:35→21:08)
[2020-01-25] MEDS: SERTRALINE HCL 50 MG TABLET PO SCH (21:08)
[2020-01-26] MEDS: DOXYCYCLINE HYCLATE 100 MG CAP PO SCH ×2 (06:15→17:43)
[2020-01-26] MEDS: LEVOTHYROXINE SODIUM 112 MCG TABLET PO SCH (06:16)
[2020-01-26] MEDS: PIPERACILLIN/TAZOBACTAM 4.5 GM in DEXTROSE 5% 100 ML IV SCH ×3 (06:19→21:07)
[2020-01-26 07:00] LABS: Hematocrit (blood only) 39.9 % (37-47); Hemoglobin 12.7 g/dL (12.0-16.0); Mean Corpuscular Hemoglobin 29.3 pg (25-34); Mean Corpuscular Hgb Conc 31.8 g/dL (32-36); Mean Corpuscular Volume 91.9 fL (80-100); Mean Platelet Volume 11.3 fL (7.4-10.4); Platelet Count 270 K/uL (130-400); RDW Coefficient of Variation 14.7 % (11.5-14.5); RDW Standard Deviation 49.7 fL (36.4-46.3); Red Blood Count 4.34 M/uL (4.2-5.4); White Blood Count 9.38 K/uL (4.8-10.8)
[2020-01-26 07:30] LABS: BUN Creatinine Ratio 10.8 (10-20); Calcium 8.8 mg/dl (8.5-10.1); Creatinine Clr Calc Pharmacy 33.8 ml/min; Est GFR (African American) 55.8; Est GFR (Non-African American) 48.1; Magnesium 1.7 mg/dl (1.8-2.4); Phosphorus 2.4 mg/dl (2.5-4.9); Potassium 2.9 mmol/L (3.5-5.1)
[2020-01-26] MEDS ORDERED: POTASSIUM PHOS 3 MMOL/1 ML INFUSION IV STA (07:37)
[2020-01-26] MEDS: CHOLECALCIFEROL 1,000 UNITS 25 MCG TAB PO SCH (07:54)
[2020-01-26] MEDS: METOPROLOL SUCC 25MG EXT REL TAB PO SCH (07:54)
[2020-01-26] MEDS: POTASSIUM CHLORIDE PWD 20 MEQ PACK PO SCH ×3 (07:55→21:17)
[2020-01-26] MEDS: ASPIRIN 325 MG ECTAB PO SCH (07:55)
[2020-01-26] MEDS: CALCIUM 600MG + VIT D 400 IU TAB PO SCH (07:55)
[2020-01-26] MEDS: HEPARIN SOD 5,000 UNIT/0.5 ML VIAL SQ SCH ×2 (07:55→20:49)
[2020-01-26] MEDS ORDERED: POTASSIUM PHOSPHATE 24 MMOL in SODIUM CHLORIDE 0.9% 500 ML IV SCH (08:00)
[2020-01-26] MEDS: POTASSIUM CHLORIDE 20 MEQ TABCR PO SCH ×3 (08:25→20:58)
[2020-01-26] MEDS: MAGNESIUM SULFATE / D5W 1 GM/100 ML BAG IV SCH ×2 (08:25→09:24)
[2020-01-26] MEDS ORDERED: LOPERAMIDE HCL 2 MG CAP PO PRN (12:41)
--- NOTE | 2020-01-26 12:44 | Hospitalist Progress Note ---
Date of Service January 26, 2020 Assessment & Plan (1) UTI (urinary tract infection): Urine culture growing E. coli sensitive to Zosyn. Would consider this a complicated UTI given leukocytosis, fever, and systemic symptoms (altered mental status). - Initially on ceftriaxone. Switched to Zosyn on 01/23 when urine sensitivities came back. Would consider 01/23 as day 1 of treatment. End date likely 7 days (Last day: 01/30/2020.) - Blood cultures from 01/21 & 01/23 are negative right now. - Presently denying any dysuria. (2) Pneumonia: CXR on 01/21 showed possible small LLL infiltrate. Given hypoxemia, fever, leukocytosis, treating for pneumonia. Repeat CXR on 01/23 did not show any focal infiltrate. - Continue Zosyn and doxycycline. Finish doxycycline on 01/29/2020. (3) SDAT (senile dementia of Alzheimer's type): Patient is confused at baseline, usually knowing herself and sometimes place, but no date and no recent history. Resides at [facility]. The patient is nonambulatory at baseline. - PT/OT - Frequent re-orientation - Continue sertraline (4) Hypothyroidism: TSH was 2.8 this month and stable from prior. - Continue levothyroxine 112 mcg (5) Hypertension: BP is 145/80 today, but no symptoms. Stable. - Continue home beta-amara (6) CKD (chronic kidney disease) stage 3, GFR 30-59 ml/min: Baseline Cr. ~1.1 - 1.2, eGFR ~45. - At baseline at present. - Monitor Cr (7) Paroxysmal atrial fibrillation: H/o paroxsymal afib. Only on aspirin for CVA prophylaxis given prior hematuria. - Continue ASA - Continue beta-amara (8) DVT prophylaxis: Heparin 5000 units SQ Q12h Admission and Anticipated Discharge Date Admission Date: January 22, 2020 Subjective Doing well. No major concerns. She is feeling well. Reports no fevers/chills, chest pain, shortness of breath, abdominal pain, nausea, or vomiting. Physical Exam Constitutional: WD/WN, vitals as above Eyes: EOM intact bilaterally; no conjunctival abnormality ENMT: external ear and nose normal, oropharynx normal Neck: trachea midline, no thyromegaly normal visual inspection Respiratory: normal respiratory effort, lungs clear to auscultation no respiratory distress Cardiovascular: RRR, no murmur, no edema Gastrointestinal (Abdomen): Inspection/Auscultation: abdomen normal to inspection; abdomen not distended Musculoskeletal: no cyanosis or clubbing, extremities motor strength 5/5 Skin: no rashes, warm and dry Neurologic: moves all extremities and awake Psychiatric: Orientation: alert, oriented to person and cooperative; + not oriented to place and + not oriented to time Results & Data ([facility]) Vital Signs (Past 12 Hours) Vital Signs Temp Pulse Resp BP Pulse Ox 01/26/20 11:35 36.2 C L 66 18 143/80 H 94 01/26/20 09:40 95 01/26/20 08:03 36.7 C 67 18 178/85 H 93 PG Care Time/CCT Total # of Minutes Spent Total Time Spent with Patient: Total time spent is greater than 50% in coordination of care (as documented) at patient's floor/unit and/or counseling patient: Coding Level of Care Code 83921 Subseq Hosp Care Lvl 2 Diagnoses UTI (urinary tract infection) N39.0 Pneumonia J18.9 Laterality: unspecified laterality Lung location: unspecified part of lung Pneumonia type: due to unspecified organism SDAT (senile dementia of Alzheimer's type) G30.1; F02.80 Hypothyroidism E03.9 Hypertension I10 CKD (chronic kidney disease) stage 3, GFR 30-59 ml/min N18.3 Paroxysmal atrial fibrillation I48.0 DVT prophylaxis Z29.9 (1) Pneumonia Laterality: unspecified laterality Lung location: unspecified part of lung Pneumonia type: due to unspecified organism Qualified Code(s): J18.9 - Pneumonia, unspecified organism
[2020-01-26] MEDS: ACETAMINOPHEN 325 MG TAB PO PRN (12:58)
[2020-01-26] MEDS: SERTRALINE HCL 50 MG TABLET PO SCH (20:56)
[2020-01-27] MEDS: LEVOTHYROXINE SODIUM 112 MCG TABLET PO SCH (05:41)
[2020-01-27] MEDS: DOXYCYCLINE HYCLATE 100 MG CAP PO SCH ×2 (05:41→17:38)
[2020-01-27] MEDS: PIPERACILLIN/TAZOBACTAM 4.5 GM in DEXTROSE 5% 100 ML IV SCH ×3 (05:41→21:06)
[2020-01-27 06:45] LABS: Hematocrit (blood only) 37.9 % (37-47); Hemoglobin 11.9 g/dL (12.0-16.0); Mean Corpuscular Hemoglobin 28.8 pg (25-34); Mean Corpuscular Hgb Conc 31.4 g/dL (32-36); Mean Corpuscular Volume 91.8 fL (80-100); Mean Platelet Volume 11.8 fL (7.4-10.4); Platelet Count 269 K/uL (130-400); RDW Coefficient of Variation 14.7 % (11.5-14.5); RDW Standard Deviation 49.9 fL (36.4-46.3); Red Blood Count 4.13 M/uL (4.2-5.4); White Blood Count 8.79 K/uL (4.8-10.8)
[2020-01-27 07:22] LABS: BUN Creatinine Ratio 11.5 (10-20); Calcium 8.7 mg/dl (8.5-10.1); Creatinine Clr Calc Pharmacy 32.6 ml/min; Est GFR (African American) 53.4; Phosphorus 2.6 mg/dl (2.5-4.9); Potassium 3.7 mmol/L (3.5-5.1)
[2020-01-27] MEDS: HEPARIN SOD 5,000 UNIT/0.5 ML VIAL SQ SCH ×2 (07:58→20:39)
[2020-01-27] MEDS: POTASSIUM CHLORIDE PWD 20 MEQ PACK PO SCH ×2 (07:59→20:43)
[2020-01-27] MEDS: CHOLECALCIFEROL 1,000 UNITS 25 MCG TAB PO SCH (07:59)
[2020-01-27] MEDS: METOPROLOL SUCC 25MG EXT REL TAB PO SCH (07:59)
[2020-01-27] MEDS: CALCIUM 600MG + VIT D 400 IU TAB PO SCH (07:59)
[2020-01-27] MEDS: ASPIRIN 325 MG ECTAB PO SCH (07:59)
[2020-01-27] MEDS: ACETAMINOPHEN 325 MG TAB PO PRN (08:05)
--- NOTE | 2020-01-27 14:35 | Hospitalist Progress Note ---
Date of Service January 27, 2020 Assessment & Plan (1) UTI (urinary tract infection): Urine culture growing E. coli sensitive to Zosyn. Would consider this a complicated UTI given leukocytosis, fever, and systemic symptoms (altered mental status). - Initially on ceftriaxone. Switched to Zosyn on 01/23 when urine sensitivities came back. Would consider 01/23 as day 1 of treatment. End date likely 7 days (Last day: 01/30/2020.) - Blood cultures from 01/21 & 01/23 are negative right now. - Presently denying any dysuria. - Per CM, [facility] cannot give IV abx, and there is no way to get a home RN to give them (even with ertapenem which could be given daily). As such, a 2-day SNF placement didn't seem sensible given her dementia and possible delirium in a new setting, so in discussion with CM and family, we will keep her here for 3 more days to finish abx. (2) Pneumonia: CXR on 01/21 showed possible small LLL infiltrate. Given hypoxemia, fever, leukocytosis, treating for pneumonia. Repeat CXR on 01/23 did not show any focal infiltrate. - Continue Zosyn and doxycycline. Finish doxycycline on 01/29/2020. (3) SDAT (senile dementia of Alzheimer's type): Patient is confused at baseline, usually knowing herself and sometimes place, but no date and no recent history. Resides at [facility]. The patient is nonambulatory at baseline. - PT/OT - Frequent re-orientation - Continue sertraline (4) Hypothyroidism: TSH was 2.8 this month and stable from prior. - Continue levothyroxine 112 mcg (5) Hypertension: BP is 145/80 today, but no symptoms. Stable. - Continue home beta-amara (6) CKD (chronic kidney disease) stage 3, GFR 30-59 ml/min: Baseline Cr. ~1.1 - 1.2, eGFR ~45. - At baseline at present. - Monitor Cr (7) Paroxysmal atrial fibrillation: H/o paroxsymal afib. Only on aspirin for CVA prophylaxis given prior hematuria. - Continue ASA 325mg - Continue beta-amara (8) DVT prophylaxis: Heparin 5000 units SQ Q12h Admission and Anticipated Discharge Date Admission Date: January 22, 2020 Subjective Doing well today. No major concerns. no further fevers and WBC normal. Reports no fevers/chills, chest pain, shortness of breath, abdominal pain, nausea, or vomiting. Physical Exam Constitutional: WD/WN, vitals as above Eyes: EOM intact bilaterally; no conjunctival abnormality ENMT: external ear and nose normal, oropharynx normal Neck: trachea midline, no thyromegaly normal visual inspection Respiratory: normal respiratory effort, lungs clear to auscultation no respiratory distress Cardiovascular: RRR, no murmur, no edema Gastrointestinal (Abdomen): Inspection/Auscultation: abdomen normal to inspection; abdomen not distended Musculoskeletal: no cyanosis or clubbing, extremities motor strength 5/5 Skin: no rashes, warm and dry Neurologic: moves all extremities and awake Psychiatric: Orientation: alert, oriented to person and cooperative; + not oriented to place and + not oriented to time Results & Data ([facility]) Vital Signs (Past 12 Hours) Vital Signs Temp Pulse Resp BP Pulse Ox 01/27/20 07:26 36.7 C 66 18 165/81 H 90 PG Care Time/CCT Total # of Minutes Spent Total Time Spent with Patient: Total time spent is greater than 50% in coordination of care (as documented) at patient's floor/unit and/or counseling patient: Coding Level of Care Code 66759 Subseq Hosp Care Lvl 2 Diagnoses UTI (urinary tract infection) N39.0 Pneumonia J18.9 Laterality: unspecified laterality Lung location: unspecified part of lung Pneumonia type: due to unspecified organism SDAT (senile dementia of Alzheimer's type) G30.1; F02.80 Hypothyroidism E03.9 Hypertension I10 CKD (chronic kidney disease) stage 3, GFR 30-59 ml/min N18.3 Paroxysmal atrial fibrillation I48.0 DVT prophylaxis Z29.9 (1) Pneumonia Laterality: unspecified laterality Lung location: unspecified part of lung Pneumonia type: due to unspecified organism Qualified Code(s): J18.9 - Pneumonia, unspecified organism
[2020-01-27] MEDS: SERTRALINE HCL 50 MG TABLET PO SCH (20:43)
[2020-01-28] MEDS: PIPERACILLIN/TAZOBACTAM 4.5 GM in DEXTROSE 5% 100 ML IV SCH ×3 (05:55→22:31)
[2020-01-28] MEDS: LEVOTHYROXINE SODIUM 112 MCG TABLET PO SCH (05:55)
[2020-01-28] MEDS: DOXYCYCLINE HYCLATE 100 MG CAP PO SCH ×2 (05:55→17:45)
[2020-01-28 06:05] LABS: Hematocrit (blood only) 39.1 % (37-47); Hemoglobin 12.4 g/dL (12.0-16.0); Mean Corpuscular Hemoglobin 29.7 pg (25-34); Mean Corpuscular Hgb Conc 31.7 g/dL (32-36); Mean Corpuscular Volume 93.5 fL (80-100); Mean Platelet Volume 11.7 fL (7.4-10.4); Platelet Count 284 K/uL (130-400); RDW Coefficient of Variation 14.8 % (11.5-14.5); RDW Standard Deviation 50.3 fL (36.4-46.3); Red Blood Count 4.18 M/uL (4.2-5.4); White Blood Count 8.95 K/uL (4.8-10.8)
[2020-01-28 06:41] LABS: Calcium 9.4 mg/dl (8.5-10.1); Creatinine Clr Calc Pharmacy 30.7 ml/min; Est GFR (African American) 49.6; Est GFR (Non-African American) 42.8; Potassium 3.5 mmol/L (3.5-5.1)
[2020-01-28] MEDS: CALCIUM 600MG + VIT D 400 IU TAB PO SCH (08:00)
[2020-01-28] MEDS: ASPIRIN 325 MG ECTAB PO SCH (08:00)
[2020-01-28] MEDS: CHOLECALCIFEROL 1,000 UNITS 25 MCG TAB PO SCH (08:01)
[2020-01-28] MEDS: METOPROLOL SUCC 25MG EXT REL TAB PO SCH (08:01)
[2020-01-28] MEDS: HEPARIN SOD 5,000 UNIT/0.5 ML VIAL SQ SCH ×2 (08:02→20:46)
--- NOTE | 2020-01-28 11:33 | Hospitalist Progress Note ---
Date of Service January 28, 2020 Assessment & Plan (1) UTI (urinary tract infection): Urine culture growing E. coli sensitive to Zosyn. Would consider this a complicated UTI given leukocytosis, fever, and systemic symptoms (altered mental status). - Initially on ceftriaxone. Switched to Zosyn on 01/23 when urine sensitivities came back. Would consider 01/23 as day 1 of treatment. End date likely 7 days (Last day: 01/30/2020.) - Blood cultures from 01/21 & 01/23 are negative right now. - Presently denying any dysuria. - Per CM, [facility] cannot give IV abx, and there is no way to get a home RN to give them (even with ertapenem which could be given daily). As such, a 2-day SNF placement didn't seem sensible given her dementia and possible delirium in a new setting, so in discussion with CM and family, we will keep her here for 2 more days to finish abx. (2) Pneumonia: CXR on 01/21 showed possible small LLL infiltrate. Given hypoxemia, fever, leukocytosis, treating for pneumonia. Repeat CXR on 01/23 did not show any focal infiltrate. - Continue Zosyn and doxycycline. Finish doxycycline on 01/29/2020. (3) SDAT (senile dementia of Alzheimer's type): Patient is confused at baseline, usually knowing herself and sometimes place, but no date and no recent history. Resides at [facility]. The patient is nonambulatory at baseline. - PT/OT - Frequent re-orientation - Continue sertraline (4) Hypothyroidism: TSH was 2.8 this month and stable from prior. - Continue levothyroxine 112 mcg (5) Hypertension: BPs acceptable, but no symptoms. Stable. - Continue home beta-amara (6) CKD (chronic kidney disease) stage 3, GFR 30-59 ml/min: Baseline Cr. ~1.1 - 1.2, eGFR ~45. - At baseline at present. - Monitor Cr (7) Paroxysmal atrial fibrillation: H/o paroxsymal afib. Only on aspirin for CVA prophylaxis given prior hematuria. - Continue ASA 325mg - Continue beta-amara -Restart home amiodarone which was held upon admission for prolonged QT-most recent ECG now with QTC 510 (8) DVT prophylaxis: Heparin 5000 units SQ Q12h Disposition-remain hospitalized through 01/29 for IV antibiotics and then return to personal senior living Admission and Anticipated Discharge Date Admission Date: January 22, 2020 Anticipated date of discharge: 01/30/20 Subjective Patient reports she is tired of being in the hospital and wants to know when she can leave. Denies any pain anywhere, no abdominal pain or chest pain. Remains afebrile. She is quite confused. Nursing staff reports that she does not remember who they are an hour after they have been in the room. Review of Systems Review of Systems: All systems reviewed & are unremarkable except as noted in HPI & below Physical Exam Constitutional: average body habitus; no acute distress Eyes: + anicteric sclerae Neck: trachea midline, no thyromegaly Respiratory: normal respiratory effort, lungs clear to auscultation Cardiovascular: RRR, no murmur, no edema Chest (Breasts): Chest: normal inspection of chest Gastrointestinal (Abdomen): normal bowel sounds, soft, nontender, no hepatosplenomegaly Musculoskeletal: Extremities: extremities normal to inspection; no cyanosis and no clubbing Skin: no rashes, warm and dry Neurologic: moves all extremities and awake; no focal motor deficits Psychiatric: Orientation: alert, oriented to person and cooperative; + not oriented to place and + not oriented to time Affect: + flat affect Lymphatic: no lymphedema Results & Data ([facility]) Vital Signs (Past 12 Hours) Vital Signs Temp Pulse Resp BP BP Pulse Ox 01/28/20 07:00 36.4 C L 63 16 184/74 H 170/84 H 92 Laboratory Results 01/28/20 01/28/20 Range/Units 05:31 05:31 WBC 8.95 (4.8-10.8) K/uL RBC 4.18 L (4.2-5.4) M/uL Hgb 12.4 (12.0-16.0) g/dL Hct 39.1 (37-47) % MCV 93.5 (80-100) fL MCH 29.7 (25-34) pg MCHC 31.7 L (32-36) g/dL RDW Std Deviation 50.3 H (36.4-46.3) fL RDW Coeff of Tiffany 14.8 H (11.5-14.5) % Plt Count 284 (130-400) K/uL MPV 11.7 H (7.4-10.4) fL Sodium 138 (136-145) mmol/L Potassium 3.5 (3.5-5.1) mmol/L Chloride 104 (98-107) mmol/L Carbon Dioxide 28 (21-32) mmol/L Anion Gap 6.0 (3-11) BUN 16 (7-18) mg/dl Creatinine 1.19 (0.6-1.2) mg/dl Est Cr Clr Drug Dosing 30.7 ml/min Est GFR ( Amer) 49.6 Est GFR (Non-Af Amer) 42.8 BUN/Creatinine Ratio 13.0 (10-20) Glucose 93 (70-99) mg/dl Calcium 9.4 (8.5-10.1) mg/dl PG Care Time/CCT Total # of Minutes Spent Total Time Spent with Patient: Total time spent is greater than 50% in coordination of care (as documented) at patient's floor/unit and/or counseling patient: Coding Level of Care Code 19603 Subseq Hosp Care Lvl 2 Diagnoses UTI (urinary tract infection) N39.0 Pneumonia J18.9 Laterality: unspecified laterality Lung location: unspecified part of lung Pneumonia type: due to unspecified organism SDAT (senile dementia of Alzheimer's type) G30.1; F02.80 Hypothyroidism E03.9 Hypertension I10 CKD (chronic kidney disease) stage 3, GFR 30-59 ml/min N18.3 Paroxysmal atrial fibrillation I48.0 DVT prophylaxis Z29.9 (1) Pneumonia Laterality: unspecified laterality Lung location: unspecified part of lung Pneumonia type: due to unspecified organism Qualified Code(s): J18.9 - Pneumonia, unspecified organism
[2020-01-28] MEDS: AMIODARONE 200 MG TAB PO SCH (11:43)
[2020-01-28] MEDS: LORazepam 0.5 MG TAB PO PRN (20:46)
[2020-01-28] MEDS: SERTRALINE HCL 50 MG TABLET PO SCH (20:46)
[2020-01-29] MEDS: DOXYCYCLINE HYCLATE 100 MG CAP PO SCH (05:21)
[2020-01-29] MEDS: PIPERACILLIN/TAZOBACTAM 4.5 GM in DEXTROSE 5% 100 ML IV SCH ×4 (05:25→21:44)
[2020-01-29] MEDS: LEVOTHYROXINE SODIUM 112 MCG TABLET PO SCH (05:30)
[2020-01-29] MEDS: METOPROLOL SUCC 25MG EXT REL TAB PO SCH (09:05)
[2020-01-29] MEDS: ASPIRIN 325 MG ECTAB PO SCH (09:06)
[2020-01-29] MEDS: CALCIUM 600MG + VIT D 400 IU TAB PO SCH (09:06)
[2020-01-29] MEDS: AMIODARONE 200 MG TAB PO SCH (09:06)
[2020-01-29] MEDS: CHOLECALCIFEROL 1,000 UNITS 25 MCG TAB PO SCH (09:06)
[2020-01-29] MEDS: HEPARIN SOD 5,000 UNIT/0.5 ML VIAL SQ SCH ×2 (09:08→20:59)
--- NOTE | 2020-01-29 14:49 | Hospitalist Progress Note ---
Date of Service January 29, 2020 Assessment & Plan (1) UTI (urinary tract infection): Urine culture growing E. coli sensitive to Zosyn. Would consider this a complicated UTI given leukocytosis, fever, and systemic symptoms (altered mental status). - Initially on ceftriaxone. Switched to Zosyn on 01/23 when urine sensitivities came back. Would consider 01/23 as day 1 of treatment. End date likely 7 days (Last day: 01/30/2020.) - Blood cultures from 01/21 & 01/23 are negative right now. - Presently denying any dysuria. - Per CM, [facility] cannot give IV abx, and there is no way to get a home RN to give them (even with ertapenem which could be given daily). As such, a short SNF placement didn't seem sensible given her dementia and possible delirium in a new setting, so in discussion with CM and family, we will keep her here for 1 more days to finish abx. (2) Pneumonia: CXR on 01/21 showed possible small LLL infiltrate. Given hypoxemia, fever, leukocytosis, treating for pneumonia. Repeat CXR on 01/23 did not show any focal infiltrate. - Continue Zosyn and doxycycline. Finish doxycycline on 01/29/2020. (3) SDAT (senile dementia of Alzheimer's type): Patient is confused at baseline, usually knowing herself and sometimes place, but no date and no recent history. Resides at [facility]. [facility] is nonambulatory at baseline. - PT/OT - Frequent re-orientation - Continue sertraline (4) Hypothyroidism: TSH was 2.8 this month and stable from prior. - Continue levothyroxine 112 mcg (5) Hypertension: BPs acceptable/slightly elevated, but no symptoms. Stable. - Continue home beta-amara (6) CKD (chronic kidney disease) stage 3, GFR 30-59 ml/min: Baseline Cr. ~1.1 - 1.2, eGFR ~45. - At baseline at present. - Monitor Cr (7) Paroxysmal atrial fibrillation: H/o paroxsymal afib. Only on aspirin for CVA prophylaxis given prior hematuria. - Continue ASA 325mg - Continue beta-amara -Restarted home amiodarone which was held upon admission for prolonged QT-most recent ECG now with QTC 510 (8) DVT prophylaxis: Heparin 5000 units SQ Q12h Disposition-remain hospitalized through 01/29 for IV antibiotics and then return to personal long-term Admission and Anticipated Discharge Date Admission Date: January 22, 2020 Anticipated date of discharge: 01/30/20 Subjective Pt pleasantly confused but denies nausea, abd pain, CP, SOB. She thinks she is "in some kind of business in [employer]." Is eating well, no concerns per RN other than 2 loose stools today and remains confused which seems to worsen throughout the day Review of Systems Review of Systems: All systems reviewed & are unremarkable except as noted in HPI & below Physical Exam Constitutional: average body habitus; no acute distress Eyes: + anicteric sclerae Neck: trachea midline, no thyromegaly Respiratory: normal respiratory effort, lungs clear to auscultation Cardiovascular: RRR, no murmur, no edema Chest (Breasts): Chest: normal inspection of chest Gastrointestinal (Abdomen): normal bowel sounds, soft, nontender, no hepatosplenomegaly Musculoskeletal: Extremities: extremities normal to inspection; no cyanosis and no clubbing Skin: no rashes, warm and dry Neurologic: moves all extremities and awake; no focal motor deficits Psychiatric: Orientation: alert, oriented to person and cooperative; + not oriented to place and + not oriented to time Lymphatic: no lymphedema Results & Data ([facility]) Vital Signs (Past 12 Hours) Vital Signs Temp Pulse Resp BP Pulse Ox 01/29/20 07:00 36.5 C 60 18 155/75 H 92 PG Care Time/CCT Total # of Minutes Spent Total Time Spent with Patient: Total time spent is greater than 50% in coordination of care (as documented) at patient's floor/unit and/or counseling patient: Coding Level of Care Code 36055 Subseq Hosp Care Lvl 1 Diagnoses UTI (urinary tract infection) N39.0 Pneumonia J18.9 Laterality: unspecified laterality Lung location: unspecified part of lung Pneumonia type: due to unspecified organism SDAT (senile dementia of Alzheimer's type) G30.1; F02.80 Hypothyroidism E03.9 Hypertension I10 CKD (chronic kidney disease) stage 3, GFR 30-59 ml/min N18.3 Paroxysmal atrial fibrillation I48.0 DVT prophylaxis Z29.9 (1) Pneumonia Laterality: unspecified laterality Lung location: unspecified part of lung Pneumonia type: due to unspecified organism Qualified Code(s): J18.9 - Pneumonia, unspecified organism
[2020-01-29] MEDS: SERTRALINE HCL 50 MG TABLET PO SCH ×4 (20:58→23:15)
[2020-01-30] MEDS: LEVOTHYROXINE SODIUM 112 MCG TABLET PO SCH (06:01)
[2020-01-30] MEDS: PIPERACILLIN/TAZOBACTAM 4.5 GM in DEXTROSE 5% 100 ML IV SCH ×2 (06:01→15:18)
[2020-01-30] MEDS: CALCIUM 600MG + VIT D 400 IU TAB PO SCH (09:21)
[2020-01-30] MEDS: ASPIRIN 325 MG ECTAB PO SCH (09:21)
[2020-01-30] MEDS: AMIODARONE 200 MG TAB PO SCH (09:21)
[2020-01-30] MEDS: HEPARIN SOD 5,000 UNIT/0.5 ML VIAL SQ SCH ×2 (09:22→09:35)
[2020-01-30] MEDS: CHOLECALCIFEROL 1,000 UNITS 25 MCG TAB PO SCH (09:22)
[2020-01-30] MEDS: METOPROLOL SUCC 25MG EXT REL TAB PO SCH (09:22)
[2020-01-30] MEDS: AMLODIPINE BESYLATE 5 MG TAB PO SCH ×2 (09:30→10:26)
--- NOTE | 2020-01-30 13:00 | Discharge Summary ---
Date of Service January 30, 2020 Admission HPI Per Admitting Provider This is an 79-year-old female with past medical history of senile dementia, ambulatory dysfunction, renal sufficiency, hypothyroidism, hypertension presents today after a fall. Patient is oriented only to person and cannot relate any history. Family members at bedside not clear on history. Therefore, details of admission per ER documentation. I see that the the patient was recently here on 01/16 after a fall the shelter. Patient is wheelchair-bound secondary to previous fractures and significant osteoarthritis, family tells me she will occasionally forget and try to ambulate. It appears patient was worked up for injury and was subsequently discharged back to her facility. Earlier today, patient was found by staff on the floor again. At this time she was more confused and appeared to be hypoxic. Patient was transferred to the emergency room for further evaluation. Patient was found on presentation to be hypoxic with an O2 saturation 89%. She is responding well to oxygen mask at 4 L. Patient has not been febrile. I did asked patient regarding the circumstances of her fall as well as symptoms such as chest pain, shortness of breath, or any musculoskeletal pain. Patient denies everything and is unclear why she is in the hospital. She does not appear to be in any significant cardiopulmonary distress. Principal Diagnosis Complicated UTI, Acute metabolic encephalopathy, Fall, Pneumonia Discharge Exam Constitutional average body habitus; no acute distress Eyes + anicteric sclerae Neck trachea midline, no thyromegaly Respiratory normal respiratory effort; no labored breathing Auscultation: + crackles (left base); no rhonchi and no wheezes Cardiovascular RRR, no murmur, no edema Chest (Breasts) Chest: normal inspection of chest Gastrointestinal (Abdomen) normal bowel sounds, soft, nontender, no hepatosplenomegaly Musculoskeletal Extremities: extremities normal to inspection; no cyanosis and no clubbing Skin no rashes, warm and dry Neurologic moves all extremities and awake; no focal motor deficits Psychiatric Orientation: alert, oriented to person and cooperative; + not oriented to place and + not oriented to time Lymphatic no lymphedema Discharge Data Allergies Allergy/AdvReac Type Severity Reaction Status Date / Time No Known Allergies Allergy Unverified 01/22/20 09:40 Consultations 01/22/20 11:03 ED Decision to Admit Stat Ordered Studies 01/22/20 09:13 CT cervical spine wo con Stat CT head/brain wo con Stat CXR x 2 Pelvis xray Hospital Course (1) UTI (urinary tract infection): Urine culture growing E. coli sensitive to Zosyn. Would consider this a complicated UTI given leukocytosis, fever, and systemic symptoms (altered mental status). - Initially on ceftriaxone. Switched to Zosyn on 01/23 when urine sensitivities came back.Completed 7 days of IV therapy and no further abx needed - Blood cultures from 01/21 & 01/23 are negative Stable for dc to [facility] (2) Pneumonia: CXR on 01/21 showed possible small LLL infiltrate. Given hypoxemia, fever, leukocytosis, treating for pneumonia. Repeat CXR on 01/23 did not show any focal infiltrate. - Received 7 days of Zosyn and doxycycline. Not requiring O2 Still with some left basilar crackles, no cough (3) SDAT (senile dementia of Alzheimer's type): Patient is confused at baseline, usually knowing herself and sometimes place, but no date and no recent history. Resides at [facility]. The patient is nonambulatory at baseline. - PT/OT - Frequent re-orientation - Continue sertraline (4) Hypothyroidism: TSH was 2.8 this month and stable from prior. - Continue levothyroxine 112 mcg (5) Hypertension: BPs elevated, but no symptoms. - Continue home beta-amara and added on amlodipine 5mg po daily Follow BPs as outpt (6) CKD (chronic kidney disease) stage 3, GFR 30-59 ml/min: Baseline Cr. ~1.1 - 1.2, eGFR ~45. - At baseline at present. - Monitor Cr (7) Paroxysmal atrial fibrillation: H/o paroxsymal afib. Only on aspirin for CVA prophylaxis given prior hematuria. - Continue ASA 325mg - Continue beta-amara -continue amiodarone (8) DVT prophylaxis: Heparin 5000 units SQ Q12h Disposition-medically stable for return to personal snf Total Time Total Time Spent Total Time Spent (In Minutes): 35 min Total Time Includes: Examination of the Patient, Discharge Planning and Medication Reconciliation Discharge Plan Discharge Items Patient Disposition: Personal Nursing Home Reason For Visit: UTI, FALL Discharge Diagnosis: UTI, Acute metabolic encephalopathy, Pneumonia Condition on Discharge: Fair Activity: Resume your previous activity Non-emergency contact: Primary Care Provider Call non-emergency contact if: you have any medication questions, your symptoms worsen, you have a fever and your temperature is above 101 Follow-up/Referrals: [facility] [Primary Care Provider] - Diet: Heart Healthy Addtl Attending Provider Instructions: No further antibiotics needed. She completed a course of IV antibiotics for 7 days for pneumonia and for her UTI. Follow up with PCP within 1-2 weeks. Pending Studies at Discharge: No Stand-Alone Forms: My [employer], Smoking Cessation Skilled Items Patient informed of condition?: Yes DNR: No Discharge Level of Care: Other Communicable Disease: No Discharge Prognosis: Improving Lines: None Urinary Catheter: No Medications and DC Order Prescriptions: New amlodipine [Norvasc] 5 mg Tablet 5 mg PO QAM Qty: 30 RF: 0 Continued amiodarone 200 mg tablet 200 mg PO QAM Qty: 90 RF: 3 (DME) gauze bandage [Curad Gauze Pad] 4 X 4 " bandage See Rx Instructions .ROUTE .MEDSUPPLY Qty: 100 RF: 0 aspirin 325 mg tablet 325 mg PO QAM RF: 0 calcium carbonate-vitamin D3 [Oyster Shell Calcium-Vit D3] 500 mg(1,250mg) - 200 unit tablet 1 tab PO QAM RF: 0 acetaminophen 500 mg capsule 500 mg PO DAILY PRN (Reason: Pain) RF: 0 levothyroxine 112 mcg capsule 112 mcg PO QAM RF: 0 melatonin 3 mg capsule 3 mg PO HS RF: 0 lorazepam 0.5 mg tablet 0.5 mg PO Q8H PRN (Reason: severe restlessness) RF: 0 sertraline 50 mg Tablet 50 mg PO HS RF: 0 polyethylene glycol 3350 [Miralax] 17 gram powder in packet 17 gm PO DAILY PRN (Reason: Constipation) RF: 0 metoprolol succinate 25 mg tablet extended release 24 hr 25 mg PO QAM RF: 0 cholecalciferol (vitamin D3) [Vitamin D3] 5,000 unit Tablet 5,000 units PO QAM RF: 0 Discharge Orders: Discharge Order (Routine); Ordered 01/30/20 Ordered By: Anali Ayala Admission Data Admit Date/Time: 01/22/20 11:35 Attending Provider: Anali Ayala Admit Provider: Walker Martinez Primary Care Provider: [facility] Other Providers: Shahram Weller ; Walker Martinez Coding Level of Care Code D/C Day Management >30 mins Diagnoses UTI (urinary tract infection) N39.0 Pneumonia J18.9 Laterality: unspecified laterality Lung location: unspecified part of lung Pneumonia type: due to unspecified organism SDAT (senile dementia of Alzheimer's type) G30.1; F02.80 Hypothyroidism E03.9 Hypertension I10 CKD (chronic kidney disease) stage 3, GFR 30-59 ml/min N18.3 Paroxysmal atrial fibrillation I48.0 DVT prophylaxis Z29.9
== END 2020-01-30 15:40 | disposition home or self-care (01) | DRG 689 ==
LOC: ED 08:59 → 2N 11:35 → SUATTDRO 11:35 → 2N 12:25

== ENCOUNTER 2020-02-01 16:20 | Inpatient (IN) ==
[2020-02-01] MEDS ORDERED: SODIUM CHLORIDE 0.9% 500 ML IV ONE (16:31)
--- NOTE | 2020-02-01 16:39 | Emergency Department Note ---
Impression & Plan Renal insufficiency, Delirium, Acute UTI, Leukocytosis, Acute hypokalemia ED Provider Note NAME: TAMI FOFANA AGE: 79 SEX: F ARRIVES VIA: Ambulance INFORMANT: Patient EMS report from [facility] ED PROVIDER(S): Dedrick Carrion MD CHIEF COMPLAINT: Weakness, increased confusion from baseline. MEDICAL DECISION MAKING: The patient is a pleasant 79-year-old woman with a past medical history of senile dementia, ambulatory dysfunction, renal sufficiency, hypothyroidism, hypertension, and recent admission from 01/21-01/29 for complicated UTI and pneumonia treated with doxycycline and Zosyn (for ESBL E-coli) after sensitivities completing 7 days of IV therapy presents to the emergency department again from her personal detention, [facility], for worsening mental status since her discharge. On arrival the patient is pleasantly confused in no acute distress, afebrile stable vital signs. She is alert to self only. She has no complaints. She appears clinically dry. She is cachectic appearing. EKG without overt acute ischemia. CXR improved from prior. CT head negative for acu te process. WBC 23.8K increased from prior. H/H within normal limits. Platelets 428, which is nonspecific and likely reactive. Potassium 3.2 and Magnesium 1.8 with repletion provided. Creatinine 1.35 approximate to prior range of values. Chemistry without acidosis. AST 70 and alk phos 162 similar to prior values. Troponin negative/undetectable. Albumin is 2.6 similar prior values likely reflecting a chronic component of failure to thrive. UA with epithelial cells however with WBCs >30 2+ leuk esterase. The patient's prior UTI with ESBL E. coli, now with worsening mental status in the setting of new leukocytosis, there is a possibility of failure of treatment given the risks of Zosyn resistance despite in vitro sensitivity. Upon further discussion with ED pharmacist will treat with ertapenem given sensitivities of patient's prior urine culture. Given the patient's leukocytosis in the setting of presumed infection reasonable proceed with admission given unlikely to be able to manage this effectively at her personal detention. Case was discussed with Dr. Pinto, [facility] hospitalist, who will evaluate the patient for admission. CT abd/pelvis ordered by admitting team, evidence of pna and pancreatitis. Management per admitting team. Triage Nursing notes reviewed and agree them. Prior medical records reviewed Vital Signs: reviewed and remarkable for no significant abnormalities Differential diagnosis: Infection, dehydration, metabolic abnormality, hypo/hyperglycemia, electrolyte disturbance, anemia, hypoxia, cardiac sources, intracerebral event, toxicologic, neurologic, as well as other pathologies. ER treatment provided: See Below. Diagnostics interpreted by me: ECG: Normal sinus rhythm, 70 bpm, baseline artifact with ST and T wave abnormality laterally. QTC 657, QRS 88. No overt ST elevation. Cardiac Monitoring: Normal sinus rhythm, 70 bpm, no ectopy. Laboratory studies: See below Imaging studies: XR chest 1V portable CLINICAL HISTORY: SEPSIS dyspnea COMPARISON STUDY: 01/24/2020 FINDINGS: Improved exam. Somewhat diminished cardiac size. Decrease in prominence of the pulmonary vasculature. Several old right-sided rib fractures. Degenerative changes left shoulder with evidence for a right shoulder arthroplasty. IMPRESSION: Improved exam with no current findings suggesting congestive failure -- CT head/brain wo con CT DOSE: 537.48 mGy.cm HISTORY: Mental status change confusion TECHNIQUE: Multiaxial CT images of the head were performed without the use of intravenous contrast. A dose lowering technique was utilized adhering to the principles of ALARA. Comparison: 01/22/2020 Findings: The paranasal sinuses and mastoid air cells are clear. The calvarium and skull base are intact. The ventricles and sulci are within normal limits. There is no mass, hematoma, midline shift, or acute infarct. Old left occipital infarct. Age-related atrophy and chronic small vessel change. Impression: No acute intracranial abnormality. Chronic and age-related change. Consultation(s): None HPI: The patient is a pleasant 79-year-old woman with a past medical history of senile dementia, ambulatory dysfunction, renal sufficiency, hypothyroidism, hypertension, and recent admission from 01/21-01/29 for complicated UTI and pneumonia treated with doxycycline and Zosyn (for ESBL E-coli) after sensitivities completing 7 days of IV therapy presents to the emergency department again from her personal detention, [facility], for worsening mental status since her discharge. ROS: See above HPI for pertinent positives & negatives. A total of 10 systems reviewed and were otherwise negative. PAST MEDICAL HISTORY:See Below PAST SURGICAL HISTORY:See Below FAMILY HISTORY:See Below SOCIAL HISTORY:See Below HOME MEDICATIONS:See Below ALLERGIES:See Below VITALS:See Below PHYSICAL EXAMINATION: GENERAL: Awake, alert, fatigued/cachectic-appearing, in no distress HENT: Normocephalic, atraumatic. Oropharynx with dry/cracked mucous membranes and otherwise unremarkable. EYES: Normal conjunctiva. Sclera non-icteric. NECK: Supple. No nuchal rigidity. FROM. No JVD. RESPIRATORY: Clear to auscultation. CARDIAC: Regular rate, normal rhythm. Extremities warm and well perfused. Pulses equal. ABDOMEN: Soft, non-distended. No tenderness to palpation. No rebound or guarding. No masses. RECTAL: Deferred. MUSCULOSKELETAL: Chest examination reveals no tenderness. The back is symmetrical on inspection without obvious abnormality. There is no CVA tenderness to palpation. No joint edema. LOWER EXTREMITIES: Calves are equal size bilaterally and non-tender. No edema. No discoloration. NEURO: Normal sensorium. No sensory or motor deficits noted. Moving all extre mities equally. Pleasantly confused alert to self. (Thinks she is in penitentiary, "locked up") SKIN: No rash or jaundice noted. 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 Beliefs That Will Affect Care: None marital status: / Current Living Situation: Personal Care Facility Current Living Situation Comment: [facility] Other Information That Helps Us Care for You: No Feels Safe at Home: Yes Safety Concerns: Feels Safe At This Time Smoking Status: Former smoker Tobacco Type: cigarettes ; Do You Dip or Chew Tobacco: No ; Second Hand Exposure: No ; Hx Alcohol Use: No Hx Substance Use: No Allergies Allergies Allergy/AdvReac Type Severity Reaction Status Date / Time No Known Allergies Allergy Verified 02/01/20 17:40 Home Meds Home Medications Medication Instructions Recorded Confirmed cholecalciferol (vitamin D3) 5,000 units PO QAM 08/29/18 02/01/20 [Vitamin D3] acetaminophen 500 mg capsule 500 mg PO DAILY PRN cap 12/25/19 02/01/20 aspirin 325 mg tablet 325 mg PO QAM 12/25/19 02/01/20 calcium carbonate 500 mg (1,250 1 tab PO QAM 12/25/19 02/01/20 mg)-vitamin D3 200 unit tablet levothyroxine 112 mcg capsule 112 mcg PO QAM 12/25/19 02/01/20 lorazepam 0.5 mg tablet 0.5 mg PO Q8H PRN 12/25/19 02/01/20 melatonin 3 mg capsule 3 mg PO HS 12/25/19 02/01/20 metoprolol succinate 25 mg PO QAM 01/17/20 02/01/20 polyethylene glycol 3350 [Miralax] 17 gm PO DAILY PRN 01/17/20 02/01/20 sertraline 50 mg PO HS 01/17/20 02/01/20 amlodipine [Norvasc] 5 mg PO QAM 02/01/20 02/01/20 diclofenac sodium 2 g TOPICAL QID PRN 02/01/20 02/01/20 ibuprofen 200 mg PO Q4H PRN MDD 6 TABS/24 02/01/20 02/01/20 HOURS. Previous Rx's Medication Instructions Recorded amiodarone 200 mg tablet 200 mg PO QAM #90 tab 07/20/19 gauze bandage 4" X 4" #100 ea 11/09/19 Results & Data (ED) Vital Signs Vital Signs - 24 hr 02/01/20 16:30 02/01/20 16:37 02/01/20 16:39 Temperature 36.7 C Temperature Source Oral Pulse Rate 75 74 77 Pulse Rate from SpO2 Sensor 76 75 Respiratory Rate 20 21 19 Blood Pressure 134/80 134/80 Blood Pressure Mean 100 98 Pulse Oximetry 90 91 90 Oxygen Delivery Method Room Air Sepsis Recent Fever Within 48 Hours No Sepsis Action Taken by Nursing No Action Required 02/01/20 16:43 02/01/20 17:00 02/01/20 17:04 Temperature Temperature Source Pulse Rate 71 67 Pulse Rate from SpO2 Sensor 68 Respiratory Rate 23 21 Blood Pressure 140/74 Blood Pressure Mean 100 Pulse Oximetry 90 92 Oxygen Delivery Method Room Air Sepsis Recent Fever Within 48 Hours Sepsis Action Taken by Nursing 02/01/20 17:30 02/01/20 17:31 02/01/20 18:00 Temperature Temperature Source Pulse Rate 70 74 Pulse Rate from SpO2 Sensor 67 73 Respiratory Rate 17 20 Blood Pressure 136/77 147/79 H Blood Pressure Mean 107 113 Pulse Oximetry 90 Oxygen Delivery Method Sepsis Recent Fever Within 48 Hours Sepsis Action Taken by Nursing 02/01/20 18:12 02/01/20 18:30 02/01/20 19:00 Temperature Temperature Source Pulse Rate 73 72 70 Pulse Rate from SpO2 Sensor 72 Respiratory Rate 18 19 19 Blood Pressure Blood Pressure Mean Pulse Oximetry 90 Oxygen Delivery Method Sepsis Recent Fever Within 48 Hours Sepsis Action Taken by Nursing Laboratory Data Attestation: I reviewed the patient's lab results. Result diagrams: 02/01/20 17:03 02/01/20 17:46 Lab Results 02/01/20 02/01/20 02/01/20 Range/Units 16:31 17:03 17:03 WBC 23.87 H (4.8-10.8) K/uL RBC 4.55 (4.2-5.4) M/uL Hgb 13.3 (12.0-16.0) g/dL Hct 41.2 (37-47) % MCV 90.5 (80-100) fL MCH 29.2 (25-34) pg MCHC 32.3 (32-36) g/dL RDW Std Deviation 50.4 H (36.4-46.3) fL RDW Coeff of [place] 15.1 H (11.5-14.5) % Plt Count 428 H (130-400) K/uL MPV 11.7 H (7.4-10.4) fL Immature Gran % (Auto) 0.4 % Neut % (Auto) 88.0 % Lymph % (Auto) 4.4 % Brooke % (Auto) 7.0 % Eos % (Auto) 0.2 % Baso % (Auto) 0.0 % Immature Gran # (Auto) 0.10 H (0.00-0.02) K/uL Neut # (Auto) 21.02 H (1.4-6.5) K/uL Lymph # (Auto) 1.04 L (1.2-3.4) K/uL Brooke # (Auto) 1.66 H (0.11-0.59) K/uL Eos # (Auto) 0.04 (0-0.5) K/uL Baso # (Auto) 0.01 (0-0.2) K/uL PT Cancelled INR Cancelled APTT Cancelled PTT Ratio Cancelled Sodium Potassium Chloride Carbon Dioxide Anion Gap BUN Creatinine Est Cr Clr Drug Dosing Est GFR ( Amer) Est GFR (Non-Af Amer) BUN/Creatinine Ratio Glucose POC Glucose 93 (70-99) mg/dl Lactate (0.4-2.0) mmol/L Calcium Phosphorus Magnesium Total Bilirubin AST ALT Alkaline Phosphatase Troponin I Total Protein Albumin Globulin Albumin/Globulin Ratio Lipase (73-393) U/L TSH Urine Color Urine Appearance (Clear) Urine pH (4.5-7.5) Ur Specific [place] (1.000-1.030) Urine Protein (Negative) Urine Glucose (UA) (Negative) Urine Ketones (Negative) Urine Blood (Negative) Urine Nitrite (Negative) Urine Bilirubin (Negative) Urine Urobilinogen (Negative) Ur Leukocyte Esterase (Negative) Urine WBC (Auto) (0-5) /hpf Urine RBC (Auto) (0-4) /hpf U Hyaline Cast (Auto) (0-5) /lpf U Epithel Cells (Auto) (0-5) /lpf Urine Bacteria (Auto) (Negative) Granular Casts (0) /lpf Urine Yeast (None Prsent) 02/01/20 02/01/20 02/01/20 Range/Units 17:03 17:03 17:46 WBC (4.8-10.8) K/uL RBC (4.2-5.4) M/uL Hgb (12.0-16.0) g/dL Hct (37-47) % MCV (80-100) fL MCH (25-34) pg MCHC (32-36) g/dL RDW Std Deviation (36.4-46.3) fL RDW Coeff of Tiffany (11.5-14.5) % Plt Count (130-400) K/uL MPV (7.4-10.4) fL Immature Gran % (Auto) % Neut % (Auto) % Lymph % (Auto) % Brooke % (Auto) % Eos % (Auto) % Baso % (Auto) % Immature Gran # (Auto) (0.00-0.02) K/uL Neut # (Auto) (1.4-6.5) K/uL Lymph # (Auto) (1.2-3.4) K/uL Brooke # (Auto) (0.11-0.59) K/uL Eos # (Auto) (0-0.5) K/uL Baso # (Auto) (0-0.2) K/uL PT INR APTT PTT Ratio Sodium Cancelled 136 Potassium Cancelled 3.2 L Chloride Cancelled 103 Carbon Dioxide Cancelled 27 Anion Gap Cancelled 6.0 BUN Cancelled 24 H Creatinine Cancelled 1.35 H Est Cr Clr Drug Dosing Cancelled 26.0 Est GFR ( Amer) Cancelled 42.6 Est GFR (Non-Af Amer) Cancelled 36.7 BUN/Creatinine Ratio Cancelled 17.7 Glucose Cancelled 72 POC Glucose (70-99) mg/dl Lactate 1.2 (0.4-2.0) mmol/L Calcium Cancelled 9.4 Phosphorus Cancelled 2.7 Magnesium Cancelled 1.8 Total Bilirubin Cancelled 0.6 AST Cancelled 70 H ALT Cancelled 48 Alkaline Phosphatase Cancelled 162 H Troponin I Cancelled < 0.015 Total Protein Cancelled 7.2 Albumin Cancelled 2.6 L Globulin Cancelled 4.6 H Albumin/Globulin Ratio Cancelled 0.6 L Lipase (73-393) U/L TSH Cancelled 3.380 Urine Color Urine Appearance (Clear) Urine pH (4.5-7.5) Ur Specific [place] (1.000-1.030) Urine Protein (Negative) Urine Glucose (UA) (Negative) Urine Ketones (Negative) Urine Blood (Negative) Urine Nitrite (Negative) Urine Bilirubin (Negative) Urine Urobilinogen (Negative) Ur Leukocyte Esterase (Negative) Urine WBC (Auto) (0-5) /hpf Urine RBC (Auto) (0-4) /hpf U Hyaline Cast (Auto) (0-5) /lpf U Epithel Cells (Auto) (0-5) /lpf Urine Bacteria (Auto) (Negative) Granular Casts (0) /lpf Urine Yeast (None Prsent) 02/01/20 02/01/20 02/01/20 Range/Units 17:46 17:51 18:25 WBC (4.8-10.8) K/uL RBC (4.2-5.4) M/uL Hgb (12.0-16.0) g/dL Hct (37-47) % MCV (80-100) fL MCH (25-34) pg MCHC (32-36) g/dL RDW Std Deviation (36.4-46.3) fL RDW Coeff of Tiffany (11.5-14.5) % Plt Count (130-400) K/uL MPV (7.4-10.4) fL Immature Gran % (Auto) % Neut % (Auto) % Lymph % (Auto) % Brooke % (Auto) % Eos % (Auto) % Baso % (Auto) % Immature Gran # (Auto) (0.00-0.02) K/uL Neut # (Auto) (1.4-6.5) K/uL Lymph # (Auto) (1.2-3.4) K/uL Brooke # (Auto) (0.11-0.59) K/uL Eos # (Auto) (0-0.5) K/uL Baso # (Auto) (0-0.2) K/uL PT 12.5 H INR 1.2 H APTT 29.3 PTT Ratio 1.1 Sodium Potassium Chloride Carbon Dioxide Anion Gap BUN Creatinine Est Cr Clr Drug Dosing Est GFR ( Amer) Est GFR (Non-Af Amer) BUN/Creatinine Ratio Glucose POC Glucose (70-99) mg/dl Lactate (0.4-2.0) mmol/L Calcium Phosphorus Magnesium Total Bilirubin AST ALT Alkaline Phosphatase Troponin I Total Protein Albumin Globulin Albumin/Globulin Ratio Lipase 1344 H (73-393) U/L TSH Urine Color Dark Yellow Urine Appearance Cloudy A (Clear) Urine pH 5.0 (4.5-7.5) Ur Specific [place] 1.025 (1.000-1.030) Urine Protein 2+ H (Negative) Urine Glucose (UA) Negative (Negative) Urine Ketones Negative (Negative) Urine Blood 1+ H (Negative) Urine Nitrite Negative (Negative) Urine Bilirubin Negative (Negative) Urine Urobilinogen Negative (Negative) Ur Leukocyte Esterase 2+ H (Negative) Urine WBC (Auto) >30 H (0-5) /hpf Urine RBC (Auto) 0-4 (0-4) /hpf U Hyaline Cast (Auto) 5-10 H (0-5) /lpf U Epithel Cells (Auto) >30 H (0-5) /lpf Urine Bacteria (Auto) Negative (Negative) Granular Casts 1-5 H (0) /lpf Urine Yeast Budding w/ Hyphae A (None Prsent) Administered Medications Potassium Chloride/Sodium Chloride (Normal Saline W/20 Meq Kcl) 20 meq in 1,000 mls @ 100 mls/hr IV .Q10H BRIANA Stop: 03/02/20 22:29 Last Admin: 02/01/20 23:42 Dose: 100 mls/hr Documented by: [id number] Discontinued Medications Sodium Chloride (Nss) 500 mls @ 999 mls/hr IV .Q31M ONE Stop: 02/01/20 17:01 Last Infusion: 02/01/20 18:43 Dose: 0 mls/hr Documented by: [id number] Admin: 02/01/20 17:18 Dose: 999 mls/hr Documented by: [id number] Ertapenem (Invanz) 10 mls @ 2 mls/min IV NOW STA Stop: 02/01/20 18:12 Last Admin: 02/01/20 18:40 Dose: 2 mls/min Documented by: [id number] Vancomycin HCl 1,250 mg/ (Sodium Chloride) 275 mls @ 125 mls/hr IV NOW ONE; Protocol Stop: 02/02/20 01:11 Last Admin: 02/01/20 23:42 Dose: 125 mls/hr Documented by: [id number] Fluconazole (Diflucan) 200 mg in 100 mls @ 100 mls/hr IV NOW ONE; Protocol Stop: 02/02/20 00:29 Last Infusion: 02/02/20 00:38 Dose: 0 mls/hr Documented by: [id number] Admin: 02/01/20 23:43 Dose: 100 mls/hr Documented by: [id number] Blood Pressure Blood Pressure Findings: Elevated blood pressure Blood Pressure Disposition: elevated BP felt to be situational Discharge Plan Visit Data *Final* Discharge Date/Time: 02/01/20 22:00 Chief Complaint: Confusion Stated Complaint: MENTAL STATUS DECLINE ED Provider: Dedrick Carrion Discharge Problem: Renal insufficiency, Delirium, Acute UTI, Leukocytosis, Acute hypokalemia Patient Disposition: Admitted As Inpatient Discharge Instructions Interventions: ED Discharge Assessment Last Done: 02/01/20 22:00
[2020-02-01 17:14] LABS: Hematocrit (blood only) 41.2 % (37-47); Hemoglobin 13.3 g/dL (12.0-16.0); Mean Corpuscular Hemoglobin 29.2 pg (25-34); Mean Corpuscular Hgb Conc 32.3 g/dL (32-36); Mean Corpuscular Volume 90.5 fL (80-100); Mean Platelet Volume 11.7 fL (7.4-10.4); Platelet Count 428 K/uL (130-400); RDW Coefficient of Variation 15.1 % (11.5-14.5); RDW Standard Deviation 50.4 fL (36.4-46.3); Red Blood Count 4.55 M/uL (4.2-5.4); White Blood Count 23.87 K/uL (4.8-10.8)
--- NOTE | 2020-02-01 17:21 | XRay Report ---
XR chest 1V portable CLINICAL HISTORY: SEPSIS dyspnea COMPARISON STUDY: 01/24/2020 FINDINGS: Improved exam. Somewhat diminished cardiac size. Decrease in prominence of the pulmonary va sculature. Several old right-sided rib fractures. Degenerative changes left shoulder with evidence fo r a right shoulder arthroplasty. IMPRESSION: Improved exam with no current findings suggesting congestive failure ACT 112: Negative or not required by law. The above report was generated using voice recognition software. It may contain grammatical, syntax or spelling errors. Electronically signed by: Cameron Henry M.D. 02/01/2020 5:20 PM
[2020-02-01] MEDS ORDERED: ERTAPENEM SODIUM 10 ML IV STA (18:08)
[2020-02-01 18:10] LABS: INR 1.2 (0.9-1.1); Partial Thromboplastin Ratio 1.1; Partial Thromboplastin Time 29.3 Seconds (21.0-31.0); Prothrombin Time 12.5 Seconds (9.0-12.0)
--- NOTE | 2020-02-01 18:12 | CT Scan Report ---
CT head/brain wo con CT DOSE: 537.48 mGy.cm HISTORY: Mental status change confusion TECHNIQUE: Multiaxial CT images of the head were performed without the use of intravenous contrast. A dose lowering technique was utilized adhering to the principles of ALARA. Comparison: 01/22/2020 Findings: The paranasal sinuses and mastoid air cells are clear. The calvarium and skull base are int act. The ventricles and sulci are within normal limits. There is no mass, hematoma, midline shift, or acute infarct. Old left occipital infarct. Age-related atrophy and chronic small vessel change. Impression: No acute intracranial abnormality. Chronic and age-related change. ACT 112: Negative or not required by law. The above report was generated using voice recognition software. It may contain grammatical, syntax or spelling errors. Electronically signed by: Cameron Henry M.D. 02/01/2020 6:11 PM
[2020-02-01 18:13] LABS: Basophils # (auto) 0.01 K/uL (0-0.2); Eosinophils # (auto) 0.04 K/uL (0-0.5); Eosinophils % (auto) 0.2 %; Immature Granulocytes % (auto) 0.4 %; Lymphocytes # (auto) 1.04 K/uL (1.2-3.4); Lymphocytes % (auto) 4.4 %; Monocytes # (auto) 1.66 K/uL (0.11-0.59); Neutrophils # (auto) 21.02 K/uL (1.4-6.5)
[2020-02-01 18:19] LABS: Alanine Aminotransferase 48 U/L (12-78); Albumin Level 2.6 gm/dl (3.4-5.0); Aspartate Aminotransferase 70 U/L (15-37); BUN Creatinine Ratio 17.7 (10-20); Blood Urea Nitrogen 24 mg/dl (7-18); Calcium 9.4 mg/dl (8.5-10.1); Carbon Dioxide 27 mmol/L (21-32); Chloride 103 mmol/L (98-107); Est GFR (African American) 42.6; Est GFR (Non-African American) 36.7; Glucose 72 mg/dl (70-99); Magnesium 1.8 mg/dl (1.8-2.4); Potassium 3.2 mmol/L (3.5-5.1); Sodium 136 mmol/L (136-145)
[2020-02-01 18:30] LABS: Albumin Globulin Ratio 0.6 (0.9-2); Alkaline Phosphatase 162 U/L (45-117); Bilirubin,Total 0.6 mg/dl (0.2-1); Globulin 4.6 gm/dl (2.5-4.0); Phosphorus 2.7 mg/dl (2.5-4.9); Total Protein 7.2 gm/dl (6.4-8.2); Troponin I < 0.015 ng/ml (0-0.045)
[2020-02-01 18:38] LABS: Appearance Urine Cloudy (Clear); Bacteria Urine Automated Negative (Negative); Bilirubin Urine Negative (Negative); Blood Urine 1+ (Negative); Color Urine Dark Yellow; Epithelial Cell Urine Auto >30 /lpf (0-5); Glucose Urine UA Negative (Negative); Ketones Urine Negative (Negative); Leukocyte Esterase Urine 2+ (Negative); Nitrite Urine Negative (Negative); Protein Urine 2+ (Negative); Specific Gravity Urine 1.025 (1.000-1.030); Urobilinogen Urine Negative (Negative); WBC Urine Automated >30 /hpf (0-5)
[2020-02-01 18:59] LABS: RBC Urine Automated 0-4 /hpf (0-4)
--- NOTE | 2020-02-01 21:12 | CT Scan Report ---
CT abd pelvis wo con CT DOSE: 409.10 mGy.cm HISTORY: Abnormal liver function tests leukocytosis, abnormal LFT's TECHNIQUE: Multiaxial CT images of the abdomen and pelvis were performed without contrast. A dose lo wering technique was utilized adhering to the principles of ALARA. COMPARISON STUDY: None. FINDINGS: Bibasilar parenchymal infiltrates combined with a trace amount of bibasilar pleural fluid. Several small hepatic cysts. Partial staghorn calculus of the right kidney measuring up to 2 cm. This is is within a nondistended right renal pelvis. Several 2 or 3 mm calcifications lower aspect right kidney. Left kidney demonstrates a 3 mm calcification is mid aspect. There is moderate edematous change as well as peripancreatic infiltrative change at the level of the pancreatic tail and inferior to the spleen. No evidence for pseudocyst abscess or collection is appre ciated. Nonobstructive bowel pattern overall. 3 cm aneurysm mid abdominal aorta with no evidence for periaort ic fluid. Bilateral total hip arthroplasties obscuring detail in the low soft tissue pelvis. IMPRESSION: 1. Findings consistent with pancreatitis in the region of the pancreatic tail. 2. Moderate peripancreatic infiltrative change. 3. No evidence for abscess collection or obstruction. 4. Bilateral renal nephrocalcinosis with a 2 cm calcification within a nondistended right renal pelvi s. 5. Bibasilar parenchymal infiltrates combined with a trace amount of bilateral pleural fluid. ACT 112: Negative or not required by law. The above report was generated using voice recognition software. It may contain grammatical, syntax or spelling errors. Electronically signed by: Cameron Henry M.D. 02/01/2020 9:11 PM
[2020-02-01] MEDS ORDERED: ACETAMINOPHEN 325 MG TAB PO PRN (22:18)
[2020-02-01] MEDS ORDERED: VANCOMYCIN CONSULT ACTIVE PRN (22:18)
[2020-02-01] MEDS ORDERED: ONDANSETRON INJ 2 MG/ML 2 ML VIAL IV PRN (22:18)
[2020-02-01] MEDS ORDERED: VANCOMYCIN HCL 1,250 MG in SODIUM CHLORIDE 0.9% 250 ML IV ONE (23:00)
[2020-02-01] MEDS ORDERED: FLUCONAZOLE 200 MG/100 ML BAG IV ONE (23:30)
[2020-02-01] MEDS: NSS + 20MEQ KCL 20 MEQ/1,000 ML BAG IV SCH (23:42)
--- NOTE | 2020-02-01 23:48 | History & Physical Report ---
Date of Service February 01, 2020 Assessment & Plan (1) Pancreatitis, acute: Noted to have abnormalities in the pancreatic tail on CT, and elevated lipase of 1344. Placed on a full liquid diet and with IV fluids. Follow serial CBC with differential, chemistry profile, magnesium and lipase levels. Present on Admission?: Yes (2) Pneumonia: At previous admission there was question of aspiration. Placing on vancomycin IV and Zosyn IV. Patient should be monitored for aspiration, and may require speech therapy assessment Present on Admission?: Yes (3) Neutrophilic leukocytosis: Secondary to pancreatitis and bilateral lower lobe pneumonia Present on Admission?: Yes (4) Acute kidney injury superimposed on chronic kidney disease: Creatinine 1.35 upon admission, with range 1.05-1.20. Hydrate with IV fluids. Repeat every morning. Present on Admission?: Yes (5) AMS (altered mental status): Altered mental status superimposed on SDAT- Treat underlying process of pancreatitis and pneumonia, along with dehydration. Continue sertraline, lorazepam as needed. Present on Admission?: Yes (6) SDAT (senile dementia of Alzheimer's type): See above Present on Admission?: Yes (7) Paroxysmal atrial fibrillation: Paroxysmal atrial fibrillation/hypertension- Continue amiodarone 200 mg daily and metoprolol succinate 25 mg daily in the a.m. Hold amlodipine, aspirin, ibuprofen Present on Admission?: Yes (8) Hypertension: See above Present on Admission?: Yes (9) Hypothyroidism: Continue levothyroxine sodium 112 mcg p.o. daily Present on Admission?: Yes Admission and Anticipated Discharge Date Admission Date: February 01, 2020 History of Present Illness Chief Complaint: The patient is referred to the emergency room from her residence at [facility] due to concerns regarding increased confusion and worsening generalized weakness from her baseline. Primary Care Provider: [employer] [facility] The patient is a 79-year-old female with a past medical history including urinary tract infections, pneumonia, anemia, renal insufficiency, delirium, acute blood loss anemia, osteoporosis, SDAT, hypothyroidism, hypertension, vitamin D deficiency, pelvic fracture, T12 vertebral compression fracture and paroxysmal atrial fibrillation. She is most recently omitted to [facility] from 01/21-01/29 for E. coli UTI and pneumonia, both of which were treated with Zosyn IV for 7 days. Patient had improved significantly, with normal white blood cell count. During work-up in the emergency department tonight, her WBC was found to be elevated at 23.87, creatinine elevated at 1.35, and hypokalemia with potassium of 3.2. Urinalysis showed no bacteria and no nitrites, but did show budding yeast. Since no definite reason for elevated obesity was found, a CT of abdomen pelvis without contrast was ordered, which revealed bibasilar infiltrates, and inflammation around the pancreatic tail suggestive of pancreatitis. Lipase added at that time was elevated at 1344 confirm the diagnosis of pancreatitis. Allergies Allergy/AdvReac Type Severity Reaction Status Date / Time No Known Allergies Allergy Verified 02/01/20 17:40 Home Medications Home Medications Medication Instructions Recorded Confirmed Type cholecalciferol (vitamin D3) 5,000 units PO QAM 08/29/18 02/01/20 History [Vitamin D3] amiodarone 200 mg tablet 200 mg PO QAM #90 tab 07/20/19 02/01/20 Rx gauze bandage 4" X 4" #100 ea 11/09/19 11/09/19 Rx acetaminophen 500 mg capsule 500 mg PO DAILY PRN cap 12/25/19 02/01/20 History aspirin 325 mg tablet 325 mg PO QAM 12/25/19 02/01/20 History calcium carbonate 500 mg (1,250 1 tab PO QAM 12/25/19 02/01/20 History mg)-vitamin D3 200 unit tablet levothyroxine 112 mcg capsule 112 mcg PO QAM 12/25/19 02/01/20 History lorazepam 0.5 mg tablet 0.5 mg PO Q8H PRN 12/25/19 02/01/20 History melatonin 3 mg capsule 3 mg PO HS 12/25/19 02/01/20 History metoprolol succinate 25 mg PO QAM 01/17/20 02/01/20 History polyethylene glycol 3350 [Miralax] 17 gm PO DAILY PRN 01/17/20 02/01/20 History sertraline 50 mg PO HS 01/17/20 02/01/20 History amlodipine [Norvasc] 5 mg PO QAM 02/01/20 02/01/20 History diclofenac sodium 2 g TOPICAL QID PRN 02/01/20 02/01/20 History ibuprofen 200 mg PO Q4H PRN MDD 6 TABS/02/01/20 02/01/20 History HOURS. Past Med/Surg History Medical History Anemia Bladder cancer Compression fracture of T12 vertebra (Acute) Compression fracture of T12 vertebra (Acute 08/26/14) Kidney stone Osteoporosis (Chronic) Pelvis fracture (Acute) Pubic bone pain (Inactive 08/26/14) Smoker Surgical History H/O bilateral hip replacements Family History Other Family history non-contributory Social History Preferred Language: Citizen Of [place] Communication Ability: Effective Egg Producer Required: No Beliefs That Will Affect Care: None marital status: / Current Living Situation: Personal Care Facility Current Living Situation Comment: [facility] Other Information That Helps Us Care for You: No Feels Safe at Home: Yes Safety Concerns: Feels Safe At This Time Smoking Status: Former smoker Tobacco Type: cigarettes ; Do You Dip or Chew Tobacco: No ; Second Hand Exposure: No ; Hx Alcohol Use: No Hx Substance Use: No Review of Systems Review of Systems: Unobtainable due to cognitive status Physical Exam Physical Exam: The patient is awake, and alert, normocephalic and atraumatic, sitting upright in bed and in no acute distress. HEENT--PERRL, EOMI, mucous membranes and oropharynx dry. Neck--supple. No JVD. No bruits. Thyroid normal, trachea midline, no adenopathy. Heart--normal S1 and S2. No murmurs, rubs or gallops. Lungs--clear bilaterally, no respiratory distress, no accessory muscle use. Abdomen--normal bowel sounds and soft. Nontender. Nondistended. Extremities--no cyanosis or clubbing. No edema. There are good distal pulses b/l. Dermatologic--normal skin turgor, normal color, no abnormal lymph nodes, no rash. Neurologic--cranial nerves II through XII grossly intact. Rheumatologic--normal range of motion. Psychiatric--normal affect. Results & Data Results & Data ([facility]) Vital Signs (Past 12 Hours) Vital Signs Temp Pulse Pulse Resp BP BP BP 02/01/20 23:36 69 169/83 H 02/01/20 22:22 98.4 F 69 20 185/88 H 02/01/20 21:49 02/01/20 21:47 02/01/20 21:43 73 17 159/85 H 02/01/20 19:00 70 19 02/01/20 18:30 72 19 02/01/20 18:12 73 18 02/01/20 18:00 147/79 H 02/01/20 17:31 74 20 02/01/20 17:30 70 17 136/77 02/01/20 17:04 67 21 140/74 02/01/20 17:00 71 23 02/01/20 16:43 02/01/20 16:39 98.1 F 77 19 134/80 02/01/20 16:37 74 21 02/01/20 16:30 75 20 134/80 Pulse Ox 02/01/20 23:36 02/01/20 22:22 93 02/01/20 21:49 91 02/01/20 21:47 88 L 02/01/20 21:43 91 02/01/20 19:00 02/01/20 18:30 90 02/01/20 18:12 02/01/20 18:00 02/01/20 17:31 90 02/01/20 17:30 02/01/20 17:04 92 02/01/20 17:00 02/01/20 16:43 90 02/01/20 16:39 90 02/01/20 16:37 91 02/01/20 16:30 90 Laboratory Results Laboratory Results WBC 23.87 K/uL (4.8-10.8) H 02/01/20 17:03 RBC 4.55 M/uL (4.2-5.4) 02/01/20 17:03 Hgb 13.3 g/dL (12.0-16.0) 02/01/20 17:03 Hct 41.2 % (37-47) 02/01/20 17:03 MCV 90.5 fL (80-100) 02/01/20 17:03 MCH 29.2 pg (25-34) 02/01/20 17:03 MCHC 32.3 g/dL (32-36) 02/01/20 17:03 RDW Std Deviation 50.4 fL (36.4-46.3) H 02/01/20 17:03 RDW Coeff of Tiffany 15.1 % (11.5-14.5) H 02/01/20 17:03 Plt Count 428 K/uL (130-400) H 02/01/20 17:03 MPV 11.7 fL (7.4-10.4) H 02/01/20 17:03 Immature Gran % (Auto) 0.4 % 02/01/20 17:03 Neut % (Auto) 88.0 % 02/01/20 17:03 Lymph % (Auto) 4.4 % 02/01/20 17:03 [place] % (Auto) 7.0 % 02/01/20 17:03 Eos % (Auto) 0.2 % 02/01/20 17:03 Baso % (Auto) 0.0 % 02/01/20 17:03 Immature Gran # (Auto) 0.10 K/uL (0.00-0.02) H 02/01/20 17:03 Neut # (Auto) 21.02 K/uL (1.4-6.5) H 02/01/20 17:03 Lymph # (Auto) 1.04 K/uL (1.2-3.4) L 02/01/20 17:03 [place] # (Auto) 1.66 K/uL (0.11-0.59) H 02/01/20 17:03 Eos # (Auto) 0.04 K/uL (0-0.5) 02/01/20 17:03 Baso # (Auto) 0.01 K/uL (0-0.2) 02/01/20 17:03 PT 12.5 Seconds (9.0-12.0) H 02/01/20 17:51 INR 1.2 (0.9-1.1) H 02/01/20 17:51 APTT 29.3 Seconds (21.0-31.0) 02/01/20 17:51 PTT Ratio 1.1 02/01/20 17:51 Sodium 136 mmol/L (136-145) 02/01/20 17:46 Potassium 3.2 mmol/L (3.5-5.1) L 02/01/20 17:46 Chloride 103 mmol/L (98-107) 02/01/20 17:46 Carbon Dioxide 27 mmol/L (21-32) 02/01/20 17:46 Anion Gap 6.0 (3-11) 02/01/20 17:46 BUN 24 mg/dl (7-18) H 02/01/20 17:46 Creatinine 1.35 mg/dl (0.6-1.2) H 02/01/20 17:46 Est Cr Clr Drug Dosing 26.0 ml/min 02/01/20 17:46 Est GFR ( Amer) 42.6 02/01/20 17:46 Est GFR (Non-Af Amer) 36.7 02/01/20 17:46 BUN/Creatinine Ratio 17.7 (10-20) 02/01/20 17:46 Glucose 72 mg/dl (70-99) 02/01/20 17:46 POC Glucose 93 mg/dl (70-99) 02/01/20 16:31 Lactate 1.2 mmol/L (0.4-2.0) 02/01/20 17:03 Calcium 9.4 mg/dl (8.5-10.1) 02/01/20 17:46 Phosphorus 2.7 mg/dl (2.5-4.9) 02/01/20 17:46 Magnesium 1.8 mg/dl (1.8-2.4) 02/01/20 17:46 Total Bilirubin 0.6 mg/dl (0.2-1) 02/01/20 17:46 AST 70 U/L (15-37) H 02/01/20 17:46 ALT 48 U/L (12-78) 02/01/20 17:46 Alkaline Phosphatase 162 U/L (45-117) H 02/01/20 17:46 Troponin I < 0.015 ng/ml (0-0.045) 02/01/20 17:46 Total Protein 7.2 gm/dl (6.4-8.2) 02/01/20 17:46 Albumin 2.6 gm/dl (3.4-5.0) L 02/01/20 17:46 Globulin 4.6 gm/dl (2.5-4.0) H 02/01/20 17:46 Albumin/Globulin Ratio 0.6 (0.9-2) L 02/01/20 17:46 Lipase 1344 U/L (73-393) H 02/01/20 17:46 TSH 3.380 uIu/ml (0.300-4.500) 02/01/20 17:46 Urine Color Dark Yellow 02/01/20 18:25 Urine Appearance Cloudy (Clear) A 02/01/20 18:25 Urine pH 5.0 (4.5-7.5) 02/01/20 18:25 Ur Specific [place] 1.025 (1.000-1.030) 02/01/20 18:25 Urine Protein 2+ (Negative) H 02/01/20 18:25 Urine Glucose (UA) Negative (Negative) 02/01/20 18:25 Urine Ketones Negative (Negative) 02/01/20 18:25 Urine Blood 1+ (Negative) H 02/01/20 18:25 Urine Nitrite Negative (Negative) 02/01/20 18:25 Urine Bilirubin Negative (Negative) 02/01/20 18:25 Urine Urobilinogen Negative (Negative) 02/01/20 18:25 Ur Leukocyte Esterase 2+ (Negative) H 02/01/20 18:25 Urine WBC (Auto) >30 /hpf (0-5) H 02/01/20 18:25 Urine RBC (Auto) 0-4 /hpf (0-4) 02/01/20 18:25 U Hyaline Cast (Auto) 5-10 /lpf (0-5) H 02/01/20 18:25 U Epithel Cells (Auto) >30 /lpf (0-5) H 02/01/20 18:25 Urine Bacteria (Auto) Negative (Negative) 02/01/20 18:25 Granular Casts 1-5 /lpf (0) H 02/01/20 18:25 Urine Yeast Budding w/ Hyphae (None Prsent) A 02/01/20 18:25 Diagnostic Findings [facility], [place] [phone] CT Scan Report Patient: TAMI FOFANA IAdmit Date: 02/01/20 MR#: [id number]: [address], [address] Acct ID:[id number]: [facility] Date: [address] [facility] [id number] Age: 79Location: ED Sex: F Room/Bed: Att Phy:Diagnosis: MENTAL STATUS DECLINE Felicitas Phy: Mathew Jaffe,IncService Date: 02/01/20 Fam Phy:Interpreting Phy: Cameron Henry MD Admit Phy: Ordering Phy: Dedrick Carrion M.D. cc: ~ CT head/brain wo con CT DOSE: 537.48 mGy.cm HISTORY: Mental status change confusion TECHNIQUE: Multiaxial CT images of the head were performed without the use of intravenous contrast. A dose lowering technique was utilized adhering to the principles of ALARA. Comparison: 01/22/2020 Findings: The paranasal sinuses and mastoid air cells are clear. The calvarium and skull base are intact. The ventricles and sulci are within normal limits. There is no mass, hematoma, midline shift, or acute infarct. Old left occipital infarct. Age-related atrophy and chronic small vessel change. Impression: No acute intracranial abnormality. Chronic and age-related change. ACT 112: Negative or not required by law. The above report was generated using voice recognition software. It may contain grammatical, syntax or spelling errors. Electronically signed by: Cameron Henry M.D. 02/01/2020 6:11 PM Dictated: 02/01/201809 Transcribed: 02/01/201809 [place], [place] [phone] XRay Report Patient: TAMI FOFANA IAdmit Date: 02/01/20 MR#: [id number]: [address], [address] Acct ID:[id number]: [facility] PERSONAL ALEKSEY Date: 1940[facility] Zip: [place] [address] Age: 79Location: ED Sex: F Room/Bed: Att Phy:Diagnosis: MENTAL STATUS DECLINE Felicitas Phy: Mathew Jaffe,IncService Date: 02/01/20 Fam Phy:Interpreting Phy: Cameron Henry MD Admit Phy: Ordering Phy: Dedrick Carrion M.D. cc: ~ XR chest 1V portable CLINICAL HISTORY: SEPSIS dyspnea COMPARISON STUDY: 01/24/2020 FINDINGS: Improved exam. Somewhat diminished cardiac size. Decrease in prominence of the pulmonary vasculature. Several old right-sided rib fractures. Degenerative changes left shoulder with evidence for a right shoulder arthroplasty. IMPRESSION: Improved exam with no current findings suggesting congestive f ailure ACT 112: Negative or not required by law. The above report was generated using voice recognition software. It may contain grammatical, syntax or spelling errors. Electronically signed by: Cameron Henry M.D. 02/01/2020 5:20 PM Dictated: 02/01/201718 Transcribed: 02/01/201718 [place], [place] [phone] CT Scan Report Patient: TAMI FOFANA IAdmit Date: 02/01/20 MR#: [id number]: [address], [address] Acct ID:[id number]: [facility] Date: 1940City Zip: [place] [address] Age: 79Location: ED Sex: F Room/Bed: Att Phy:Diagnosis: MENTAL STATUS DECLINE Felicitas Phy: [facility],Personal Care,IncService Date: 02/01/20 Fam Phy:Interpreting Phy: Cameron Henry MD Admit Phy: Ordering Phy: Lei Pinto M.D. cc: ~ CT abd pelvis wo con CT DOSE: 409.10 mGy.cm HISTORY: Abnormal liver function tests leukocytosis, abnormal LFT's TECHNIQUE: Multiaxial CT images of the abdomen and pelvis were performed without contrast. A dose lowering technique was utilized adhering to the principles of ALARA. COMPARISON STUDY: None. FINDINGS: Bibasilar parenchymal infiltrates combined with a trace amount of bibasilar pleural fluid. Several small hepatic cysts. Partial staghorn calculus of the right kidney measuring up to 2 cm. This is is within a nondistended right renal pelvis. Several 2 or 3 mm calcifications lower aspect right kidney. Left kidney demonstrates a 3 mm calcification is mid aspect. There is moderate edematous change as well as peripancreatic infiltrative change at the level of the pancreatic tail and inferior to the spleen. No evidence for pseudocyst abscess or collection is appreciated. Nonobstructive bowel pattern overall. 3 cm aneurysm mid abdominal aorta with no evidence for periaortic fluid. Bilateral total hip arthroplasties obscuring detail in the low soft tissue pelvis. IMPRESSION: 1. Findings consistent with pancreatitis in the region of the pancreatic tail. 2. Moderate peripancreatic infiltrative change. 3. No evidence for abscess collection or obstruction. 4. Bilateral renal nephrocalcinosis with a 2 cm calcification within a n ondistended right renal pelvis. 5. Bibasilar parenchymal infiltrates combined with a trace amount of bilateral pleural fluid. ACT 112: Negative or not required by law. The above report was generated using voice recognition software. It may contain grammatical, syntax or spelling errors. Electronically signed by: Cameron Henry M.D. 02/01/2020 9:11 PM Dictated: 02/01/202107 Transcribed: 02/01/202107 Code Status & VTE Plan Code Status DNR/DNI VTE Prophylaxis Plan VTE Prophylaxis will be ordered: Yes PG Care Time/CCT Total # of Minutes Spent Total Time Spent with Patient: Total time spent is greater than 50% in coordination of care (as documented) at patient's floor/unit and/or counseling patient: Coding Level of Care Code 81702 Initial Inpt Care Lvl 3 Diagnoses Pancreatitis, acute K85.90 Pneumonia J18.9 Laterality: unspecified laterality Lung location: unspecified part of lung Pneumonia type: due to unspecified organism Neutrophilic leukocytosis D72.9 Acute kidney injury superimposed on chronic kidney disease N17.9; N18.9 AMS (altered mental status) R41.82 Altered mental status type: unspecified SDAT (senile dementia of Alzheimer's type) G30.1; F02.80 Paroxysmal atrial fibrillation I48.0 Hypertension I10 Hypothyroidism E03.9 (1) Pneumonia Laterality: unspecified laterality Lung location: unspecified part of lung Pneumonia type: due to unspecified organism Qualified Code(s): J18.9 - Pneumonia, unspecified organism (2) AMS (altered mental status) Altered mental status type: unspecified Qualified Code(s): R41.82 - Altered mental status, unspecified
[2020-02-02 06:14] LABS: Basophils # (auto) 0.02 K/uL (0-0.2); Basophils % (auto) 0.1 %; Eosinophils # (auto) 0.06 K/uL (0-0.5); Eosinophils % (auto) 0.3 %; Hemoglobin 12.2 g/dL (12.0-16.0); Immature Granulocytes # (auto) 0.09 K/uL (0.00-0.02); Immature Granulocytes % (auto) 0.4 %; Lymphocytes # (auto) 1.15 K/uL (1.2-3.4); Lymphocytes % (auto) 5.6 %; Mean Corpuscular Hemoglobin 29.2 pg (25-34); Mean Corpuscular Hgb Conc 32.1 g/dL (32-36); Mean Corpuscular Volume 90.9 fL (80-100); Mean Platelet Volume 12.3 fL (7.4-10.4); Monocytes # (auto) 1.61 K/uL (0.11-0.59); Monocytes % (auto) 7.9 %; Neutrophils # (auto) 17.45 K/uL (1.4-6.5); Neutrophils % (auto) 85.7 %; Platelet Count 358 K/uL (130-400); RDW Coefficient of Variation 15.1 % (11.5-14.5); RDW Standard Deviation 50.3 fL (36.4-46.3); Red Blood Count 4.18 M/uL (4.2-5.4); White Blood Count 20.38 K/uL (4.8-10.8)
[2020-02-02] MEDS: LEVOTHYROXINE SODIUM 112 MCG TABLET PO SCH (06:29)
[2020-02-02 06:51] LABS: Albumin Globulin Ratio 0.5 (0.9-2); Albumin Level 2.3 gm/dl (3.4-5.0); BUN Creatinine Ratio 17.9 (10-20); Bilirubin,Total 0.5 mg/dl (0.2-1); Calcium 9.2 mg/dl (8.5-10.1); Creatinine Clr Calc Pharmacy 32.7 ml/min; Est GFR (African American) 56.4; Est GFR (Non-African American) 48.6; Globulin 4.2 gm/dl (2.5-4.0); Total Protein 6.5 gm/dl (6.4-8.2)
[2020-02-02 07:24] LABS: Potassium 3.5 mmol/L (3.5-5.1)
[2020-02-02 07:29] LABS: Magnesium 1.8 mg/dl (1.8-2.4)
[2020-02-02] MEDS: NSS + 20MEQ KCL 20 MEQ/1,000 ML BAG IV SCH ×2 (08:01→22:17)
[2020-02-02] MEDS: HEPARIN SOD 5,000 UNIT/0.5 ML VIAL SQ SCH ×2 (08:01→21:06)
[2020-02-02] MEDS: AMIODARONE 200 MG TAB PO SCH (08:01)
--- NOTE | 2020-02-02 12:39 | Electrocardiogram Report ---
Test Reason : Blood Pressure : / mmHG Vent. Rate : 074 BPM Atrial Rate : 074 BPM P-R Int : 156 ms QRS Dur : 088 ms QT Int : 592 ms P-R-T Axes : 050 047 062 degrees QTc Int : 657 ms Normal sinus rhythm Anterior infarct , age undetermined Prolonged QT Abnormal ECG When compared with ECG of 25-JAN-2020 06:42, ST no longer elevated in Anterior leads T wave inversion now evident in Anterior leads QT has lengthened Confirmed by Memo Herrera ([id number]) on 02/02/2020 12:39:10 PM Referred By: REFERRED SELF Confirmed By:Memo Herrera
--- NOTE | 2020-02-02 13:06 | Family Medicine Progress Note ---
Date of Service February 02, 2020 Assessment & Plan (1) Pancreatitis, acute: 79 y/o female h/o atrial fibrillation, Alzheimer's, HTN, HLD, hypothyroidism p/w acute pancreatitis, bilateral pneumonia, [place] Pancreatitis, acute - unknown etiology, considering pharmaceutical (amiodarone) v. HLD v. other cause. lipase improving. Continue full liquids and IVF. Trend CBC, BMP, lipase. D/C ibuprofen. Pneumonia, facility patient - continue vancomycin, zosyn. Speech/swallow assessment. CKD III - avoid nephrotoxic medications. Cr improved to 1.07 today (baseline range) Delirium in the setting of Alzheimer's dementia - baseline per family. Fall precautions. Paroxysmal atrial fibrillation - not on anticoagulation presently. Continue metoprolol and amiodarone. Holding ASA. HTN - holding amlodipine, monitor pressure. Hypothyroidism - continue levothyroxine. Present on Admission?: Yes (2) Pneumonia: Present on Admission?: Yes (3) SDAT (senile dementia of Alzheimer's type): Present on Admission?: Yes (4) Delirium: Present on Admission?: Yes (5) Hypertension: Present on Admission?: Yes (6) Anemia: Admission and Anticipated Discharge Date Admission Date: February 01, 2020 Subjective Pt seen and examined at bedside. Confused "I'm here because of a in the family. I don't know where I am" but reorientable. Answered basic questions appropriately. Reports no abd pain, n/v/d/c, LEIVA, lightheadedness, SOB. Called and discussed w/ daughter Francy (per contacts) - this is roughly her baseline since following femur surgery in October and transition to [facility] care. She was somewhat improved with stability but does have considerable confusion in the hospital setting. No new medications aside from amlodipine. Has been off statin therapy for HLD for > 1 year. Has been on amiodarone for > 1 year. Does not drink alcohol or use substances. +ve smoking history, quit in October with femur fx recovery. Review of Systems Review of Systems: All systems reviewed & are unremarkable except as noted in HPI & below Physical Exam Constitutional: WD/WN, vitals as above Respiratory: normal respiratory effort; no respiratory distress Auscultation: + diminished lung sounds and + rales (bilateral bases. difficult exam) Cardiovascular: RRR, no murmur, no edema Heart Sounds: normal S1 and normal S2 Gastrointestinal (Abdomen): normal bowel sounds, soft, nontender, no hepatosplenomegaly Results & Data ([facility]) Vital Signs (Past 12 Hours) Vital Signs Temp Pulse Resp BP Pulse Ox 02/02/20 08:09 153/79 H 02/02/20 07:29 36.6 C 74 18 190/87 H 93 (1) Pancreatitis, acute Pancreatitis type: unspecified pancreatitis type Acute pancreatitis complication: no infection or necrosis Qualified Code(s): K85.90 - Acute pancreatitis without necrosis or infection, unspecified (2) Pneumonia Laterality: unspecified laterality Lung location: unspecified part of lung Pneumonia type: due to unspecified organism Qualified Code(s): J18.9 - Pneumonia, unspecified organism (3) Hypertension Hypertension type: essential hypertension Qualified Code(s): I10 - Essential (primary) hypertension (4) Anemia Anemia type: iron deficiency
[2020-02-02] MEDS: ERTAPENEM SODIUM 1,000 MG in SODIUM CHLORIDE 0.9% 50 ML IV SCH (17:51)
[2020-02-02] MEDS: SERTRALINE HCL 50 MG TABLET PO SCH (21:05)
[2020-02-02] MEDS: FLUCONAZOLE 100 MG/50 ML BAG IV SCH (21:48)
[2020-02-02] MEDS: VANCOMYCIN HCL 750 MG in SODIUM CHLORIDE 0.9% 250 ML IV SCH (22:17)
[2020-02-03] MEDS: NSS + 20MEQ KCL 20 MEQ/1,000 ML BAG IV SCH ×2 (06:17→16:36)
[2020-02-03] MEDS: LEVOTHYROXINE SODIUM 112 MCG TABLET PO SCH (06:17)
[2020-02-03 06:21] LABS: Basophils # (auto) 0.01 K/uL (0-0.2); Basophils % (auto) 0.1 %; Eosinophils % (auto) 0.6 %; Hematocrit (blood only) 36.4 % (37-47); Hemoglobin 11.6 g/dL (12.0-16.0); Immature Granulocytes # (auto) 0.07 K/uL (0.00-0.02); Immature Granulocytes % (auto) 0.4 %; Mean Corpuscular Hemoglobin 29.1 pg (25-34); Mean Corpuscular Hgb Conc 31.9 g/dL (32-36); Mean Corpuscular Volume 91.5 fL (80-100); Mean Platelet Volume 12.1 fL (7.4-10.4); Monocytes # (auto) 1.39 K/uL (0.11-0.59); Monocytes % (auto) 8.3 %; Neutrophils # (auto) 14.19 K/uL (1.4-6.5); Neutrophils % (auto) 84.6 %; Platelet Count 385 K/uL (130-400); RDW Coefficient of Variation 15.1 % (11.5-14.5); RDW Standard Deviation 50.8 fL (36.4-46.3); Red Blood Count 3.98 M/uL (4.2-5.4); White Blood Count 16.76 K/uL (4.8-10.8)
[2020-02-03 06:47] LABS: Albumin Level 2.1 gm/dl (3.4-5.0); BUN Creatinine Ratio 14.5 (10-20); Creatinine Clr Calc Pharmacy 39.4 ml/min; Est GFR (African American) 70.4; Est GFR (Non-African American) 60.8; Magnesium 1.7 mg/dl (1.8-2.4); Potassium 3.6 mmol/L (3.5-5.1)
[2020-02-03 06:51] LABS: Albumin Globulin Ratio 0.5 (0.9-2); Bilirubin,Total 0.5 mg/dl (0.2-1); Total Protein 6.1 gm/dl (6.4-8.2)
[2020-02-03] MEDS: AMIODARONE 200 MG TAB PO SCH (08:11)
[2020-02-03] MEDS: HEPARIN SOD 5,000 UNIT/0.5 ML VIAL SQ SCH ×2 (08:11→21:15)
--- NOTE | 2020-02-03 09:24 | Pharmacy Report ---
Pharmacy Abx Initial Consult - Date of Service February 03, 2020 - Pharmacy Dosing Scope Date of Consult: 02/01/20 Consultation requested by: Dr. Pinto Pharmacy is consulted to initiate vancomycin IV dosing therapy, order appropriate labs and adjust drug dose/frequency. - Subjective The patient is a 79 year old F admitted on 02/01/20 21:39. - Objective Height: 5 ft 3 in Weight: 50.3 kg Vital Signs (Past 12hrs): Vital Signs Temp Pulse Resp BP BP Pulse Ox 02/03/20 07:41 36.5 C 69 18 179/89 H 93 02/03/20 00:08 36.9 C 67 20 177/89 H 95 02/02/20 23:59 175/86 H Lab Results (24hrs): Laboratory Tests (24 Hours) 02/03/20 02/03/20 05:43 05:43 WBC 16.76 H Neut # (Auto) 14.19 H Creatinine 0.89 Est Cr Clr Drug Dosing 39.4 Micro Results: 02/01/20 18:25 Urine Culture - Final Urine,Straight Cath Duyen albicans - Risk Factors for Resistance * Resident in a senior care or extended-care facility * Hospitalization for 48 hours or more within the past 90 days - Assessment & Plan Assessment * 79 year old F who presented to [facility] on 01/31 for confusion/weakness * WBC 23.87, SCr 1.35 upon admission (baseline noted to be 1.05-1.20). Urinalysis positive for yeast. * CT suggestive of pna and pancreatitis * Currently receiving VANCOMYCIN + ERTAPENEM + FLUCONAZOLE * Of note, patient was recently admitted to [facility] from 01/21-01/29 for E. coli UTI and pneumonia, treated with Zosyn IV x 7 days Plan Vancomycin IV * Estimated PK Parameters: Vd 0.7 L/kg, Vadim 0.032 hr-1, t1/2 ~22 hr * Loading dose: 1250 mg (24.9 mg/kg) * Maintenance dose: 750 mg IV (14.9 mg/kg) every 24 hours * Goal trough level: 15 to 20 mcg/mL * Trough level ordered for 02/03 at 2130 (prior to 3rd dose) * Extended dosing interval has been selected due to likelihood of drug accumulation patient with h/o CKD. Ertapenem: * 1g IV Q24H * Pharmacy is not consulted but dose is appropriate for indication and CrCl > 30 ml/min Fluconazole: * 100mg IV Q24 * Not a pharmacy consult but dose is appropriate for indication and CrCl 50 ml/min or less Pharmacy will continue to follow and will adjust dose/frequency as necessary. Thank you.
--- NOTE | 2020-02-03 15:04 | Family Medicine Progress Note ---
Date of Service February 03, 2020 Assessment & Plan (1) Pancreatitis, acute: 79 y/o female h/o atrial fibrillation, Alzheimer's, HTN, HLD, hypothyroidism p/w acute pancreatitis, bilateral pneumonia, ANTONIETTA Pancreatitis, acute - unknown etiology, considering pharmaceutical (amiodarone) v. other cause. lipase bump today. Continue full liquids and IVF. Trend CBC, BMP, lipase. Gastroenterology consultation placed, nonurgent. If still stable/elevating, consider alternative causes including amiodarone which may necessitate cardiology consultation for alternatives. Pneumonia, facility patient - continue vancomycin, zosyn. BCx pending 48 hrs tomorrow. Speech/swallow assessment pending. CKD III - avoid nephrotoxic medications. Cr improved 0.87 (baseline range) Delirium in the setting of Alzheimer's dementia - baseline per family. Fall precautions. Paroxysmal atrial fibrillation - not on anticoagulation presently. Continue metoprolol and amiodarone. Holding ASA. HTN - holding amlodipine, monitor pressure. Hypothyroidism - continue levothyroxine. Admission and Anticipated Discharge Date Admission Date: February 01, 2020 Subjective History unobtainable - patient not providing appropriate answers to complicated questions. Review of Systems Review of Systems: Unobtainable due to cognitive status Physical Exam Constitutional: WD/WN, vitals as above no acute distress Respiratory: normal respiratory effort, lungs clear to auscultation Cardiovascular: RRR, no murmur, no edema Heart Sounds: normal S1 and normal S2 Gastrointestinal (Abdomen): normal bowel sounds, soft, nontender, no hepatosplenomegaly Results & Data ([facility]) Vital Signs (Past 12 Hours) Vital Signs Temp Pulse Resp BP Pulse Ox 02/03/20 07:41 36.5 C 69 18 179/89 H 93 (1) Pancreatitis, acute Pancreatitis type: unspecified pancreatitis type Acute pancreatitis complication: no infection or necrosis Qualified Code(s): K85.90 - Acute pancreatitis without necrosis or infection, unspecified
[2020-02-03] MEDS: ERTAPENEM SODIUM 1,000 MG in SODIUM CHLORIDE 0.9% 50 ML IV SCH (18:06)
[2020-02-03] MEDS: FLUCONAZOLE 100 MG/50 ML BAG IV SCH (21:12)
[2020-02-03] MEDS: AMLODIPINE BESYLATE 5 MG TAB PO SCH (21:14)
[2020-02-03] MEDS: SERTRALINE HCL 50 MG TABLET PO SCH (21:19)
[2020-02-03] MEDS: VANCOMYCIN HCL 750 MG in SODIUM CHLORIDE 0.9% 250 ML IV SCH (22:00)
[2020-02-04] MEDS: NSS + 20MEQ KCL 20 MEQ/1,000 ML BAG IV SCH (02:45)
[2020-02-04] MEDS: LEVOTHYROXINE SODIUM 112 MCG TABLET PO SCH (06:06)
[2020-02-04 06:10] LABS: Basophils # (auto) 0.01 K/uL (0-0.2); Basophils % (auto) 0.1 %; Eosinophils # (auto) 0.09 K/uL (0-0.5); Eosinophils % (auto) 0.6 %; Hematocrit (blood only) 37.3 % (37-47); Hemoglobin 11.8 g/dL (12.0-16.0); Immature Granulocytes # (auto) 0.07 K/uL (0.00-0.02); Immature Granulocytes % (auto) 0.4 %; Lymphocytes # (auto) 1.09 K/uL (1.2-3.4); Mean Corpuscular Hemoglobin 28.6 pg (25-34); Mean Corpuscular Hgb Conc 31.6 g/dL (32-36); Mean Corpuscular Volume 90.5 fL (80-100); Mean Platelet Volume 11.9 fL (7.4-10.4); Monocytes # (auto) 1.27 K/uL (0.11-0.59); Monocytes % (auto) 8.1 %; Neutrophils # (auto) 13.07 K/uL (1.4-6.5); Neutrophils % (auto) 83.8 %; Platelet Count 428 K/uL (130-400); RDW Coefficient of Variation 15.1 % (11.5-14.5); RDW Standard Deviation 49.7 fL (36.4-46.3); Red Blood Count 4.12 M/uL (4.2-5.4)
[2020-02-04 06:43] LABS: Albumin Level 2.2 gm/dl (3.4-5.0); BUN Creatinine Ratio 9.7 (10-20); Calcium 8.7 mg/dl (8.5-10.1); Creatinine Clr Calc Pharmacy 41.7 ml/min; Est GFR (African American) 75.5; Est GFR (Non-African American) 65.2; Magnesium 1.5 mg/dl (1.8-2.4); Potassium 3.7 mmol/L (3.5-5.1)
[2020-02-04 06:46] LABS: Albumin Globulin Ratio 0.5 (0.9-2); Bilirubin,Total 0.6 mg/dl (0.2-1); Globulin 4.1 gm/dl (2.5-4.0); Total Protein 6.3 gm/dl (6.4-8.2)
[2020-02-04] MEDS: AMLODIPINE BESYLATE 5 MG TAB PO SCH (08:12)
[2020-02-04] MEDS: AMIODARONE 200 MG TAB PO SCH (08:13)
--- NOTE | 2020-02-04 09:06 | Gastrointestinal Consultation ---
Date of Consultation February 04, 2020 Assessment & Plan (1) Pancreatitis, acute: Pt is a 79 y/o female presenting w symptoms of increasing weakness and confusion; on eval noted to have leukocytosis, mildly elevated LFTs and elevated Lipase, CT w/o contrast showed signs of pancreatitis in tail region. Hx of cholelithiasis noted on previous CT scan in 2018, TG normal, she is on Amiodarone (Class Ib drug to possibly induce pancreatitis). - Conservative management at this time w IVF support (will change KCl to LR), symptomatic management with antiemetics and analgesics prn, advance diet as tolerated - Will consider EUS eval in 8 week's time to r/o pancreatic cysts/masses, check for biliary microlithiasis if pt/family willing. - Obtain IgG4 to r/o possible autoimmune pancreatitis - Obtain stool cx and Cdiff given diarrhea and her being on multiple antibx. Given blood cx negative, consider DC Ertapenem (will defer to hospitalist) - Following along peripherally, pls call if any new questions/concerns arise. Supervising Physician Co-Signing Physician Notes I have seen and examined the patient and discussed the management with GAURANG Stewart. 79 yo fm with a history of dementia, admitted Tuesday for weakness and confusion, recent pna and also recent UTI. She is only oriented to person, not time for me this morning, perrla, soft nt nd +bs Labs reviewed - AST/Alk phos elevation, normal tb, CT A/P without contrast reviewed Possible drug induced pancreatitis- continue IV LR as above. She is not voicing abdominal pain to me. Agree with further plan of care as above. History of Present Illness Reason for Consultation: Pancreatitis Requesting Physician: Dr. Shawn Alicea Attending Physician: Dr. Eliana Glasgow History of Present Illness Pt is a 79 yo female resident of [facility] who was brought to ED 3 days ago for increasing weakness and confusion. Hx of ESBL UTI on contact precautions, pneumonia, anemia, renal insufficiency, OP, HTN, hypothyroidism, Afib, compression fractures, delirium. Initial workup showed elevated WBC 23K, afebrile. BUN/Cr 24/1.3. LFTs showed AST and alk phose elevation. Lipase >1000s. CT abd/pelvis w/o contrast showed peripancreatic infiltrative changes and pancreatitis in tail region w/o abscess or fluid collection. CT in 2018 reviewed, signs of layering cholelithiasis noted. She was admitted for pancreatitis. She is currently on Ertapenem, blood cx negative; Diflucan for live in urine, Vancomycin for hx of recent pneumonia. TG 100s, it was suspected perhaps she has drug induced pancreatitis, ? amiodarone. She is observed sitting up in room, awake, but confused only oriented to self. She denies any abd pain, RN reports pt taking small bites of [place] diet, w/o signs of nausea, vomiting. Pt is having loose mucoid stools however w/o signs of melena or rectal bleeding. Allergies Allergy/AdvReac Type Severity Reaction Status Date / Time No Known Allergies Allergy Verified 02/01/20 17:40 Home Medications Home Medications Medication Instructions Recorded Confirmed Type cholecalciferol (vitamin D3) 5,000 units PO QAM 08/29/18 02/01/20 History [Vitamin D3] amiodarone 200 mg tablet 200 mg PO QAM #90 tab 07/20/19 02/01/20 Rx gauze bandage 4" X 4" #100 ea 11/09/19 11/09/19 Rx acetaminophen 500 mg capsule 500 mg PO DAILY PRN cap 12/25/19 02/01/20 History aspirin 325 mg tablet 325 mg PO QAM 12/25/19 02/01/20 History calcium carbonate 500 mg (1,250 1 tab PO QAM 12/25/19 02/01/20 History mg)-vitamin D3 200 unit tablet levothyroxine 112 mcg capsule 112 mcg PO QAM 12/25/19 02/01/20 History lorazepam 0.5 mg tablet 0.5 mg PO Q8H PRN 12/25/19 02/01/20 History melatonin 3 mg capsule 3 mg PO HS 12/25/19 02/01/20 History metoprolol succinate 25 mg PO QAM 01/17/20 02/01/20 History polyethylene glycol 3350 [Miralax] 17 gm PO DAILY PRN 01/17/20 02/01/20 History sertraline 50 mg PO HS 01/17/20 02/01/20 History amlodipine [Norvasc] 5 mg PO QAM 02/01/20 02/01/20 History diclofenac sodium 2 g TOPICAL QID PRN 02/01/20 02/01/20 History ibuprofen 200 mg PO Q4H PRN MDD 6 TABS/24 02/01/20 02/01/20 History HOURS. Patient History Medical History Anemia Bladder cancer Compression fracture of T12 vertebra (Acute) Compression fracture of T12 vertebra (Acute 08/26/14) Kidney stone Osteoporosis (Chronic) Pelvis fracture (Acute) Pubic bone pain (Inactive 08/26/14) Smoker Surgical History H/O bilateral hip replacements Family History Other Family history non-contributory Social History Preferred Language: Slovenian Communication Ability: Impaired Brand Leader Required: No Beliefs That Will Affect Care: None marital status: Current Living Situation: Personal Care Facility Current Living Situation Comment: [facility] Other Information That Helps Us Care for You: No Feels Safe at Home: Yes Safety Concerns: Feels Safe At This Time Smoking Status: Former smoker Tobacco Type: cigarettes ; Do You Dip or Chew Tobacco: No ; Second Hand Exposure: No ; Hx Alcohol Use: No Hx Substance Use: No Review of Systems Review of Systems: Other (Limited obtainable, see HPI; pt confused oriented to self only ) Physical Exam Constitutional: WD/WN, vitals as above well groomed, cooperative and comfortable Eyes: PERRL, conjunctivae normal, anicteric sclerae ENMT: external ear and nose normal, oropharynx normal Respiratory: normal respiratory effort, lungs clear to auscultation Cardiovascular: RRR, no murmur, no edema Gastrointestinal (Abdomen): normal bowel sounds, soft, nontender, no hepatosplenomegaly Skin: no rashes, warm and dry no jaundice Psychiatric: Orientation: alert, oriented to person and cooperative Lymphatic: no lymphedema Results & Data ([facility]) Vital Signs (Past 12 Hours) Vital Signs Temp Pulse Resp BP BP Pulse Ox 02/04/20 07:49 36.5 C 70 18 168/85 H 90 02/03/20 22:40 36.4 C L 70 17 171/89 H 92 (1) Pancreatitis, acute Acute pancreatitis complication: no infection or necrosis Pancreatitis type: unspecified pancreatitis type Qualified Code(s): K85.90 - Acute pancreatitis without necrosis or infection, unspecified
[2020-02-04] MEDS: LACTATED RINGER'S 1,000 ML IV SCH ×2 (09:55→21:37)
[2020-02-04] MEDS: HEPARIN SOD 5,000 UNIT/0.5 ML VIAL SQ SCH ×2 (09:55→21:02)
--- NOTE | 2020-02-04 14:41 | Hospitalist Progress Note ---
Date of Service February 04, 2020 Assessment & Plan (1) Pancreatitis, acute: 79 y/o female h/o atrial fibrillation, Alzheimer's, HTN, HLD, hypothyroidism p/w acute pancreatitis, bilateral pneumonia, ANTONIETTA Pancreatitis, acute - unknown etiology, considering pharmaceutical (amiodarone) v. other cause. appreciate GI input. continue fluids/supportive care. seems minimally symptomatic at worst. advance diet diarrhea - agree w recheck Cdiff. if not Cdiff likely still related to abx question yeast UTI - seems unlikley but will reduce antimicrobials stepwise. stopped vanco today - if ongoing improvement then likely diflucan tomorrow Pneumonia - -on ertapenem. does not appear severely ill - can d/c vanco and follow. unclear if this represents true pneumonia vs mild aspiration vs other - but will scale back antimicrobials in stepwise fashion CKD III - avoid nephrotoxic medications. Cr improved 0.87 (baseline range) Delirium in the setting of Alzheimer's dementia - previously descrbied as baseline per family. Fall precautions. Paroxysmal atrial fibrillation - not on anticoagulation presently. Continue metoprolol and amiodarone (for now, but may need to hold as it relates to pancreatitis). Holding ASA. HTN - home meds, follow Hypothyroidism - continue levothyroxine. DVT proph - heparin SQ Admission and Anticipated Discharge Date Admission Date: February 01, 2020 Subjective discussed with nursing - some diarrhea today (gi ordered repeat Cdiff testing) but otherwise doing OK - no respiratory distress, no trouble eating, did ok w speech. pt herself is folding a blanket when i enter, notes "i'm getting ready for chuch" - disoriented but denies all complaints - no f/c/s. no cp/sob. no abdominal pain. refuses to allow physical exam - information gleaned as best as possible. Review of Systems Review of Systems: Unobtainable due to cognitive status Physical Exam Physical Exam: gen - sitting in chair folding blanket, nad. heent nc at mmm cardio reg rate. lungs show breathing to be unlabored no accessory muscles good effort. skin no rashes no pallor or icterus. cn 2-12 grossly intact, gross motor/sensory intact as well. Results & Data Results & Data ([facility]) Vital Signs (Past 12 Hours) Vital Signs Temp Pulse Resp BP Pulse Ox 02/04/20 07:49 97.7 F 70 18 168/85 H 90 PG Care Time/CCT Total # of Minutes Spent Total Time Spent with Patient: Total time spent is greater than 50% in coordination of care (as documented) at patient's floor/unit and/or counseling patient: Coding Level of Care Code 71162 Subseq Hosp Care Lvl 3 Diagnoses Pancreatitis, acute K85.90 Pancreatitis type: unspecified pancreatitis type Acute pancreatitis complication: no infection or necrosis (1) Pancreatitis, acute Pancreatitis type: unspecified pancreatitis type Acute pancreatitis complication: no infection or necrosis Qualified Code(s): K85.90 - Acute pancreatitis without necrosis or infection, unspecified
[2020-02-04] MEDS: ERTAPENEM SODIUM 1,000 MG in SODIUM CHLORIDE 0.9% 50 ML IV SCH (18:55)
[2020-02-04] MEDS: FLUCONAZOLE 100 MG/50 ML BAG IV SCH (21:01)
[2020-02-04] MEDS: SERTRALINE HCL 50 MG TABLET PO SCH (21:02)
[2020-02-04] MEDS: MAGNESIUM OXIDE 400 MG TAB PO SCH (21:05)
[2020-02-04] MEDS ORDERED: VANCOMYCIN TROUGH ONE (21:30)
[2020-02-05] MEDS: LEVOTHYROXINE SODIUM 112 MCG TABLET PO SCH (05:56)
[2020-02-05] MEDS: LACTATED RINGER'S 1,000 ML IV SCH ×2 (05:58→15:20)
[2020-02-05] MEDS: AMIODARONE 200 MG TAB PO SCH (08:11)
[2020-02-05] MEDS: METOPROLOL SUCC 25MG EXT REL TAB PO SCH (08:11)
[2020-02-05] MEDS: AMLODIPINE BESYLATE 5 MG TAB PO SCH (08:11)
[2020-02-05] MEDS: HEPARIN SOD 5,000 UNIT/0.5 ML VIAL SQ SCH ×2 (08:11→20:50)
[2020-02-05] MEDS: MAGNESIUM OXIDE 400 MG TAB PO SCH ×2 (08:11→20:50)
--- NOTE | 2020-02-05 09:07 | Communication Note ---
Date of Service: February 05, 2020 GI note: Pt admitted with pancreatitis ? drug induced (Amiodarone). I did not personally examine pt today. However I spoke w pt's RN and hospitalist. Pt doing well, denies abd pain, n/v. Is no longer having diarrhea. Plans: - Conservative management at this time w IVF support, symptomatic management with antiemetics and analgesics prn, advance diet as tolerated. If drinking fluids well, may DC IVF - Will consider EUS eval in 8 week's time to r/o pancreatic cysts/masses, check for biliary microlithiasis if pt/family willing. - F/u IgG4 to r/o possible autoimmune pancreatitis - Pls call if any new questions/concerns arise. I agree with Caitlin's documentation above - Eliana Glasgow
--- NOTE | 2020-02-05 16:04 | Hospitalist Progress Note ---
Date of Service February 05, 2020 Assessment & Plan (1) Pancreatitis, acute: 79 y/o female h/o atrial fibrillation, Alzheimer's, HTN, HLD, hypothyroidism p/w acute pancreatitis, bilateral pneumonia, ANTONIETTA Pancreatitis, acute - unknown etiology, considering pharmaceutical (amiodarone) v. other cause. appreciate GI input. doing well. stable for outpt f/u in this regard diarrhea - agree w recheck Cdiff. has yet to be collected, which is reassuring. question yeast UTI - seems unlikely - hold vanco and follow. Pneumonia - -on ertapenem. does not appear severely ill - will reduce to augmentin to finish out short course of abx. CKD III - avoid nephrotoxic medications. Cr improved 0.87 (baseline range) Delirium in the setting of Alzheimer's dementia - previously described as baseline per family. Fall precautions. Paroxysmal atrial fibrillation - not on anticoagulation presently. Continue metoprolol and amiodarone (for now, but may need to hold as it relates to pancreatitis). Holding ASA. HTN - home meds, follow Hypothyroidism - continue levothyroxine. DVT proph - heparin SQ dispo - awaiting rehab / snf placement as right now she is too weak to return to [facility] Admission and Anticipated Discharge Date Admission Date: February 01, 2020 Subjective no complaints today. no abdominal pain. no chest pain no shortness of breath. no f/c/s. eating Ok. overall notes that she feels well. unfortunately too weak right now to return to [facility]. case management working w family on placement/rehab options Results & Data Results & Data ([facility]) Vital Signs (Past 12 Hours) Vital Signs Temp Pulse Resp BP Pulse Ox 02/05/20 07:30 97.3 F L 71 18 174/85 H 90 PG Care Time/CCT Total # of Minutes Spent Total Time Spent with Patient: Total time spent is greater than 50% in coordination of care (as documented) at patient's floor/unit and/or counseling patient: Coding Level of Care Code 78954 Subseq Hosp Care Lvl 3 Diagnoses Pancreatitis, acute K85.90 Pancreatitis type: unspecified pancreatitis type Acute pancreatitis complication: no infection or necrosis (1) Pancreatitis, acute Pancreatitis type: unspecified pancreatitis type Acute pancreatitis complication: no infection or necrosis Qualified Code(s): K85.90 - Acute pancreatitis without necrosis or infection, unspecified
[2020-02-05] MEDS: AMOXICILLIN/CLAVULANATE 875 MG TAB PO SCH (17:23)
[2020-02-05] MEDS: SERTRALINE HCL 50 MG TABLET PO SCH (20:50)
[2020-02-06] MEDS: LACTATED RINGER'S 1,000 ML IV SCH (01:07)
[2020-02-06] MEDS: LEVOTHYROXINE SODIUM 112 MCG TABLET PO SCH (05:45)
[2020-02-06 07:17] LABS: Basophils # (auto) 0.01 K/uL (0-0.2); Basophils % (auto) 0.1 %; Eosinophils # (auto) 0.14 K/uL (0-0.5); Hematocrit (blood only) 37.6 % (37-47); Hemoglobin 12.2 g/dL (12.0-16.0); Immature Granulocytes # (auto) 0.07 K/uL (0.00-0.02); Immature Granulocytes % (auto) 0.5 %; Lymphocytes # (auto) 1.06 K/uL (1.2-3.4); Lymphocytes % (auto) 7.8 %; Mean Corpuscular Hemoglobin 28.8 pg (25-34); Mean Corpuscular Hgb Conc 32.4 g/dL (32-36); Mean Corpuscular Volume 88.9 fL (80-100); Monocytes # (auto) 1.33 K/uL (0.11-0.59); Monocytes % (auto) 9.8 %; Neutrophils # (auto) 10.91 K/uL (1.4-6.5); Neutrophils % (auto) 80.8 %; Platelet Count 479 K/uL (130-400); RDW Coefficient of Variation 14.7 % (11.5-14.5); RDW Standard Deviation 48.2 fL (36.4-46.3); Red Blood Count 4.23 M/uL (4.2-5.4); White Blood Count 13.52 K/uL (4.8-10.8)
[2020-02-06] MEDS: AMOXICILLIN/CLAVULANATE 875 MG TAB PO SCH ×2 (08:13→17:00)
[2020-02-06] MEDS: METOPROLOL SUCC 25MG EXT REL TAB PO SCH (08:14)
[2020-02-06] MEDS: HEPARIN SOD 5,000 UNIT/0.5 ML VIAL SQ SCH ×2 (08:14→20:43)
[2020-02-06] MEDS: AMIODARONE 200 MG TAB PO SCH (08:14)
[2020-02-06] MEDS: AMLODIPINE BESYLATE 5 MG TAB PO SCH (08:14)
[2020-02-06] MEDS: MAGNESIUM OXIDE 400 MG TAB PO SCH ×2 (08:15→20:43)
[2020-02-06] MEDS ORDERED: LORazepam 1 MG/2 ML VIAL IV PRN (14:08)
--- NOTE | 2020-02-06 14:20 | Communication Note ---
Date of Service: February 06, 2020 full progress note to follow - had been seen this AM doing well no complaints. was awaiting insurance auth regarding rehab. was doing PT this afternoon - PT noted she was participating fine/in normal baseline mentation of pleasant confusion - suddenly lost awareness, both arms shaking tonic/clonic and lost responsiveness. shortly thereafter arms stopped shaking but one leg (?R leg) shook for a little bit longer. initial vitals showing BP ~220/100 SpO2 low 80's on RA - O2 2L now 97%, BP more in the 170's/80's range gen - nonresponsive to verbal or light physical stim. does move/stir just a little wtih sternal rub, vitals as above. heent nc at mmm. breathing unlabored no accessory muscles no tachypnea good effort. abd soft nd. no noted te nderness no guarding no rebound. neuro difficult exam given unresponsiveness but no notable facial droop, no facial asymmetry. b/l UE and LE equal muscle tone no noted flacidity or spasticity. question small amount of clonus on ankle jerk R foot. seizure -quite compelling account by PT, and pt looks c/w postictal state -on chart review i do not see any notable prior seizure hx -does have organic brain disease (dementia) and un-anticoagulated afib as possible reasons for seizure focus, also was markedly hypertensive but i suspect that spike in BP is effect rather than cause. -stat head CT ordered, ativan 1mg prn recurrent seizure ordered -next steps in management will of course hinge on head CT results; also informed neuro and asked for input. -follow closely - will re-evaluate shortly.
--- NOTE | 2020-02-06 14:40 | CT Scan Report ---
CT head/brain wo con CT DOSE: 614.27 mGy.cm HISTORY: seizure, HTN, ?bleed TECHNIQUE: Multiaxial CT images of the head were performed without the use of intravenous contrast. A dose lowering technique was utilized adhering to the principles of ALARA. Comparison: 02/01/2020 Findings: The paranasal sinuses and mastoid air cells are clear. 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 Findings of atrophy and chronic small vessel change also unaltered. Ventricular system is midline. No acute intracranial hemorrhage. No midline shift. Impression: Chronic and pre-existing change. No acute process. No acute intracranial hemorrhage. ACT 112: Negative or not required by law. The above report was generated using voice recognition software. It may contain grammatical, syntax or spelling errors. Electronically signed by: Cameron Henry M.D. 02/06/2020 2:39 PM
[2020-02-06 16:05] LABS: BUN Creatinine Ratio 8.3 (10-20); Calcium 8.6 mg/dl (8.5-10.1); Creatinine Clr Calc Pharmacy 43.8 ml/min; Est GFR (African American) 80.1; Est GFR (Non-African American) 69.1; Potassium 3.4 mmol/L (3.5-5.1)
--- NOTE | 2020-02-06 17:26 | Hospitalist Progress Note ---
Date of Service February 06, 2020 Assessment & Plan (1) Pancreatitis, acute: 79 y/o female h/o atrial fibrillation, Alzheimer's, HTN, HLD, hypothyroidism p/w acute pancreatitis, bilateral pneumonia, ANTONIETTA seizure - CT neg, MRI ordered, neuro input appreciated. start keppra since reasonable recurrence risk (?was this actually the cause of her AMS on presentation? ?could this account for falls?) Pancreatitis, acute - unknown etiology, considering pharmaceutical (amiodarone) v. other cause. appreciate GI input. clinically seems to have resolved. diarrhea -repeat Cdiff negative, likely just abx side effect question yeast UTI - seems unlikely - off diflucan doing well. Pneumonia - -changed to augmentin to finish short course - doing well in this regard CKD III - avoid nephrotoxic medications. Cr improved 0.87 (baseline range) Delirium in the setting of Alzheimer's dementia - previously described as baseline per family. Fall precautions. Paroxysmal atrial fibrillation - not on anticoagulation presently. Continue metoprolol and amiodarone (for now, but may need to hold as it relates to pancreatitis). Holding ASA. HTN - home meds, follow - with no edema on CT highly doubt seizure was BP related Hypothyroidism - continue levothyroxine. DVT proph - heparin SQ dispo - for SNF / rehab emphasis hopes of [facility] but will want to watch for further seizures and ensure she adapts to keppra [place]. Admission and Anticipated Discharge Date Admission Date: February 01, 2020 Subjective see communication note as well as it relates to seizure. otherwise this morning she was feeling ok offered no complaints no cp no sob no f/c/s no abdominal pain and thought that she ate well. Review of Systems Review of Systems: All systems reviewed & are unremarkable except as noted in HPI & below Physical Exam Physical Exam: see exam at time of seizure, this morning she was no distress breathing unlabored no accessory muscles good effort skin no rashes no pallor or icterus Results & Data Results & Data ([facility]) Vital Signs (Past 12 Hours) Vital Signs Temp Pulse Resp BP BP Pulse Ox 02/06/20 15:03 98.2 F 85 20 161/84 H 92 02/06/20 14:00 74 18 178/91 H 96 02/06/20 13:55 70 217/104 H 80 L 02/06/20 07:04 97.5 F L 67 20 165/81 H 92 PG Care Time/CCT Total # of Minutes Spent Total Time Spent with Patient: Total time spent is greater than 50% in coordination of care (as documented) at patient's floor/unit and/or counseling patient: Coding Level of Care Code 68122 Subseq Hosp Care Lvl 3 Diagnoses Pancreatitis, acute K85.90 Pancreatitis type: unspecified pancreatitis type Acute pancreatitis complication: no infection or necrosis (1) Pancreatitis, acute Pancreatitis type: unspecified pancreatitis type Acute pancreatitis com plication: no infection or necrosis Qualified Code(s): K85.90 - Acute pancreatitis without necrosis or infection, unspecified
--- NOTE | 2020-02-06 17:35 | Neurology Consultation ---
Date of Consultation February 06, 2020 Assessment & Plan (1) Pancreatitis, acute: (2) CKD (chronic kidney disease) stage 3, GFR 30-59 ml/min: (3) AMS (altered mental status): (4) Acute UTI: (5) Pneumonia: (6) SDAT (senile dementia of Alzheimer's type): (7) Seizure: Skyla Cantu is an 79 yo woman w/ PMH of Alzheimer's dementia, hypertension, kidney disease, history of bladder cancer, prior tobacco abuse, hypothyroidism, paroxysmal A. fib not on anticoagulation, ambulatory dysfunction and recent ESBL pneumonia and urinary tract infection who represented to [facility] on 02/02/2020 with worsening mental status and diarrhea, found to have new diagnosis of pancreatitis whom neurology is consulted on for new onset seizure this admission. # Seizure: occurred in the setting of recent pneumonia/UTI, pancreatitis, multiple electrolyte abnormalities, known prior strokes and right after discontinuing ertapenem in the setting of CKD/dementia/being elderly. Suspect that event likely was provoked but cannot rule out lower seizure threshold given prior strokes and bad underlying brain parenchyma. - recommend routine EEG to r/o seizure tendency and NCSE - MRI brain without contrast to r/o any new subtle stroke or hemorrhage (would get with GRE or SWI sequence) - recommend starting low dose keppra 500mg bid given higher risk of recurrent seizure in the future - re-check lytes, Mg/Ca/Phos and replete as needed # Dementia: with acute delirium - recommend delirium precautions - would recommend avoiding benzos/opiates/anticholinergics if at all possible (would consider discontinuing home ativan as this can worsen dementia) Thank you for this interesting consult. Plan of care discussed with primary team. Please call or text with questions. History of Present Illness Attending Physician: Shawn lAicea DO History of Present Illness Skyla Cantu is an 79 yo woman w/ PMH of Alzheimer's dementia, hypertension, kidney disease, history of bladder cancer, prior tobacco abuse, hypothyroidism, paroxysmal A. fib not on anticoagulation, ambulatory dysfunction and recent ESBL pneumonia and urinary tract infection who represented to [facility] on 02/02/2020 with worsening mental status and diarrhea, found to have new diagnosis of pancreatitis whom neurology is consulted on for new onset seizure this admission. She has a complex medical history which includes dementia not on any specific medications at this time, paroxysmal A. fib on aspirin at home but currently ho lding in the setting of pancreatitis, recent ESBL UTI/pneumonia on ertapenem until 02/04 when she was transitioned to Augmentin and pancreatitis being followed by GI found to have a pancreatic head lesion. She was having a physical therapy session on the afternoon of 02/06/2020 when she per report suddenly lost consciousness with associated bilateral tonic-clonic shaking of arms and legs. Per report her right leg may have took a little bit longer than her arms. She received 1 mg of Ativan and had a stat CT head which on independent review shows no hemorrhage and a prior right frontal and left occipital stroke, generalized atrophy with moderate small vessel disease (appears stable from prior CT head). Labs around the time of the event were notable for sodium 131, potassium 3.4, gap 6.0, creatinine 0.8, glucose 83, calcium 8.6. B12 and TSH within normal. On examination this afternoon, Skyla woke up to her name and would intermittently answer questions and follow commands. Exam was nonfocal with signs of her baseline dementia apparent. Denied any complaints at the time. Allergies Allergy/AdvReac Type Severity Reaction Status Date / Time No Known Allergies Allergy Verified 02/01/20 17:40 Home Medications Home Medications Medication Instructions Recorded Confirmed Type cholecalciferol (vitamin D3) 5,000 units PO QAM 08/29/18 02/01/20 History [Vitamin D3] amiodarone 200 mg tablet 200 mg PO QAM #90 tab 07/20/19 02/01/20 Rx gauze bandage 4" X 4" #100 ea 11/09/19 11/09/19 Rx acetaminophen 500 mg capsule 500 mg PO DAILY PRN cap 12/25/19 02/01/20 History aspirin 325 mg tablet 325 mg PO QAM 12/25/19 02/01/20 History calcium carbonate 500 mg (1,250 1 tab PO QAM 12/25/19 02/01/20 History mg)-vitamin D3 200 unit tablet levothyroxine 112 mcg capsule 112 mcg PO QAM 12/25/19 02/01/20 History lorazepam 0.5 mg tablet 0.5 mg PO Q8H PRN 12/25/19 02/01/20 History melatonin 3 mg capsule 3 mg PO HS 12/25/19 02/01/20 History metoprolol succinate 25 mg PO QAM 01/17/20 02/01/20 History polyethylene glycol 3350 [Miralax] 17 gm PO DAILY PRN 01/17/20 02/01/20 History sertraline 50 mg PO HS 01/17/20 02/01/20 History amlodipine [Norvasc] 5 mg PO QAM 02/01/20 02/01/20 History diclofenac sodium 2 g TOPICAL QID PRN 02/01/20 02/01/20 History ibuprofen 200 mg PO Q4H PRN MDD 6 TABS/24 02/01/20 02/01/20 History HOURS. Patient History Medical History Anemia Bladder cancer Compression fracture of T12 vertebra (Acute) Compression fracture of T12 vertebra (Acute 08/26/14) Kidney stone Osteoporosis (Chronic) Pelvis fracture (Acute) Pubic bone pain (Inactive 08/26/14) Smoker Surgical History H/O bilateral hip replacements Family History Other Family history non-contributory Social History Preferred Language: Hungarian Communication Ability: Impaired Revenue Coordinator Required: No Beliefs That Will Affect Care: None marital status: Current Living Situation: Personal Care Facility Current Living Situation Comment: [facility] Other Information That Helps Us Care for You: No Feels Safe at Home: Yes Safety Concerns: Feels Safe At This Time Smoking Status: Former smoker Tobacco Type: cigarettes ; Do You Dip or Chew Tobacco: No ; Second Hand Exposure: No ; Hx Alcohol Use: No Hx Substance Use: No Review of Systems Review of Systems: Unobtainable due to cognitive status Physical Exam Physical Exam: General Exam: GEN: NAD, lying in bed. HEENT: No conjunctival injection, no rhinorrhea. CV: irregularly irregular, no peripheral edema PULM: Nonlabored respirations on 2L NC. Neuro Exam: MS: Drowsy but easily arousable. Oriented to person, being in [place], but not to being in a hospital or date. Paucity of speech. Speech fluent and appropriate without dysarthria or paraphasic errors. Unable to name or repeat, intermittent intact comprehension. Cognition and memory grossly abnormal. Inattentive. No neglect. CN: +blink to threat, could not participate in formal visual field testing given cognitive status. Unable to visualize fundi on fundoscopic exam. PERRLA OU. EOMI. Facial sensation intact to LT. Facial muscles full and symmetric. Hearing intact to conversation. Shoulder shrug normal. Tongue midline. MOTOR: Normal bulk and tone. All extremities briefly antigravity with slow drift to bed. Able to wiggle fingers/toes. REFLEXES: Toes upgoing bilaterally. No clonus SENSORY: Intact to LT without extinction to double simultaneous stimuli. Withdraws in all extremities to noxious stimuli. COORDINATION: No dysmetria or ataxia on [id number]. GAIT: deferred given physical status/fall risk Results & Data Vital Signs (Past 12 Hours) Vital Signs Temp Pulse Resp BP BP Pulse Ox 02/06/20 15:03 36.8 C 85 20 161/84 H 92 02/06/20 14:00 74 18 178/91 H 96 02/06/20 13:55 70 217/104 H 80 L 02/06/20 07:04 36.4 C L 67 20 165/81 H 92 PG Care Time/CCT Total # of Minutes Spent Total Time Spent with Patient: Total time spent is greater than 50% in coordination of care (as documented) at patient's floor/unit and/or counseling patient: Coding Level of Care Code 52191 Initial Inpt Care Lvl 3 Diagnoses Pancreatitis, acute K85.90 Pancreatitis type: unspecified pancreatitis type Acute pancreatitis complication: no infection or necrosis CKD (chronic kidney disease) stage 3, GFR 30-59 ml/min N18.3 AMS (altered mental status) R41.82 Altered mental status type: unspecified Acute UTI N39.0 Pneumonia J18.9 Laterality: unspecified laterality Lung location: unspecified part of lung Pneumonia type: due to unspecified organism SDAT (senile dementia of Alzheimer's type) G30.1; F02.80 Seizure R56.9 (1) Pancreatitis, acute Pancreatitis type: unspecified pancreatitis type Acute pancreatitis complication: no infection or necrosis Qualified Code(s): K85.90 - Acute pa ncreatitis without necrosis or infection, unspecified (2) AMS (altered mental status) Altered mental status type: unspecified Qualified Code(s): R41.82 - Altered mental status, unspecified (3) Pneumonia Laterality: unspecified laterality Lung location: unspecified part of lung Pneumonia type: due to unspecified organism Qualified Code(s): J18.9 - Pneumonia, unspecified organism
[2020-02-06] MEDS ORDERED: LORazepam 0.5 MG/1 ML VIAL IV PRN (17:40)
--- NOTE | 2020-02-06 20:01 | Magnetic Resonance Report ---
Brain MRI WITHOUT CONTRAST HISTORY: seizure TECHNIQUE: Multiplanar multisequence MRI of the brain was performed without the use of contrast. COMPARISON STUDY: Head CT 02/06/2020. FINDINGS: Motion artifact results in suboptimal evaluation. There is an 8 mm focus of restricted diff usion seen within the periventricular white matter of the left frontal parietal region the major vasc ular flow-voids at the skull base are well-maintained. The paranasal sinuses and mastoid air cells ar e clear. Old punctate lacunar infarcts within the cerebellar hemispheres. There is an old right front al and left left occipital lobe infarct with surrounding gliosis. Ventricles and sulci demonstrate ag e-related involutional changes. Periventricular white matter T2 hyperintensity is nonspecific but fav ors microvascular ischemic change. No hematoma or midline shift. IMPRESSION: 1. An 8 mm focus of restricted diffusion within the left periventricular white matter. This favors a small acute infarct. However, consider follow-up study with intravenous contrast to exclude the less likely possibility of an intracranial lesion. 2. Old infarcts as described above. ACT 112: Negative or not required by law. Electronically signed by: Brendan Davis M.D. 02/06/2020 7:59 PM
[2020-02-06] MEDS: SERTRALINE HCL 50 MG TABLET PO SCH (20:42)
[2020-02-06] MEDS: levETIRAcetam 500 MG TAB PO SCH (20:42)
[2020-02-07] MEDS: LEVOTHYROXINE SODIUM 112 MCG TABLET PO SCH (05:55)
[2020-02-07 06:27] LABS: Basophils # (auto) 0.01 K/uL (0-0.2); Basophils % (auto) 0.1 %; Eosinophils # (auto) 0.08 K/uL (0-0.5); Eosinophils % (auto) 0.4 %; Hematocrit (blood only) 41.1 % (37-47); Hemoglobin 13.4 g/dL (12.0-16.0); Immature Granulocytes # (auto) 0.08 K/uL (0.00-0.02); Immature Granulocytes % (auto) 0.4 %; Lymphocytes # (auto) 0.85 K/uL (1.2-3.4); Lymphocytes % (auto) 4.8 %; Mean Corpuscular Hemoglobin 29.1 pg (25-34); Mean Corpuscular Hgb Conc 32.6 g/dL (32-36); Mean Corpuscular Volume 89.3 fL (80-100); Mean Platelet Volume 12.3 fL (7.4-10.4); Monocytes # (auto) 1.73 K/uL (0.11-0.59); Monocytes % (auto) 9.7 %; Neutrophils # (auto) 15.08 K/uL (1.4-6.5); Neutrophils % (auto) 84.6 %; Platelet Count 460 K/uL (130-400); RDW Coefficient of Variation 15.1 % (11.5-14.5); RDW Standard Deviation 48.8 fL (36.4-46.3); White Blood Count 17.83 K/uL (4.8-10.8)
[2020-02-07 07:09] LABS: BUN Creatinine Ratio 7.8 (10-20); Calcium 9.3 mg/dl (8.5-10.1); Creatinine Clr Calc Pharmacy 43.8 ml/min; Est GFR (African American) 80.1; Est GFR (Non-African American) 69.1; Potassium 3.2 mmol/L (3.5-5.1)
[2020-02-07] MEDS ORDERED: POTASSIUM CHLORIDE 20 MEQ TABCR PO STA (08:21)
[2020-02-07] MEDS: HEPARIN SOD 5,000 UNIT/0.5 ML VIAL SQ SCH ×2 (08:32→21:14)
[2020-02-07] MEDS: MAGNESIUM OXIDE 400 MG TAB PO SCH ×2 (08:33→20:20)
[2020-02-07] MEDS: AMLODIPINE BESYLATE 5 MG TAB PO SCH (08:33)
[2020-02-07] MEDS: levETIRAcetam 500 MG TAB PO SCH ×2 (08:33→20:20)
[2020-02-07] MEDS: AMOXICILLIN/CLAVULANATE 875 MG TAB PO SCH ×2 (08:33→17:10)
[2020-02-07] MEDS: AMIODARONE 200 MG TAB PO SCH (08:34)
[2020-02-07] MEDS: METOPROLOL SUCC 25MG EXT REL TAB PO SCH (08:34)
--- NOTE | 2020-02-07 18:06 | Neurology Progress Note ---
Date of Service February 07, 2020 Assessment & Plan (1) Pancreatitis, acute: (2) CKD (chronic kidney disease) stage 3, GFR 30-59 ml/min: (3) AMS (altered mental status): (4) Acute UTI: (5) Pneumonia: (6) SDAT (senile dementia of Alzheimer's type): (7) Seizure: Skyla Cantu is an 79 yo woman w/ PMH of Alzheimer's dementia, hypertension, kidney disease, history of bladder cancer, prior tobacco abuse, hypothyroidism, paroxysmal A. fib not on anticoagulation, ambulatory dysfunction and recent ESBL pneumonia and urinary tract infection who represented to [facility] on 02/02/2020 with worsening mental status and diarrhea, found to have new diagnosis of pancreatitis whom neurology is consulted on for new onset seizure this admission. # Seizure: occurred in the setting of recent pneumonia/UTI, pancreatitis, multiple electrolyte abnormalities, known prior strokes and right after discontinuing ertapenem in the setting of CKD/dementia/being elderly. Suspect that event likely was provoked but cannot rule out lower seizure threshold given prior strokes and bad underlying brain parenchyma. MRI does show subacute infarct, unclear if that is really the cause of her seizure or whether it is more due to the above infections/illness/electrolyte abnormalities. - EEG read pending (please see later report) -Continue Keppra 500mg bid, may need to lower dose if she continues to have behavioral issues. She will need to have Keppra level checked in 1 week to make sure that is therapeutic range. - re-check lytes, Mg/Ca/Phos and replete as needed # Dementia: with acute delirium - recommend delirium precautions - would recommend avoiding benzos/opiates/anticholinergics if at all possible (would consider discontinuing home ativan as this can worsen dementia) Thank you for this interesting consult. Plan of care discussed with primary team. Please call or text with questions. Subjective NAEs overnight. She was more tired today though nursing staff mentioned that she has been moodier/less compliant with care today. Skyla did not voice any concerns. MRI brain performed and independent review notable for a subacute infarct in the left centrum semiovale, chronic infarcts in the left occipital/right thalamus/right frontal lobes, severe generalized atrophy with ex vacuo dilation, moderate to severe small vessel disease. Labs notable for bump in WBCs from 13.5 to 17.8. EEG pending Review of Systems Review of Systems: Unobtainable due to cognitive status Physical Exam Physical Exam: General Exam: GEN: NAD, lying in bed. HEENT: No conjunctival injection, no rhinorrhea. CV: irregularly irregular, no peripheral edema PULM: Nonlabored respirations on 2L NC. Neuro Exam: MS: Drowsy, requires more frequent stimulation to maintain alertness. Oriented to person, being in [place], but not to being in a hospital or date (thought it was January). Paucity of speech. Speech fluent and appropriate without dysarthria or paraphasic errors. Unable to name or repeat, intermittent intact comprehension. Cognition and memory grossly abnormal. Inattentive. No neglect. CN: +blink to threat, could not participate in formal visual field testing given cognitive status. Unable to visualize fundi on fundoscopic exam. PERRLA OU. EOMI. Facial sensation intact to LT. Facial muscles full and symmetric. Hearing intact to conversation. Shoulder shrug normal. Tongue midline. MOTOR: All extremities briefly antigravity with slow drift to bed. Able to wiggle fingers/toes. REFLEXES: Toes upgoing bilaterally. No clonus SENSORY: Intact to LT without extinction to double simultaneous stimuli. Wit hdraws in all extremities to noxious stimuli. COORDINATION: No dysmetria or ataxia on observed movements. GAIT: deferred given physical status/fall risk Results & Data Vital Signs (Past 12 Hours) Vital Signs Temp Pulse Resp BP BP Pulse Ox 02/07/20 15:37 36.5 C 74 20 116/70 99 02/07/20 08:31 36.2 C L 79 16 142/77 H 91 PG Care Time/CCT Total # of Minutes Spent Total Time Spent with Patient: Total time spent is greater than 50% in coordination of care (as documented) at patient's floor/unit and/or counseling patient: Coding Level of Care Code 03485 Subseq Hosp Care Lvl 3 Diagnoses Pancreatitis, acute K85.90 Pancreatitis type: unspecified pancreatitis type Acute pancreatitis complication: no infection or necrosis CKD (chronic kidney disease) stage 3, GFR 30-59 ml/min N18.3 AMS (altered mental status) R41.82 Altered mental status type: unspecified Acute UTI N39.0 Pneumonia J18.9 Laterality: unspecified laterality Lung location: unspecified part of lung Pneumonia type: due to unspecified organism SDAT (senile dementia of Alzheimer's type) G30.1; F02.80 Seizure R56.9 (1) Pancreatitis, acute Pancreatitis type: unspecified pancreatitis type Acute pancreatitis complication: no infection or necrosis Qualified Code(s): K85.90 - Acute pancreatitis without necrosis or infection, unspecified (2) AMS (altered mental status) Altered mental status type: unspecified Qualified Code(s): R41.82 - Altered mental status, unspecified (3) Pneumonia Laterality: unspecified laterality Lung location: unspecified part of lung Pneumonia type: due to unspecified organism Qualified Code(s): J18.9 - Pneumonia, unspecified organism
--- NOTE | 2020-02-07 19:23 | Hospitalist Progress Note ---
Date of Service February 07, 2020 Assessment & Plan (1) Pancreatitis, acute: 79 y/o female h/o atrial fibrillation, Alzheimer's, HTN, HLD, hypothyroidism p/w acute pancreatitis, bilateral pneumonia, [place] seizure - CT neg, MRI ordered, neuro input appreciated. on keppra. small stroke - questionable significance. neuro does not think was culprit for seizure. is not anticoagulated for afib per cardiology and she does have significant fall risk ?possibly related to seizures with hindsight. Pancreatitis, acute - unknown etiology, considering pharmaceutical (amiodarone) v. other cause. appreciate GI input. clinically seems to have resolved. diarrhea -repeat Cdiff negative, likely just abx side effect - seems to be doing better question yeast UTI - seems unlikely - off diflucan doing well. Pneumonia - -finish augmentin CKD III - avoid nephrotoxic medications. Cr improved 0.87 (baseline range) Delirium in the setting of Alzheimer's dementia - previously described as baseline per family. Fall precautions. Paroxysmal atrial fibrillation - not on anticoagulation presently. Continue metoprolol and amiodarone (for now, but may need to hold as it relates to pancreatitis). Holding ASA. HTN - home meds, follow - BP much better today Hypothyroidism - continue levothyroxine. DVT proph - heparin SQ dispo - for SNF / rehab emphasis hopes of return to [facility] - possibly as soon as tomorrow Admission and Anticipated Discharge Date Admission Date: February 01, 2020 Subjective no meaningful HPI or ROS obtainable. no trouble noted by nursing today. neuro input appreciated. Review of Systems Review of Systems: Unobtainable due to cognitive status Physical Exam Physical Exam: pleasant nad heent nc at mmm cardio reg no r/m/g lungs cta b/l no r/r/w good effort skin no rashes no pallor or icterus neuro no focal deficits equal muscle tone Results & Data Results & Data ([facility]) Vital Signs (Past 12 Hours) Vital Signs Temp Pulse Resp BP BP Pulse Ox 02/07/20 15:37 97.7 F 74 20 116/70 99 02/07/20 08:31 97.2 F L 79 16 142/77 H 91 PG Care Time/CCT Total # of Minutes Spent Total Time Spent with Patient: Total time spent is greater than 50% in coordination of care (as documented) at patient's floor/unit and/or counseling patient: Coding Level of Care Code 88416 Subseq Hosp Care Lvl 3 Diagnoses Pancreatitis, acute K85.90 Pancreatitis type: unspecified pancreatitis type Acute pancreatitis complication: no infection or necrosis (1) Pancreatitis, acute Pancreatitis type: unspecified pancreatitis type Acute pancreatitis complication: no infection or necrosis Qualified Code(s): K85.90 - Acute pancreatitis without necrosis or infection, unspecified
[2020-02-07] MEDS: SERTRALINE HCL 50 MG TABLET PO SCH (20:20)
[2020-02-08] MEDS: LEVOTHYROXINE SODIUM 112 MCG TABLET PO SCH ×2 (05:57→06:04)
[2020-02-08 06:06] LABS: Basophils # (auto) 0.01 K/uL (0-0.2); Basophils % (auto) 0.1 %; Eosinophils # (auto) 0.14 K/uL (0-0.5); Eosinophils % (auto) 1.2 %; Hematocrit (blood only) 38.7 % (37-47); Hemoglobin 12.4 g/dL (12.0-16.0); Immature Granulocytes # (auto) 0.05 K/uL (0.00-0.02); Immature Granulocytes % (auto) 0.4 %; Lymphocytes # (auto) 1.32 K/uL (1.2-3.4); Lymphocytes % (auto) 11.2 %; Mean Corpuscular Volume 90.4 fL (80-100); Mean Platelet Volume 11.4 fL (7.4-10.4); Monocytes # (auto) 1.14 K/uL (0.11-0.59); Monocytes % (auto) 9.6 %; Neutrophils # (auto) 9.17 K/uL (1.4-6.5); Neutrophils % (auto) 77.5 %; Platelet Count 451 K/uL (130-400); RDW Coefficient of Variation 15.2 % (11.5-14.5); RDW Standard Deviation 50.2 fL (36.4-46.3); Red Blood Count 4.28 M/uL (4.2-5.4); White Blood Count 11.83 K/uL (4.8-10.8)
[2020-02-08 06:42] LABS: BUN Creatinine Ratio 10.8 (10-20); Calcium 9.3 mg/dl (8.5-10.1); Creatinine Clr Calc Pharmacy 29.7 ml/min; Est GFR (African American) 50.1; Est GFR (Non-African American) 43.2; Potassium 4.1 mmol/L (3.5-5.1)
[2020-02-08] MEDS: AMOXICILLIN/CLAVULANATE 875 MG TAB PO SCH ×2 (08:07→16:14)
[2020-02-08] MEDS: MAGNESIUM OXIDE 400 MG TAB PO SCH (09:32)
[2020-02-08] MEDS: AMLODIPINE BESYLATE 5 MG TAB PO SCH (09:32)
[2020-02-08] MEDS: levETIRAcetam 500 MG TAB PO SCH (09:32)
[2020-02-08] MEDS: HEPARIN SOD 5,000 UNIT/0.5 ML VIAL SQ SCH (09:32)
[2020-02-08] MEDS: AMIODARONE 200 MG TAB PO SCH (09:32)
[2020-02-08] MEDS: METOPROLOL SUCC 25MG EXT REL TAB PO SCH (09:32)
--- NOTE | 2020-02-08 18:38 | Discharge Summary ---
Date of Service February 08, 2020 Admission HPI Per Admitting Provider The patient is a 79-year-old female with a past medical history including urinary tract infections, pneumonia, anemia, renal insufficiency, delirium, acute blood loss anemia, osteoporosis, SDAT, hypothyroidism, hypertension, vitamin D deficiency, pelvic fracture, T12 vertebral compression fracture and paroxysmal atrial fibrillation. She is most recently omitted to [facility] from 01/21-01/29 for E. coli UTI and pneumonia, both of which were treated with Zosyn IV for 7 days. Patient had improved significantly, with normal white blood cell count. During work-up in the emergency department tonight, her WBC was found to be elevated at 23.87, creatinine elevated at 1.35, and hypokalemia with potassium of 3.2. Urinalysis showed no bacteria and no nitrites, but did show budding yeast. Since no definite reason for elevated obesity was found, a CT of abdomen pelvis without contrast was ordered, which revealed bibasilar infiltrates, and inflammation around the pancreatic tail suggestive of pancreatitis. Lipase added at that time was elevated at 1344 confirm the diagnosis of pancreatitis. Principal Diagnosis AMS - see course, multiple possible factors Discharge Exam gen pleasantly confused folding blanket nad heent nc at mmm breathing unlabored no accessory muscles good effort skin no rashes no pallor or icterus neuro no focal deficits Discharge Data Allergies Allergy/AdvReac Type Severity Reaction Status Date / Time No Known Allergies Allergy Verified 02/01/20 17:40 Consultations 02/01/20 19:06 ED Decision to Admit Stat 02/01/20 22:18 Consult Case Management - Discharge Planning Routine 02/03/20 15:16 Consult Gastroenterology Routine 02/06/20 14:08 Consult Neurology Routine Ordered Studies 02/01/20 16:31 CT head/brain wo con Stat 02/01/20 20:23 CT abd pelvis wo con Stat 02/06/20 14:30 CT head/brain wo con Stat 02/06/20 17:20 MR brain wo con Routine Hospital Course (1) Pancreatitis, acute: 79 y/o female h/o atrial fibrillation, Alzheimer's, HTN, HLD, hypothyroidism p/w acute pancreatitis, bilateral pneumonia, ANTONIETTA seizure - most likely due to prior strokes/dementia/brain parenchyma per neuro - doubt acute/subacute stroke played a role - keppra bid, labs next week small stroke - questionable significance. neuro does not think was culprit for seizure. is not anticoagulated for afib per cardiology and she does have significant fall risk ?possibly related to seizures with hindsight. d/w family and continue to hold anticoagulation Pancreatitis, acute - unknown etiology, considering pharmaceutical (amiodarone) v. other cause. appreciate GI input. clinically seems to have resolved, was never very severe. for GI f/u ~8wks considering EUS and awaiting IgG4. for now continue amio diarrhea -repeat Cdiff negative, likely just abx side effect - seems to be doing better question yeast UTI - seems unlikely - off diflucan doing well. Pneumonia - -finish augmentin (1 more day) CKD III - avoid nephrotoxic medications. Cr improved 0.87 (baseline range) Delirium in the setting of Alzheimer's dementia - previously described as baseline per family. Fall precautions. Paroxysmal atrial fibrillation - not on anticoagulation presently. Continue metoprolol and amiodarone (for now, but may need to hold as it relates to pancreatitis). ok to resume asa - can consider dropping to 81mg HTN - continue current meds Hypothyroidism - continue levothyroxine. DVT proph - heparin SQ dispo - for SNF / rehab emphasis hopes of return to [facility] - stable for this today Total Time Total Time Spent Total Time Spent (In Minutes): <30 Discharge Plan Discharge Items Patient Disposition: Transfer Detention Fac Reason For Visit: PANCREATITIS,B/L PNEUMONIA,ANTONIETTA Discharge Diagnosis: altered mental status (see below) Activity: Per Instructions section Activity Comment: PT/OT eval and treat Non-emergency contact: Primary Care Provider and Neurologist Call non-emergency contact if: you have any medication questions and your symptoms worsen Follow-up/Referrals: [facility] [employer] [Primary Care Provider] - Diet: Regular Addtl Attending Provider Instructions: altered mental status -came in with vague symptoms -- may have just been delirium from shifting environments vs small pneumonia; however, pt had short seizure with post-ictal during hospitalization begging the question of if this may be culprit for her AMS seizure -saw by dr szymanski in neurology, felt to be due to 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 has had 6 days of antibiotics - would finish 7 days with augmentin 875mg bid tomorrow then can stop afib -rate has been controlled, deemed not a candidate for anticoagulation by outpt [place] due to frequent falls (in d/w pt's dtr she does fall quite often) -question of amiodarone induced pancreatitis - but really had minimal to no clear pancreatitis symptoms - more findings of inflammation noted on CT - for now outpatient GI follow up but did not alter meds, especially since pt was not symptomatic -incidentally did have small stroke noted on MRI done in w/u for seizure; neuro feels this is incidental finding rather than cause of seizure; d/w family and agree still hold anticoagulation pancreatitis -as above noted - on imaging and lab only (worst lipase 1344, moderate edematous changes as well as peripancreatic infiltrative change at the level of the pancreatic tail and inferior to the spleen) -GI wanted to see in f/u - IgG4 pending, and also wanted to consider EUS in ~8wks -really has not shown any bedside sx c/w pancreatitis CBC, BMP, keppra level next week Pending Studies at Discharge: Yes (IgG4) Stand-Alone Forms: My [facility] Skilled Items Patient informed of condition?: Yes DNR: Yes Discharge Level of Care: Skilled Communicable Disease: No Discharge Prognosis: Stable Lines: None Urinary Catheter: No Medications and DC Order Prescriptions: New amoxicillin-pot clavulanate [Augmentin] 875-125 mg tablet 1 tab PO BID Qty: 3 RF: 0 levetiracetam [Keppra] 500 mg tablet 500 mg PO BID Qty: 60 RF: 0 Continued amiodarone 200 mg tablet 200 mg PO QAM Qty: 90 RF: 3 (DME) gauze bandage [Curad Gauze Pad] 4 X 4 " bandage See Rx Instructions .ROUTE .MEDSUPPLY Qty: 100 RF: 0 aspirin 325 mg tablet 325 mg PO QAM RF: 0 calcium carbonate-vitamin D3 [Oyster Shell Calcium-Vit D3] 500 mg(1,250mg) - 200 unit tablet 1 tab PO QAM RF: 0 acetaminophen 500 mg capsule 500 mg PO DAILY PRN (Reason: Pain) RF: 0 levothyroxine 112 mcg capsule 112 mcg PO QAM RF: 0 melatonin 3 mg capsule 3 mg PO HS RF: 0 sertraline 50 mg Tablet 50 mg PO HS RF: 0 polyethylene glycol 3350 [Miralax] 17 gram powder in packet 17 gm PO DAILY PRN (Reason: Constipation) RF: 0 metoprolol succinate 25 mg tablet extended release 24 hr 25 mg PO QAM RF: 0 diclofenac sodium 1 % Gel 2 g TOPICAL QID PRN (Reason: Pain) RF: 0 amlodipine [Norvasc] 5 mg tablet 5 mg PO QAM RF: 0 cholecalciferol (vitamin D3) [Vitamin D3] 5,000 unit Tablet 5,000 units PO QAM RF: 0 Discontinued lorazepam 0.5 mg tablet 0.5 mg PO Q8H PRN (Reason: severe restlessness) RF: 0 ibuprofen 200 mg Tablet 200 mg PO Q4H MDD 6 TABS/24 HOURS. PRN (Reason: Pain) RF: 0 Discharge Orders: Discharge Order (Routine); Ordered 02/08/20 Ordered By: Shawn Alicea Admission Data Admit Date/Time: 02/01/20 21:39 Attending Provider: Shawn Alicea Admit Provider: Lei Pinto Primary Care Provider: [employer] Other Providers: Lei Pinto ; Emy Rosas ; Guillermo Sanchez ; [facility] ; [facility] ; [facility] ; Ashley Szymanski. Other Interventions: Discharge Summary Assessment (RN) Last Done: 02/08/20 15:43 DC Date/Time DO NOT enter until pt leaves facility: 02/08/20 16:40 Coding Level of Care Code D/C Day Management <30 mins Diagnoses Pancreatitis, acute K85.90 Pancreatitis type: unspecified pancreatitis type Acute pancreatitis complication: no infection or necrosis
--- NOTE | 2020-02-08 19:23 | Electroencephalogram ---
EEG Procedure Note Date of Service February 08, 2020 Start / End Times Start Time: 7:27am End Time: 7:47am Referring Physician Shawn Alicea History possible new onset seizure Home Medication List Home Medications Medication Instructions Recorded Confirmed Type cholecalciferol (vitamin D3) 5,000 units PO QAM 08/29/18 02/01/20 History [Vitamin D3] amiodarone 200 mg tablet 200 mg PO QAM #90 tab 07/20/19 02/01/20 Rx gauze bandage 4" X 4" #100 ea 11/09/19 11/09/19 Rx acetaminophen 500 mg capsule 500 mg PO DAILY PRN cap 12/25/19 02/01/20 History aspirin 325 mg tablet 325 mg PO QAM 12/25/19 02/01/20 History calcium carbonate 500 mg (1,250 1 tab PO QAM 12/25/19 02/01/20 History mg)-vitamin D3 200 unit tablet levothyroxine 112 mcg capsule 112 mcg PO QAM 12/25/19 02/01/20 History melatonin 3 mg capsule 3 mg PO HS 12/25/19 02/01/20 History metoprolol succinate 25 mg PO QAM 01/17/20 02/01/20 History polyethylene glycol 3350 [Miralax] 17 gm PO DAILY PRN 01/17/20 02/01/20 History sertraline 50 mg PO HS 01/17/20 02/01/20 History amlodipine [Norvasc] 5 mg PO QAM 02/01/20 02/01/20 History diclofenac sodium 2 g TOPICAL QID PRN 02/01/20 02/01/20 History amoxicillin-pot clavulanate 1 tab PO BID #3 tab 02/08/20 Rx [Augmentin] levetiracetam [Keppra] 500 mg PO BID #60 tab 02/08/20 Rx Inpatient Medication List Discontinued Medications [facility]) [facility] [place] Stop: 03/03/20 08:59 Last Admin: 02/08/20 09:32 Dose: 200 mg Documented by: [id number] Admin: 02/07/20 08:34 Dose: 200 mg Documented by: [id number] Admin: 02/06/20 08:14 Dose: 200 mg Documented by: [id number] Admin: 02/05/20 08:11 Dose: 200 mg Documented by: [id number] Admin: 02/04/20 08:13 Dose: 200 mg Documented by: [id number] Admin: 02/03/20 08:11 Dose: 200 mg Documented by: [id number] Admin: 02/02/20 08:01 Dose: 200 mg Documented by: [id number] Amlodipine Besylate (Norvasc) 5 mg PO QAM [facility] Stop: 03/04/20 18:44 Last Admin: 02/08/20 09:32 Dose: 5 mg Documented by: [id number] Admin: 02/07/20 08:33 Dose: 5 mg Documented by: [id number] Admin: 02/06/20 08:14 Dose: 5 mg Documented by: [id number] Admin: 02/05/20 08:11 Dose: 5 mg Documented by: [id number] Admin: 02/04/20 08:12 Dose: 5 mg Documented by: [id number] Admin: 02/03/20 21:14 Dose: 5 mg Documented by: [id number] Amoxicillin/Clavulanate Potassium (Augmentin 875mg) 1 tab PO BIDM [facility]; Protocol Stop: 02/12/20 16:59 Last Admin: 02/08/20 16:14 Dose: 1 tab Documented by: [id number] Admin: 02/08/20 08:07 Dose: 1 tab Documented by: [id number] Admin: 02/07/20 17:10 Dose: 1 tab Documented by: [id number] Admin: 02/07/20 08:33 Dose: 1 tab Documented by: [id number] Admin: 02/06/20 17:00 Dose: 1 tab Documented by: [id number] Admin: 02/06/20 08:13 Dose: 1 tab Documented by: [id number] Admin: 02/05/20 17:23 Dose: 1 tab Documented by: [id number] Heparin Sodium (Porcine) (Heparin Sodium (Porcine)) 5,000 units SQ Q12 [facility] Stop: 03/03/20 08:59 Last Admin: 02/08/20 09:32 Dose: 5,000 units Documented by: [id number] Cosigned by: [id number] Admin: 02/07/20 21:14 Dose: Not Given Documented by: [id number] Admin: 02/07/20 08:32 Dose: 5,000 units Documented by: [id number] Cosigned by: [id number] Admin: 02/06/20 20:43 Dose: 5,000 units Documented by: [id number] Cosigned by: [id number] Admin: 02/06/20 08:14 Dose: 5,000 units Documented by: [id number] Cosigned by: [id number] Admin: 02/05/20 20:50 Dose: 5,000 units Documented by: [id number] Cosigned by: [id number] Admin: 02/05/20 08:11 Dose: 5,000 units Documented by: [id number] Cosigned by: [id number] Admin: 02/04/20 21:02 Dose: 5,000 units Documented by: [id number] Cosigned by: [id number] Admin: 02/04/20 09:55 Dose: 5,000 units Documented by: [id number] Cosigned by: [id number] Admin: 02/03/20 21:15 Dose: 5,000 units Documented by: [id number] Cosigned by: [id number] Admin: 02/03/20 08:11 Dose: 5,000 units Documented by: [id number] Cosigned by: [id number] Admin: 02/02/20 21:06 Dose: Not Given Documented by: [id number] Admin: 02/02/20 08:01 Dose: Not Given Documented by: [id number] Sodium Chloride (Nss) 500 mls @ 999 mls/hr IV .Q31M ONE Stop: 02/01/20 17:01 Last Infusion: 02/01/20 18:43 Dose: 0 mls/hr Documented by: [id number] Admin: 02/01/20 17:18 Dose: 999 mls/hr Documented by: [id number] Ertapenem (Invanz) 10 mls @ 2 mls/min IV NOW STA Stop: 02/01/20 18:12 Last Admin: 02/01/20 18:40 Dose: 2 mls/min Documented by: [id number] Vancomycin HCl 1,250 mg/ (Sodium Chloride) 275 mls @ 125 mls/hr IV NOW ONE; Pr otocol Stop: 02/02/20 01:11 Last Infusion: 02/02/20 02:03 Dose: 0 mls/hr Documented by: [id number] Admin: 02/01/20 23:42 Dose: 125 mls/hr Documented by: [id number] Ertapenem 1,000 mg/ Sodium (Chloride) 60 mls @ 100 mls/hr IV Q24H [facility]; Protocol Stop: 02/08/20 17:59 Last Infusion: 02/04/20 19:33 Dose: 0 mls/hr Documented by: [id number] Admin: 02/04/20 18:55 Dose: 100 mls/hr Documented by: [id number] Infusion: 02/03/20 18:52 Dose: 0 mls/hr Documented by: [id number] Admin: 02/03/20 18:06 Dose: 100 mls/hr Documented by: [id number] Infusion: 02/02/20 19:10 Dose: 0 mls/hr Documented by: [id number] Admin: 02/02/20 17:51 Dose: 100 mls/hr Documented by: [id number] Potassium Chloride/Sodium Chloride (Normal Saline W/20 Meq Kcl) 20 meq in 1,000 mls @ 100 mls/hr IV .Q10H [facility] Stop: 03/02/20 22:29 Last Infusion: 02/04/20 09:56 Dose: 0 mls/hr Documented by: [id number] Admin: 02/04/20 02:45 Dose: 100 mls/hr Documented by: [id number] Infusion: 02/04/20 02:45 Dose: 0 mls/hr Documented by: [id number] Admin: 02/03/20 16:36 Dose: 100 mls/hr Documented by: [id number] Infusion: 02/03/20 16:17 Dose: 100 mls/hr Documented by: [id number] Admin: 02/03/20 06:17 Dose: 100 mls/hr Documented by: [id number] Infusion: 02/03/20 06:17 Dose: 100 mls/hr Documented by: [id number] Admin: 02/02/20 22:17 Dose: 100 mls/hr Documented by: [id number] Infusion: 02/02/20 18:01 Dose: 100 mls/hr Documented by: [id number] Admin: 02/02/20 08:01 Dose: 100 mls/hr Documented by: [id number] Infusion: 02/02/20 08:01 Dose: 100 mls/hr Documented by: [id number] Admin: 02/01/20 23:42 Dose: 100 mls/hr Documented by: [id number] Fluconazole (Diflucan) 200 mg in 100 mls @ 100 mls/hr IV NOW ONE; Protocol Stop: 02/02/20 00:29 Last Infusion: 02/02/20 00:38 Dose: 0 mls/hr Documented by: [id number] Admin: 02/01/20 23:43 Dose: 100 mls/hr Documented by: [id number] Fluconazole (Diflucan) 100 mg in 50 mls @ 100 mls/hr IV Q24H [facility]; Protocol Stop: 02/11/20 19:59 Last Infusion: 02/04/20 21:31 Dose: 0 mls/hr Documented by: [id number] Admin: 02/04/20 21:01 Dose: 100 mls/hr Documented by: [id number] Infusion: 02/03/20 22:01 Dose: 0 mls/hr Documented by: [id number] Admin: 02/03/20 21:12 Dose: 100 mls/hr Documented by: [id number] Infusion: 02/02/20 22:20 Dose: 0 mls/hr Documented by: [id number] Admin: 02/02/20 21:48 Dose: 100 mls/hr Documented by: [id number] Vancomycin HCl 750 mg/ Sodium (Chloride) 265 mls @ 125 mls/hr IV Q24H [facility] Stop: 02/08/20 21:59 Last Infusion: 02/04/20 01:43 Dose: 0 mls/hr Documented by: [id number] Admin: 02/03/20 22:00 Dose: 125 mls/hr Documented by: [id number] Infusion: 02/03/20 00:59 Dose: 0 mls/hr Documented by: [id number] Admin: 02/02/20 22:17 Dose: 125 mls/hr Documented by: [id number] Lactated Ringer's (Lr) 1,000 mls @ 100 mls/hr IV .Q10H [facility] Stop: 03/05/20 08:59 Last Infusion: 02/06/20 08:55 Dose: 0 mls/hr Documented by: [id number] Admin: 02/06/20 01:07 Dose: 100 mls/hr Documented by: [id number] Infusion: 02/06/20 01:07 Dose: 100 mls/hr Documented by: [id number] Admin: 02/05/20 15:20 Dose: 100 mls/hr Documented by: [id number] Infusion: 02/05/20 15:20 Dose: 100 mls/hr Documented by: [id number] Admin: 02/05/20 05:58 Dose: 100 mls/hr Documented by: [id number] Infusion: 02/05/20 05:58 Dose: 100 mls/hr Documented by: [id number] Admin: 02/04/20 21:37 Dose: 100 mls/hr Documented by: [id number] Infusion: 02/04/20 20:35 Dose: 100 mls/hr Documented by: [id number] Infusion: 02/04/20 19:36 Dose: 100 mls/hr Documented by: [id number] Infusion: 02/04/20 18:56 Dose: 0 mls/hr Documented by: [id number] Admin: 02/04/20 09:55 Dose: 100 mls/hr Documented by: [id number] Lorazepam (Ativan) 0.5 mg in 1 mls @ 0.5 mls/min IV UD PRN PRN Reason: MRI sedation Stop: 03/07/20 17:39 Last Admin: 02/06/20 18:21 Dose: 0.5 mls/min Documented by: [id number] Levetiracetam (Keppra) 500 mg PO BID [facility] Stop: 03/07/20 20:59 Last Admin: 02/08/20 09:32 Dose: 500 mg Documented by: [id number] Admin: 02/07/20 20:20 Dose: 500 mg Documented by: [id number] Admin: 02/07/20 08:33 Dose: 500 mg Documented by: [id number] Admin: 02/06/20 20:42 Dose: 500 mg Documented by: [id number] Levothyroxine Sodium (Synthroid) 112 mcg PO DAILYBB [facility] Stop: 03/03/20 06:29 Last Admin: 02/08/20 06:04 Dose: Not Given Documented by: [id number] Admin: 02/07/20 05:55 Dose: 112 mcg Documented by: [id number] Admin: 02/06/20 05:45 Dose: 112 mcg Documented by: [id number] Admin: 02/05/20 05:56 Dose: 112 mcg Documented by: [id number] Admin: 02/04/20 06:06 Dose: 112 mcg Documented by: [id number] Admin: 02/03/20 06:17 Dose: 112 mcg Documented by: [id number] Admin: 02/02/20 06:29 Dose: 112 mcg Documented by: [id number] Magnesium Oxide (Mag-Ox) 400 mg PO BID [facility] Stop: 03/05/20 20:59 Last Admin: 02/08/20 09:32 Dose: 400 mg Documented by: [id number] Admin: 02/07/20 20:20 Dose: 400 mg Documented by: [id number] Admin: 02/07/20 08:33 Dose: 400 mg Documented by: [id number] Admin: 02/06/20 20:43 Dose: 400 mg Documented by: [id number] Admin: 02/06/20 08:15 Dose: 400 mg Documented by: [id number] Admin: 02/05/20 20:50 Dose: 400 mg Documented by: [id number] Admin: 02/05/20 08:11 Dose: 400 mg Documented by: [id number] Admin: 02/04/20 21:05 Dose: 400 mg Documented by: [id number] Metoprolol Succinate (Toprol Xl) 25 mg PO QA [facility] Stop: 03/06/20 08:59 Last Admin: 02/08/20 09:32 Dose: 25 mg Documented by: [id number] Admin: 02/07/20 08:34 Dose: 25 mg Documented by: [id number] Admin: 02/06/20 08:14 Dose: 25 mg Documented by: [id number] Admin: 02/05/20 08:11 Dose: 25 mg Documented by: [id number] Potassium Chloride (Klor-Con M20) 40 meq PO NOW STA Stop: 02/07/20 08:22 Last Admin: 02/07/20 08:41 Dose: 40 meq Documented by: [id number] Sertraline HCl (Zoloft) 50 mg PO HS [facility] Stop: 03/03/20 20:59 Last Admin: 02/07/20 20:20 Dose: 50 mg Documented by: [id number] Admin: 02/06/20 20:42 Dose: 50 mg Documented by: [id number] Admin: 02/05/20 20:50 Dose: 50 mg Documented by: [id number] Admin: 02/04/20 21:02 Dose: 50 mg Documented by: [id number] Admin: 02/03/20 21:19 Dose: 50 mg Documented by: [id number] Admin: 02/02/20 21:05 Dose: 50 mg Documented by: [id number] Description This is a 21 electrode EEG with a single channel dedicated to limited EKG. The electrodes were placed in accordance with the International 10-20 system. History: 79 yo woman with PMH of dementia found to have possible seizure Rx: keppra, sertraline Start/Stop: 7:27am/7:47am Attending reading: Ashley Szymanski EEG Description: EEG background: Background was predominantly symmetric 5-7 Hz theta slowing with additional right frontal slowing that became more apparent as she entered drowsiness. A brief well formed 5-6 Hz posterior dominant rhythm was observed. The EEG is continuous. There is variability and reactivity present. Activation and reactivity: Photic stimulation performed without any abnormalities noted. No photic driving observed. Hyperventilation was not performed. Sleep: Patient was drowsy and entered higher levels of sleep. Stage I of sleep were recorded with normal vertex waves noted. Epileptiform discharges: No clear epileptiform discharges were observed. Rhythmic and periodic patterns: None Seizures: None Impression: This was an abnormal EEG given generalized slowing which can be attributed to her underlying dementia and likely toxic-metabolic encephalopathy. Right frontal slowing is likely related to prior known right frontal stroke. No clear seizures or epileptiform discharges were seen. [facility] EEG Procedure Codes Indication for Procedure (1) AMS (altered mental status): (2) Seizure: Neurology Neurology: [id number] EEG include record awake & sleepy
--- NOTE | 2020-02-08 20:00 | Neurology Progress Note ---
Date of Service February 08, 2020 Assessment & Plan (1) AMS (altered mental status): (2) Seizure: Skyla Cantu is an 79 yo woman w/ PMH of Alzheimer's dementia, hypertension, kidney disease, history of bladder cancer, prior tobacco abuse, hypothyroidism, paroxysmal A. fib not on anticoagulation, ambulatory dysfunction and recent ESBL pneumonia and urinary tract infection who represented to [facility] on 02/02/2020 with worsening mental status and diarrhea, found to have new diagnosis of pancreatitis whom neurology is consulted on for new onset seizure this admission. # Seizure: occurred in the setting of recent pneumonia/UTI, pancreatitis, mult iple electrolyte abnormalities, known prior strokes and right after discontinuing ertapenem in the setting of CKD/dementia/being elderly. Suspect that event likely was provoked but cannot rule out lower seizure threshold given prior strokes and bad underlying brain parenchyma. MRI does show subacute infarct, unclear if that is really the cause of her seizure or whether it is more due to the above infections/illness/electrolyte abnormalities. EEG reviewed, shows generalized slowing with focal slowing in the right frontal lobe likely related to prior stroke. -Continue Keppra 500mg bid, may need to lower dose if she has behavioral issues. - She will need to have Keppra level checked in 1 week (02/14/20) to make sure that is therapeutic range. - she can follow up with a telehealth appt with a family member to assist in 4-6 weeks # Dementia: with acute delirium - recommend delirium precautions - would recommend avoiding benzos/opiates/anticholinergics if at all possible (would consider discontinuing home ativan as this can worsen dementia) Thank you for this interesting consult. Plan of care discussed with primary team. Please call or text with questions. Subjective NAEs overnight. Much more alert today. Was sitting in chair and answering some questions. Review of Systems Review of Systems: Unobtainable due to cognitive status Physical Exam Physical Exam: General Exam: GEN: NAD, sitting in chair. HEENT: No conjunctival injection, no rhinorrhea. CV: irregularly irregular, no peripheral edema PULM: Nonlabored respirations on room air. Neuro Exam: MS: Awake, alert. Oriented to person, being in a hospital but nor location or date (thought it was January). Paucity of speech. Speech fluent and appropriate without dysarthria or paraphasic errors. Unable to name or repeat, intermittent intact comprehension. Cognition and memory grossly abnormal. Inattentive. No neglect. CN: +blink to threat, could not participate in formal visual field testing given cognitive status. Unable to visualize fundi on fundoscopic exam. PERRLA OU. EOMI. Facial sensation intact to LT. Facial muscles full and symmetric. Hearing intact to conversation. Shoulder shrug normal. Tongue midline. MOTOR: All extremities briefly antigravity with slow drift to bed. Able to wiggle fingers/toes. REFLEXES: Toes upgoing bilaterally. No clonus SENSORY: Intact to LT without extinction to double simultaneous stimuli. Withdraws in all extremities to noxious stimuli. COORDINATION: No dysmetria or ataxia on observed movements. GAIT: deferred given physical status/fall risk Results & Data Vital Signs (Past 12 Hours) Vital Signs Temp Pulse Resp BP BP Pulse Ox 02/08/20 15:43 36.5 C 63 18 113/70 116/76 93 02/08/20 15:41 36.5 C 63 18 116/76 93 02/08/20 09:11 90 PG Care Time/CCT Total # of Minutes Spent Total Time Spent with Patient: Total time spent is greater than 50% in coordination of care (as documented) at patient's floor/unit and/or counseling patient: Coding Level of Care Code 34545 Subseq Hosp Care Lvl 3 Diagnoses AMS (altered mental status) R41.82 Altered mental status type: unspecified Seizure R56.9 (1) AMS (altered mental status) Altered mental status type: unspecified Qualified Code(s): R41.82 - Altered mental status, unspecified
== END 2020-02-08 16:40 | DRG 438 ==
LOC: ED 16:20 → 2N 21:39 → SUATTDRO 21:39 → 2N 22:00